=== PATIENT | female | born 1955 | race Caucasian/White ===

== ENCOUNTER → 2020-08-15 14:37 | Outpatient (BNVA) | payer MEDICARE, MEDICAID, SELFPAY | PROVIDERS: PCP Internal Medicine Cardiovascular Disease; Referring Provider Internal Medicine Cardiovascular Disease; Visit Provider Internal Medicine Cardiovascular Disease | DX: I48.0 Paroxysmal atrial fibrillation (principal); Z51.81 Encounter for therapeutic drug level monitoring; Z79.01 Long term (current) use of anticoagulants | CPT/HCPCS: 85610; 99211 ==

== ENCOUNTER 2020-08-15 19:37 | Outpatient (REF) | payer MEDICARE, MEDICAID, SELFPAY | END 2020-08-15 19:38 | disposition home or self-care (01) | LOC: HO.LNP 19:37 | PROVIDERS: Visit Provider Internal Medicine Cardiovascular Disease | DX: Z76.89 Persons encountering health services in other specified circumstances (principal) ==

== ENCOUNTER → 2020-09-03 13:33 | Outpatient (BNVA) | payer MEDICARE, MEDICAID, SELFPAY | PROVIDERS: PCP Internal Medicine; Referring Provider Internal Medicine Cardiovascular Disease; Visit Provider Internal Medicine | DX: I48.0 Paroxysmal atrial fibrillation (principal); Z51.81 Encounter for therapeutic drug level monitoring; Z79.01 Long term (current) use of anticoagulants | CPT/HCPCS: 85610 ==

== ENCOUNTER → 2020-09-10 14:21 | Outpatient (BNVA) | payer MEDICARE, MEDICAID, SELFPAY | PROVIDERS: PCP Internal Medicine; Referring Provider Internal Medicine; Visit Provider Internal Medicine | DX: I48.0 Paroxysmal atrial fibrillation (principal); Z51.81 Encounter for therapeutic drug level monitoring; Z79.01 Long term (current) use of anticoagulants | CPT/HCPCS: 85610; 99211 ==

== ENCOUNTER → 2020-09-24 13:49 | Outpatient (BNVA) | payer MEDICARE, MEDICAID, SELFPAY | PROVIDERS: PCP Internal Medicine; Visit Provider Internal Medicine | DX: I48.0 Paroxysmal atrial fibrillation (principal); Z51.81 Encounter for therapeutic drug level monitoring; Z79.01 Long term (current) use of anticoagulants | CPT/HCPCS: 85610; 99211 ==

== ENCOUNTER → 2020-10-07 13:46 | Outpatient (BNVA) | payer MEDICARE, MEDICAID, SELFPAY | PROVIDERS: PCP Internal Medicine; Referring Provider Internal Medicine; Visit Provider Internal Medicine | DX: I48.0 Paroxysmal atrial fibrillation (principal); Z51.81 Encounter for therapeutic drug level monitoring; Z79.01 Long term (current) use of anticoagulants | CPT/HCPCS: 85610; 99211 ==

== ENCOUNTER → 2020-10-08 08:35 | Outpatient (BNVA) | payer MEDICARE, MEDICAID, SELFPAY | PROVIDERS: PCP Internal Medicine; Referring Provider Internal Medicine; Visit Provider Nurse Practitioner Gerontology | DX: E11.21 Type 2 diabetes mellitus with diabetic nephropathy (principal); E11.22 Type 2 diabetes mellitus with diabetic chronic kidney disease; E11.65 Type 2 diabetes mellitus with hyperglycemia; E11.42 Type 2 diabetes mellitus with diabetic polyneuropathy; E11.3599 Type 2 diabetes mellitus with proliferative diabetic retinopathy without macular edema, unspecified eye; N18.5 Chronic kidney disease, stage 5; I25.10 Atherosclerotic heart disease of native coronary artery without angina pectoris; I10 Essential (primary) hypertension; Z79.4 Long term (current) use of insulin; Z79.899 Other long term (current) drug therapy; Z99.2 Dependence on renal dialysis | CPT/HCPCS: Q3014 ==

== ENCOUNTER → 2020-10-15 13:32 | Outpatient (BNVA) | payer MEDICARE, MEDICAID, SELFPAY | PROVIDERS: PCP Internal Medicine; Visit Provider Internal Medicine | DX: I48.0 Paroxysmal atrial fibrillation (principal); Z51.81 Encounter for therapeutic drug level monitoring; Z79.01 Long term (current) use of anticoagulants | CPT/HCPCS: 85610; 99211 ==

== ENCOUNTER → 2020-10-17 08:48 | Outpatient (BNVA) | payer MEDICARE, MEDICAID, SELFPAY | PROVIDERS: PCP Internal Medicine; Referring Provider Internal Medicine; Visit Provider Internal Medicine Gastroenterology | DX: Z76.89 Persons encountering health services in other specified circumstances (principal) | CPT/HCPCS: Q3014 ==

== ENCOUNTER 2020-10-24 10:09 | Outpatient (REF) | payer MEDICARE, MEDICAID, SELFPAY | END 2020-10-24 10:10 | disposition home or self-care (01) | LOC: HO.LAB 10:09 | PROVIDERS: Visit Provider Internal Medicine | DX: Z20.828 Contact with and (suspected) exposure to other viral communicable diseases (principal) | CPT/HCPCS: C9803; U0003 ==

== ENCOUNTER → 2020-11-12 13:27 | Outpatient (BNVA) | payer MEDICARE, MEDICAID, SELFPAY | PROVIDERS: PCP Internal Medicine; Visit Provider Internal Medicine | DX: Z20.828 Contact with and (suspected) exposure to other viral communicable diseases (principal) | CPT/HCPCS: 85610; 99211 ==

== ENCOUNTER → 2020-11-18 11:29 | Outpatient (BNVA) | payer MEDICARE, MEDICAID, SELFPAY | PROVIDERS: PCP Internal Medicine; Visit Provider Nurse Practitioner Gerontology | DX: Z13.89 Encounter for screening for other disorder (principal) | CPT/HCPCS: Q3014 ==

== ENCOUNTER → 2020-11-21 13:24 | Outpatient (BNVA) | payer MEDICARE, MEDICAID, SELFPAY | PROVIDERS: PCP Internal Medicine; Visit Provider Internal Medicine | DX: I48.0 Paroxysmal atrial fibrillation (principal); Z79.01 Long term (current) use of anticoagulants; Z51.81 Encounter for therapeutic drug level monitoring | CPT/HCPCS: 85610; 99211 ==

== ENCOUNTER → 2020-11-28 12:36 | Outpatient (BNVA) | payer MEDICARE, MEDICAID, SELFPAY | PROVIDERS: PCP Internal Medicine; Visit Provider Internal Medicine Cardiovascular Disease | DX: R01.1 Cardiac murmur, unspecified (principal); I11.0 Hypertensive heart disease with heart failure; I50.30 Unspecified diastolic (congestive) heart failure; I48.0 Paroxysmal atrial fibrillation; I25.10 Atherosclerotic heart disease of native coronary artery without angina pectoris | CPT/HCPCS: 93005; 99212 ==

== ENCOUNTER → 2020-12-05 13:36 | Outpatient (BNVA) | payer MEDICARE, MEDICAID, SELFPAY | PROVIDERS: PCP Internal Medicine; Visit Provider Internal Medicine | DX: I48.0 Paroxysmal atrial fibrillation (principal); Z79.01 Long term (current) use of anticoagulants; Z51.81 Encounter for therapeutic drug level monitoring | CPT/HCPCS: 85610; 99211 ==

== ENCOUNTER → 2020-12-17 09:24 | Outpatient (BNVA) | payer MEDICARE, MEDICAID, SELFPAY | PROVIDERS: PCP Internal Medicine; Visit Provider Nurse Practitioner Gerontology | DX: Z76.89 Persons encountering health services in other specified circumstances (principal) | CPT/HCPCS: Q3014 ==

== ENCOUNTER → 2020-12-19 13:19 | Outpatient (REF) | payer MEDICARE, MEDICAID, SELFPAY ==
--- NOTE | 2020-12-19 13:23 | CA_ITS ---
Transthoracic Echocardiogram Patient (Last, First, Middle): Jenaro Mckenna M Gender: Female Date of : 1955 Age: 65 Procedure Date: 12/19/2020 Procedure Type: Transthoracic Echocardiogram Location: OP Height: 154.94 cm Weight: 77.11 kg BSA: 1.76 m2 Heart Rate: bpm BP: 132 / 70 mmHg Die Holder: ZACH Referring MD: Raudel Banks MD Symptoms: I50.30 - Unspecified diastolic (congestive) heart failure Study Quality: Fair ECG Rhythm: Sinus Conclusions: - The left ventricular systolic function is normal. The visually estimated ejection fraction is between 65-70%. - Evidence suggests grade II (moderate) diastolic dysfunction. - There is moderately decreased right ventricular systolic function. - There is mild calcification of the aortic valve. - There is mild mitral annular calcification. - Mild pulmonary hypertension is present. Findings Left Ventricle Normal left ventricular cavity size. There is normal left ventricular wall thickness. The left ventricular systolic function is normal. The visually estimated ejection fraction is between 65-70%. There is no evidence of regional wall motion abnormalities. E/E prime ratio is >15, consistent with elevated filling pressures. Evidence suggests grade II (moderate) diastolic dysfunction. Right Ventricle Normal right ventricular cavity size. There is moderately decreased right ventricular systolic function. Aortic Valve There is a normal trileaflet aortic valve. There is mild calcification of the aortic valve. There is no aortic valve stenosis. There is trace (trivial) aortic valve regurgitation. Mitral Valve There is mild mitral annular calcification. There is mild mitral valve regurgitation. There is no mitral valve stenosis. Pulmonic Valve The pulmonic valve was not well visualized. There is mild pulmonic valve regurgitation. Tricuspid Valve Normal tricuspid valve structure. There is trace tricuspid valve regurgitation. The right ventricular systolic pressure is 35 mmHg. Mild pulmonary hypertension is present. Great Vessels The asc aorta is normal in size. Venous The inferior vena cava is normal in size. Pericardium/Pleural There is a trivial pericardial effusion. Prior Study Comparison No significant change compared to prior study dated: 08/03/2019. Measurements M-Mode Liner Measurements Normals - Women/Men AOV Cusps: 2.00 1.5-2.6 cm/m2 2D Linear Measurements IVSd: 0.93 0.6-0.9/0.6-1.0 cm LVIDd: 4.48 3.9-5.3/4.2-5.9 cm LVIDd Index: 2.55 2.4-3.2/2.2-3.1 cm/m2 LVIDs: 2.40 2.0-3.6 cm LVPWd: 0.94 0.7-1.1 cm Ao Root: 3.40 2.1-3.5 cm LA Diam: 4.20 2.7-3.8/3.0-4.0 cm LAIDs Index: 2.39 1.5-2.3 cm/m2 LV Mass: 172.78 67-162/88-224 g LV Mass Index: 98.17 43-95/49-115 g/m2 LVOT Diam: 1.80 3.0+(-)1.3 cm 2D Systolic Function EF 4C: 69.60 >55% EF 2C: 66.00 >55% EF BiP: 68.50 >55% Mitral Valve MV Pk E: 1.28 MV PK A: 0.82 MV Decel Time: 151.00 E/A: 1.60 E'Lateral: 7.56 E'Medial: 3.57 E/E' Med: 35.90 E/E' Lat: 16.90 PHT: 44.00 MVA PHT: 5.00 Decel Benzie: 8.43 Aortic Valve AoV Pk Pancho: 1.67 AoV Pk Grad: 11.00 AI Pk Pancho: 3.72 AI Benzie: 0.98 LVOT LVOT Pk Pancho: 0.78 LVOT Mn Pancho: 0.58 LVOT VTI: 0.22 LVOT Pk Grad: 2.00 LVOT Mn Grad: 2.00 LVOT Diam: 1.80 LVOT Area: 2.54 Diastolic Function MV Pk E: 1.28 MV Pk A: 0.82 E/A: 1.60 E'Medial: 3.57 E/E' Med: 35.90 E' Laterial: 7.56 E/E' Lat: 16.90 Tricuspid Valve TR Pk Pancho: 2.83 TR Pk Grad: 32.00 RA Press: 3.00 RVSP: 35.00 Great Vessels Aorta Ao Root-2D: 3.40 2.0-3.7 cm Ao Asc: 3.40 2.1-3.4 cm Pulmonary Valve PV Pk Pancho: 0.96 Peak PV Grad: 4.00 Updated in Other Vendor System with Status of Final Sergey Almaguer MD electronically signed on 12/21/2020 12:53:58 PM with status of Final
== END ==
LOC: HO.CARD 13:19
PROVIDERS: Visit Provider Internal Medicine Cardiovascular Disease
DX: I25.10 Atherosclerotic heart disease of native coronary artery without angina pectoris (principal); I48.0 Paroxysmal atrial fibrillation; I10 Essential (primary) hypertension; I50.30 Unspecified diastolic (congestive) heart failure
CPT/HCPCS: 93306

== ENCOUNTER → 2020-12-31 13:46 | Outpatient (BNVA) | payer MEDICARE, MEDICAID, SELFPAY | PROVIDERS: PCP Internal Medicine; Visit Provider Internal Medicine | DX: I48.0 Paroxysmal atrial fibrillation (principal); Z51.81 Encounter for therapeutic drug level monitoring; Z79.01 Long term (current) use of anticoagulants | CPT/HCPCS: 85610; 99211 ==

== ENCOUNTER 2021-01-07 11:17 | Outpatient (REF) | payer MEDICARE, MEDICAID, SELFPAY ==
--- NOTE | ~2021-01-07 | MM_ITS ---
EXAMINATION: MM SCREENING DIGITAL BREAST TOMOSYNTHESIS, BILATERAL CLINICAL INFORMATION: Screening. Asymptomatic. The lifetime risk of breast cancer based on the Tyrer-Cuzick Model is 8%. COMPARISON: Mammography: 08/03/2019, 06/27/2018, 05/24/2017 TECHNIQUE: Digital breast tomosynthesis is performed in both the craniocaudal and mediolateral oblique views along with computer-aided detection (CAD). Synthesized 2D images are generated from the tomosynthesis. Additional left MLO view is provided. FINDINGS: There are scattered areas of fibroglandular density (ACR BI-RADS breast composition Category b). There are no significant masses, abnormal calcifications, or other abnormalities. Parenchymal pattern is similar to prior studies. There are scattered bilateral vascular and some round calcifications again seen. No significant changes. MM/MM tomosynthesis screening BI IMPRESSION: No mammographic evidence of malignancy. ASSESSMENT: BI-RADS 1: Negative RECOMMENDATION: Routine annual mammography screening. This patient's information was entered into a reminder system with a target due date for their next mammogram.
== END 2021-01-07 11:18 | disposition home or self-care (01) ==
LOC: HO.MAMMO 11:17
PROVIDERS: PCP Internal Medicine; Visit Provider Internal Medicine
DX: I48.0 Paroxysmal atrial fibrillation (principal); Z12.31 Encounter for screening mammogram for malignant neoplasm of breast; Z51.81 Encounter for therapeutic drug level monitoring; Z79.01 Long term (current) use of anticoagulants
CPT/HCPCS: 77063; 77067; 85610; 99211

== ENCOUNTER 2021-01-21 10:51 | Outpatient (REF) | payer MEDICARE, MEDICAID, SELFPAY ==
[2021-01-21 13:21] LABS: Hematocrit 36.7 % (37-47); Hemoglobin 11.1 g/dl (12.0-16.0); Mean Corpuscular HGB Conc 30.2 g/dl (31.0-35.0); Mean Corpuscular Hemoglobin 25.6 pg (27.0-33.0); Mean Corpuscular Volume 84.6 fL (80-98); Mean Platelet Volume 11.4 fL (9.4-12.3); Platelet Count 128 X10*3/uL (160-400); Red Blood Count 4.34 X10*6/uL (4.20-5.50); Red Cell Distribution Width 13.5 % (11.0-16.0); White Blood Count 2.7 X10*3/uL (4.8-10.8)
[2021-01-21 14:12] LABS: Cholesterol 104 mg/dL; HDL Cholesterol 33 mg/dL; LDL Cholesterol Calculated 45 mg/dl; Triglycerides 132 mg/dL
[2021-01-21 14:15] LABS: Estimated Average Glucose 189 mg/dL; Hemoglobin A1c % 8.2 %
[2021-01-21 14:32] LABS: Alanine Aminotransferase 10 U/L (0-31); Albumin Level 3.9 g/dL (3.5-5.0); Alkaline Phosphatase 128 U/L (39-117); Anion Gap 18 (12-20); Aspartate Amino Transferase 16 U/L (5-31); Bilirubin Direct 0.2 mg/dL (0.0-0.5); Bilirubin Total 0.3 mg/dL (0.0-1.0); Blood Urea Nitrogen 44 mg/dL (9-16); Calcium 8.4 mg/dL (8.4-10.2); Carbon Dioxide 28 mmol/L (22-29); Chloride 98 mmol/L (96-108); Cholesterol 105 mg/dL; Glucose Fasting 167 mg/dL (60-99); HDL Cholesterol 33 mg/dL; LDL Cholesterol Calculated 46 mg/dl; Potassium 4.8 mmol/L (3.3-5.1); Sodium 139 mmol/L (135-145); Total Protein 6.4 g/dL (6.5-8.0); Triglycerides 133 mg/dL
[2021-01-21 15:01] LABS: Estimated Glomerular Filt Rate 5
== END 2021-01-21 10:52 | disposition home or self-care (01) ==
LOC: HO.LAB 10:51
PROVIDERS: Internal Medicine Cardiovascular Disease; Absent Provider Nurse Practitioner Gerontology; PCP Internal Medicine; Visit Provider Nurse Practitioner Family
DX: Z01.810 Encounter for preprocedural cardiovascular examination (principal); E11.22 Type 2 diabetes mellitus with diabetic chronic kidney disease; I13.2 Hypertensive heart and chronic kidney disease with heart failure and with stage 5 chronic kidney disease, or end stage renal disease; I50.30 Unspecified diastolic (congestive) heart failure; N18.6 End stage renal disease; E78.5 Hyperlipidemia, unspecified; I25.10 Atherosclerotic heart disease of native coronary artery without angina pectoris; I48.0 Paroxysmal atrial fibrillation; Z95.1 Presence of aortocoronary bypass graft; Z99.2 Dependence on renal dialysis; Z98.890 Other specified postprocedural states; Z79.899 Other long term (current) drug therapy; Z79.4 Long term (current) use of insulin; Z51.81 Encounter for therapeutic drug level monitoring; Z79.01 Long term (current) use of anticoagulants
CPT/HCPCS: 36415; 80053; 80061; 80076; 82248; 83036; 84443; 85027; 85610; 93005; 99211; 99212

== ENCOUNTER 2021-02-11 06:21 | Day surgery (SDC) | payer MEDICARE, MEDICAID, SELFPAY ==
[2021-02-05 10:06] VITALS: BMI 31.4
--- NOTE | 2021-02-10 09:55 | HO.ANESPROP2 ---
Documented by User: America Barksdale 02/10/21 10:07 HPI - Anesthesia Eval Consult details Narrative: 66yo F for Upper Endoscopy Cardiac cleared @ intermediate Coumadin for afib, To bridge with Lovenox Dialysis 3 x weekly - *AV Fistula* PMFSH Active Problems Active Problems: All Active Problems (Updated 02/05/21 @ 10:05 by Kimi Bustillo) Current use of anticoagulant therapy (Acute) Liver transplant status (Acute) Systolic murmur (Acute) Preop cardiovascular exam (Acute) S/P cardiac cath (Acute ~10/2018) (HFpEF) heart failure with preserved ejection fraction (Acute) Paroxysmal atrial fibrillation (Acute) HTN (hypertension) (Acute) CAD (coronary artery disease) (Acute) 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 (Acute) Type 2 diabetes mellitus with hyperglycemia, with long-term current use of insulin (Acute) Diabetic nephropathy (Acute) Proliferative diabetic retinopathy (Acute) Hyperlipidemia LDL goal <70 (Acute) Past Medical History Medical History (HFpEF) heart failure with preserved ejection fraction A-V fistula Anemia CAD (coronary artery disease) Chronic kidney disease, stage V COPD (chronic obstructive pulmonary disease) Diabetic nephropathy History of alcoholism History of cardioversion History of GI bleed HTN (hypertension) Hyperlipidemia LDL goal <70 Kidney disease, chronic, end stage on dialysis Neuropathy On beta hero at home KIA (obstructive sleep apnea) Osteoarthritis Osteopenia Paroxysmal atrial fibrillation Portal hypertension Proliferative diabetic retinopathy Type 2 diabetes mellitus with hyperglycemia, with long-term current use of insulin 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 Mother No problems noted. Brother Diabetes Surgical History Surgical History History of biliary duct stent placement History of esophagogastroduodenoscopy (EGD) History of intravascular stent placement Hx of colonoscopy S/P cardiac cath (~10/2018) Status post liver transplant Social History Social History Household Members: Spouse and Other Housing: Apartment Alcohol intake: never Smoking Status: Never smoker Advance Directives: No Advance Directives Information Provided: No Advance Directives on File: No Meds Allergies Allergy/AdvReac Type Severity Reaction Status Date / Time No Known Allergies Allergy Verified 02/05/21 09:39 [No Known Allergies*] Home Medications Medication Instructions Recorded Confirmed Last Taken Type alcohol swabs pad TOPICAL DIRECTED 10/08/20 01/21/21 Unknown History atorvastatin 80 mg tablet 80 mg PO BEDTIME 10/08/20 02/05/21 Unknown History blood sugar diagnostic #10 ea 10/08/20 01/21/21 Unknown History docusate sodium 100 mg capsule 100 mg PO TID PRN 10/08/20 02/05/21 Unknown History folic acid 1 mg tablet 1 mg PO BEDTIME 10/08/20 02/05/21 Unknown History lancets 33 gauge #100 ea 10/08/20 01/21/21 Unknown History metoprolol tartrate 50 mg tablet 50 mg PO BID 10/08/20 02/05/21 Unknown History pantoprazole 40 mg tablet,delayed 40 mg PO DAILY 10/08/20 02/05/21 Unknown History release ferrous sulfate 325 mg (65 mg 325 mg PO BID 11/12/20 02/05/21 Unknown History iron) tablet fluticasone propionate 110 1 puff INHALATION BID 11/12/20 02/05/21 Unknown History mcg/actuation HFA aerosol inhaler fluticasone propionate 50 1 - 2 spray INTRANASAL DAILY PRN 11/12/20 02/05/21 Unknown History mcg/actuation nasal spray,suspension loratadine 10 mg tablet 10 mg PO DAILY 11/12/20 02/05/21 Unknown History mirtazapine 7.5 mg tablet 7.5 mg PO BEDTIME 11/12/20 02/05/21 Unknown History mycophenolate mofetil 250 mg 250 mg PO BID 11/12/20 02/05/21 Unknown History capsule sennosides 8.6 mg tablet 17.2 mg PO BEDTIME PRN 11/12/20 02/05/21 Unknown History sevelamer carbonate 800 mg tablet 800 mg PO QID 11/12/20 02/05/21 Unknown History tacrolimus 1 mg capsule, 4 mg PO 11/12/20 01/21/21 Unknown History immediate-release trazodone 50 mg tablet 50 mg PO BEDTIME 11/12/20 02/05/21 Unknown History insulin degludec 100 unit/mL (3 20 unit SUBCUT DAILY ml 11/18/20 02/05/21 Unknown History mL) subcutaneous pen vitamin B complex and vitamin C 1 cap PO BEDTIME 01/07/21 02/05/21 Unknown History no.20-folic acid 1 mg capsule Exam Exam Date and Time: February 10, 2021 0955 Height,Weight and Vital Signs: Height 5 ft 1 in Weight 75.381 kg Pertinent Lab Results Pertinent Lab Results: Laboratory Tests 01/21/21 01/21/21 12:44 12:44 WBC 2.7 L Hgb 11.1 L Hct 36.7 L Plt Count 128 L Sodium 139 Potassium 4.8 Chloride 98 Carbon Dioxide 28 BUN 44 H Creatinine 8.48 H* Narrative Narrative: EKG 01/2021 sinus rhythm with PAC, septal Q-wave, nonspecific ST abnormality, unchanged from prior, rate 64, QTC 482 milliseconds Echo 11/2020 Conclusions: - The left ventricular systolic function is normal. The visually estimated ejection fraction is between 65-70%. - Evidence suggests grade II (moderate) diastolic dysfunction. - There is moderately decreased right ventricular systolic function. - There is mild calcification of the aortic valve. - There is mild mitral annular calcification. - Mild pulmonary hypertension is present. Assessment and Plan Assessment Anesthesia Assessment: Chart Reviewed Documented by User: Elvie Bustillo 02/11/21 07:44 [facility] Past Medical History Medical History (HFpEF) heart failure with preserved ejection fraction A-V fistula Anemia CAD (coronary artery disease) Chronic kidney disease, stage V COPD (chronic obstructive pulmonary disease) Diabetic nephropathy History of alcoholism History of cardioversion History of GI bleed HTN (hypertension) Hyperlipidemia LDL goal <70 Kidney disease, chronic, end stage on dialysis Neuropathy On beta hero at home KIA (obstructive sleep apnea) Osteoarthritis Osteopenia Paroxysmal atrial fibrillation Portal hypertension Proliferative diabetic retinopathy Type 2 diabetes mellitus with hyperglycemia, with long-term current use of insulin 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 Mother No problems noted. Brother Diabetes Family history of problems with anesthesia: No Surgical History Surgical History History of biliary duct stent placement History of esophagogastroduodenoscopy (EGD) History of intravascular stent placement Hx of colonoscopy S/P cardiac cath (~10/2018) Status post liver transplant History of Problems with Anesthesia: No Social History Social History Household Members: Spouse and Other Housing: Apartment Alcohol intake: never Smoking Status: Never smoker Advance Directives: No Advance Directives Information Provided: No Advance Directives on File: No Meds Allergies Allergy/AdvReac Type Severity Reaction Status Date / Time No Known Allergies Allergy Verified 02/05/21 09:39 [No Known Allergies*] Home Medications Medication Instructions Recorded Confirmed Last Taken Type alcohol swabs pad TOPICAL DIRECTED 10/08/20 01/21/21 Unknown History atorvastatin 80 mg tablet 80 mg PO BEDTIME 10/08/20 02/05/21 Unknown History blood sugar diagnostic #10 ea 10/08/20 01/21/21 Unknown History docusate sodium 100 mg capsule 100 mg PO TID PRN 10/08/20 02/05/21 Unknown History folic acid 1 mg tablet 1 mg PO BEDTIME 10/08/20 02/05/21 Unknown History lancets 33 gauge #100 ea 10/08/20 01/21/21 Unknown History metoprolol tartrate 50 mg tablet 50 mg PO BID 10/08/20 02/05/21 Unknown History pantoprazole 40 mg tablet,delayed 40 mg PO DAILY 10/08/20 02/05/21 Unknown History release ferrous sulfate 325 mg (65 mg 325 mg PO BID 11/12/20 02/05/21 Unknown History iron) tablet fluticasone propionate 110 1 puff INHALATION BID 11/12/20 02/05/21 Unknown History mcg/actuation HFA aerosol inhaler fluticasone propionate 50 1 - 2 spray INTRANASAL DAILY PRN 11/12/20 02/05/21 Unknown History mcg/actuation nasal spray,suspension loratadine 10 mg tablet 10 mg PO DAILY 11/12/20 02/05/21 Unknown History mirtazapine 7.5 mg tablet 7.5 mg PO BEDTIME 11/12/20 02/05/21 Unknown History mycophenolate mofetil 250 mg 250 mg PO BID 11/12/20 02/05/21 Unknown History capsule sennosides 8.6 mg tablet 17.2 mg PO BEDTIME PRN 11/12/20 02/05/21 Unknown History sevelamer carbonate 800 mg tablet 800 mg PO QID 11/12/20 02/05/21 Unknown History tacrolimus 1 mg capsule, 4 mg PO 11/12/20 01/21/21 Unknown History immediate-release trazodone 50 mg tablet 50 mg PO BEDTIME 11/12/20 02/05/21 Unknown History insulin degludec 100 unit/mL (3 20 unit SUBCUT DAILY ml 11/18/20 02/05/21 Unknown History mL) subcutaneous pen vitamin B complex and vitamin C 1 cap PO BEDTIME 01/07/21 02/05/21 Unknown History no.20-folic acid 1 mg capsule Exam Height,Weight and Vital Signs: Vital Signs Temp Pulse Resp BP Pulse Ox 02/11/21 07:01 98.5 F 71 16 158/72 H 98 Pertinent Lab Results Pertinent Lab Results: Lab Results 02/11/21 02/11/21 02/11/21 Range/Units 06:46 06:46 06:53 PT 12.5 (10.8-13.0) SEC INR 1.1 (0.9-1.1) Sodium 138 (135-145) mmol/L Potassium 3.5 D (3.3-5.1) mmol/L Chloride 95 L (96-108) mmol/L Carbon Dioxide 31 H (22-29) mmol/L Anion Gap 16 (12-20) POC Glucose 227 H (60-115) mg/dL Airway Mallampati Class: II TM Dist: >3cm Neck ROM: Full Loose/Missing/Broken Teeth: Yes (Edentulous) Heart: RRR Lungs: CTAB Assessment and Plan Assessment Anesthesia Assessment: Anesthesia Plan Discussed and Chart Reviewed Final Anesthetic Review NPO: Yes ASA Class: III Final Preanesthetic Review: No Changes in Pt Med Stat, Meds/Allgs Chart Reviewed, Consent Obtained/Reviewed and Anes Risks/Benef Reviewed Patient Risk: Intermediate Procedure Risk: Low Assessment/Block/Sedation in SS: Assess/Block/Sedation-SS Anesthetic Plan Anesthetic Plan: MAC: Disposition: Standard PACU
[2021-02-11 06:57] LABS: Glucose, Whole Blood 227 mg/dL (60-115)
[2021-02-11 07:01] VITALS: BP 158/72; PULSE 71; RESP 16; TEMP 36.9; O2SAT 98
[2021-02-11 07:02] LABS: INTERNATIONAL NORM RATIO 1.1 (0.9-1.1); Prothrombin Time 12.5 SEC (10.8-13.0)
--- NOTE | 2021-02-11 07:07 | PM.OP ---
Brief Operative Note Date of Service: 02/11/21 Pre-op diagnosis: FU of gastric polyp Post-op diagnosis: other (GERD, gastric polyp, gastritis) Procedure: FLEXIBLE TRANSORAL UPPER GASTROINTESTINAL ENDOSCOPY WITH BIOPSIES Consent: Indications for the procedure and potential complications of bleeding, perforation, reaction to medications and missed diagnosis were discussed with the patient and informed consent was obtained. Instrument: Olympus GIF H 190 mid size upper endoscope Monitoring: Vital signs and clinical assessment, continuous EKG monitoring, Pulse oximetry, Carbon Dioxide monitoring and blood pressure monitoring were done throughout the procedure. Procedure: The patient was placed in the left lateral decubitis position and pre-procedure medications were administered and a bite block was placed. The endoscope was inserted into the mouth and advanced under direct vision to the third part of duodenum. A careful inspection was made as the upper endoscope was withdrawn including a retroflexed examination of the proximal stomach; Findings and interventions are described below. Findings: Larynx: Edema of arytenoid cartilages Esophagus: Mildly tortuous esophagus with increased tertiary contractions without stricture or ring. GE junction at 40 cms. A 1 cm island of suspected Finnegan's 1 cms proximal to the GE junction - biopsied. Stomach: A 12-15 mm benign appearing polyp in the antrum - removed with a hot snare using minimal amount of cautery. Moderate diffuse gastric erythema with a 3 x 3 cms area of friable gastric mucosa in the body of the stomach - ? healing gastric ulcer/gastric irritation due to medications - biopsies were obtained. Mild erythema in gastric antrum - biopsied. Grade 3 flap valve on retroflexed examination of the cardia. Duodenum: Normal bulb and descending duodenum Intervention: Biopsies as noted above Impression and Post Procedure Diagnosis: Endoscopy Findings: LARYNX: Changes suggestive of LPRD ESOPHAGUS: A 1 cm island of suspected Finnegan's - biopsied. STOMACH: A 12-15 mm benign appearing polyp in the antrum - removed with a hot snare using minimal amount of cautery. Moderate diffuse gastric erythema with a 3 x 3 cms area of friable gastric mucosa in the body of the stomach - ? healing gastric ulcer/gastric irritation due to medications - biopsies were obtained. Mild erythema in gastric antrum - biopsied. Plan: Resume warfarin at previous dose tonight. Resume Lovenox injections from 02/12/21 x 5 days. Repeat prothrombin time on 11/15/20 and if still subtherapeutic recheck on 11/19/20 Above plan was discussed with [place] [facility] [place] who will FU with the patient. Patient to schedule a FU appointment in the GI Clinic with Patricia Newton M.D to discuss biopsy results. Above findings were reviewed with the patient and Gastric Polyp and Gastritis handouts were given in the discharge area Surgeon: Patricia Newton MD Anesthesia: MAC (Jael León) Consumer Education Specialist: Rosalba Lehman Estimated blood loss (mL): 0 Pathology: other (a. antral bxs r/o h pylori b. gastric body r/o gastrtis c. distal esophagus r/o barretts d. gastric polyp) Condition: stable Disposition: PACU
--- NOTE | 2021-02-11 07:07 | MHC.SHP ---
Pre-Procedural Eval Section A The patient is an INPATIENT: No The History & Physical has been completed within 30 days and I have reviewed it.: No Section B Chief Complaint: Gastric Polyp Details of Present Illness: FU of gastric polyp Relevant Family History (Specify if Yes): No Relevant Social History: None Present Medications: see Short Stay Collaborative assessment Medical History: Significant History ((HFpEF) heart failure with preserved ejection fraction Anemia CAD (coronary artery disease) Chronic kidney disease, stage V COPD (chronic obstructive pulmonary disease) Diabetic nephropathy History of alcoholism History of GI bleed HTN (hypertension) Hyperlipidemia LDL goal <70 Kidney disease, chron) History of Previous Operations: Relevant previous surgery/procedure and date(s) (History of biliary duct stent placement History of esophagogastroduodenoscopy (EGD) History of intravascular stent placement Hx of colonoscopy Status post liver transplant) Allergies: Allergies Allergy/AdvReac Type Severity Reaction Status Date / Time No Known Allergies Allergy Verified 02/05/21 09:39 [No Known Allergies*] Review of Systems Sugical H&P ROS: Negative: Constitution, Cardiovascular, Respiratory and Gastrointestinal Exam Surgical H&P Exam: Normal: Heart, Normal: Lungs, Normal: Extremities and Normal: Abdomen Plan Diagnosis/Plan: Unchanged I have reviewed the history and physical and performed a pertinent physical examination on my patient. No changes have occurred unless specified.
[2021-02-11 07:12] LABS: Anion Gap 16 (12-20); Carbon Dioxide 31 mmol/L (22-29); Chloride 95 mmol/L (96-108); Potassium 3.5 mmol/L (3.3-5.1); Sodium 138 mmol/L (135-145)
[2021-02-11] MEDS: 0.9 % Sodium Chloride 1,000 ML 50 ML IVCONT (07:20)
[2021-02-11 08:02] VITALS: BP 100/36; PULSE 65; RESP 12; TEMP 36.2; O2SAT 99
[2021-02-11 08:17] VITALS: BP 109/41; PULSE 70; RESP 16; O2SAT 94
[2021-02-11 08:29] VITALS: PULSE 71; RESP 16; O2SAT 95
== END 2021-02-11 08:58 | disposition home or self-care (01) ==
PROVIDERS: Nurse Practitioner; PCP Internal Medicine; Visit Provider Internal Medicine Gastroenterology
PROC: 0DJ08ZZ Inspection of Upper Intestinal Tract, Via Natural or Artificial Opening Endoscopic (ICD-10-PCS; CPT 43235; principal; 2021-02-11 07:30)
DX: K31.7 Polyp of stomach and duodenum (principal); K22.8 Other specified diseases of esophagus; K21.9 Gastro-esophageal reflux disease without esophagitis; K29.50 Unspecified chronic gastritis without bleeding; I13.2 Hypertensive heart and chronic kidney disease with heart failure and with stage 5 chronic kidney disease, or end stage renal disease; I50.30 Unspecified diastolic (congestive) heart failure; E11.22 Type 2 diabetes mellitus with diabetic chronic kidney disease; I12.0 Hypertensive chronic kidney disease with stage 5 chronic kidney disease or end stage renal disease; Z79.4 Long term (current) use of insulin; E11.65 Type 2 diabetes mellitus with hyperglycemia; N18.5 Chronic kidney disease, stage 5; J44.9 Chronic obstructive pulmonary disease, unspecified; Z79.51 Long term (current) use of inhaled steroids; Z79.899 Other long term (current) drug therapy; Z79.01 Long term (current) use of anticoagulants; Z99.2 Dependence on renal dialysis; Z94.4 Liver transplant status
CPT/HCPCS: 43251; 43239; 36415; 80051; 82947; 85610; 88305; 88342; J3010; Q3014

== ENCOUNTER → 2021-02-13 13:01 | Outpatient (BNVA) | payer MEDICARE, MEDICAID, SELFPAY | PROVIDERS: PCP Internal Medicine; Visit Provider Internal Medicine | DX: I48.0 Paroxysmal atrial fibrillation (principal); Z51.81 Encounter for therapeutic drug level monitoring; Z79.01 Long term (current) use of anticoagulants | CPT/HCPCS: 85610; 99211 ==

== ENCOUNTER → 2021-02-18 13:34 | Outpatient (BNVA) | payer MEDICARE, MEDICAID, SELFPAY | PROVIDERS: PCP Internal Medicine; Visit Provider Internal Medicine | DX: I48.0 Paroxysmal atrial fibrillation (principal); Z51.81 Encounter for therapeutic drug level monitoring; Z79.01 Long term (current) use of anticoagulants | CPT/HCPCS: 85610; 99211 ==

== ENCOUNTER → 2021-02-25 13:46 | Outpatient (BNVA) | payer MEDICARE, MEDICAID, SELFPAY | PROVIDERS: PCP Internal Medicine; Visit Provider Internal Medicine | DX: I48.0 Paroxysmal atrial fibrillation (principal); Z79.01 Long term (current) use of anticoagulants; Z51.81 Encounter for therapeutic drug level monitoring | CPT/HCPCS: 85610; 99212 ==

== ENCOUNTER → 2021-02-27 13:16 | Outpatient (BNVA) | payer MEDICARE, MEDICAID, SELFPAY | PROVIDERS: PCP Internal Medicine; Visit Provider Internal Medicine | DX: I48.0 Paroxysmal atrial fibrillation (principal); Z79.01 Long term (current) use of anticoagulants; Z51.81 Encounter for therapeutic drug level monitoring | CPT/HCPCS: 85610; 99211 ==

== ENCOUNTER → 2021-02-28 09:44 | Outpatient (BNVA) | payer MEDICARE, MEDICAID, SELFPAY | PROVIDERS: PCP Internal Medicine; Visit Provider Internal Medicine | DX: I48.0 Paroxysmal atrial fibrillation (principal); Z79.01 Long term (current) use of anticoagulants; Z51.81 Encounter for therapeutic drug level monitoring | CPT/HCPCS: 85610; 99211 ==

== ENCOUNTER 2021-03-02 12:03 | Emergency (ER) | payer MEDICARE, MEDICAID, SELFPAY ==
[2021-03-02 12:18] VITALS: BP 169/70; PULSE 74; RESP 18; TEMP 36.2; O2SAT 100; BMI 30.2
--- NOTE | 2021-03-02 13:20 | PC.NURSE ---
this rn attempted to draw lab work x 2 without any success. pt states that she wants to leave and she would rather go to dialysis tomorrow. pt encouraged to stay for eval. pt lwt.
== END 2021-03-02 13:25 | disposition left against medical advice (07) ==
PROVIDERS: Emergency Provider Emergency Medicine; PCP Internal Medicine
DX: R10.9 Unspecified abdominal pain (principal); R11.0 Nausea
CPT/HCPCS: 99283

== ENCOUNTER → 2021-03-04 13:36 | Outpatient (BNVA) | payer MEDICARE, MEDICAID, SELFPAY | PROVIDERS: PCP Internal Medicine; Visit Provider Internal Medicine | DX: I48.0 Paroxysmal atrial fibrillation (principal); Z79.01 Long term (current) use of anticoagulants; Z51.81 Encounter for therapeutic drug level monitoring | CPT/HCPCS: 85610; 99211 ==

== ENCOUNTER → 2021-03-11 13:56 | Outpatient (BNVA) | payer MEDICARE, MEDICAID, SELFPAY | PROVIDERS: PCP Internal Medicine; Visit Provider Internal Medicine | DX: I48.0 Paroxysmal atrial fibrillation (principal); Z51.81 Encounter for therapeutic drug level monitoring; Z79.01 Long term (current) use of anticoagulants | CPT/HCPCS: 85610; 99211 ==

== ENCOUNTER → 2021-03-13 10:26 | Outpatient (BNVA) | payer MEDICARE, MEDICAID, SELFPAY | PROVIDERS: PCP Internal Medicine; Visit Provider Internal Medicine | DX: I48.0 Paroxysmal atrial fibrillation (principal); Z51.81 Encounter for therapeutic drug level monitoring; Z79.01 Long term (current) use of anticoagulants | CPT/HCPCS: 85610; 99211 ==

== ENCOUNTER → 2021-03-14 09:32 | Outpatient (BNVA) | payer MEDICARE, MEDICAID, SELFPAY | PROVIDERS: PCP Internal Medicine; Visit Provider Internal Medicine | DX: I48.0 Paroxysmal atrial fibrillation (principal); Z51.81 Encounter for therapeutic drug level monitoring; Z79.01 Long term (current) use of anticoagulants | CPT/HCPCS: 85610; 99211 ==

== ENCOUNTER → 2021-03-18 13:38 | Outpatient (BNVA) | payer OTHER, SELFPAY | PROVIDERS: PCP Internal Medicine; Visit Provider Internal Medicine | DX: I48.0 Paroxysmal atrial fibrillation (principal); Z51.81 Encounter for therapeutic drug level monitoring; Z79.01 Long term (current) use of anticoagulants | CPT/HCPCS: 85610; 99211 ==

== ENCOUNTER → 2021-03-20 14:09 | Outpatient (BNVA) | payer OTHER, SELFPAY | PROVIDERS: PCP Internal Medicine; Visit Provider Internal Medicine | DX: I48.0 Paroxysmal atrial fibrillation (principal); Z79.01 Long term (current) use of anticoagulants; Z51.81 Encounter for therapeutic drug level monitoring | CPT/HCPCS: 85610; 99211 ==

== ENCOUNTER → 2021-03-25 13:54 | Outpatient (BNVA) | payer OTHER, SELFPAY | PROVIDERS: PCP Internal Medicine; Visit Provider Internal Medicine | DX: I48.0 Paroxysmal atrial fibrillation (principal); Z51.81 Encounter for therapeutic drug level monitoring; Z79.01 Long term (current) use of anticoagulants | CPT/HCPCS: 85610; 99211 ==

== ENCOUNTER → 2021-04-03 13:08 | Outpatient (BNVA) | payer OTHER, SELFPAY | PROVIDERS: PCP Internal Medicine; Visit Provider Internal Medicine | DX: I48.0 Paroxysmal atrial fibrillation (principal); Z51.81 Encounter for therapeutic drug level monitoring; Z79.01 Long term (current) use of anticoagulants | CPT/HCPCS: 85610; 99211 ==

== ENCOUNTER → 2021-04-08 13:50 | Outpatient (BNVA) | payer OTHER, SELFPAY | PROVIDERS: PCP Internal Medicine; Visit Provider Internal Medicine | DX: I48.0 Paroxysmal atrial fibrillation (principal); Z51.81 Encounter for therapeutic drug level monitoring; Z79.01 Long term (current) use of anticoagulants | CPT/HCPCS: 85610; 99211 ==

== ENCOUNTER → 2021-04-15 14:01 | Outpatient (BNVA) | payer OTHER, SELFPAY | PROVIDERS: PCP Internal Medicine; Visit Provider Internal Medicine | DX: I48.0 Paroxysmal atrial fibrillation (principal); Z51.81 Encounter for therapeutic drug level monitoring; Z79.01 Long term (current) use of anticoagulants | CPT/HCPCS: 85610; 99211 ==

== ENCOUNTER → 2021-04-29 13:50 | Outpatient (BNVA) | payer OTHER, SELFPAY | PROVIDERS: PCP Internal Medicine; Visit Provider Internal Medicine | DX: I48.0 Paroxysmal atrial fibrillation (principal); Z51.81 Encounter for therapeutic drug level monitoring; Z79.01 Long term (current) use of anticoagulants | CPT/HCPCS: 85610; 99211 ==

== ENCOUNTER → 2021-05-06 13:48 | Outpatient (BNVA) | payer OTHER, SELFPAY | PROVIDERS: PCP Internal Medicine; Visit Provider Internal Medicine | DX: I48.0 Paroxysmal atrial fibrillation (principal); Z51.81 Encounter for therapeutic drug level monitoring; Z79.01 Long term (current) use of anticoagulants | CPT/HCPCS: 85610; 99211 ==

== ENCOUNTER → 2021-05-13 13:09 | Outpatient (BNVA) | payer OTHER, SELFPAY | PROVIDERS: PCP Internal Medicine; Visit Provider Internal Medicine | DX: I48.0 Paroxysmal atrial fibrillation (principal); Z51.81 Encounter for therapeutic drug level monitoring; Z79.01 Long term (current) use of anticoagulants | CPT/HCPCS: 85610; 99211 ==

== ENCOUNTER → 2021-05-22 14:13 | Outpatient (BNVA) | payer OTHER, SELFPAY | PROVIDERS: PCP Internal Medicine; Visit Provider Internal Medicine | DX: I48.0 Paroxysmal atrial fibrillation (principal); Z51.81 Encounter for therapeutic drug level monitoring; Z79.01 Long term (current) use of anticoagulants | CPT/HCPCS: 85610; 99211 ==

== ENCOUNTER → 2021-05-27 14:00 | Outpatient (BNVA) | payer OTHER, SELFPAY | PROVIDERS: PCP Internal Medicine; Visit Provider Internal Medicine | DX: I48.0 Paroxysmal atrial fibrillation (principal); Z51.81 Encounter for therapeutic drug level monitoring; Z79.01 Long term (current) use of anticoagulants | CPT/HCPCS: 85610; 99211 ==

== ENCOUNTER → 2021-05-29 13:00 | Outpatient (BNVA) | payer OTHER, SELFPAY | PROVIDERS: PCP Internal Medicine; Referring Provider Internal Medicine; Visit Provider Internal Medicine Cardiovascular Disease | DX: I48.0 Paroxysmal atrial fibrillation (principal); I50.30 Unspecified diastolic (congestive) heart failure; I25.10 Atherosclerotic heart disease of native coronary artery without angina pectoris | CPT/HCPCS: 93005; 99212 ==

== ENCOUNTER → 2021-06-03 13:41 | Outpatient (BNVA) | payer OTHER, SELFPAY | PROVIDERS: PCP Internal Medicine; Visit Provider Internal Medicine | DX: I48.0 Paroxysmal atrial fibrillation (principal); Z51.81 Encounter for therapeutic drug level monitoring; Z79.01 Long term (current) use of anticoagulants | CPT/HCPCS: 85610; 99211 ==

== ENCOUNTER → 2021-06-10 13:41 | Outpatient (BNVA) | payer OTHER, SELFPAY | PROVIDERS: PCP Internal Medicine; Visit Provider Internal Medicine | DX: I48.0 Paroxysmal atrial fibrillation (principal); Z51.81 Encounter for therapeutic drug level monitoring; Z79.01 Long term (current) use of anticoagulants | CPT/HCPCS: 85610; 99211 ==

== ENCOUNTER → 2021-06-17 13:55 | Outpatient (BNVA) | payer OTHER, SELFPAY | PROVIDERS: PCP Internal Medicine; Visit Provider Internal Medicine | DX: I48.0 Paroxysmal atrial fibrillation (principal); Z51.81 Encounter for therapeutic drug level monitoring; Z79.01 Long term (current) use of anticoagulants | CPT/HCPCS: 85610; 99211 ==

== ENCOUNTER → 2021-06-24 13:31 | Outpatient (BNVA) | payer OTHER, SELFPAY | PROVIDERS: PCP Internal Medicine; Visit Provider Internal Medicine | DX: I48.0 Paroxysmal atrial fibrillation (principal); Z51.81 Encounter for therapeutic drug level monitoring; Z79.01 Long term (current) use of anticoagulants | CPT/HCPCS: 85610; 99211 ==

== ENCOUNTER → 2021-07-01 14:01 | Outpatient (BNVA) | payer OTHER, SELFPAY | PROVIDERS: PCP Internal Medicine; Visit Provider Internal Medicine | DX: I48.0 Paroxysmal atrial fibrillation (principal); Z51.81 Encounter for therapeutic drug level monitoring; Z79.01 Long term (current) use of anticoagulants | CPT/HCPCS: 85610; 99211 ==

== ENCOUNTER → 2021-07-10 13:33 | Outpatient (BNVA) | payer OTHER, SELFPAY | PROVIDERS: PCP Internal Medicine; Visit Provider Internal Medicine | DX: I48.0 Paroxysmal atrial fibrillation (principal); Z51.81 Encounter for therapeutic drug level monitoring; Z79.01 Long term (current) use of anticoagulants | CPT/HCPCS: 85610; 99211 ==

== ENCOUNTER → 2021-07-17 13:49 | Outpatient (BNVA) | payer OTHER, SELFPAY | PROVIDERS: PCP Internal Medicine; Visit Provider Internal Medicine | DX: I48.0 Paroxysmal atrial fibrillation (principal); Z51.81 Encounter for therapeutic drug level monitoring; Z79.01 Long term (current) use of anticoagulants | CPT/HCPCS: 85610; 99211 ==

== ENCOUNTER → 2021-07-29 10:26 | Outpatient (BNVA) | payer OTHER, SELFPAY | PROVIDERS: PCP Internal Medicine; Referring Provider Internal Medicine; Visit Provider Internal Medicine Cardiovascular Disease | DX: I48.0 Paroxysmal atrial fibrillation (principal); I25.10 Atherosclerotic heart disease of native coronary artery without angina pectoris; I50.30 Unspecified diastolic (congestive) heart failure | CPT/HCPCS: 93005; 99212 ==

== ENCOUNTER → 2021-07-31 13:04 | Outpatient (BNVA) | payer OTHER, SELFPAY | PROVIDERS: PCP Internal Medicine; Visit Provider Internal Medicine | DX: I48.0 Paroxysmal atrial fibrillation (principal); Z51.81 Encounter for therapeutic drug level monitoring; Z79.01 Long term (current) use of anticoagulants | CPT/HCPCS: 85610 ==

== ENCOUNTER → 2021-08-07 13:01 | Outpatient (BNVA) | payer OTHER, SELFPAY | PROVIDERS: PCP Internal Medicine; Visit Provider Internal Medicine | DX: I48.0 Paroxysmal atrial fibrillation (principal); Z51.81 Encounter for therapeutic drug level monitoring; Z79.01 Long term (current) use of anticoagulants | CPT/HCPCS: 85610; 99211 ==

== ENCOUNTER → 2021-08-21 13:03 | Outpatient (BNVA) | payer OTHER, SELFPAY | PROVIDERS: PCP Internal Medicine; Visit Provider Internal Medicine | DX: I48.0 Paroxysmal atrial fibrillation (principal); Z51.81 Encounter for therapeutic drug level monitoring; Z79.01 Long term (current) use of anticoagulants | CPT/HCPCS: 85610; 99211 ==

== ENCOUNTER → 2021-08-28 13:04 | Outpatient (BNVA) | payer OTHER, SELFPAY | PROVIDERS: PCP Internal Medicine; Visit Provider Internal Medicine | DX: I48.0 Paroxysmal atrial fibrillation (principal); Z51.81 Encounter for therapeutic drug level monitoring; Z79.01 Long term (current) use of anticoagulants | CPT/HCPCS: 85610; 99211 ==

== ENCOUNTER → 2021-09-11 13:07 | Outpatient (BNVA) | payer OTHER, SELFPAY | PROVIDERS: PCP Internal Medicine; Visit Provider Internal Medicine | DX: I48.0 Paroxysmal atrial fibrillation (principal); Z51.81 Encounter for therapeutic drug level monitoring; Z79.01 Long term (current) use of anticoagulants | CPT/HCPCS: 85610; 99211 ==

== ENCOUNTER → 2021-09-25 13:10 | Outpatient (BNVA) | payer OTHER, SELFPAY | PROVIDERS: PCP Internal Medicine; Visit Provider Internal Medicine | DX: I48.0 Paroxysmal atrial fibrillation (principal); Z79.01 Long term (current) use of anticoagulants; Z51.81 Encounter for therapeutic drug level monitoring | CPT/HCPCS: 85610; 99211 ==

== ENCOUNTER → 2021-10-16 14:46 | Outpatient (BNVA) | payer OTHER, SELFPAY | PROVIDERS: PCP Internal Medicine; Visit Provider Internal Medicine | DX: I48.0 Paroxysmal atrial fibrillation (principal); Z51.81 Encounter for therapeutic drug level monitoring; Z79.01 Long term (current) use of anticoagulants | CPT/HCPCS: 85610; 99211 ==

== ENCOUNTER → 2021-10-30 13:20 | Outpatient (BNVA) | payer OTHER, SELFPAY | PROVIDERS: PCP Internal Medicine; Visit Provider Internal Medicine | DX: I48.0 Paroxysmal atrial fibrillation (principal); Z51.81 Encounter for therapeutic drug level monitoring; Z79.01 Long term (current) use of anticoagulants | CPT/HCPCS: 85610; 99211 ==

== ENCOUNTER → 2021-11-13 13:26 | Outpatient (BNVA) | payer OTHER, SELFPAY | PROVIDERS: PCP Internal Medicine; Visit Provider Internal Medicine | DX: I48.0 Paroxysmal atrial fibrillation (principal); Z51.81 Encounter for therapeutic drug level monitoring; Z79.01 Long term (current) use of anticoagulants | CPT/HCPCS: 85610; 99211 ==

== ENCOUNTER → 2021-12-04 13:36 | Outpatient (BNVA) | payer OTHER, SELFPAY | PROVIDERS: PCP Internal Medicine; Visit Provider Internal Medicine | DX: I48.0 Paroxysmal atrial fibrillation (principal); Z51.81 Encounter for therapeutic drug level monitoring; Z79.01 Long term (current) use of anticoagulants | CPT/HCPCS: 85610; 99211 ==

== ENCOUNTER → 2021-12-09 13:17 | Outpatient (BNVA) | payer OTHER, SELFPAY | PROVIDERS: PCP Internal Medicine; Visit Provider Internal Medicine | DX: I48.0 Paroxysmal atrial fibrillation (principal); Z51.81 Encounter for therapeutic drug level monitoring; Z79.01 Long term (current) use of anticoagulants | CPT/HCPCS: 85610; 99211 ==

== ENCOUNTER → 2021-12-18 13:19 | Outpatient (BNVA) | payer OTHER, SELFPAY | PROVIDERS: PCP Internal Medicine; Visit Provider Internal Medicine | DX: I48.0 Paroxysmal atrial fibrillation (principal); Z51.81 Encounter for therapeutic drug level monitoring; Z79.01 Long term (current) use of anticoagulants | CPT/HCPCS: 85610; 99211 ==

== ENCOUNTER → 2022-01-01 12:48 | Outpatient (BNVA) | payer OTHER, SELFPAY | PROVIDERS: PCP Internal Medicine; Visit Provider Internal Medicine | DX: Z13.89 Encounter for screening for other disorder (principal) ==

== ENCOUNTER 2022-01-01 14:22 | Outpatient (REF) | payer OTHER, SELFPAY ==
--- NOTE | ~2022-01-01 | MM_ITS ---
EXAMINATION: BONE DENSITOMETRY CLINICAL INDICATION: Menopause. COMPARISON: Previous BD dated 09/09/2012 and baseline BD dated 07/08/2010. TECHNIQUE: Using a [employer] DXA System (software version: 13.1) manufactured by [employer], dual-energy x-ray absorptiometry was performed of the lumbar spine and left hip. The images are of good technical quality. Summary results are attached. FINDINGS: AP SPINE L1-L3 (excluding L4): The data of L1-L4 has been changed to exclude the L4 vertebral body, because degenerative changes at this level may cause overestimation of lumbar spine density. Current: BMD 1.135 g/cm2, Z-score 1.1, T-score -0.3, normal, 2.2% decrease from previous, 0.6% decrease from baseline (<5% change is not significant). Prior: BMD 1.160 g/cm2. Baseline: BMD 1.142 g/cm2. LEFT FEMUR, NECK: Current: BMD 0.318 g/cm2, Z-score -3.8, T-score -5.2, osteoporosis. Prior: BMD 0.842 g/cm2. Baseline: BMD 0.819 g/cm2. LEFT FEMUR, TOTAL: Current: BMD 0.309 g/cm2, Z-score -4.4, T-score -5.5, osteoporosis, 60.2% decrease from previous, 61.2% decrease from baseline (<5% change is not significant). Prior: BMD 0.776 g/cm2. Baseline: BMD 0.797 g/cm2. IDENTIFIED RISK FACTORS: Renal, height loss, history of fracture (adult), thiazide, menopause, secondary osteoporosis. HISTORY OF FRACTURE: Humerus. MEDICATIONS: Calcium or multivitamin. MM/XR DEXA axial skeleton IMPRESSION: 1. DIAGNOSIS: Osteoporosis based on the lowest T-score value of -5.5 in the total femur applying World Health Organization criteria. 2. 10-YEAR FRACTURE RISK PREDICTION, FRAX: According to the guidelines, FRAX calculation should only be performed on patients in the osteopenia bone density category. Therefore, FRAX was not performed on this patient. 3. Treatment Recommendations: NOF guidelines recommend consideration for treatment in postmenopausal women and men age 50 and older presenting with the following: -A hip or vertebral (clinical or morphometric) fracture. -T-score less than or equal to -2.5 at the femoral neck or spine after appropriate evaluation to exclude secondary causes. -Low bone mass at the hip or spine and a 10-year fracture probability by FRAX of greater than or equal to 3% for hip fracture or greater than or equal to 20% for major osteoporotic fracture based on the [place] adapted WHO algorithm. 4. Other Recommendations: All treatment decisions require clinical judgment and consideration of individual patient factors, including patient preferences, comorbidities, previous drug use, risk factors not captured in the FRAX model (e.g. frailty, falls, vitamin D deficiency, increased bone turnover, interval significant decline in bone density) and possible under or overestimation of fracture risk by FRAX. Additional medical evaluation for secondary cause of low bone mineral density may be appropriate. FUTURE SCAN RECOMMENDATION: People with diagnosed cases of osteoporosis or at high risk for fracture should have regular bone mineral density tests. For patients eligible for Medicare, routine testing is allowed once every 2 years. The testing frequency can be increased to one year for patients who have rapidly progressing disease, those who are receiving or discontinuing medical therapy to restore bone mass, or have additional risk factors.
== END 2022-01-01 14:23 | disposition home or self-care (01) ==
LOC: HO.MAMMO 14:22
PROVIDERS: PCP Internal Medicine; Visit Provider Internal Medicine
DX: Z13.820 Encounter for screening for osteoporosis (principal); Z78.0 Asymptomatic menopausal state
CPT/HCPCS: 77080

== ENCOUNTER → 2022-01-06 15:36 | Outpatient (BNVA) | payer OTHER, SELFPAY | PROVIDERS: PCP Internal Medicine; Visit Provider Internal Medicine | DX: I48.0 Paroxysmal atrial fibrillation (principal) | CPT/HCPCS: Q3014 ==

== ENCOUNTER → 2022-01-08 14:35 | Outpatient (BNVA) | payer OTHER, SELFPAY | PROVIDERS: PCP Internal Medicine; Visit Provider Internal Medicine | DX: I48.0 Paroxysmal atrial fibrillation (principal); Z51.81 Encounter for therapeutic drug level monitoring; Z79.01 Long term (current) use of anticoagulants | CPT/HCPCS: Q3014 ==

== ENCOUNTER → 2022-01-13 11:12 | Outpatient (BNVA) | payer OTHER, SELFPAY | PROVIDERS: PCP Internal Medicine; Visit Provider Internal Medicine | DX: I48.0 Paroxysmal atrial fibrillation (principal); Z51.81 Encounter for therapeutic drug level monitoring; Z79.01 Long term (current) use of anticoagulants | CPT/HCPCS: Q3014 ==

== ENCOUNTER → 2022-01-20 14:49 | Outpatient (REF) | payer OTHER, SELFPAY ==
--- NOTE | ~2022-01-20 | MM_ITS ---
EXAMINATION: MM SCREENING DIGITAL BREAST TOMOSYNTHESIS, BILATERAL CLINICAL INFORMATION: Screening. Asymptomatic. The lifetime risk of breast cancer based on the Tyrer-Cuzick Model is 7%. COMPARISON: Mammography: 05/07/2021, 08/03/2019, 06/27/2018 TECHNIQUE: Digital breast tomosynthesis is performed in both the craniocaudal and mediolateral oblique views along with computer-aided detection (CAD). Synthesized 2D images are generated from the tomosynthesis. Additional right CC view is provided. FINDINGS: There are scattered areas of fibroglandular density (ACR BI-RADS breast composition Category b). There are no significant masses, abnormal calcifications, or other abnormalities. Scattered vascular and round calcifications are again noted. No developing density or architectural abnormality. The axilla are unremarkable. No significant changes. MM/MM tomosynthesis screening BI IMPRESSION: No mammographic evidence of malignancy. ASSESSMENT: BI-RADS 2: Benign RECOMMENDATION: Routine annual mammography screening. This patient's information was entered into a reminder system with a target due date for their next mammogram.
== END ==
LOC: HO.CARD 14:49
PROVIDERS: PCP Internal Medicine; Visit Provider Internal Medicine Cardiovascular Disease
DX: Z12.31 Encounter for screening mammogram for malignant neoplasm of breast (principal); I48.0 Paroxysmal atrial fibrillation; Z51.81 Encounter for therapeutic drug level monitoring; Z79.01 Long term (current) use of anticoagulants
CPT/HCPCS: 77063; 77067; Q3014

== ENCOUNTER → 2022-01-27 11:50 | Outpatient (BNVA) | payer OTHER, SELFPAY | PROVIDERS: PCP Internal Medicine; Visit Provider Internal Medicine | DX: I48.0 Paroxysmal atrial fibrillation (principal); Z51.81 Encounter for therapeutic drug level monitoring; Z79.01 Long term (current) use of anticoagulants | CPT/HCPCS: Q3014 ==

== ENCOUNTER 2022-02-03 10:19 | Outpatient (REF) | payer OTHER, SELFPAY ==
--- NOTE | ~2022-02-03 | XR_ITS ---
EXAMINATION: XR CHEST CLINICAL INFORMATION: Paroxysmal atrial fibrillation COMPARISON: None chest x-ray 03/06/2020 TECHNIQUE: 2 views of the chest were obtained. FINDINGS: The lungs are well-expanded with increased pulmonary vascularity likely volume overload. No consolidation or pleural effusion seen. Heart size is borderline normal with evidence of previous CABG. There is a left central venous dialysis catheter noted. No gross bony abnormality. XR/XR chest 2V IMPRESSION: Pulmonary vascular congestion likely from volume overload. There is a left central venous dialysis catheter. Evidence of previous CABG.
== END 2022-02-03 10:20 | disposition home or self-care (01) ==
LOC: HO.XRAY 10:19
PROVIDERS: Absent Provider Internal Medicine Cardiovascular Disease; PCP Internal Medicine; Visit Provider Internal Medicine
DX: I48.0 Paroxysmal atrial fibrillation (principal); I50.30 Unspecified diastolic (congestive) heart failure; I25.10 Atherosclerotic heart disease of native coronary artery without angina pectoris; Z51.81 Encounter for therapeutic drug level monitoring; Z79.01 Long term (current) use of anticoagulants
CPT/HCPCS: 71046; 93005; 99212; Q3014

== ENCOUNTER 2022-02-08 10:58 | Emergency (ER) | payer OTHER, SELFPAY ==
--- NOTE | ~2022-02-08 | XR_ITS ---
EXAMINATION: XR CHEST CLINICAL INFORMATION: Dyspnea COMPARISON: 02/03/2022 TECHNIQUE: Frontal view of the chest was obtained. FINDINGS: No new abnormalities compared to 02/03/2022. Lungs are well expanded. Stable appearance of large cardiac silhouette, status post coronary artery bypass graft surgery with intact sternotomy wires in place. The dual-lumen catheter tip is in stable position near the level of junction of SVC with right atrium. There is stable prominence of central pulmonary vessels without overt edema. No focal consolidation or pleural effusion. XR/XR chest 1V IMPRESSION: Cardiomegaly and apparent pulmonary vascular congestion/mild fluid overload. However, no overt edema, pleural effusion or other significant change.
[2022-02-08 11:08] VITALS: BP 154/80; PULSE 65; RESP 18; TEMP 36.5; O2SAT 97; BMI 30.2
--- NOTE | 2022-02-08 11:44 | ED.SOB ---
HPI - SOB/Dyspnea General Chief Complaint: Dyspnea Stated Complaint: diff breathing/retaining water due to dialysis Time Seen by Provider: 02/08/22 11:32 Source: patient, family and bank sales and service manager Mode of arrival: ambulatory Limitations: no limitations History of Present Illness MD elicited complaint: shortness of breath Pertinent past history: other (CAD, HD due tomorrow, CHF) Onset (ago): day(s) (yesterday ) Context: other (drinking more water than usual worried she has fluid on her lungs) Timing: constant Severity: mild Exacerbating factors: exertion Relieving factors: nothing Known history of: congestive heart failure and other (ESRD) Associated symptoms: other (LE edema) Treatment prior to arrival: none Related Data Home Medications Medication Instructions Recorded Confirmed alcohol swabs pad TOPICAL DIRECTED 10/08/20 02/03/22 atorvastatin 80 mg tablet 80 mg PO BEDTIME 10/08/20 02/03/22 blood sugar diagnostic #10 ea 10/08/20 02/03/22 docusate sodium 100 mg capsule 100 mg PO TID PRN 10/08/20 02/03/22 folic acid 1 mg tablet 1 mg PO BEDTIME 10/08/20 02/03/22 lancets 33 gauge #100 ea 10/08/20 02/03/22 metoprolol tartrate 50 mg tablet 50 mg PO BID 10/08/20 02/03/22 pantoprazole 40 mg tablet,delayed 40 mg PO DAILY 10/08/20 02/03/22 release ferrous sulfate 325 mg (65 mg 325 mg PO BID 11/12/20 02/03/22 iron) tablet fluticasone propionate 110 1 puff INHALATION BID 11/12/20 02/03/22 mcg/actuation HFA aerosol inhaler fluticasone propionate 50 1 - 2 spray INTRANASAL DAILY PRN 11/12/20 02/03/22 mcg/actuation nasal spray,suspension loratadine 10 mg tablet 10 mg PO DAILY 11/12/20 02/03/22 mycophenolate mofetil 250 mg 250 mg PO BID 11/12/20 02/03/22 capsule tacrolimus 1 mg capsule, 4 mg PO 11/12/20 02/03/22 immediate-release trazodone 50 mg tablet 50 mg PO BEDTIME 11/12/20 02/03/22 insulin degludec 100 unit/mL (3 20 unit SUBCUT DAILY ml 11/18/20 02/03/22 mL) subcutaneous pen mirtazapine 7.5 mg tablet 7.5 mg PO BEDTIME 08/07/21 02/03/22 sennosides 8.6 mg tablet (Senna 0 mg PO 08/07/21 02/03/22 Laxative) sevelamer carbonate 800 mg tablet 800 mg PO TID 12/04/21 02/03/22 vitamin B complex and vitamin C 1 cap PO QPM 12/04/21 02/03/22 no.20-folic acid 1 mg capsule (Triphrocaps) Previous Rx's Medication Instructions Recorded warfarin 3 mg tablet 3 mg PO DAILY 90 Days #110 tab 08/23/20 pen needle, diabetic 31 gauge x #120 ea 10/08/2001/28 insulin aspart U-100 100 unit/mL 4 - 12 unit (0.04 - 0.12 mL) 07/08/21 (3 mL) subcutaneous pen (Novolog SUBCUT TID #15 ml Flexpen U-100 Insulin aspart) lisinopril 10 mg tablet 10 mg PO QAM 90 Days #90 tab 09/23/21 amiodarone 200 mg tablet 100 mg PO QAM 30 Days #15 tab 01/21/22 Allergies Allergy/AdvReac Type Severity Reaction Status Date / Time No Known Allergies Allergy Verified 02/03/22 10:20 [No Known Allergies*] Review of Systems Review of Systems: Constitutional : No Fever, No Chills ENT/Mouth : No sore throat, No Rhinorrhea, No Swallowing Difficulty Eyes: No Eye Pain, No Swelling, No Redness Cardiovascular : No Chest Pain, positive SOB, No Orthopnea, positive Edema Respiratory : No Cough, No Sputum, No Wheezing, positive dyspnea Gastrointestinal : No Nausea, No Vomiting, No Diarrhea, No abdominal Pain, No Hematochezia, No Melena Genitourinary : No Dysuria, No Urinary Frequency, No Hematuria Musculoskeletal : No joint pain, No Myalgias Skin : No Skin Lesions, No rash Neuro : No Weakness, No Numbness, No Dizziness, No Headache PMFSH Past Medical History Attestation statement: The following information was validated with the patient. Medical History (HFpEF) heart failure with preserved ejection fraction A-V fistula Anemia CAD (coronary artery disease) Chronic kidney disease, stage V COPD (chronic obstructive pulmonary disease) Diabetic nephropathy History of alcoholism History of cardioversion History of GI bleed HTN (hypertension) Hyperlipidemia LDL goal <70 Kidney disease, chronic, end stage on dialysis Neuropathy On beta hero at home KIA (obstructive sleep apnea) Osteoarthritis Osteopenia Paroxysmal atrial fibrillation Portal hypertension Proliferative diabetic retinopathy Type 2 diabetes mellitus with hyperglycemia, with long-term current use of insulin 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 Mother No problems noted. Brother Diabetes Social History Social History (Updated 02/08/22 @ 11:45 by Chely Castillo DO) Household Members: Spouse and Other Household Members Other:: grandchild Housing: Apartment Alcohol intake: never Patient Tobacco Use Status: Never used Tobacco Advance Directives: No Physical Exam Vital Signs: Vital Signs: Last Vital Signs Temp 97.7 F 02/08/22 11:08 Pulse 65 02/08/22 11:08 Resp 18 02/08/22 11:08 BP 154/80 H 02/08/22 11:08 Pulse Ox 97 02/08/22 11:08 BMI result Body Mass Index 30.2 Appearance: Alert. Oriented X3. No acute distress. Eyes: Pupils equal, round and reactive to light. ENT: Pharynx normal. Neck: Normal inspection. Neck supple. CVS: Normal heart rate and rhythm. Pulses normal. Respiratory: No respiratory distress. Breath sounds slightly diminished at the bases. 99% on RA Abdomen: Soft and nontender. Skin: Skin warm and dry. Normal skin color. Normal skin turgor. Extremities: trace pitting lower extremity edema. Neuro: Oriented X 3. No motor deficit. No sensory deficit. Course Course Course Narrative: with bank sales and service manager present I have explained to the patient and her son we need to do blood work for K and anemia along with EKG and troponin for her heart. They adamantly refuse and want to know if she has fluid on her lungs and that is it. They are upset we would even consider labs because you say it is simple but you're not the one having it done. In the middle of the conversation they got up and left. This is quite surprising and unexpected. MDM - SOB/Dyspnea MDM Narrative Medical decision making narrative: 67 yo old female with multiple medical problems here with dyspnea due for HD tomorrow her and her son state she has been drinking more water and they want to know if she has fluid on her lungs. She denies pain RA sat 99%, denies CP. I have ordered EKG, CXR, labs Discharge Plan Discharge Clinical Impression: Acute dyspnea Patient Disposition: Left Against Medical Advice Prescriptions: No Action warfarin 3 mg tablet 3 mg PO DAILY 90 Days Qty: 110 1RF Protocol: Dose Management Condition: Wednesday (Week One) Dose/Route: 6 mg Instruction: 2 x 3 mg tablets Condition: Wednesday Dose/Route: 6 mg Instruction: 2 x 3 mg tablets Condition: Wednesday Dose/Route: 6 mg Instruction: 2 x 3 mg tablets Condition: Wednesday Dose/Route: 6 mg Instruction: 2 x 3 mg tablets Condition: Dose/Route: 6 mg Instruction: 2 x 3 mg tablets Condition: Wednesday Dose/Route: 6 mg Instruction: 2 x 3 mg tablets Condition: Wednesday Dose/Route: 6 mg Instruction: 2 x 3 mg tablets Condition: Wednesday (Week Two) Dose/Route: 6 mg Instruction: 2 x 3 mg tablets Condition: Wednesday Dose/Route: 6 mg Instruction: 2 x 3 mg tablets Condition: Wednesday Dose/Route: 6 mg Instruction: 2 x 3 mg tablets Condition: Wednesday Dose/Route: 6 mg Instruction: 2 x 3 mg tablets Condition: Dose/Route: 6 mg Instruction: 2 x 3 mg tablets Condition: Wednesday Dose/Route: 6 mg Instruction: 2 x 3 mg tablets Condition: Wednesday Dose/Route: 6 mg Instruction: 2 x 3 mg tablets Protocol Text: Adjustment Start Date: Wednesday02/03/22 INR Value: 1.8 INR Date: 02/03/22 Recheck Date: 02/10/22 Rx Instructions: dose adjustments as needed, by anticoagulation clinic or provider insulin aspart U-100 [Novolog Flexpen U-100 Insulin] 100 unit/mL (3 mL) insulin pen 4 - 12 unit subcut TID Qty: 15 6RF lisinopril 10 mg tablet 10 mg PO QAM 90 Days Qty: 90 3RF amiodarone 200 mg tablet 100 mg PO QAM 30 Days Qty: 15 3RF alcohol swabs Pads, Medicated topical DIRECTED 0RF atorvastatin 80 mg tablet 80 mg PO BEDTIME 0RF (DME) blood sugar diagnostic Strip See Rx Instructions ea Not Applicable QID Qty: 10 0RF Rx Instructions: As directed (DME) lancets 33 gauge misc See Rx Instructions ea Not Applicable .MEDSUPPLY Qty: 100 0RF Rx Instructions: As directed folic acid 1 mg tablet 1 mg PO BEDTIME 0RF docusate sodium 100 mg capsule 100 mg PO TID PRN (Reason: Constipation) 0RF metoprolol tartrate 50 mg tablet 50 mg PO BID 0RF pantoprazole 40 mg tablet,delayed release (DR/EC) 40 mg PO DAILY 0RF (DME) pen needle, diabetic 31 gauge x 3/16 needle See Rx Instructions ea .ROUTE QID Qty: 120 11RF Rx Instructions: As directed 4 times a day insulin degludec 100 unit/mL (3 mL) insulin pen 20 unit subcut DAILY 0RF fluticasone propionate 110 mcg/actuation HFA aerosol inhaler 1 puff inhalation BID 0RF tacrolimus 1 mg capsule 4 mg PO 0RF fluticasone propionate 50 mcg/actuation spray,suspension 1 - 2 spray intranasal DAILY PRN (Reason: Nasal Congestion) 0RF ferrous sulfate 325 mg (65 mg iron) tablet 325 mg PO BID 0RF mycophenolate mofetil 250 mg capsule 250 mg PO BID 0RF trazodone 50 mg tablet 50 mg PO BEDTIME 0RF loratadine 10 mg tablet 10 mg PO DAILY 0RF mirtazapine 7.5 mg tablet 7.5 mg PO BEDTIME 0RF sennosides [Senna Laxative] 8.6 mg tablet 0 mg PO 0RF sevelamer carbonate 800 mg tablet 800 mg PO TID 0RF Triphrocaps 1 mg capsule 1 cap PO QPM 0RF Discharge Date/Time: 02/08/22 12:43
== END 2022-02-08 12:43 | disposition left against medical advice (07) ==
PROVIDERS: Emergency Provider Emergency Medicine; PCP Internal Medicine
DX: R06.02 Shortness of breath (principal); I25.10 Atherosclerotic heart disease of native coronary artery without angina pectoris; Z79.899 Other long term (current) drug therapy; Z79.01 Long term (current) use of anticoagulants
CPT/HCPCS: 71045; 99283

== ENCOUNTER → 2022-02-10 13:40 | Outpatient (BNVA) | payer OTHER, SELFPAY | PROVIDERS: PCP Internal Medicine; Visit Provider Internal Medicine | DX: I48.0 Paroxysmal atrial fibrillation (principal); Z51.81 Encounter for therapeutic drug level monitoring; Z79.01 Long term (current) use of anticoagulants | CPT/HCPCS: Q3014 ==

== ENCOUNTER → 2022-02-12 10:19 | Outpatient (BNVA) | payer OTHER, SELFPAY | PROVIDERS: PCP Internal Medicine Cardiovascular Disease; Visit Provider Internal Medicine | DX: I48.0 Paroxysmal atrial fibrillation (principal); Z51.81 Encounter for therapeutic drug level monitoring; Z79.01 Long term (current) use of anticoagulants | CPT/HCPCS: Q3014 ==

== ENCOUNTER → 2022-02-17 10:41 | Outpatient (BNVA) | payer OTHER, SELFPAY | PROVIDERS: PCP Internal Medicine Cardiovascular Disease; Visit Provider Internal Medicine | DX: I48.0 Paroxysmal atrial fibrillation (principal); Z51.81 Encounter for therapeutic drug level monitoring; Z79.01 Long term (current) use of anticoagulants | CPT/HCPCS: Q3014 ==

== ENCOUNTER 2022-02-22 09:06 | Inpatient (IN) | payer OTHER, SELFPAY ==
[2022-02-22] VITALS (12 sets, daily range): BP systolic 104–157; BP diastolic 47–85; PULSE 65–101; RESP 16–27; TEMP 36.6–36.7; O2SAT 92–100; BMI 31.6
--- NOTE | ~2022-02-22 | XR_ITS ---
EXAMINATION: XR chest 1V CLINICAL INFORMATION: Shortness of breath COMPARISON: 02/08/2022 TECHNIQUE: XR chest 1V Tubes and lines: Central line catheter left subclavian with its tip projecting over the right atrium unchanged. Lungs and pleura: Pulmonary vascular congestion, superimposed diffuse mild interstitial opacification probably interstitial edema unchanged. Heart and mediastinum: Stable. Bones/soft tissue: Stable XR/XR chest 1V IMPRESSION: No significant change, Central line catheter with its tip projecting over the right atrium. Pulmonary vascular congestion and diffuse interstitial opacities and probably mild interstitial edema unchanged.
--- NOTE | 2022-02-22 09:26 | ECG_ITS ---
Test Reason : SOB Blood Pressure : / mmHG Vent. Rate : 093 BPM Atrial Rate : 000 BPM P-R Int : 000 ms QRS Dur : 090 ms QT Int : 392 ms P-R-T Axes : 000 064 256 degrees QTc Int : 487 ms Poor data quality Indeterminate rhythm probably Afib Abnormal ECG When compared with ECG of 08-MAR-2020 16:40, Poor data quality in current ECG precludes serial comparison Referred By: Sandra Chamberlain Electronically Signed By:Sterling Markham
[2022-02-22 09:38] LABS: MANUAL DIFF FLAG NO
[2022-02-22 09:43] LABS: Basophils Percent Auto 0.4 % (0-2); Eosinophils Absolute Auto 0.1 X10*3/uL (0.0-0.4); Eosinophils Percent Auto 1.1 % (0-4); Hematocrit 39.1 % (37.0-47.0); Hemoglobin 11.3 g/dl (12.0-16.0); Imm Gran Abs Auto 0.04 X10*3/uL (0.00-0.03); Imm Gran Pct Auto 0.4 % (0.0-0.4); Lymphocytes Absolute Auto 1.5 X10*3/uL (1.2-4.9); Lymphocytes Percent Auto 14.5 % (20-40); Mean Corpuscular HGB Conc 28.9 g/dl (31.0-35.0); Mean Corpuscular Hemoglobin 25.1 pg (27.0-33.0); Mean Corpuscular Volume 86.9 fL (80.0-98.0); Mean Platelet Volume 12.2 fL (9.4-12.3); Monocytes Absolute Auto 0.8 X10*3/uL (0.1-1.2); Monocytes Percent Auto 7.9 % (2-11); Neutrophils Absolute Auto 7.8 x10*3/uL (2.0-8.3); Neutrophils Percent Auto 75.7 % (45-73); Platelet Count 202 X10*3/uL (160-400); Red Cell Distribution Width 14.1 % (11.0-16.0); White Blood Count 10.3 X10*3/uL (4.8-10.8)
[2022-02-22] MEDS: Nitroglycerin 2 % Oint 1 GM Packet 1 INCH TRANSDERMA (09:47)
[2022-02-22] MEDS: Furosemide 100 MG/10 ML VIAL 120 MG IVPUSH (09:50)
[2022-02-22 09:55] LABS: COVID-19 Test Negative (Negative); IDNOW Serial# 16C4AD1C
--- NOTE | 2022-02-22 10:00 | ECG_ITS ---
Test Reason : SOB Blood Pressure : / mmHG Vent. Rate : 091 BPM Atrial Rate : 091 BPM P-R Int : 212 ms QRS Dur : 090 ms QT Int : 384 ms P-R-T Axes : 069 053 264 degrees QTc Int : 472 ms Sinus rhythm with 1st degree A-V block Right atrial enlargement Low voltage QRS Septal infarct , age undetermined ST & T wave abnormality, consider inferolateral ischemia Abnormal ECG When compared with ECG of 22-FEB-2022 10:04, T wave inversion more evident in Inferior leads Referred By: Gabriel Gonsales Electronically Signed By:Sterling Markham
--- NOTE | 2022-02-22 10:08 | ED.SOB ---
HPI - SOB/Dyspnea General Chief Complaint: Dyspnea Stated Complaint: SOB Time Seen by Provider: 02/22/22 09:16 Source: patient Mode of arrival: ambulatory Limitations: no limitations History of Present Illness HPI Narrative: Patient comes emergency room complaining of shortness of breath. Patient states that for last 2 days she has been having increased work of breathing. This morning, patient was found on the toilet by EMS, vomiting, with diarrhea, oxygen saturation in the low 80s. Patient is a dialysis patient, had her dialysis 2 days ago. Patient denies chest pain. Related Data Home Medications Medication Instructions Recorded Confirmed alcohol swabs pad TOPICAL DIRECTED 10/08/20 02/12/22 atorvastatin 80 mg tablet 80 mg PO BEDTIME 10/08/20 02/12/22 blood sugar diagnostic #10 ea 10/08/20 02/12/22 docusate sodium 100 mg capsule 100 mg PO BID PRN 10/08/20 02/12/22 folic acid 1 mg tablet 1 mg PO BEDTIME 10/08/20 02/12/22 lancets 33 gauge #100 ea 10/08/20 02/12/22 metoprolol tartrate 50 mg tablet 50 mg PO BID 10/08/20 02/12/22 pantoprazole 40 mg tablet,delayed 40 mg PO BID 10/08/20 02/12/22 release ferrous sulfate 325 mg (65 mg 325 mg PO BID 11/12/20 02/12/22 iron) tablet fluticasone propionate 110 1 puff INHALATION BID 11/12/20 02/12/22 mcg/actuation HFA aerosol inhaler fluticasone propionate 50 1 - 2 spray INTRANASAL DAILY PRN 11/12/20 02/12/22 mcg/actuation nasal spray,suspension loratadine 10 mg tablet 10 mg PO DAILY 11/12/20 02/12/22 mycophenolate mofetil 250 mg 250 mg PO BID 11/12/20 02/12/22 capsule tacrolimus 1 mg capsule, 4 mg PO BID 11/12/20 02/12/22 immediate-release trazodone 50 mg tablet 50 mg PO BEDTIME 11/12/20 02/12/22 insulin degludec 100 unit/mL (3 20 unit SUBCUT DAILY ml 11/18/20 02/12/22 mL) subcutaneous pen mirtazapine 7.5 mg tablet 7.5 mg PO BEDTIME 08/07/21 02/12/22 sennosides 8.6 mg tablet (Senna 19.2 mg PO BEDTIME PRN 08/07/21 02/12/22 Laxative) sevelamer carbonate 800 mg tablet 800 mg PO TID 12/04/21 02/12/22 vitamin B complex and vitamin C 1 cap PO QPM 12/04/21 02/12/22 no.20-folic acid 1 mg capsule (Triphrocaps) sertraline 50 mg tablet 1 tab PO DAILY 02/22/22 vitamin B complex and vitamin C 1 cap PO QPM 02/22/22 no.20-folic acid 1 mg capsule (Triphrocaps) Previous Rx's Medication Instructions Recorded warfarin 3 mg tablet 3 mg PO DAILY 90 Days #110 tab 08/23/20 pen needle, diabetic 31 gauge x #120 ea 10/08/2001/28 insulin aspart U-100 100 unit/mL 4 - 12 unit (0.04 - 0.12 mL) 07/08/21 (3 mL) subcutaneous pen (Novolog SUBCUT TID #15 ml Flexpen U-100 Insulin aspart) lisinopril 10 mg tablet 10 mg PO QAM 90 Days #90 tab 09/23/21 amiodarone 200 mg tablet 100 mg PO QAM 30 Days #15 tab 01/21/22 Allergies Allergy/AdvReac Type Severity Reaction Status Date / Time No Known Allergies Allergy Verified 02/17/22 10:45 [No Known Allergies*] Review of Systems Review of Systems: Constitutional : No Weight loss, No Fever, No Chills, No Night Sweats, complaining of fatigue ENT/Mouth : No Hearing loss, No Ear Pain, No Nasal Congestion, No Sinus Pain, No Hoarseness, No sore throat, No Rhinorrhea, No Swallowing Difficulty Eyes: No Eye Pain, No Swelling, No Redness, No Foreign Body, No Discharge, No Vision Changes Cardiovascular : No Chest Pain, denies palpitations Respiratory : Complaining of cough, severe shortness of breath Gastrointestinal : Complaining of nausea vomiting and diarrhea, No Constipation, No abdominal Pain, No Hematochezia, No Melena Genitourinary : no irregular bleeding, No Dysuria, No Urinary Frequency, No Hematuria, No Urinary Incontinence, No Urgency, No Flank Pain, No Urinary Flow Changes, No Hesitancy Musculoskeletal : No joint pain, No Myalgias, No Joint Swelling Skin : No Skin Lesions, No rash Neuro : No Weakness, No Numbness, No Paresthesias, No Loss of Consciousness, No Dizziness, No Headache Psych : No Anxiety/Panic, No Depression, No SI/HI/AH/VH, No Social Issues, Heme/Lymph: No Bruising, No Bleeding,No Lymphadenopathy Endocrine : No Polyuria, No Polydipsia, No Temperature Intolerance [facility] Past Medical History Medical History (HFpEF) heart failure with preserved ejection fraction A-V fistula Anemia CAD (coronary artery disease) Chronic kidney disease, stage V COPD (chronic obstructive pulmonary disease) Diabetic nephropathy History of alcoholism History of cardioversion History of GI bleed HTN (hypertension) Hyperlipidemia LDL goal <70 Kidney disease, chronic, end stage on dialysis Neuropathy On beta hero at home KIA (obstructive sleep apnea) Osteoarthritis Osteopenia Paroxysmal atrial fibrillation Portal hypertension Proliferative diabetic retinopathy Type 2 diabetes mellitus with hyperglycemia, with long-term current use of insulin 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 Mother No problems noted. Brother Diabetes Social History Social History (Updated 02/08/22 @ 11:45 by Chely Castillo DO) Household Members: Spouse and Other Household Members Other:: grandchild Housing: Apartment Alcohol intake: never Patient Tobacco Use Status: Never used Tobacco Use of substances other than those prescribed or required for medical reasons: No Advance Directives: No Advance Directives Information Provided: No Physical Exam Vital Signs: Vital Signs: Last Vital Signs Temp 98.0 F 02/22/22 09:16 Pulse 89 02/22/22 11:38 Resp 20 02/22/22 11:38 BP 142/74 H 02/22/22 11:38 Pulse Ox 97 02/22/22 11:38 Oxygen Flow Rate 40 02/22/22 09:57 BMI result Body Mass Index 31.6 Course Course Course Narrative: On arrival, patient was significantly short of breath, oxygen saturation 80% even on 5 L of oxygen. On physical exam, patient had bilateral crackles. Patient was BiPAP. Patient was also given 120 mg of Lasix, nitroglycerin, Zofran for the nausea. Patient was also given insulin 10 units for hyperglycemia. 1 hour 45 minutes later since BiPAP was started, patient states that she feels much more comfortable breathing. Patient is being weaned off BiPAP. Pulmonary embolism is not suspected. Patient's shortness of breath likely secondary to fluid overload. Patient's INR is supratherapeutic at 4.0, patient denies lower extremity pain, no chest pain, shortness of breath improved significantly with BiPAP and the above-mentioned medications. We attempted weaning patient off of BiPAP. Patient was placed on OxyMask. Although, patient's oxygen saturation was in the low 90s, patient was very tachypneic, still feeling significantly short of breath. Patient was started on a high-flow 50 L 45% O2, patient tolerated it very well, patient feels much better. Patient's lactic acid elevated likely secondary to prolonged hypoxia. White blood cell count within normal limits, no fever, blood pressure is stable, 142/74, heart rate 89 I discussed the patient with Dr. Gonsales MDM - SOB/Dyspnea Lab Data Result diagrams: 02/22/22 09:33 02/22/22 09:33 Labs: Lab Results 02/22/22 02/22/22 02/22/22 Range/Units 09:33 09:33 09:33 WBC 10.3 (4.8-10.8) X10*3/uL RBC 4.50 (4.20-5.50) X10*6/uL Hgb 11.3 L (12.0-16.0) g/dl Hct 39.1 (37.0-47.0) % MCV 86.9 (80.0-98.0) fL MCH 25.1 L (27.0-33.0) pg MCHC 28.9 L (31.0-35.0) g/dl RDW 14.1 (11.0-16.0) % Plt Count 202 (160-400) X10*3/uL MPV 12.2 (9.4-12.3) fL Immature Gran % (Auto) 0.4 (0.0-0.4) % Neut % (Auto) 75.7 H (45-73) % Lymph % (Auto) 14.5 L (20-40) % Armstrong % (Auto) 7.9 (2-11) % Eos % (Auto) 1.1 (0-4) % Baso % (Auto) 0.4 (0-2) % Lymph # (Auto) 1.5 (1.2-4.9) X10*3/uL Armstrong # (Auto) 0.8 (0.1-1.2) X10*3/uL Eos # (Auto) 0.1 (0.0-0.4) X10*3/uL Baso # (Auto) 0.0 (0.0-0.2) X10*3/uL Abs Immat Gran (auto) 0.04 H (0.00-0.03) X10*3/uL Absolute Neuts (auto) 7.8 (2.0-8.3) x10*3/uL Absolute Nucleated RBC 0.000 (0.0-0.012) X10*3/uL Nucleated RBC % (auto) 0.0 (0.0-0.2) /100WBC PT (9.9-13.0) SEC INR (0.9-1.1) Sodium 135 (135-145) mmol/L Potassium 5.0 D (3.3-5.1) mmol/L Chloride 97 (96-108) mmol/L Carbon Dioxide 22 (22-29) mmol/L Anion Gap 21 H (12-20) BUN 29 H (9-16) mg/dL Creatinine 7.47 H* (0.5-1.4) mg/dL Estim Creat Clear Calc 6.7 Estimated GFR 5 Random Glucose 466 H* (60-115) mg/dL Lactic Acid 3.8 H* (0.5-2.0) mmol/L Calcium 9.8 D (8.4-10.2) mg/dL Total Bilirubin 0.5 (0.0-1.0) mg/dL Direct Bilirubin 0.2 (0.0-0.5) mg/dL AST 41 H D (5-31) U/L ALT 23 (0-31) U/L Alkaline Phosphatase 106 (39-117) U/L Troponin I High Sens (<3.5-17.0) ng/L B-Natriuretic Peptide (<100) pg/mL Total Protein 7.3 (6.5-8.0) g/dL Albumin 4.4 (3.5-5.0) g/dL COVID-19 (LIZBEHT) (Negative) COVID-19 Clin Com Influenza Type A (EDGAR) (Negative) Influenza Type B (EDGAR) (Negative) Influenza A & B Note 02/22/22 02/22/22 02/22/22 Range/Units 09:33 09:33 10:33 WBC (4.8-10.8) X10*3/uL RBC (4.20-5.50) X10*6/uL Hgb (12.0-16.0) g/dl Hct (37.0-47.0) % MCV (80.0-98.0) fL MCH (27.0-33.0) pg MCHC (31.0-35.0) g/dl RDW (11.0-16.0) % Plt Count (160-400) X10*3/uL MPV (9.4-12.3) fL Immature Gran % (Auto) (0.0-0.4) % Neut % (Auto) (45-73) % Lymph % (Auto) (20-40) % Armstrong % (Auto) (2-11) % Eos % (Auto) (0-4) % Baso % (Auto) (0-2) % Lymph # (Auto) (1.2-4.9) X10*3/uL Armstrong # (Auto) (0.1-1.2) X10*3/uL Eos # (Auto) (0.0-0.4) X10*3/uL Baso # (Auto) (0.0-0.2) X10*3/uL Abs Immat Gran (auto) (0.00-0.03) X10*3/uL Absolute Neuts (auto) (2.0-8.3) x10*3/uL Absolute Nucleated RBC (0.0-0.012) X10*3/uL Nucleated RBC % (auto) (0.0-0.2) /100WBC PT 47.2 H (9.9-13.0) SEC INR 4.0 H (0.9-1.1) Sodium (135-145) mmol/L Potassium (3.3-5.1) mmol/L Chloride (96-108) mmol/L Carbon Dioxide (22-29) mmol/L Anion Gap (12-20) BUN (9-16) mg/dL Creatinine (0.5-1.4) mg/dL Estim Creat Clear Calc Estimated GFR Random Glucose (60-115) mg/dL Lactic Acid (0.5-2.0) mmol/L Calcium (8.4-10.2) mg/dL Total Bilirubin (0.0-1.0) mg/dL Direct Bilirubin (0.0-0.5) mg/dL AST (5-31) U/L ALT (0-31) U/L Alkaline Phosphatase (39-117) U/L Troponin I High Sens 47.3 H (<3.5-17.0) ng/L B-Natriuretic Peptide 2615 H (<100) pg/mL Total Protein (6.5-8.0) g/dL Albumin (3.5-5.0) g/dL COVID-19 (LIZBETH) Negative (Negative) COVID-19 Clin Com See Note Influenza Type A (EDGAR) (Negative) Influenza Type B (EDGAR) (Negative) Influenza A & B Note 02/22/22 Range/Units 10:47 WBC (4.8-10.8) X10*3/uL RBC (4.20-5.50) X10*6/uL Hgb (12.0-16.0) g/dl Hct (37.0-47.0) % MCV (80.0-98.0) fL MCH (27.0-33.0) pg MCHC (31.0-35.0) g/dl RDW (11.0-16.0) % Plt Count (160-400) X10*3/uL MPV (9.4-12.3) fL Immature Gran % (Auto) (0.0-0.4) % Neut % (Auto) (45-73) % Lymph % (Auto) (20-40) % Armstrong % (Auto) (2-11) % Eos % (Auto) (0-4) % Baso % (Auto) (0-2) % Lymph # (Auto) (1.2-4.9) X10*3/uL Armstrong # (Auto) (0.1-1.2) X10*3/uL Eos # (Auto) (0.0-0.4) X10*3/uL Baso # (Auto) (0.0-0.2) X10*3/uL Abs Immat Gran (auto) (0.00-0.03) X10*3/uL Absolute Neuts (auto) (2.0-8.3) x10*3/uL Absolute Nucleated RBC (0.0-0.012) X10*3/uL Nucleated RBC % (auto) (0.0-0.2) /100WBC PT (9.9-13.0) SEC INR (0.9-1.1) Sodium (135-145) mmol/L Potassium (3.3-5.1) mmol/L Chloride (96-108) mmol/L Carbon Dioxide (22-29) mmol/L Anion Gap (12-20) BUN (9-16) mg/dL Creatinine (0.5-1.4) mg/dL Estim Creat Clear Calc Estimated GFR Random Glucose (60-115) mg/dL Lactic Acid (0.5-2.0) mmol/L Calcium (8.4-10.2) mg/dL Total Bilirubin (0.0-1.0) mg/dL Direct Bilirubin (0.0-0.5) mg/dL AST (5-31) U/L ALT (0-31) U/L Alkaline Phosphatase (39-117) U/L Troponin I High Sens (<3.5-17.0) ng/L B-Natriuretic Peptide (<100) pg/mL Total Protein (6.5-8.0) g/dL Albumin (3.5-5.0) g/dL COVID-19 (LIZBETH) (Negative) COVID-19 Clin Com Influenza Type A (EDGAR) Negative (Negative) Influenza Type B (EDGAR) Negative (Negative) Influenza A & B Note See Note Critical Care Time Critical Care Time Critical Care Time: Yes Total Critical Care Time: 60 Attestation: I have personally provided critical care time. Time includes review of lab data, radiology results, discussion with consultants, and monitoring for potential decompensation. Intervention performed as documented. Discharge Plan Discharge Clinical Impression: Congestive heart failure, Hyperglycemia Patient Disposition: Admitted As Inpatient
--- NOTE | 2022-02-22 10:09 | PC.NURSE ---
Pt arrived via ambulance, tripoding, SOB. Cyanotic to periphery and tongue. Placed on BIPAP, settings as charted. Pt tolerating well, with decreased resp effort noted. Left chest permacath in place and dressed. Nitro to right chest and Lasix given as charted.
[2022-02-22 10:19] LABS: B Type Natriuretic Peptide 2615 pg/mL (<100); Troponin-I High Sensitivity 47.3 ng/L (<3.5-17.0)
[2022-02-22 10:21] LABS: Alanine Aminotransferase 23 U/L (0-31); Albumin Level 4.4 g/dL (3.5-5.0); Alkaline Phosphatase 106 U/L (39-117); Anion Gap 21 (12-20); Aspartate Amino Transferase 41 U/L (5-31); Bilirubin Direct 0.2 mg/dL (0.0-0.5); Bilirubin Total 0.5 mg/dL (0.0-1.0); Blood Urea Nitrogen 29 mg/dL (9-16); Calcium 9.8 mg/dL (8.4-10.2); Carbon Dioxide 22 mmol/L (22-29); Chloride 97 mmol/L (96-108); Creatinine Clr Calc Pharmacy 6.7; Estimated Glomerular Filt Rate 5; Glucose Random 466 mg/dL (60-115); Lactic Acid 3.8 mmol/L (0.5-2.0); Sodium 135 mmol/L (135-145); Total Protein 7.3 g/dL (6.5-8.0)
[2022-02-22] MEDS: ondansetron HCL 4 MG/2 ML VIAL IVPUSH (10:40)
[2022-02-22] MEDS: Insulin Regular, Human 100 UNIT/ML 3 ML VIAL 10 UNIT IVPUSH (10:43)
[2022-02-22 10:44] LABS: Prothrombin Time 47.2 SEC (9.9-13.0)
--- NOTE | 2022-02-22 11:13 | PC.NURSE ---
RT at bedside attempting to wean off BIPAP
[2022-02-22 11:17] LABS: IDNOW Serial# 16C4AD1C; Influenza A Negative (Negative); Influenza B2 Negative (Negative)
--- NOTE | 2022-02-22 11:36 | PC.NURSE ---
Pt now on hi flow, tolerating well. 50lpm. sat 95%
[2022-02-22 11:37] LABS: Reflex Lactate? Lactic Acid Added
--- NOTE | 2022-02-22 12:13 | PHA.MEDREC ---
Pharmacy Consult ? Medication Reconciliation Pharmacy has completed the medication reconciliation.
[2022-02-22 12:43] LABS: ~Lactic Acid-LAB USE ONLY 3.3 mmol/L (0.5-2.0)
--- NOTE | 2022-02-22 13:57 | P.HPHOSP_ITS ---
History of Present Illness Date of Service: 02/22/22 Chief Complaint: shortness of breath 67-year-old female with known history of congestive heart failure(echo 12/19/2020 demonstrated hyperdynamic EF is 65-70 with grade 2 diastolic dysfunction presents with worsening shortness of breath over the 3-4 days prior to her admission to [facility]. She also is status post liver transplant and carries diagnosis of cardiac disease diabetes and end-stage renal disease on hemodialysis. She was found by EMS this morning on the toilet vomiting with diarrhea and saturation in the low 80s. She was brought to [facility] where she promptly received 125 you Lasix. Her O2 sats were difficult to maintain and she was therefore started on BiPAP. She tolerate the BiPAP well and did have response to the Lasix. Over the next several hours she was weaned to high-flow and has been tolerating that well. Chest x-ray done in ER demonstrated pulmonary vascular congestion with diffuse interstitial opacities and mild interstitial edema unchanged from previous. She will be admitted for further treatment of her CHF Review of Systems Review of Systems: Denies chest pain Admits to shortness of breath at rest Admits to nausea vomiting diarrhea Denies fever chills [facility] Medical History (HFpEF) heart failure with preserved ejection fraction A-V fistula Anemia CAD (coronary artery disease) Chronic kidney disease, stage V COPD (chronic obstructive pulmonary disease) Diabetic nephropathy History of alcoholism History of cardioversion History of GI bleed HTN (hypertension) Hyperlipidemia LDL goal <70 Kidney disease, chronic, end stage on dialysis Neuropathy On beta hero at home KIA (obstructive sleep apnea) Osteoarthritis Osteopenia Paroxysmal atrial fibrillation Portal hypertension Proliferative diabetic retinopathy Type 2 diabetes mellitus with hyperglycemia, with long-term current use of insulin 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 Mother No problems noted. Brother Diabetes Surgical History History of biliary duct stent placement History of esophagogastroduodenoscopy (EGD) History of intravascular stent placement Hx of colonoscopy S/P cardiac cath (~10/2018) Status post liver transplant Social History Household Members: Spouse and Other Household Members Other:: grandchild Housing: Apartment Alcohol intake: never Patient Tobacco Use Status: Never used Tobacco Use of substances other than those prescribed or required for medical reasons: No Advance Directives: No Advance Directives Information Provided: No Meds Allergies Allergy/AdvReac Type Severity Reaction Status Date / Time No Known Allergies Allergy Verified 02/17/22 10:45 [No Known Allergies*] Active Medications: Current Medications Amiodarone HCl (Amiodarone Hcl 200 Mg Tablet) 100 mg PO DAILY [facility] Atorvastatin Calcium (Atorvastatin Calcium 80 Mg Tablet) 80 mg PO BEDTIME [facility] Fluticasone Propionate (Fluticasone Propionate Nasal 16 Gm [place]) 1 - 2 spray NOSTRIL-B DAILY PRN PRN Reason: Nasal Congestion Folic Acid (Folic Acid 1 Mg Tablet) 1 mg PO BEDTIME [facility] Lisinopril (Lisinopril 10 Mg Tablet) 10 mg PO QAM [facility]; Protocol Metoprolol Tartrate (Metoprolol Tartrate 50 Mg Tablet) 50 mg PO BID [facility]; Protocol Multivitamins/Vitamin C (Multivitamin Tablet) 1 tab PO QPM [facility] Mycophenolate Mofetil (Mycophenolate Mofetil 250 Mg Capsule) 250 mg PO BID [facility] Non-Formulary Medication (Fluticasone Propionate) 1 puff INHALE BID [facility] Non-Formulary Medication (Insulin Degludec) 20 unit SUBCUT BEDTIME [facility] Non-Formulary Medication (Pantoprazole) 40 mg PO BID [facility] Pharmacy Consult (Consult Rx Perform Med Rec) 1 each MISCELLANE ONCE PRN PRN Reason: Consult order Sertraline HCl (Sertraline Hcl 50 Mg Tablet) 50 mg PO DAILY [facility] Sodium Chloride (0.9 % Sodium Chloride Flush 3 Ml Syringe) 3 ml IVFLUSH QSHIFT [facility] Tacrolimus (Tacrolimus 1 Mg Capsule) 4 mg PO BID [facility] Trazodone HCl (Trazodone Hcl 50 Mg Tablet) 50 mg PO BEDTIME [facility] Warfarin Sodium (Warfarin Sodium 2 Mg Tablet) 2 mg PO SUTUTHSA@1800 [facility] Warfarin Sodium (Warfarin Sodium 3 Mg Tablet) 3 mg PO MOWEFR@1800 [facility] Home Medications Medication Instructions Recorded Confirmed Last Taken Type alcohol swabs pad TOPICAL DIRECTED 10/08/20 02/12/22 Unknown History atorvastatin 80 mg tablet 80 mg PO BEDTIME 10/08/20 02/22/22 02/21/22 History blood sugar diagnostic #10 ea 10/08/20 02/12/22 Unknown History docusate sodium 100 mg capsule 100 mg PO BID PRN 10/08/20 02/12/22 Unknown History folic acid 1 mg tablet 1 mg PO BEDTIME 10/08/20 02/22/22 02/21/22 History lancets 33 gauge #100 ea 10/08/20 02/12/22 Unknown History metoprolol tartrate 50 mg tablet 50 mg PO BID 10/08/20 02/22/22 02/21/22 History pantoprazole 40 mg tablet,delayed 40 mg PO BID 10/08/20 02/22/22 02/21/22 History release fluticasone propionate 110 1 puff INHALATION BID 11/12/20 02/22/22 Unknown History mcg/actuation HFA aerosol inhaler fluticasone propionate 50 1 - 2 spray INTRANASAL DAILY PRN 11/12/20 02/22/22 Unknown History mcg/actuation nasal spray,suspension mycophenolate mofetil 250 mg 250 mg PO BID 11/12/20 02/22/22 02/21/22 History capsule tacrolimus 1 mg capsule, 4 mg PO BID 11/12/20 02/22/22 02/21/22 History immediate-release trazodone 50 mg tablet 50 mg PO BEDTIME 11/12/20 02/22/22 02/21/22 History insulin degludec 100 unit/mL (3 20 unit SUBCUT BEDTIME ml 11/18/20 02/22/22 02/21/22 History mL) subcutaneous pen sertraline 50 mg tablet 1 tab PO DAILY 02/22/22 02/22/22 02/21/22 History vitamin B complex and vitamin C 1 cap PO QPM 02/22/22 02/22/22 02/21/22 History no.20-folic acid 1 mg capsule (Triphrocaps) warfarin 2 mg tablet 2 mg PO SUTUTHSA@1800 02/22/22 02/22/22 02/21/22 History warfarin 3 mg tablet 3 mg PO MOWEFR@1800 02/22/22 02/22/22 02/20/22 History Physical Exam Vital Signs and Narrative: Vital Signs: Last Vital Signs Temp 98.0 F 02/22/22 09:16 Pulse 81 02/22/22 12:48 Resp 20 02/22/22 12:48 BP 136/59 L 02/22/22 12:48 Pulse Ox 98 02/22/22 12:48 Oxygen Flow Rate 40 02/22/22 09:57 BMI result Body Mass Index 31.6 Const: Other: Awake alert breathing easy on high-flow oxygen Resp: Other: Diminished throughout with bilateral basilar crackles to inferior scapular border Cardio: Other: No S4 positive S1-S2 no S3 murmurs or gallops Extrem: Other: Trace edema bilateral Results Labs CBC and Chem 7: 02/22/22 09:33 02/22/22 09:33 Labs: Laboratory Results - last 24 hr 02/22/22 02/22/22 02/22/22 09:33 09:33 09:33 MCV 86.9 MCH 25.1 L MCHC 28.9 L RDW 14.1 Plt Count 202 MPV 12.2 Immature Gran % (Auto) 0.4 Neut % (Auto) 75.7 H Lymph % (Auto) 14.5 L [place] % (Auto) 7.9 Eos % (Auto) 1.1 Baso % (Auto) 0.4 Lymph # (Auto) 1.5 [place] # (Auto) 0.8 Eos # (Auto) 0.1 Baso # (Auto) 0.0 Abs Immat Gran (auto) 0.04 H Absolute Neuts (auto) 7.8 Absolute Nucleated RBC 0.000 Nucleated RBC % (auto) 0.0 PT INR Anion Gap 21 H Estim Creat Clear Calc 6.7 Estimated GFR 5 Random Glucose 466 H* Lactic Acid 3.8 H* Lactic Acid F/U @ 2Hr Calcium 9.8 D Total Bilirubin 0.5 Direct Bilirubin 0.2 AST 41 H D ALT 23 Alkaline Phosphatase 106 Troponin I High Sens B-Natriuretic Peptide Total Protein 7.3 Albumin 4.4 COVID-19 (LIZBETH) COVID-19 Clin Com Influenza Type A (EDGAR) Influenza Type B (EDGAR) Influenza A & B Note 02/22/22 02/22/22 02/22/22 09:33 09:33 10:33 MCV MCH MCHC RDW Plt Count MPV Immature Gran % (Auto) Neut % (Auto) Lymph % (Auto) [place] % (Auto) Eos % (Auto) Baso % (Auto) Lymph # (Auto) [place] # (Auto) Eos # (Auto) Baso # (Auto) Abs Immat Gran (auto) Absolute Neuts (auto) Absolute Nucleated RBC Nucleated RBC % (auto) PT 47.2 H INR 4.0 H Anion Gap Estim Creat Clear Calc Estimated GFR Random Glucose Lactic Acid Lactic Acid F/U @ 2Hr Calcium Total Bilirubin Direct Bilirubin AST ALT Alkaline Phosphatase Troponin I High Sens 47.3 H B-Natriuretic Peptide 2615 H Total Protein Albumin COVID-19 (LIZBETH) Negative COVID-19 Clin Com See Note Influenza Type A (EDGRA) Influenza Type B (EDGAR) Influenza A & B Note 02/22/22 02/22/22 10:47 12:06 MCV MCH MCHC RDW Plt Count MPV Immature Gran % (Auto) Neut % (Auto) Lymph % (Auto) [place] % (Auto) Eos % (Auto) Baso % (Auto) Lymph # (Auto) [place] # (Auto) Eos # (Auto) Baso # (Auto) Abs Immat Gran (auto) Absolute Neuts (auto) Absolute Nucleated RBC Nucleated RBC % (auto) PT INR Anion Gap Estim Creat Clear Calc Estimated GFR Random Glucose Lactic Acid Lactic Acid F/U @ 2Hr 3.3 H* Calcium Total Bilirubin Direct Bilirubin AST ALT Alkaline Phosphatase Troponin I High Sens B-Natriuretic Peptide Total Protein Albumin COVID-19 (LIZBETH) COVID-19 Clin Com Influenza Type A (EDGAR) Negative Influenza Type B (EDGAR) Negative Influenza A & B Note See Note Imaging Radiologist's Impressions: Impressions Chest X-Ray 02/22/22 09:44 IMPRESSION: No significant change, Central line catheter with its tip projecting over the right atrium. Pulmonary vascular congestion and diffuse interstitial opacities and probably mild interstitial edema unchanged. 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 In the ER workup consistent with acute heart failure; given Lasix and placed on BiPAP with good results. Presently she is tolerating high-flow and is resting comfortably 1.HFpEF -admit to telemetry. Follow-up troponin in a.m. -repeat 2D echo in a.m. -cardiology consult -IV Lasix b.i.d. pending dialysis 2. End-stage renal disease on hemodialysis -will consult Renal to dialyze in house -continue outpatient therapies -follow renals/divalents 3.Paroxysmal Atrial Fibrillation -rate control adequate -continue outpatient therapies adjust as indicated -continue Coumadin adjust as per INR 4.DMII -continue outpatient regimen -lispro sliding scale -adjust as indicated Full Code Coumadin Will likely require 2 additional midnights going forward for treatment of acute CHF and ongoing hemodialysis Quality Stroke Does the patient have a stroke diagnosis?: No VTE Prior VTE?: No VTE Risk Level:: Medical - moderate - high VTE Device Contraindication: Treatment Not Indicated VTE Drug Contraindication: N/A - Med Ordered
[2022-02-22 14:08] LABS: Reflex Lactate? 2 Y
[2022-02-22] MEDS: Metoprolol Tartrate 50 MG TABLET PO ×2 (14:40→22:00)
[2022-02-22] MEDS: Sertraline HCL 50 MG TABLET PO (14:42)
[2022-02-22] MEDS: lisinopriL 10 MG TABLET PO (14:42)
[2022-02-22] MEDS: Amiodarone HCL 200 MG TABLET 100 MG PO (14:42)
[2022-02-22 15:26] LABS: INTERNATIONAL NORM RATIO 4.3 (0.9-1.1)
[2022-02-22] MEDS: Tacrolimus 1 MG CAPSULE 4 MG PO ×2 (15:31→22:01)
[2022-02-22] MEDS: mycophenolate mofetiL 250 MG CAPSULE PO ×2 (15:31→22:02)
[2022-02-22 15:33] LABS: ~Lactic Acid-LAB USE ONLY 2.8 mmol/L (0.5-2.0)
[2022-02-22] MEDS: 0.9 % Sodium Chloride Flush 3 ML SYRINGE IVFLUSH (15:42)
--- NOTE | 2022-02-22 16:52 | P.CONNP_ITS ---
History of Present Illness Reason for Consult Consult date: 02/22/22 Reason for consult: ESRD with pulm edema Chief Complaint Chief complaint: CHF exacerbation History of Present Illness Narrative: Jenaro is a 67 yo woman with ESRD who is followed by Dr. Louie. She is also s/p liver transplant on immunosuppression. She usually dialyzes on . She presents with CHF/pulm edema, significant hypoxemia on BPap now weaned to high flow oxygen. She is in the ER. CXR shows pulm edema. She appears uncomfortable with frequent cough. She denies Chest pain. She has had sOB for several days. she had some nausea and vomiting prior to admission as well Review of Systems Review of Systems Denies chest pain Admits to shortness of breath at rest Admits to nausea vomiting diarrhea Denies fever chills PMFSH Past Medical History Medical History (HFpEF) heart failure with preserved ejection fraction A-V fistula Anemia CAD (coronary artery disease) Chronic kidney disease, stage V COPD (chronic obstructive pulmonary disease) Diabetic nephropathy History of alcoholism History of cardioversion History of GI bleed HTN (hypertension) Hyperlipidemia LDL goal <70 Kidney disease, chronic, end stage on dialysis Neuropathy On beta hero at home KIA (obstructive sleep apnea) Osteoarthritis Osteopenia Paroxysmal atrial fibrillation Portal hypertension Proliferative diabetic retinopathy Type 2 diabetes mellitus with hyperglycemia, with long-term current use of insulin 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 Mother No problems noted. Brother Diabetes Surgical History Surgical History History of biliary duct stent placement History of esophagogastroduodenoscopy (EGD) History of intravascular stent placement Hx of colonoscopy S/P cardiac cath (~10/2018) Status post liver transplant Social History Social History Household Members: Spouse and Other Household Members Other:: grandchild Housing: Apartment Alcohol intake: never Patient Tobacco Use Status: Never used Tobacco Use of substances other than those prescribed or required for medical reasons: No Advance Directives: No Advance Directives Information Provided: No Meds Allergies Allergy/AdvReac Type Severity Reaction Status Date / Time No Known Allergies Allergy Verified 02/17/22 10:45 [No Known Allergies*] Active Medications: Current Medications Amiodarone HCl (Amiodarone Hcl 200 Mg Tablet) 100 mg PO DAILY [facility] Last Admin: 02/22/22 14:42 Dose: 100 mg Documented by: Atorvastatin Calcium (Atorvastatin Calcium 80 Mg Tablet) 80 mg PO BEDTIME [facility] Fluticasone Propionate (Fluticasone Propionate Nasal 16 Gm [place]) 1 - 2 spray NOSTRIL-B DAILY PRN PRN Reason: Nasal Congestion Fluticasone Propionate (Fluticasone Propionate 100 Mcg Blst.W.Dev) 1 puff INHALE RBID [facility] Folic Acid (Folic Acid 1 Mg Tablet) 1 mg PO BEDTIME [facility] Insulin Glargine (Insulin Glargine,Hum.Rec.Anlog 100 Unit/Ml 10 Ml Vial) 14 unit SUBCUT BEDTIME [facility] Insulin Human Lispro (Insulin Lispro 100 Unit/Ml 3 Ml Vial) 0 unit SUBCUT QIDACHS [facility]; Protocol Lisinopril (Lisinopril 10 Mg Tablet) 10 mg PO DAILY [facility]; Protocol Last Admin: 02/22/22 14:42 Dose: 10 mg Documented by: Metoprolol Tartrate (Metoprolol Tartrate 50 Mg Tablet) 50 mg PO BID [facility]; Protocol Last Admin: 02/22/22 14:40 Dose: 50 mg Documented by: Multivitamins/Vitamin C (Multivitamin Tablet) 1 tab PO BEDTIME [facility] Mycophenolate Mofetil (Mycophenolate Mofetil 250 Mg Capsule) 250 mg PO BID [facility] Last Admin: 02/22/22 15:31 Dose: 250 mg Documented by: Omeprazole (Omeprazole 20 Mg Capsule.Dr) 20 mg PO BID [facility] Pharmacy Consult (Consult Rx Perform Med Rec) 1 each MISCELLANE ONCE PRN PRN Reason: Consult order Sertraline HCl (Sertraline Hcl 50 Mg Tablet) 50 mg PO DAILY [facility] Last Admin: 02/22/22 14:42 Dose: 50 mg Documented by: Sodium Chloride (0.9 % Sodium Chloride Flush 3 Ml Syringe) 3 ml IVFLUSH QSHIFT [facility] Last Admin: 02/22/22 15:42 Dose: 3 ml Documented by: Tacrolimus (Tacrolimus 1 Mg Capsule) 4 mg PO BID [facility] Last Admin: 02/22/22 15:31 Dose: 4 mg Documented by: Trazodone HCl (Trazodone Hcl 50 Mg Tablet) 50 mg PO BEDTIME [facility] Warfarin Sodium (Warfarin Sodium 2 Mg Tablet) 2 mg PO SUTUTHSA@1800 [facility] Warfarin Sodium (Warfarin Sodium 3 Mg Tablet) 3 mg PO MOWEFR@1800 [facility] Home Medications Medication Instructions Recorded Confirmed Last Taken Type alcohol swabs pad TOPICAL DIRECTED 10/08/20 02/12/22 Unknown History atorvastatin 80 mg tablet 80 mg PO BEDTIME 10/08/20 02/22/22 02/21/22 History blood sugar diagnostic #10 ea 10/08/20 02/12/22 Unknown History docusate sodium 100 mg capsule 100 mg PO BID PRN 10/08/20 02/12/22 Unknown History folic acid 1 mg tablet 1 mg PO BEDTIME 10/08/20 02/22/22 02/21/22 History lancets 33 gauge #100 ea 10/08/20 02/12/22 Unknown History metoprolol tartrate 50 mg tablet 50 mg PO BID 10/08/20 02/22/22 02/21/22 History pantoprazole 40 mg tablet,delayed 40 mg PO BID 10/08/20 02/22/22 02/21/22 History release fluticasone propionate 110 1 puff INHALATION BID 11/12/20 02/22/22 Unknown History mcg/actuation HFA aerosol inhaler fluticasone propionate 50 1 - 2 spray INTRANASAL DAILY PRN 11/12/20 02/22/22 Unknown History mcg/actuation nasal spray,suspension mycophenolate mofetil 250 mg 250 mg PO BID 11/12/20 02/22/22 02/21/22 History capsule tacrolimus 1 mg capsule, 4 mg PO BID 11/12/20 02/22/22 02/21/22 History immediate-release trazodone 50 mg tablet 50 mg PO BEDTIME 11/12/20 02/22/22 02/21/22 History insulin degludec 100 unit/mL (3 20 unit SUBCUT BEDTIME ml 11/18/20 02/22/22 02/21/22 History mL) subcutaneous pen sertraline 50 mg tablet 1 tab PO DAILY 02/22/22 02/22/22 02/21/22 History vitamin B complex and vitamin C 1 cap PO QPM 02/22/22 02/22/22 02/21/22 History no.20-folic acid 1 mg capsule (Triphrocaps) warfarin 2 mg tablet 2 mg PO SUTUTHSA@1800 02/22/22 02/22/22 02/21/22 History warfarin 3 mg tablet 3 mg PO MOWEFR@1800 02/22/22 02/22/22 02/20/22 History Physical Exam Vital Signs: Last Vital Signs Temp 98.0 F 02/22/22 09:16 Pulse 77 02/22/22 14:47 Resp 20 02/22/22 16:10 BP 136/60 02/22/22 14:47 Pulse Ox 98 02/22/22 14:47 Oxygen Flow Rate 40 02/22/22 09:57 BMI result Body Mass Index 31.6 Const Other: Awake alert breathing easy on high-flow oxygen Resp Other: Diminished throughout with bilateral basilar crackles to inferior scapular border Cardio Other: No S4 positive S1-S2 no S3 murmurs or gallops Extrem Other: Trace edema bilateral Results Lab Results Result Diagrams: 02/22/22 09:33 02/22/22 09:33 Lab results: Chemistry 02/22/22 09:33 Sodium 135 Potassium 5.0 D Carbon Dioxide 22 BUN 29 H Creatinine 7.47 H* Calcium 9.8 D Hematology 02/22/22 09:33 WBC 10.3 Hgb 11.3 L Plt Count 202 Assessment and Plan (1) (HFpEF) heart failure with preserved ejection fraction: Status: Acute (2) End stage renal disease: Status: Acute (3) Congestive heart failure: Status: Acute (4) Liver transplant status: Status: Acute Plan This 67-year-old female with known history of heart failure with preserved ejection fraction in the backdrop of paroxysmal atrial fibrillation hypertension CAD diabetes and end-stage renal disease presents with worsening shortness of breath over the 3-4 days prior to admission. In the ER workup consistent with acute heart failure; given Lasix and placed on BiPAP with good results. Present ly she is tolerating high-flow and remains SOB and is coughing 1.HFpEF Minimally responsive to diuretics Will UF with dialysis tonight 2. End-stage renal disease on hemodialysis Uf tonight to address vol overload component of CHF HD tomorrow usual treatment Procedures Date of Service Date of Service: 02/22/22
[2022-02-22 16:59] LABS: Glucose, Whole Blood 209 mg/dL (60-115)
[2022-02-22] MEDS: Insulin Lispro 100 UNIT/ML 3 ML VIAL SUBCUT (17:06)
--- NOTE | 2022-02-22 17:37 | PC.NURSE ---
PT TO DIALYSIS WITH TELEMETRY MONITORING BEING WATCHED BY [facility] [place] CMT/US ON TELE PACK @ THIS TIME
--- NOTE | 2022-02-22 18:43 | ECG_ITS ---
Test Reason : ekg Blood Pressure : / mmHG Vent. Rate : 070 BPM Atrial Rate : 070 BPM P-R Int : 392 ms QRS Dur : 080 ms QT Int : 470 ms P-R-T Axes : 025 047 242 degrees QTc Int : 508 ms Sinus rhythm with 1st degree A-V block Low voltage QRS Septal infarct (cited on or before 08-MAR-2020) ST & T wave abnormality, consider inferior ischemia ST & T wave abnormality, consider anterolateral ischemia Abnormal ECG When compared with ECG of 23-FEB-2022 18:42, No significant change was found Prolonged QT Referred By: Gabriel Gonsales Electronically Signed By:Sterling Markham
[2022-02-22 21:43] LABS: Glucose, Whole Blood 133 mg/dL (60-115)
--- NOTE | 2022-02-22 21:55 | PC.NURSE ---
Assumed care of pt Pt back from dialysis. Pt states breathing better 100% on 2L NC. Tolerating well
[2022-02-22] MEDS: traZODone HCL 50 MG TABLET PO (22:00)
[2022-02-22] MEDS: Atorvastatin Calcium 80 MG TABLET PO (22:00)
[2022-02-22] MEDS: Folic Acid 1 MG TABLET PO (22:01)
[2022-02-22] MEDS: Multivitamin TABLET 1 TAB PO (22:01)
[2022-02-22] MEDS: Omeprazole 20 MG CAPSULE.DR PO (22:01)
[2022-02-22] MEDS: Insulin Glargine,Hum.rec.anlog 100 UNIT/ML 10 ML VIAL 14 UNIT SUBCUT (22:02)
[2022-02-23] VITALS (7 sets, daily range): BP systolic 86–133; BP diastolic 42–70; PULSE 60–73; RESP 13–19; TEMP 36.2–37.1; O2SAT 95–100
--- NOTE | 2022-02-23 06:36 | PC.NURSE ---
Pt resting on stretcher Denies any pain NAD Will continue to monitor
[2022-02-23 07:02] LABS: MANUAL DIFF FLAG NO
[2022-02-23 07:08] LABS: Basophils Percent Auto 0.2 % (0-2); Eosinophils Absolute Auto 0.1 X10*3/uL (0.0-0.4); Eosinophils Percent Auto 1.9 % (0-4); Hematocrit 34.6 % (37.0-47.0); Hemoglobin 10.2 g/dl (12.0-16.0); Imm Gran Abs Auto 0.01 X10*3/uL (0.00-0.03); Imm Gran Pct Auto 0.2 % (0.0-0.4); Lymphocytes Absolute Auto 0.7 X10*3/uL (1.2-4.9); Lymphocytes Percent Auto 11.8 % (20-40); Mean Corpuscular HGB Conc 29.5 g/dl (31.0-35.0); Mean Corpuscular Hemoglobin 25.1 pg (27.0-33.0); Mean Corpuscular Volume 85.2 fL (80.0-98.0); Mean Platelet Volume 12.2 fL (9.4-12.3); Monocytes Absolute Auto 0.7 X10*3/uL (0.1-1.2); Neutrophils Absolute Auto 4.4 x10*3/uL (2.0-8.3); Neutrophils Percent Auto 73.9 % (45-73); Platelet Count 137 X10*3/uL (160-400); Red Blood Count 4.06 X10*6/uL (4.20-5.50); Red Cell Distribution Width 14.4 % (11.0-16.0); White Blood Count 5.9 X10*3/uL (4.8-10.8)
[2022-02-23 07:22] LABS: Glucose, Whole Blood 82 mg/dL (60-115)
[2022-02-23 07:29] LABS: Alanine Aminotransferase 20 U/L (0-31); Albumin Level 3.7 g/dL (3.5-5.0); Alkaline Phosphatase 92 U/L (39-117); Anion Gap 17 (12-20); Aspartate Amino Transferase 70 U/L (5-31); Bilirubin Total 0.5 mg/dL (0.0-1.0); Blood Urea Nitrogen 34 mg/dL (9-16); Calcium 9.6 mg/dL (8.4-10.2); Carbon Dioxide 28 mmol/L (22-29); Chloride 99 mmol/L (96-108); Estimated Glomerular Filt Rate 5; Glucose Fasting 87 mg/dL (60-99); Sodium 139 mmol/L (135-145); Total Protein 5.9 g/dL (6.5-8.0)
[2022-02-23] MEDS: Sertraline HCL 50 MG TABLET PO (08:26)
[2022-02-23] MEDS: Amiodarone HCL 200 MG TABLET 100 MG PO (08:26)
[2022-02-23] MEDS: Metoprolol Tartrate 50 MG TABLET PO ×2 (08:26→22:11)
[2022-02-23] MEDS: lisinopriL 10 MG TABLET PO (08:26)
[2022-02-23] MEDS: 0.9 % Sodium Chloride Flush 3 ML SYRINGE IVFLUSH ×3 (08:28→22:12)
[2022-02-23] MEDS: mycophenolate mofetiL 250 MG CAPSULE PO ×2 (09:34→22:10)
[2022-02-23] MEDS: Omeprazole 20 MG CAPSULE.DR PO ×2 (09:34→22:11)
[2022-02-23] MEDS: Tacrolimus 1 MG CAPSULE 4 MG PO ×2 (09:34→22:11)
[2022-02-23 10:12] LABS: Prothrombin Time 67.5 SEC (9.9-13.0)
[2022-02-23 10:17] LABS: INTERNATIONAL NORM RATIO 5.7 (0.9-1.1)
--- NOTE | 2022-02-23 10:18 | PM.CNCAR ---
History of Present Illness History of Present Illness Date of Service: 02/23/22 Chief complaint: CHF exacerbation Narrative: 67-year-old female with background history of end-stage renal disease, liver transplant, heart failure with preserved ejection fraction, paroxysmal atrial fibrillation on anticoagulation, type 2 diabetes and coronary artery disease was presenting with shortness of breath. She was noted to be in congestive heart failure. She underwent ultrafiltration overnight and has been feeling much better. She said her breathing was off for 3-4 days. No chest discomfort. She is complaining of central abdominal pain. She is also quite nauseous and has poor appetite. saying that she had some dietary indiscretions and was taking more salt than usual. FORMERLY [facility] Past Medical History Medical History (HFpEF) heart failure with preserved ejection fraction A-V fistula Anemia CAD (coronary artery disease) Chronic kidney disease, stage V COPD (chronic obstructive pulmonary disease) Diabetic nephropathy History of alcoholism History of cardioversion History of GI bleed HTN (hypertension) Hyperlipidemia LDL goal <70 Kidney disease, chronic, end stage on dialysis Neuropathy On beta hero at home KIA (obstructive sleep apnea) Osteoarthritis Osteopenia Paroxysmal atrial fibrillation Portal hypertension Proliferative diabetic retinopathy Type 2 diabetes mellitus with hyperglycemia, with long-term current use of insulin 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 Mother No problems noted. Brother Diabetes Surgical History Surgical History History of biliary duct stent placement History of esophagogastroduodenoscopy (EGD) History of intravascular stent placement Hx of colonoscopy S/P cardiac cath (~10/2018) Status post liver transplant Social History Social History Household Members: Spouse and Other Household Members Other:: grandchild Housing: Apartment Alcohol intake: never Patient Tobacco Use Status: Never used Tobacco Use of substances other than those prescribed or required for medical reasons: No Advance Directives: No Advance Directives Information Provided: No Meds Allergies Allergy/AdvReac Type Severity Reaction Status Date / Time No Known Allergies Allergy Verified 02/17/22 10:45 [No Known Allergies*] Active Medications: Current Medications Amiodarone HCl (Amiodarone Hcl 200 Mg Tablet) 100 mg PO DAILY [facility] Last Admin: 02/23/22 08:26 Dose: 100 mg Documented by: Atorvastatin Calcium (Atorvastatin Calcium 80 Mg Tablet) 80 mg PO BEDTIME [facility] Last Admin: 02/22/22 22:00 Dose: 80 mg Documented by: Fluticasone Propionate (Fluticasone Propionate Nasal 16 Gm [place]) 1 - 2 spray NOSTRIL-B DAILY PRN PRN Reason: Nasal Congestion Fluticasone Propionate (Fluticasone Propionate 100 Mcg Blst.W.Dev) 1 puff INHALE RBID [facility] Last Admin: 02/23/22 10:10 Dose: Not Given Documented by: Folic Acid (Folic Acid 1 Mg Tablet) 1 mg PO BEDTIME [facility] Last Admin: 02/22/22 22:01 Dose: 1 mg Documented by: Insulin Glargine (Insulin Glargine,Hum.Rec.Anlog 100 Unit/Ml 10 Ml Vial) 14 unit SUBCUT BEDTIME [facility] Last Admin: 02/22/22 22:02 Dose: 14 unit Documented by: Insulin Human Lispro (Insulin Lispro 100 Unit/Ml 3 Ml Vial) 0 unit SUBCUT QIDACHS [facility]; Protocol Last Admin: 02/23/22 08:28 Dose: Not Given Documented by: Lisinopril (Lisinopril 10 Mg Tablet) 10 mg PO DAILY [facility]; Protocol Last Admin: 02/23/22 08:26 Dose: 10 mg Documented by: Metoprolol Tartrate (Metoprolol Tartrate 50 Mg Tablet) 50 mg PO BID [facility]; Protocol Last Admin: 02/23/22 08:26 Dose: 50 mg Documented by: Multivitamins/Vitamin C (Multivitamin Tablet) 1 tab PO BEDTIME [facility] Last Admin: 02/22/22 22:01 Dose: 1 tab Documented by: Mycophenolate Mofetil (Mycophenolate Mofetil 250 Mg Capsule) 250 mg PO BID [facility] Last Admin: 02/23/22 09:34 Dose: 250 mg Documented by: Omeprazole (Omeprazole 20 Mg Capsule.) 20 mg PO BID [facility] Last Admin: 02/23/22 09:34 Dose: 20 mg Documented by: Pharmacy Consult (Consult Rx Perform Med Rec) 1 each MISCELLANE ONCE PRN PRN Reason: Consult order Sertraline HCl (Sertraline Hcl 50 Mg Tablet) 50 mg PO DAILY [facility] Last Admin: 02/23/22 08:26 Dose: 50 mg Documented by: Sodium Chloride (0.9 % Sodium Chloride Flush 3 Ml Syringe) 3 ml IVFLUSH QSHIFT [facility] Last Admin: 02/23/22 08:28 Dose: 3 ml Documented by: Tacrolimus (Tacrolimus 1 Mg Capsule) 4 mg PO BID [facility] Last Admin: 02/23/22 09:34 Dose: 4 mg Documented by: Trazodone HCl (Trazodone Hcl 50 Mg Tablet) 50 mg PO BEDTIME [facility] Last Admin: 02/22/22 22:00 Dose: 50 mg Documented by: Warfarin Sodium (Warfarin Sodium 2 Mg Tablet) 2 mg PO SUTUTHSA@1800 [facility] Warfarin Sodium (Warfarin Sodium 3 Mg Tablet) 3 mg PO MOWEFR@1800 [facility] Home Medications Medication Instructions Recorded Confirmed Last Taken Type alcohol swabs pad TOPICAL DIRECTED 10/08/20 02/12/22 Unknown History atorvastatin 80 mg tablet 80 mg PO BEDTIME 10/08/20 02/22/22 02/21/22 History blood sugar diagnostic #10 ea 10/08/20 02/12/22 Unknown History docusate sodium 100 mg capsule 100 mg PO BID PRN 10/08/20 02/12/22 Unknown History folic acid 1 mg tablet 1 mg PO BEDTIME 10/08/20 02/22/22 02/21/22 History lancets 33 gauge #100 ea 10/08/20 02/12/22 Unknown History metoprolol tartrate 50 mg tablet 50 mg PO BID 10/08/20 02/22/22 02/21/22 History pantoprazole 40 mg tablet,delayed 40 mg PO BID 10/08/20 02/22/22 02/21/22 History release fluticasone propionate 110 1 puff INHALATION BID 11/12/20 02/22/22 Unknown History mcg/actuation HFA aerosol inhaler fluticasone propionate 50 1 - 2 spray INTRANASAL DAILY PRN 11/12/20 02/22/22 Unknown History mcg/actuation nasal spray,suspension mycophenolate mofetil 250 mg 250 mg PO BID 11/12/20 02/22/22 02/21/22 History capsule tacrolimus 1 mg capsule, 4 mg PO BID 11/12/20 02/22/22 02/21/22 History immediate-release trazodone 50 mg tablet 50 mg PO BEDTIME 11/12/20 02/22/22 02/21/22 History insulin degludec 100 unit/mL (3 20 unit SUBCUT BEDTIME ml 11/18/20 02/22/22 02/21/22 History mL) subcutaneous pen sertraline 50 mg tablet 1 tab PO DAILY 02/22/22 02/22/22 02/21/22 History vitamin B complex and vitamin C 1 cap PO QPM 02/22/22 02/22/22 02/21/22 History no.20-folic acid 1 mg capsule (Triphrocaps) warfarin 2 mg tablet 2 mg PO SUTUTHSA@1800 02/22/22 02/22/22 02/21/22 History warfarin 3 mg tablet 3 mg PO MOWEFR@1800 02/22/22 02/22/22 02/20/22 History Physical Exam Vital Signs: Vital Signs: Last Vital Signs Temp 98.1 F 02/23/22 08:40 Pulse 70 02/23/22 08:40 Resp 14 02/23/22 08:40 BP 133/70 02/23/22 08:40 Pulse Ox 100 02/23/22 08:40 Oxygen Flow Rate 40 02/22/22 09:57 BMI result Body Mass Index 31.6 GENERAL APPEARANCE: in no acute distress, pleasant. NECK: no carotid bruit, no obvious jugular venous distention. SKIN: no suspicious lesions, warm and dry. HEART: no murmurs, regular rate and rhythm. LUNGS: clear to auscultation bilaterally. ABDOMEN: soft, nontender. EXTREMITIES: no edema. PERIPHERAL PULSES: equal. NEUROLOGIC: No gross deficits, AAO X 3 Objective Labs and Meds Result diagrams: 02/23/22 06:54 02/23/22 06:54 Lab results: Laboratory Results - last 24 hr 02/22/22 02/22/22 02/22/22 09:33 09:33 09:33 WBC RBC Hgb Hct MCV MCH MCHC RDW Plt Count MPV Immature Gran % (Auto) Neut % (Auto) Lymph % (Auto) [place] % (Auto) Eos % (Auto) Baso % (Auto) Lymph # (Auto) [place] # (Auto) Eos # (Auto) Baso # (Auto) Abs Immat Gran (auto) Absolute Neuts (auto) Absolute Nucleated RBC Nucleated RBC % (auto) PT INR Sodium 135 Potassium 5.0 D Chloride 97 Carbon Dioxide 22 Anion Gap 21 H BUN 29 H Creatinine 7.47 H* Estim Creat Clear Calc 6.7 Estimated GFR 5 POC Glucose Random Glucose 466 H* Fasting Glucose Lactic Acid 3.8 H* Lactic Acid F/U @ 2Hr Lactic Acid F/U @ 4Hr Calcium 9.8 D Total Bilirubin 0.5 Direct Bilirubin 0.2 AST 41 H D ALT 23 Alkaline Phosphatase 106 Troponin I High Sens 47.3 H B-Natriuretic Peptide 2615 H Total Protein 7.3 Albumin 4.4 Influenza Type A (EDGAR) Influenza Type B (EDGAR) Influenza A & B Note 02/22/22 02/22/22 02/22/22 10:33 10:47 12:06 WBC RBC Hgb Hct MCV MCH MCHC RDW Plt Count MPV Immature Gran % (Auto) Neut % (Auto) Lymph % (Auto) [place] % (Auto) Eos % (Auto) Baso % (Auto) Lymph # (Auto) [place] # (Auto) Eos # (Auto) Baso # (Auto) Abs Immat Gran (auto) Absolute Neuts (auto) Absolute Nucleated RBC Nucleated RBC % (auto) PT 47.2 H INR 4.0 H Sodium Potassium Chloride Carbon Dioxide Anion Gap BUN Creatinine Estim Creat Clear Calc Estimated GFR POC Glucose Random Glucose Fasting Glucose Lactic Acid Lactic Acid F/U @ 2Hr 3.3 H* Lactic Acid F/U @ 4Hr Calcium Total Bilirubin Direct Bilirubin AST ALT Alkaline Phosphatase Troponin I High Sens B-Natriuretic Peptide Total Protein Albumin Influenza Type A (EDGAR) Negative Influenza Type B (EDGAR) Negative Influenza A & B Note See Note 02/22/22 02/22/22 02/22/22 15:02 15:02 16:53 WBC RBC Hgb Hct MCV MCH MCHC RDW Plt Count MPV Immature Gran % (Auto) Neut % (Auto) Lymph % (Auto) [place] % (Auto) Eos % (Auto) Baso % (Auto) Lymph # (Auto) [place] # (Auto) Eos # (Auto) Baso # (Auto) Abs Immat Gran (auto) Absolute Neuts (auto) Absolute Nucleated RBC Nucleated RBC % (auto) PT 51.0 H INR 4.3 H Sodium Potassium Chloride Carbon Dioxide Anion Gap BUN Creatinine Estim Creat Clear Calc Estimated GFR POC Glucose 209 H Random Glucose Fasting Glucose Lactic Acid Lactic Acid F/U @ 2Hr Lactic Acid F/U @ 4Hr 2.8 H* Calcium Total Bilirubin Direct Bilirubin AST ALT Alkaline Phosphatase Troponin I High Sens B-Natriuretic Peptide Total Protein Albumin Influenza Type A (EDGAR) Influenza Type B (EDGAR) Influenza A & B Note 02/22/22 02/23/22 02/23/22 21:39 06:54 06:54 WBC 5.9 RBC 4.06 L Hgb 10.2 L Hct 34.6 L MCV 85.2 MCH 25.1 L MCHC 29.5 L RDW 14.4 Plt Count 137 L D MPV 12.2 Immature Gran % (Auto) 0.2 Neut % (Auto) 73.9 H Lymph % (Auto) 11.8 L [place] % (Auto) 12.0 H Eos % (Auto) 1.9 Baso % (Auto) 0.2 Lymph # (Auto) 0.7 L [place] # (Auto) 0.7 Eos # (Auto) 0.1 Baso # (Auto) 0.0 Abs Immat Gran (auto) 0.01 Absolute Neuts (auto) 4.4 Absolute Nucleated RBC 0.000 Nucleated RBC % (auto) 0.0 PT INR Sodium 139 Potassium 5.0 Chloride 99 Carbon Dioxide 28 Anion Gap 17 BUN 34 H Creatinine 8.29 H* Estim Creat Clear Calc 6.0 Estimated GFR 5 POC Glucose 133 H Random Glucose Fasting Glucose 87 Lactic Acid Lactic Acid F/U @ 2Hr Lactic Acid F/U @ 4Hr Calcium 9.6 Total Bilirubin 0.5 Direct Bilirubin AST 70 H ALT 20 Alkaline Phosphatase 92 Troponin I High Sens B-Natriuretic Peptide Total Protein 5.9 L Albumin 3.7 Influenza Type A (EDGAR) Influenza Type B (EDGAR) Influenza A & B Note 02/23/22 02/23/22 07:18 09:44 WBC RBC Hgb Hct MCV MCH MCHC RDW Plt Count MPV Immature Gran % (Auto) Neut % (Auto) Lymph % (Auto) [place] % (Auto) Eos % (Auto) Baso % (Auto) Lymph # (Auto) [place] # (Auto) Eos # (Auto) Baso # (Auto) Abs Immat Gran (auto) Absolute Neuts (auto) Absolute Nucleated RBC Nucleated RBC % (auto) PT 67.5 H INR 5.7 H* Sodium Potassium Chloride Carbon Dioxide Anion Gap BUN Creatinine Estim Creat Clear Calc Estimated GFR POC Glucose 82 Random Glucose Fasting Glucose Lactic Acid Lactic Acid F/U @ 2Hr Lactic Acid F/U @ 4Hr Calcium Total Bilirubin Direct Bilirubin AST ALT Alkaline Phosphatase Troponin I High Sens B-Natriuretic Peptide Total Protein Albumin Influenza Type A (EDGAR) Influenza Type B (EDGAR) Influenza A & B Note Assessment and Plan (1) Congestive heart failure: Status: Acute Plan 67-year-old female who is presenting for congestive heart failure. She is end-stage renal disease and underwent ultrafiltration overnight. She is for usual hemodialysis today per minute she is feeling better with ultrafiltration. It appears she had volume overload and maybe she needs to be optimized with hemodialysis in the future. Also some dietary indiscretions which may have led to more overload. In any case right now improving with therapy. she had echocardiography in December which showed normal systolic function with grade 2 diastolic dysfunction and moderately reduced right ventricular function. I think she does not require repeat echocardiography right now. As her volume status improved with hemodialysis potentially she can return home. Thank you for allowing me to participate in the care of your patient. Please feel free to contact me if you have any questions. Procedures Date of Service Date of Service: 02/23/22
[2022-02-23 12:32] LABS: Glucose, Whole Blood 86 mg/dL (60-115)
--- NOTE | 2022-02-23 12:48 | PM.CNNEP ---
History of Present Illness Reason for Consult Consult date: 02/23/22 Reason for consult: ESRD with Hypervolemia Chief Complaint Chief complaint: CHF exacerbation History of Present Illness Narrative: 67-year-old female with ESRD who usually gets HD on MWF presented with worsening shortness of breath over the 3-4 days prior to her admission to [place] [facility].? She also is status post liver transplant . When EMS saw her she had been ahving vomiting with diarrhea and O2 saturation in the low 80s.? she was started on BiPAP.?Chest x-ray done in ER demonstrated pulmonary vascular congestion with diffuse interstitial opacities .? She was admitted for further management. Nephrology has been consulted to assist in her clinical care during her current hospital stay Review of Systems Review of Systems Yes all other systems are reviewed and are negative PMFSH Past Medical History Medical History (HFpEF) heart failure with preserved ejection fraction A-V fistula Anemia CAD (coronary artery disease) Chronic kidney disease, stage V COPD (chronic obstructive pulmonary disease) Diabetic nephropathy History of alcoholism History of cardioversion History of GI bleed HTN (hypertension) Hyperlipidemia LDL goal <70 Kidney disease, chronic, end stage on dialysis Neuropathy On beta hero at home KIA (obstructive sleep apnea) Osteoarthritis Osteopenia Paroxysmal atrial fibrillation Portal hypertension Proliferative diabetic retinopathy Type 2 diabetes mellitus with hyperglycemia, with long-term current use of insulin 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 Mother No problems noted. Brother Diabetes Surgical History Surgical History History of biliary duct stent placement History of esophagogastroduodenoscopy (EGD) History of intravascular stent placement Hx of colonoscopy S/P cardiac cath (~10/2018) Status post liver transplant Social History Social History Household Members: Spouse and Family Household Members Other:: grandchild Housing: Apartment Do you presently have visiting nurse or other home services: Yes Alcohol intake: never Patient Tobacco Use Status: Never used Tobacco Meds Allergies Allergy/AdvReac Type Severity Reaction Status Date / Time No Known Allergies Allergy Verified 02/17/22 10:45 [No Known Allergies*] Active Medications: Current Medications Amiodarone HCl (Amiodarone Hcl 200 Mg Tablet) 100 mg PO DAILY [facility] Last Admin: 02/23/22 08:26 Dose: 100 mg Documented by: Atorvastatin Calcium (Atorvastatin Calcium 80 Mg Tablet) 80 mg PO BEDTIME [facility] Last Admin: 02/22/22 22:00 Dose: 80 mg Documented by: Fluticasone Propionate (Fluticasone Propionate Nasal 16 Gm [place]) 1 - 2 spray NOSTRIL-B DAILY PRN PRN Reason: Nasal Congestion Fluticasone Propionate (Fluticasone Propionate 100 Mcg Blst.W.Dev) 1 puff INHALE RBID [facility] Last Admin: 02/23/22 10:10 Dose: Not Given Documented by: Folic Acid (Folic Acid 1 Mg Tablet) 1 mg PO BEDTIME [facility] Last Admin: 02/22/22 22:01 Dose: 1 mg Documented by: Insulin Glargine (Insulin Glargine,Hum.Rec.Anlog 100 Unit/Ml 10 Ml Vial) 14 unit SUBCUT BEDTIME [facility] Last Admin: 02/22/22 22:02 Dose: 14 unit Documented by: Insulin Human Lispro (Insulin Lispro 100 Unit/Ml 3 Ml Vial) 0 unit SUBCUT QIDACHS [facility]; Protocol Last Admin: 02/23/22 12:35 Dose: Not Given Documented by: Lisinopril (Lisinopril 10 Mg Tablet) 10 mg PO DAILY [facility]; Protocol Last Admin: 02/23/22 08:26 Dose: 10 mg Documented by: Metoprolol Tartrate (Metoprolol Tartrate 50 Mg Tablet) 50 mg PO BID [facility]; Protocol Last Admin: 02/23/22 08:26 Dose: 50 mg Documented by: Multivitamins/Vitamin C (Multivitamin Tablet) 1 tab PO BEDTIME [facility] Last Admin: 02/22/22 22:01 Dose: 1 tab Documented by: Mycophenolate Mofetil (Mycophenolate Mofetil 250 Mg Capsule) 250 mg PO BID [facility] Last Admin: 02/23/22 09:34 Dose: 250 mg Documented by: Omeprazole (Omeprazole 20 Mg Capsule.) 20 mg PO BID [facility] Last Admin: 02/23/22 09:34 Dose: 20 mg Documented by: Pharmacy Consult (Consult Rx Perform Med Rec) 1 each MISCELLANE ONCE PRN PRN Reason: Consult order Sertraline HCl (Sertraline Hcl 50 Mg Tablet) 50 mg PO DAILY [facility] Last Admin: 02/23/22 08:26 Dose: 50 mg Documented by: Sodium Chloride (0.9 % Sodium Chloride Flush 3 Ml Syringe) 3 ml IVFLUSH QSHIFT [facility] Last Admin: 02/23/22 08:28 Dose: 3 ml Documented by: Tacrolimus (Tacrolimus 1 Mg Capsule) 4 mg PO BID [facility] Last Admin: 02/23/22 09:34 Dose: 4 mg Documented by: Trazodone HCl (Trazodone Hcl 50 Mg Tablet) 50 mg PO BEDTIME [facility] Last Admin: 02/22/22 22:00 Dose: 50 mg Documented by: Warfarin Sodium (Warfarin Sodium 2 Mg Tablet) 2 mg PO SUTUTHSA@1800 [facility] Warfarin Sodium (Warfarin Sodium 3 Mg Tablet) 3 mg PO MOWEFR@1800 [facility] Home Medications Medication Instructions Recorded Confirmed Last Taken Type alcohol swabs pad TOPICAL DIRECTED 10/08/20 02/12/22 Unknown History atorvastatin 80 mg tablet 80 mg PO BEDTIME 10/08/20 02/22/22 02/21/22 History blood sugar diagnostic #10 ea 10/08/20 02/12/22 Unknown History docusate sodium 100 mg capsule 100 mg PO BID PRN 10/08/20 02/12/22 Unknown History folic acid 1 mg tablet 1 mg PO BEDTIME 10/08/20 02/22/22 02/21/22 History lancets 33 gauge #100 ea 10/08/20 02/12/22 Unknown History metoprolol tartrate 50 mg tablet 50 mg PO BID 10/08/20 02/22/22 02/21/22 History pantoprazole 40 mg tablet,delayed 40 mg PO BID 10/08/20 02/22/22 02/21/22 History release fluticasone propionate 110 1 puff INHALATION BID 11/12/20 02/22/22 Unknown History mcg/actuation HFA aerosol inhaler fluticasone propionate 50 1 - 2 spray INTRANASAL DAILY PRN 11/12/20 02/22/22 Unknown History mcg/actuation nasal spray,suspension mycophenolate mofetil 250 mg 250 mg PO BID 11/12/20 02/22/22 02/21/22 History capsule tacrolimus 1 mg capsule, 4 mg PO BID 11/12/20 02/22/22 02/21/22 History immediate-release trazodone 50 mg tablet 50 mg PO BEDTIME 11/12/20 02/22/22 02/21/22 History insulin degludec 100 unit/mL (3 20 unit SUBCUT BEDTIME ml 11/18/20 02/22/22 02/21/22 History mL) subcutaneous pen sertraline 50 mg tablet 1 tab PO DAILY 02/22/22 02/22/22 02/21/22 History vitamin B complex and vitamin C 1 cap PO QPM 02/22/22 02/22/22 02/21/22 History no.20-folic acid 1 mg capsule (Triphrocaps) warfarin 2 mg tablet 2 mg PO SUTUTHSA@1800 02/22/22 02/22/22 02/21/22 History warfarin 3 mg tablet 3 mg PO MOWEFR@1800 02/22/22 02/22/22 02/20/22 History Physical Exam Vital Signs: Last Vital Signs Temp 98.1 F 02/23/22 08:40 Pulse 70 02/23/22 08:40 Resp 14 02/23/22 08:40 BP 133/70 02/23/22 08:40 Pulse Ox 100 02/23/22 08:40 Oxygen Flow Rate 40 02/22/22 09:57 BMI result Body Mass Index 31.6 Const General: no acute distress Orientation/consciousness: patient oriented x3 Eyes EOM: EOMs intact bilaterally Resp Auscultation: diminished lung sounds Cardio Rate: regular rate GI Palpation (GI): Soft to palpation Neuro General: patient oriented x3 and moves all extremities Results Lab Results Result Diagrams: 02/23/22 06:54 02/23/22 06:54 Lab results: Chemistry 02/22/22 02/23/22 09:33 06:54 Sodium 135 139 Potassium 5.0 D 5.0 Carbon Dioxide 22 28 BUN 29 H 34 H Creatinine 7.47 H* 8.29 H* Calcium 9.8 D 9.6 Hematology 02/22/22 02/23/22 09:33 06:54 WBC 10.3 5.9 Hgb 11.3 L 10.2 L Plt Count 202 137 L D Assessment and Plan (1) ESRD (end stage renal disease) on dialysis: Status: Acute Plan Usually gets HD on MWF Due HD this AM; Continued volume optimization on HD 2 Gram Na/K/phos restricted diet with fluid restriction No change in immunosuppression for liver transplant Phos binders with meals; C/W rest of current management Procedures Date of Service Date of Service: 02/23/22
--- NOTE | 2022-02-23 16:00 | P.PNIM_ITS ---
Subjective Subjective Date of Service: 02/23/22 Review of Systems Denies chest pain Admits to shortness of breath at rest Admits to nausea vomiting diarrhea Denies fever chills Physical Exam Vital Signs: Vital Signs: Last Vital Signs Temp 97.4 F 02/23/22 13:00 Pulse 64 02/23/22 13:00 Resp 18 02/23/22 13:00 BP 109/49 L 02/23/22 13:00 Pulse Ox 100 02/23/22 13:00 Oxygen Flow Rate 40 02/22/22 09:57 BMI result Body Mass Index 31.6 Const: Other: Awake alert breathing easy on high-flow oxygen Resp: Other: Diminished throughout with bilateral basilar crackles to inferior scapular border Cardio: Other: No S4 positive S1-S2 no S3 murmurs or gallops Extrem: Other: Trace edema bilateral Objective Data Active Medications Amiodarone HCl (Amiodarone Hcl 200 Mg Tablet) 100 mg PO DAILY [facility] Last Admin: 02/23/22 08:26 Dose: 100 mg Documented by: AGUSTO Atorvastatin Calcium (Atorvastatin Calcium 80 Mg Tablet) 80 mg PO BEDTIME [facility] Last Admin: 02/22/22 22:00 Dose: 80 mg Documented by: PHYLLIS Fluticasone Propionate (Fluticasone Propionate Nasal 16 Gm [place]) 1 - 2 spray NOSTRIL-B DAILY PRN PRN Reason: Nasal Congestion Fluticasone Propionate (Fluticasone Propionate 100 Mcg Blst.W.Dev) 1 puff INHALE RBID [facility] Last Admin: 02/23/22 10:10 Dose: Not Given Documented by: HAIDER Non-Admin Reason: Med Not Available Folic Acid (Folic Acid 1 Mg Tablet) 1 mg PO BEDTIME [facility] Last Admin: 02/22/22 22:01 Dose: 1 mg Documented by: PHYLLIS Insulin Glargine (Insulin Glargine,Hum.Rec.Anlog 100 Unit/Ml 10 Ml Vial) 14 unit SUBCUT BEDTIME [facility] Last Admin: 02/22/22 22:02 Dose: 14 unit Documented by: PHYLLIS Insulin Human Lispro (Insulin Lispro 100 Unit/Ml 3 Ml Vial) 0 unit SUBCUT QIDACHS [facility]; Protocol Last Admin: 02/23/22 12:35 Dose: Not Given Documented by: DAISY Non-Admin Reason: No Insulin Coverage Lisinopril (Lisinopril 10 Mg Tablet) 10 mg PO DAILY [facility]; Protocol Last Admin: 02/23/22 08:26 Dose: 10 mg Documented by: AGUSTO Metoprolol Tartrate (Metoprolol Tartrate 50 Mg Tablet) 50 mg PO BID [facility]; Protocol Last Admin: 02/23/22 08:26 Dose: 50 mg Documented by: AGUSTO Multivitamins/Vitamin C (Multivitamin Tablet) 1 tab PO BEDTIME [facility] Last Admin: 02/22/22 22:01 Dose: 1 tab Documented by: PHYLLIS Mycophenolate Mofetil (Mycophenolate Mofetil 250 Mg Capsule) 250 mg PO BID [facility] Last Admin: 02/23/22 09:34 Dose: 250 mg Documented by: LASHAUN Omeprazole (Omeprazole 20 Mg Capsule.Dr) 20 mg PO BID [facility] Last Admin: 02/23/22 09:34 Dose: 20 mg Documented by: LASHAUN Pharmacy Consult (Consult Rx Perform Med Rec) 1 each MISCELLANE ONCE PRN PRN Reason: Consult order Sertraline HCl (Sertraline Hcl 50 Mg Tablet) 50 mg PO DAILY [facility] Last Admin: 02/23/22 08:26 Dose: 50 mg Documented by: AGUSTO Sodium Chloride (0.9 % Sodium Chloride Flush 3 Ml Syringe) 3 ml IVFLUSH QSHIFT [facility] Last Admin: 02/23/22 08:28 Dose: 3 ml Documented by: AGUSTO Tacrolimus (Tacrolimus 1 Mg Capsule) 4 mg PO BID [facility] Last Admin: 02/23/22 09:34 Dose: 4 mg Documented by: LASHAUN Trazodone HCl (Trazodone Hcl 50 Mg Tablet) 50 mg PO BEDTIME [facility] Last Admin: 02/22/22 22:00 Dose: 50 mg Documented by: PHYLLIS Warfarin Sodium (Warfarin Sodium 2 Mg Tablet) 2 mg PO SUTUTHSA@1800 [facility] Warfarin Sodium (Warfarin Sodium 3 Mg Tablet) 3 mg PO MOWEFR@1800 [facility] Labs CBC & Chem 7: 02/23/22 06:54 02/23/22 06:54 Labs: Laboratory Results - last 24 hr 02/22/22 02/22/22 02/23/22 16:53 21:39 06:54 MCV 85.2 MCH 25.1 L MCHC 29.5 L RDW 14.4 Plt Count 137 L D MPV 12.2 Immature Gran % (Auto) 0.2 Neut % (Auto) 73.9 H Lymph % (Auto) 11.8 L [place] % (Auto) 12.0 H Eos % (Auto) 1.9 Baso % (Auto) 0.2 Lymph # (Auto) 0.7 L [place] # (Auto) 0.7 Eos # (Auto) 0.1 Baso # (Auto) 0.0 Abs Immat Gran (auto) 0.01 Absolute Neuts (auto) 4.4 Absolute Nucleated RBC 0.000 Nucleated RBC % (auto) 0.0 PT INR Anion Gap Estim Creat Clear Calc Estimated GFR POC Glucose 209 H 133 H Fasting Glucose Calcium Total Bilirubin AST ALT Alkaline Phosphatase Total Protein Albumin 02/23/22 02/23/22 02/23/22 06:54 07:18 09:44 MCV MCH MCHC RDW Plt Count MPV Immature Gran % (Auto) Neut % (Auto) Lymph % (Auto) [place] % (Auto) Eos % (Auto) Baso % (Auto) Lymph # (Auto) [place] # (Auto) Eos # (Auto) Baso # (Auto) Abs Immat Gran (auto) Absolute Neuts (auto) Absolute Nucleated RBC Nucleated RBC % (auto) PT 67.5 H INR 5.7 H* Anion Gap 17 Estim Creat Clear Calc 6.0 Estimated GFR 5 POC Glucose 82 Fasting Glucose 87 Calcium 9.6 Total Bilirubin 0.5 AST 70 H ALT 20 Alkaline Phosphatase 92 Total Protein 5.9 L Albumin 3.7 02/23/22 12:25 MCV MCH MCHC RDW Plt Count MPV Immature Gran % (Auto) Neut % (Auto) Lymph % (Auto) [place] % (Auto) Eos % (Auto) Baso % (Auto) Lymph # (Auto) [place] # (Auto) Eos # (Auto) Baso # (Auto) Abs Immat Gran (auto) Absolute Neuts (auto) Absolute Nucleated RBC Nucleated RBC % (auto) PT INR Anion Gap Estim Creat Clear Calc Estimated GFR POC Glucose 86 Fasting Glucose Calcium Total Bilirubin AST ALT Alkaline Phosphatase Total Protein Albumin Microbiology Microbiology Results: Microbiology 02/22/22 10:33 Blood Culture - Preliminary Blood - Venous No growth after 24 hours. 02/22/22 09:38 Blood Culture - Preliminary Blood - Venous No growth after 24 hours. 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 In the ER workup consistent with acute heart failure; given Lasix and placed on BiPAP with good results. Presently she is tolerating high-flow and is resting comfortably 1.HFpEF -Resolved with HD -likely DC in am 2. End-stage renal disease on hemodialysis(02/23/22) -follow renals/divalents 3.Paroxysmal Atrial Fibrillation -rate control adequate -continue outpatient therapies adjust as indicated -continue Coumadin adjust as per INR 4.DMII -continue outpatient regimen -lispro sliding scale -adjust as indicated Full Code Coumadin Will likely require 1 additional midnights going forward for treatment of acute CHF and ongoing hemodialysis Quality Stroke Does the patient have a stroke diagnosis?: No VTE Prior VTE?: No VTE Risk Level:: Medical - moderate - high VTE Device Contraindication: Treatment Not Indicated VTE Drug Contraindication: N/A - Med Ordered
[2022-02-23 16:24] LABS: Glucose, Whole Blood 59 mg/dL (60-115)
--- NOTE | 2022-02-23 17:33 | ECG_ITS ---
Test Reason : ekg Blood Pressure : / mmHG Vent. Rate : 070 BPM Atrial Rate : 070 BPM P-R Int : 392 ms QRS Dur : 078 ms QT Int : 448 ms P-R-T Axes : 027 047 243 degrees QTc Int : 483 ms Sinus rhythm with 1st degree A-V block Low voltage QRS Septal infarct (cited on or before 08-MAR-2020) ST & T wave abnormality, consider inferior ischemia ST & T wave abnormality, consider anterolateral ischemia Abnormal ECG When compared with ECG of 22-FEB-2022 10:07, T wave inversion more evident in Anterior leads Referred By: Sandra Chamberlain Electronically Signed By:Sterling Markham
[2022-02-23 21:55] LABS: Glucose, Whole Blood 226 mg/dL (60-115)
[2022-02-23] MEDS: Insulin Glargine,Hum.rec.anlog 100 UNIT/ML 10 ML VIAL 14 UNIT SUBCUT (22:09)
[2022-02-23] MEDS: Insulin Lispro 100 UNIT/ML 3 ML VIAL SUBCUT (22:10)
[2022-02-23] MEDS: Multivitamin TABLET 1 TAB PO (22:11)
[2022-02-23] MEDS: Atorvastatin Calcium 80 MG TABLET PO (22:11)
[2022-02-23] MEDS: Folic Acid 1 MG TABLET PO (22:11)
[2022-02-23] MEDS: traZODone HCL 50 MG TABLET PO (22:11)
[2022-02-24 00:53] VITALS: BP 106/54; PULSE 69
[2022-02-24 04:00] VITALS: BP 132/58; PULSE 70; RESP 20; TEMP 36.8; O2SAT 95
[2022-02-24 07:08] LABS: MANUAL DIFF FLAG NO
[2022-02-24 07:17] LABS: Basophils Percent Auto 0.2 % (0-2); Eosinophils Absolute Auto 0.1 X10*3/uL (0.0-0.4); Eosinophils Percent Auto 2.3 % (0-4); Hematocrit 32.3 % (37.0-47.0); Hemoglobin 9.8 g/dl (12.0-16.0); Imm Gran Abs Auto 0.03 X10*3/uL (0.00-0.03); Imm Gran Pct Auto 0.6 % (0.0-0.4); Lymphocytes Absolute Auto 0.6 X10*3/uL (1.2-4.9); Lymphocytes Percent Auto 12.3 % (20-40); Mean Corpuscular HGB Conc 30.3 g/dl (31.0-35.0); Mean Corpuscular Hemoglobin 25.7 pg (27.0-33.0); Mean Corpuscular Volume 84.8 fL (80.0-98.0); Mean Platelet Volume 11.2 fL (9.4-12.3); Monocytes Absolute Auto 0.6 X10*3/uL (0.1-1.2); Monocytes Percent Auto 11.9 % (2-11); Neutrophils Absolute Auto 3.5 x10*3/uL (2.0-8.3); Neutrophils Percent Auto 72.7 % (45-73); Platelet Count 118 X10*3/uL (160-400); Red Blood Count 3.81 X10*6/uL (4.20-5.50); Red Cell Distribution Width 14.6 % (11.0-16.0); White Blood Count 4.8 X10*3/uL (4.8-10.8)
[2022-02-24] MEDS: Fluticasone Propionate 100 MCG BLST.W.DEV 1 PUFF INHALE (07:38)
[2022-02-24 07:39] LABS: Alanine Aminotransferase 19 U/L (0-31); Albumin Level 3.4 g/dL (3.5-5.0); Alkaline Phosphatase 90 U/L (39-117); Anion Gap 14 (12-20); Aspartate Amino Transferase 46 U/L (5-31); Bilirubin Total 0.5 mg/dL (0.0-1.0); Blood Urea Nitrogen 14 mg/dL (9-16); Calcium 9.2 mg/dL (8.4-10.2); Carbon Dioxide 21 mmol/L (22-29); Chloride 104 mmol/L (96-108); Creatinine Clr Calc Pharmacy 9.1; Estimated Glomerular Filt Rate 8; Glucose Fasting 73 mg/dL (60-99); Potassium 4.3 mmol/L (3.3-5.1); Sodium 135 mmol/L (135-145); Total Protein 5.5 g/dL (6.5-8.0)
[2022-02-24 07:40] VITALS: PULSE 76; RESP 18; O2SAT 90
[2022-02-24 07:41] VITALS: BP 106/53; PULSE 73; RESP 20; TEMP 36.7; O2SAT 97
[2022-02-24 07:48] LABS: Glucose, Whole Blood 73 mg/dL (60-115)
[2022-02-24 08:56] LABS: INTERNATIONAL NORM RATIO 3.5 (0.9-1.1); Prothrombin Time 40.7 SEC (9.9-13.0)
--- NOTE | 2022-02-24 10:19 | MHC.CM.PN ---
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
[2022-02-24] MEDS: Sertraline HCL 50 MG TABLET PO (10:22)
[2022-02-24] MEDS: Metoprolol Tartrate 50 MG TABLET PO (10:23)
[2022-02-24] MEDS: Omeprazole 20 MG CAPSULE.DR PO (10:23)
[2022-02-24] MEDS: lisinopriL 10 MG TABLET PO (10:23)
[2022-02-24] MEDS: mycophenolate mofetiL 250 MG CAPSULE PO (10:23)
[2022-02-24] MEDS: Tacrolimus 1 MG CAPSULE 4 MG PO (10:23)
[2022-02-24] MEDS: Amiodarone HCL 200 MG TABLET 100 MG PO (10:24)
--- NOTE | 2022-02-24 10:31 | PM.PNCARD ---
Subjective Subjective Date of Service: 02/24/22 Principal diagnosis: CHF, abn EKG Interval history: Cardiology follow up for the above. Seen at 0910. Today she is observed walking in room without distress. She reports breathing is back to normal, No chest pains, palpitations, dizziness, edema. Had dialysis yesterday and due again tomorrow. Asking if she can go home. Certified business test analyst used. Review of Systems Review of Systems as above Yes all other systems are reviewed and are negative Physical Exam Vital Signs: Last Vital Signs Temp 98.1 F 02/24/22 07:41 Pulse 73 02/24/22 07:41 Resp 20 02/24/22 07:41 BP 106/53 L 02/24/22 07:41 Pulse Ox 97 02/24/22 07:41 Oxygen Flow Rate 40 02/22/22 09:57 BMI result Body Mass Index 31.6 Const General: cooperative, no acute distress, alert and awake Orientation/consciousness: patient oriented x3 Neck Neck: Yes normal visual inspection and Yes no JVD Resp Effort & Inspection: normal respiratory effort, able to speak in complete sentences and not labored Auscultation: clear to auscultation bilaterally, no crackles, no rales, no rhonchi and no wheezes Cardio Rate: regular rate Rhythm: regular rhythm Heart sounds: S1 normal heart sound present and S2 normal heart sound present Peripheral pulses: Peripheral pulses 2+ throughout GI Inspection: Yes normal to inspection Neuro General: patient oriented x3 Extrem General: Yes normal to inspection and No edema Objective Labs and Meds Result diagrams: 02/24/22 06:38 02/24/22 06:38 Lab results: Laboratory Results - last 24 hr 02/23/22 02/23/22 02/23/22 12:25 16:21 21:49 WBC RBC Hgb Hct MCV MCH MCHC RDW Plt Count MPV Immature Gran % (Auto) Neut % (Auto) Lymph % (Auto) [place] % (Auto) Eos % (Auto) Baso % (Auto) Lymph # (Auto) [place] # (Auto) Eos # (Auto) Baso # (Auto) Abs Immat Gran (auto) Absolute Neuts (auto) Absolute Nucleated RBC Nucleated RBC % (auto) PT INR Sodium Potassium Chloride Carbon Dioxide Anion Gap BUN Creatinine Estim Creat Clear Calc Estimated GFR POC Glucose 86 59 L* 226 H Fasting Glucose Calcium Total Bilirubin AST ALT Alkaline Phosphatase Total Protein Albumin 02/24/22 02/24/22 02/24/22 06:38 06:38 07:44 WBC 4.8 RBC 3.81 L Hgb 9.8 L Hct 32.3 L MCV 84.8 MCH 25.7 L MCHC 30.3 L RDW 14.6 Plt Count 118 L MPV 11.2 Immature Gran % (Auto) 0.6 H Neut % (Auto) 72.7 Lymph % (Auto) 12.3 L [place] % (Auto) 11.9 H Eos % (Auto) 2.3 Baso % (Auto) 0.2 Lymph # (Auto) 0.6 L [place] # (Auto) 0.6 Eos # (Auto) 0.1 Baso # (Auto) 0.0 Abs Immat Gran (auto) 0.03 Absolute Neuts (auto) 3.5 Absolute Nucleated RBC 0.000 Nucleated RBC % (auto) 0.0 PT INR Sodium 135 Potassium 4.3 Chloride 104 Carbon Dioxide 21 L Anion Gap 14 BUN 14 D Creatinine 5.52 H* Estim Creat Clear Calc 9.1 Estimated GFR 8 POC Glucose 73 Fasting Glucose 73 Calcium 9.2 Total Bilirubin 0.5 AST 46 H ALT 19 Alkaline Phosphatase 90 Total Protein 5.5 L Albumin 3.4 L 02/24/22 08:37 WBC RBC Hgb Hct MCV MCH MCHC RDW Plt Count MPV Immature Gran % (Auto) Neut % (Auto) Lymph % (Auto) [place] % (Auto) Eos % (Auto) Baso % (Auto) Lymph # (Auto) [place] # (Auto) Eos # (Auto) Baso # (Auto) Abs Immat Gran (auto) Absolute Neuts (auto) Absolute Nucleated RBC Nucleated RBC % (auto) PT 40.7 H INR 3.5 H D Sodium Potassium Chloride Carbon Dioxide Anion Gap BUN Creatinine Estim Creat Clear Calc Estimated GFR POC Glucose Fasting Glucose Calcium Total Bilirubin AST ALT Alkaline Phosphatase Total Protein Albumin Progress Note: A&P Assessment and plan (1) (HFpEF) heart failure with preserved ejection fraction: Status: Acute Assessment and Plan: Hx of HFpEF. Last echo 12/2021 with normal EF, grade II diastolic dysfunction. Admit with increased sob and findings indicating fluid overload. She underwent ultrafiltration and then hemodialysis yesterday. Normally has hemodialysis 3 times weekly ( M, W, F) Today she reports feeling much better. On exam she no longer appears fluid overloaded. Sat 97% on RA. Lungs clear on exam. Ongoing use of outpt dialysis to control fluid balance. Low salt diet reviewed with her. Can be discharged from cardiology perspective ( after mg level from below). We will arrange for outpt cardiology follow up. (2) ESRD (end stage renal disease) on dialysis: Status: Acute Assessment and Plan: Follows with nephrology (3) Paroxysmal atrial fibrillation: Status: Acute Assessment and Plan: Hx of PAF, currently suppressed with low dose Amiodarone and metoprolol. Tele monitoring shows SR, one brief AT with abberrancy episode, average rates 60-70s. No reports of heart palpitations. On coumadin for anticoagulation. INR supratherapeutic and coumadin on hold temporarily. Plan to restart coumadin when INR 3. Goal INR 2-3. No bleeding issues reported. Does have chronic anemia, stable, Hgb 9.8. (4) Current use of anticoagulant therapy: Status: Acute (5) CAD (coronary artery disease): Status: Acute Assessment and Plan: Hx CAD with 2 vessel CABG, prior angioplasty. No reports of chest pains or pressure. Trop mildly elevated at 47 this admit, which is likely related to CKD. EKG done yesterday does show SR, 1st degree avb, septal Q ( which is not new) and T wave inversions inferiorly, lead I, V3-V6 ( which are more prominent than EKG done in office on 02/03/22). Reviewed with her coremaking machine operator, Dr Banks. Since no report of anginal symptoms currently, can be d/c and we will plan for an outpt pharmacological nuclear stress test to eval for ischemia. Continue high dose Atorvastatin, Metoprolol, Lisinopril. She is not on aspirin due to use of coumadin. (6) Abnormal EKG: Status: Acute Assessment and Plan: as above. QTc prolonged at 483ms. K normal range. Will add serum Mg on to am lab. If low, plan to give supplement. Fall Risk Details Current Medications: Current Medications Amiodarone HCl (Amiodarone Hcl 200 Mg Tablet) 100 mg PO DAILY [facility] Last Admin: 02/24/22 10:24 Dose: 100 mg Documented by: Atorvastatin Calcium (Atorvastatin Calcium 80 Mg Tablet) 80 mg PO BEDTIME [facility] Last Admin: 02/23/22 22:11 Dose: 80 mg Documented by: Fluticasone Propionate (Fluticasone Propionate Nasal 16 Gm [place]) 1 - 2 spray NOSTRIL-B DAILY PRN PRN Reason: Nasal Congestion Fluticasone Propionate (Fluticasone Propionate 100 Mcg Blst.W.Dev) 1 puff INHALE RBID [facility] Last Admin: 02/24/22 07:38 Dose: 1 puff Documented by: Folic Acid (Folic Acid 1 Mg Tablet) 1 mg PO BEDTIME [facility] Last Admin: 02/23/22 22:11 Dose: 1 mg Documented by: Insulin Glargine (Insulin Glargine,Hum.Rec.Anlog 100 Unit/Ml 10 Ml Vial) 14 unit SUBCUT BEDTIME [facility] Last Admin: 02/23/22 22:09 Dose: 14 unit Documented by: Insulin Human Lispro (Insulin Lispro 100 Unit/Ml 3 Ml Vial) 0 unit SUBCUT QIDACHS [facility]; Protocol Last Admin: 02/24/22 07:55 Dose: Not Given Documented by: Lisinopril (Lisinopril 10 Mg Tablet) 10 mg PO DAILY [facility]; Protocol Last Admin: 02/24/22 10:23 Dose: 10 mg Documented by: Metoprolol Tartrate (Metoprolol Tartrate 50 Mg Tablet) 50 mg PO BID [facility]; Protocol Last Admin: 02/24/22 10:23 Dose: 50 mg Documented by: Multivitamins/Vitamin C (Multivitamin Tablet) 1 tab PO BEDTIME [facility] Last Admin: 02/23/22 22:11 Dose: 1 tab Documented by: Mycophenolate Mofetil (Mycophenolate Mofetil 250 Mg Capsule) 250 mg PO BID [facility] Last Admin: 02/24/22 10:23 Dose: 250 mg Documented by: Omeprazole (Omeprazole 20 Mg Capsule.) 20 mg PO BID [facility] Last Admin: 02/24/22 10:23 Dose: 20 mg Documented by: Pharmacy Consult (Consult Rx Perform Med Rec) 1 each MISCELLANE ONCE PRN PRN Reason: Consult order Sertraline HCl (Sertraline Hcl 50 Mg Tablet) 50 mg PO DAILY [facility] Last Admin: 02/24/22 10:22 Dose: 50 mg Documented by: Sodium Chloride (0.9 % Sodium Chloride Flush 3 Ml Syringe) 3 ml IVFLUSH QSHIFT [facility] Last Admin: 02/23/22 22:12 Dose: 3 ml Documented by: Tacrolimus (Tacrolimus 1 Mg Capsule) 4 mg PO BID [facility] Last Admin: 02/24/22 10:23 Dose: 4 mg Documented by: Trazodone HCl (Trazodone Hcl 50 Mg Tablet) 50 mg PO BEDTIME [facility] Last Admin: 02/23/22 22:11 Dose: 50 mg Documented by: Warfarin Sodium (Warfarin Sodium 2 Mg Tablet) 2 mg PO SUTUTHSA@1800 [facility] Warfarin Sodium (Warfarin Sodium 3 Mg Tablet) 3 mg PO MOWEFR@1800 [facility] Time Spent With Patient Time: Total time spent is greater than 50% in coordination of care (as documented) at patient's floor/unit and/or counseling patient: Progress Note: Quality Stroke Does the patient have a stroke diagnosis?: No Procedures Date of Service Date of Service: 02/24/22
[2022-02-24] MEDS: 0.9 % Sodium Chloride Flush 3 ML SYRINGE IVFLUSH (10:32)
--- NOTE | 2022-02-24 10:51 | PM.PNNEP ---
Subjective Subjective Date of Service: 02/24/22 Principal diagnosis: CHF, abn EKG Interval history: Feels better. Denied any new issues Physical Exam Vital Signs: Vital Signs: Last Vital Signs Temp 98.1 F 02/24/22 07:41 Pulse 73 02/24/22 07:41 Resp 20 02/24/22 07:41 BP 106/53 L 02/24/22 07:41 Pulse Ox 97 02/24/22 07:41 Oxygen Flow Rate 40 02/22/22 09:57 BMI result Body Mass Index 31.6 Const: General: no acute distress Orientation/consciousness: patient oriented x3 HEENT: Mouth: moist mucous membranes Eyes: EOM: EOMs intact bilaterally Neck: Neck: Yes supple Resp: Auscultation: diminished lung sounds Cardio: Rate: regular rate GI: Palpation (GI): Soft to palpation Neuro: General: patient oriented x3 and moves all extremities Objective Data Labs CBC & Chem 7: 02/24/22 06:38 02/24/22 06:38 Labs: Laboratory Results - last 24 hr 02/23/22 02/23/22 02/23/22 12:25 16:21 21:49 WBC RBC Hgb Hct MCV MCH MCHC RDW Plt Count MPV Immature Gran % (Auto) Neut % (Auto) Lymph % (Auto) [place] % (Auto) Eos % (Auto) Baso % (Auto) Lymph # (Auto) [place] # (Auto) Eos # (Auto) Baso # (Auto) Abs Immat Gran (auto) Absolute Neuts (auto) Absolute Nucleated RBC Nucleated RBC % (auto) PT INR Sodium Potassium Chloride Carbon Dioxide Anion Gap BUN Creatinine Estim Creat Clear Calc Estimated GFR POC Glucose 86 59 L* 226 H Fasting Glucose Calcium Total Bilirubin AST ALT Alkaline Phosphatase Total Protein Albumin 02/24/22 02/24/22 02/24/22 06:38 06:38 07:44 WBC 4.8 RBC 3.81 L Hgb 9.8 L Hct 32.3 L MCV 84.8 MCH 25.7 L MCHC 30.3 L RDW 14.6 Plt Count 118 L MPV 11.2 Immature Gran % (Auto) 0.6 H Neut % (Auto) 72.7 Lymph % (Auto) 12.3 L [place] % (Auto) 11.9 H Eos % (Auto) 2.3 Baso % (Auto) 0.2 Lymph # (Auto) 0.6 L [place] # (Auto) 0.6 Eos # (Auto) 0.1 Baso # (Auto) 0.0 Abs Immat Gran (auto) 0.03 Absolute Neuts (auto) 3.5 Absolute Nucleated RBC 0.000 Nucleated RBC % (auto) 0.0 PT INR Sodium 135 Potassium 4.3 Chloride 104 Carbon Dioxide 21 L Anion Gap 14 BUN 14 D Creatinine 5.52 H* Estim Creat Clear Calc 9.1 Estimated GFR 8 POC Glucose 73 Fasting Glucose 73 Calcium 9.2 Total Bilirubin 0.5 AST 46 H ALT 19 Alkaline Phosphatase 90 Total Protein 5.5 L Albumin 3.4 L 02/24/22 08:37 WBC RBC Hgb Hct MCV MCH MCHC RDW Plt Count MPV Immature Gran % (Auto) Neut % (Auto) Lymph % (Auto) [place] % (Auto) Eos % (Auto) Baso % (Auto) Lymph # (Auto) [place] # (Auto) Eos # (Auto) Baso # (Auto) Abs Immat Gran (auto) Absolute Neuts (auto) Absolute Nucleated RBC Nucleated RBC % (auto) PT 40.7 H INR 3.5 H D Sodium Potassium Chloride Carbon Dioxide Anion Gap BUN Creatinine Estim Creat Clear Calc Estimated GFR POC Glucose Fasting Glucose Calcium Total Bilirubin AST ALT Alkaline Phosphatase Total Protein Albumin Microbiology Microbiology Results: Microbiology 02/22/22 10:33 Blood - Venous Blood Culture - Preliminary No growth after 24 hours. 02/22/22 09:38 Blood - Venous Blood Culture - Preliminary No growth after 24 hours. Procedures Date of Service Date of Service: 02/24/22 Assessment & Plan Assessment and plan (1) ESRD (end stage renal disease) on dialysis: Status: Acute Assessment and Plan: sually gets HD on MWF; HD tomorrow Continued volume optimization on HD 2 Gram Na/K/phos restricted diet with fluid restriction No change in immunosuppression for liver transplant Phos binders with meals; C/W rest of current management Shall follow up in HD Unit when D/Jesus Time Spent With Patient Time: Total time spent is greater than 50% in coordination of care (as documented) at patient's floor/unit and/or counseling patient: Progress Note: Quality Stroke Does the patient have a stroke diagnosis?: No
[2022-02-24 10:56] VITALS: BP 122/58; PULSE 71; RESP 20; TEMP 36.4; O2SAT 96
[2022-02-24 11:13] LABS: Glucose, Whole Blood 92 mg/dL (60-115)
--- NOTE | 2022-02-24 13:08 | MHC.CM.PN ---
pt dcd home to resume preadmission servceis dialysis,seafood and service meat manager serevices and cca /rn
--- NOTE | 2022-02-24 13:10 | MHC.CM.PN ---
russ /cca notified of dc of pt
--- NOTE | 2022-02-24 13:10 | PM.DS ---
DS: Providers Provider Date of Service: 02/24/22 Date of admission: 02/22/22 13:41 Date of discharge: 02/24/22 Primary care physician: Unknown Physician Consults: 02/22/22 13:46 Consult to Nephrology Routine Consulting Provider: Jcarlos Liu Reason for consultation: ESRD on HD Has provider been notified: No 02/22/22 13:48 Consult to Cardiology Routine Consulting Provider: Raudel Banks Reason for consultation: CHF DS: Diagnosis Discharge Diagnosis (1) (HFpEF) heart failure with preserved ejection fraction: Status: Acute (2) ESRD (end stage renal disease) on dialysis: Status: Acute (3) Paroxysmal atrial fibrillation: Status: Acute (4) Current use of anticoagulant therapy: Status: Acute (5) CAD (coronary artery disease): Status: Acute (6) Abnormal EKG: Status: Acute DS: Summary Hospital Course Hospital Course: 67-year-old female with known history of congestive heart failure(echo 12/19/2020 demonstrated hyperdynamic EF is 65-70 with grade 2 diastolic dysfunction presents with worsening shortness of breath over the 3-4 days prior to her admission to [place] [facility].? She also is status post liver transplant and carries diagnosis of cardiac disease diabetes and end-stage renal disease on hemodialysis. She was found by EMS this morning on the toilet vomiting with diarrhea and saturation in the low 80s.? She was brought to [place] [facility] where she promptly received 125 you Lasix.? Her O2 sats were difficult to maintain and she was therefore started on BiPAP.? She tolerate the BiPAP well and did have response to the Lasix.? Over the next several hours she was weaned to high-flow and has been tolerating that well.? Chest x-ray done in ER demonstrated pulmonary vascular congestion with diffuse interstitial opacities and mild interstitial edema unchanged from previous.? She will be admitted for further treatment of her CHF Hospital Course Patient given 120 mg of IV Lasix in the ER; placed on CPAP. After Lasix was able to be decreased high-flow O2. Seen by Renal and underwent ultrafiltration day 1 which allowed oxygen to be titrated to nasal cannula. On day 2 of hospitalization underwent a full 4 hour dialysis with essentially normalization of function. She was seen by Cardiology; echo will be done and she will be discharged to follow-up with them. She will hold her Coumadin until it is read checked and resumed dialysis tomorrow as outpatient as scheduled. She is encouraged to complete the 4 hours of dialysis 3 times a week to prevent recurrence of her CHF Time Spent with Patient Time attestation: Total time spent providing and/or coordinating discharge services: Discharge coordination time: Greater than 30 minutes Quality: Safe Use of Opioids Does Pt have an Active Cancer Diagnosis on the Problem List?: No Quality: Stroke Does the patient have a stroke diagnosis?: No Physical Exam Vital Signs: Vital Signs: Last Vital Signs Temp 97.6 F 02/24/22 10:56 Pulse 71 02/24/22 10:56 Resp 20 02/24/22 10:56 BP 122/58 L 02/24/22 10:56 Pulse Ox 96 02/24/22 10:56 Oxygen Flow Rate 40 02/22/22 09:57 BMI result Body Mass Index 31.6 Const: Other: Awake alert breathing easy on high-flow oxygen Resp: Other: Diminished throughout with bilateral basilar crackles to inferior scapular border Cardio: Other: No S4 positive S1-S2 no S3 murmurs or gallops Extrem: Other: Trace edema bilateral DS: Data Data Completed and Pending Labs on day of discharge: Laboratory Results - last 24 hr 02/23/22 02/23/22 02/24/22 16:21 21:49 06:38 WBC 4.8 RBC 3.81 L Hgb 9.8 L Hct 32.3 L MCV 84.8 MCH 25.7 L MCHC 30.3 L RDW 14.6 Plt Count 118 L MPV 11.2 Immature Gran % (Auto) 0.6 H Neut % (Auto) 72.7 Lymph % (Auto) 12.3 L Davison % (Auto) 11.9 H Eos % (Auto) 2.3 Baso % (Auto) 0.2 Lymph # (Auto) 0.6 L Davison # (Auto) 0.6 Eos # (Auto) 0.1 Baso # (Auto) 0.0 Abs Immat Gran (auto) 0.03 Absolute Neuts (auto) 3.5 Absolute Nucleated RBC 0.000 Nucleated RBC % (auto) 0.0 PT INR Sodium Potassium Chloride Carbon Dioxide Anion Gap BUN Creatinine Estim Creat Clear Calc Estimated GFR POC Glucose 59 L* 226 H Fasting Glucose Calcium Magnesium Total Bilirubin AST ALT Alkaline Phosphatase Total Protein Albumin 02/24/22 02/24/22 02/24/22 06:38 07:44 08:37 WBC RBC Hgb Hct MCV MCH MCHC RDW Plt Count MPV Immature Gran % (Auto) Neut % (Auto) Lymph % (Auto) Davison % (Auto) Eos % (Auto) Baso % (Auto) Lymph # (Auto) Davison # (Auto) Eos # (Auto) Baso # (Auto) Abs Immat Gran (auto) Absolute Neuts (auto) Absolute Nucleated RBC Nucleated RBC % (auto) PT 40.7 H INR 3.5 H D Sodium 135 Potassium 4.3 Chloride 104 Carbon Dioxide 21 L Anion Gap 14 BUN 14 D Creatinine 5.52 H* Estim Creat Clear Calc 9.1 Estimated GFR 8 POC Glucose 73 Fasting Glucose 73 Calcium 9.2 Magnesium 2.0 Total Bilirubin 0.5 AST 46 H ALT 19 Alkaline Phosphatase 90 Total Protein 5.5 L Albumin 3.4 L 02/24/22 10:55 WBC RBC Hgb Hct MCV MCH MCHC RDW Plt Count MPV Immature Gran % (Auto) Neut % (Auto) Lymph % (Auto) Davison % (Auto) Eos % (Auto) Baso % (Auto) Lymph # (Auto) Davison # (Auto) Eos # (Auto) Baso # (Auto) Abs Immat Gran (auto) Absolute Neuts (auto) Absolute Nucleated RBC Nucleated RBC % (auto) PT INR Sodium Potassium Chloride Carbon Dioxide Anion Gap BUN Creatinine Estim Creat Clear Calc Estimated GFR POC Glucose 92 Fasting Glucose Calcium Magnesium Total Bilirubin AST ALT Alkaline Phosphatase Total Protein Albumin Preliminary micro results at discharge 02/22/22 10:33 Blood Culture - Preliminary Blood - Venous No growth after 48 hours. 02/22/22 09:38 Blood Culture - Preliminary Blood - Venous No growth after 48 hours. Discharge Plan Discharge Patient Disposition: Home, Self-Care Discharge Diagnosis: Acute exacerbation of diastolic CHF with preserved ejection fraction Referrals: Physician,Unknown J [Primary Care Provider] - 1 Week Discharge Medications: Continued insulin aspart U-100 [Novolog Flexpen U-100 Insulin] 100 unit/mL (3 mL) insulin pen 4 - 12 unit subcut TID Qty: 15 6RF lisinopril 10 mg tablet 10 mg PO QAM 90 Days Qty: 90 3RF amiodarone 200 mg tablet 100 mg PO QAM 30 Days Qty: 15 3RF Triphrocaps 1 mg capsule 1 cap PO QPM 0RF sertraline 50 mg tablet 1 tab PO DAILY 0RF warfarin 2 mg Tablet 2 mg PO SUTUTHSA@1800 0RF warfarin 3 mg tablet 3 mg PO MOWEFR@1800 0RF Protocol: Dose Management Condition: Wednesday (Week One) Dose/Route: 6 mg Instruction: 2 x 3 mg tablets Condition: Wednesday Dose/Route: 6 mg Instruction: 2 x 3 mg tablets Condition: Wednesday Dose/Route: 3 mg Instruction: 1 x 3 mg tablet Condition: Wednesday Dose/Route: 6 mg Instruction: 2 x 3 mg tablets Condition: Dose/Route: 6 mg Instruction: 2 x 3 mg tablets Condition: Wednesday Dose/Route: 6 mg Instruction: 2 x 3 mg tablets Condition: Wednesday Dose/Route: 6 mg Instruction: 2 x 3 mg tablets Condition: Wednesday (Week Two) Dose/Route: 6 mg Instruction: 2 x 3 mg tablets Condition: Wednesday Dose/Route: 6 mg Instruction: 2 x 3 mg tablets Condition: Wednesday Dose/Route: 3 mg Instruction: 1 x 3 mg tablet Condition: Wednesday Dose/Route: 6 mg Instruction: 2 x 3 mg tablets Condition: Dose/Route: 6 mg Instruction: 2 x 3 mg tablets Condition: Wednesday Dose/Route: 6 mg Instruction: 2 x 3 mg tablets Condition: Wednesday Dose/Route: 6 mg Instruction: 2 x 3 mg tablets Protocol Text: Adjustment Start Date: Wednesday02/17/22 INR Value: 3.7 INR Date: 02/17/22 Additional Instructions: TAKE 3MG TODAY- 6MG X 6 EAT GREENS TO LOWER INR Rx Instructions: dose adjustments as needed, by anticoagulation clinic or provider alcohol swabs Pads, Medicated topical DIRECTED 0RF atorvastatin 80 mg tablet 80 mg PO BEDTIME 0RF (DME) blood sugar diagnostic Strip See Rx Instructions ea Not Applicable QID Qty: 10 0RF Rx Instructions: As directed (DME) lancets 33 gauge misc See Rx Instructions ea Not Applicable .MEDSUPPLY Qty: 100 0RF Rx Instructions: As directed folic acid 1 mg tablet 1 mg PO BEDTIME 0RF docusate sodium 100 mg capsule 100 mg PO BID PRN (Reason: Constipation) 0RF metoprolol tartrate 50 mg tablet 50 mg PO BID 0RF pantoprazole 40 mg tablet,delayed release (DR/EC) 40 mg PO BID 0RF (DME) pen needle, diabetic 31 gauge x 3/16 needle See Rx Instructions ea .ROUTE QID Qty: 120 11RF Rx Instructions: As directed 4 times a day insulin degludec 100 unit/mL (3 mL) insulin pen 20 unit subcut BEDTIME 0RF fluticasone propionate 110 mcg/actuation HFA aerosol inhaler 1 puff inhalation BID 0RF tacrolimus 1 mg capsule 4 mg PO BID 0RF fluticasone propionate 50 mcg/actuation spray,suspension 1 - 2 spray intranasal DAILY PRN (Reason: Nasal Congestion) 0RF mycophenolate mofetil 250 mg capsule 250 mg PO BID 0RF trazodone 50 mg tablet 50 mg PO BEDTIME 0RF Discharge Orders: Discharge Order (Routine); Ordered 02/24/22 Ordered By: Gabriel Gonsales Diet: advance to usual diet Activity on Discharge: As tolerated Stand Alone Forms: Patient Portal Discharge page Care Plan Goals: Need to comply with 4 hours of dialysis 3 times a week. Anything less will put you at risk for this occurring again Health Concerns: Restart all pre-hospital medications as ordered. Do not start your Coumadin until your INR is read checked tomorrow. Your PCP will instruct you on dosing Plan of Treatment: Follow-up with PCP in 1 week. Hemodialysis tomorrow as scheduled as outpatient Assessment: See discharge summary
--- NOTE | 2022-02-24 14:00 | CA_ITS ---
Transthoracic Echocardiogram Patient (Last, First, Middle): Jenaro Mckenna M Gender: Female Date of : 1955 Age: 67 Procedure Date: 02/24/2022 Procedure Type: Transthoracic Echocardiogram Location: [facility] [place] Height: 154.94 cm Weight: 75.75 kg BSA: 1.75 m2 Heart Rate: bpm BP: 122 / 58 mmHg Fern Gatherer: VH/TO Referring MD: Sterling Markham MD Symptoms: SD Assess RWMA Study Quality: Good Conclusions: - The left ventricular systolic function is borderline reduced. The visually estimated ejection fraction is between 45-50%. - Normal right ventricular cavity size. There is moderately decreased right ventricular systolic function. Findings Left Ventricle Normal left ventricular cavity size. There is normal left ventricular wall thickness. The left ventricular systolic function is borderline reduced. The visually estimated ejection fraction is between 45-50%. There is mild global hypokinesis. Diastolic function is indeterminate on the basis of available data. Right Ventricle Normal right ventricular cavity size. There is moderately decreased right ventricular systolic function. Venous The inferior vena cava is normal in size and collapses greater than 50% with inspiration. Pericardium/Pleural There is no evidence of pericardial effusion. Prior Study Comparison Changes noted compared to prior study dated: 12/19/2020. EF 45-50% from 65 to 70%. Measurements 2D Linear Measurements IVSd: 0.99 0.6-0.9/0.6-1.0 cm LVIDd: 4.68 3.9-5.3/4.2-5.9 cm LVIDd Index: 2.67 2.4-3.2/2.2-3.1 cm/m2 LVIDs: 3.31 2.0-3.6 cm LVPWd: 1.02 0.7-1.1 cm LA Diam: 4.60 2.7-3.8/3.0-4.0 cm LAIDs Index: 2.63 1.5-2.3 cm/m2 LV Mass: 205.07 67-162/88-224 g LV Mass Index: 117.18 43-95/49-115 g/m2 Updated in Other Vendor System with Status of Final Sterling Markham MD electronically signed on 02/24/2022 9:44:33 PM with status of Final
--- NOTE | 2022-02-24 15:11 | ECG_ITS ---
Test Reason : SOB Blood Pressure : / mmHG Vent. Rate : 065 BPM Atrial Rate : 065 BPM P-R Int : 198 ms QRS Dur : 082 ms QT Int : 446 ms P-R-T Axes : 096 037 237 degrees QTc Int : 463 ms Normal sinus rhythm ST & T wave abnormality, consider inferior ischemia ST & T wave abnormality, consider anterolateral ischemia Abnormal ECG When compared with ECG of 23-FEB-2022 18:43, GA interval has decreased Criteria for Septal infarct are no longer Present Referred By: Sandra Chamberlain Electronically Signed By:Sterling Markham
== END 2022-02-24 16:00 | disposition home or self-care (01) | DRG 291 ==
LOC: HO.ED 11:13 → HO.EDOVER 14:00 → HO.IMC 02-23 10:35
PROVIDERS: Nurse Practitioner Family; Admitting Provider Hospitalist; Emergency Provider Emergency Medicine; PCP Internal Medicine; Visit Provider Hospitalist
DX: I13.2 Hypertensive heart and chronic kidney disease with heart failure and with stage 5 chronic kidney disease, or end stage renal disease (principal); N18.6 End stage renal disease; I50.33 Acute on chronic diastolic (congestive) heart failure; Z94.4 Liver transplant status; D84.821 Immunodeficiency due to drugs; I48.0 Paroxysmal atrial fibrillation; E78.5 Hyperlipidemia, unspecified; E11.40 Type 2 diabetes mellitus with diabetic neuropathy, unspecified; I25.10 Atherosclerotic heart disease of native coronary artery without angina pectoris; E11.65 Type 2 diabetes mellitus with hyperglycemia; E11.22 Type 2 diabetes mellitus with diabetic chronic kidney disease; Z20.822 Contact with and (suspected) exposure to COVID-19; Z99.2 Dependence on renal dialysis; Z79.4 Long term (current) use of insulin; Z79.01 Long term (current) use of anticoagulants; Z79.51 Long term (current) use of inhaled steroids; Z79.899 Other long term (current) drug therapy
CPT/HCPCS: 36415; 71045; 80048; 80053; 80076; 82947; 83605; 83735; 83880; 84484; 85025; 85610; 87040; 87502; 87635; 90999; 93005; 93308; 94660; 94799; 96374; 96375; 99285; 99291; J1940; J2405

== ENCOUNTER → 2022-02-26 10:55 | Outpatient (BNVA) | payer OTHER, SELFPAY | PROVIDERS: PCP Internal Medicine Cardiovascular Disease; Visit Provider Internal Medicine | DX: I48.0 Paroxysmal atrial fibrillation (principal); Z79.01 Long term (current) use of anticoagulants; Z51.81 Encounter for therapeutic drug level monitoring | CPT/HCPCS: Q3014 ==

== ENCOUNTER → 2022-03-03 15:22 | Outpatient (BNVA) | payer OTHER, SELFPAY | PROVIDERS: PCP Internal Medicine Cardiovascular Disease; Visit Provider Internal Medicine | DX: I48.0 Paroxysmal atrial fibrillation (principal); Z79.01 Long term (current) use of anticoagulants; Z51.81 Encounter for therapeutic drug level monitoring | CPT/HCPCS: Q3014 ==

== ENCOUNTER → 2022-03-05 14:25 | Outpatient (BNVA) | payer OTHER, SELFPAY | PROVIDERS: PCP Internal Medicine; Visit Provider Internal Medicine | DX: Z13.89 Encounter for screening for other disorder (principal) ==

== ENCOUNTER → 2022-03-10 10:16 | Outpatient (BNVA) | payer OTHER, SELFPAY | PROVIDERS: PCP Internal Medicine; Visit Provider Internal Medicine | DX: I48.0 Paroxysmal atrial fibrillation (principal); Z79.01 Long term (current) use of anticoagulants; Z51.81 Encounter for therapeutic drug level monitoring | CPT/HCPCS: Q3014 ==

== ENCOUNTER 2022-03-11 09:26 | Inpatient (IN) | payer OTHER, SELFPAY ==
--- NOTE | ~2022-03-11 | XR_ITS ---
EXAMINATION: CR X-RAY FEET BILATERAL CLINICAL INFORMATION: Bilateral toe pain, rule out osteomyelitis. COMPARISON: None TECHNIQUE: 3 views each of the bilateral feet were obtained. FINDINGS: There is generalized osteopenia. No acute fracture or dislocation is seen. No overt cortical erosive changes are seen. The tarsal bones are normally aligned. Small to moderate plantar and very small retrocalcaneal spurs are noted. Moderate to severe small vessel arterial sclerosis is seen. The soft tissues are unremarkable. XR/XR foot RT min 3V IMPRESSION: 1. Generalized osteopenia without acute fracture or overt erosive changes to suggest osteoarthritis. 2. Degenerative calcaneal spurs as detailed above. 3. Moderate to severe arteriosclerosis.
--- NOTE | ~2022-03-11 | XR_ITS ---
EXAMINATION: XR CHEST CLINICAL INFORMATION: Chest pain. COMPARISON: 02/22/2022 chest radiograph. TECHNIQUE: Frontal view of the chest was obtained. FINDINGS: Support devices: Left-sided large-bore central venous catheter with tips terminating at the level the right atrium without definite change. Multilevel sternotomy wires intact. Multiple surgical clips overlie the cardiomediastinal silhouette. The lungs are clear. The heart and mediastinal structures are unremarkable XR/XR chest 1V IMPRESSION: No acute cardiopulmonary process.
--- NOTE | ~2022-03-11 | XR_ITS ---
EXAMINATION: CR X-RAY FEET BILATERAL CLINICAL INFORMATION: Bilateral toe pain, rule out osteomyelitis. COMPARISON: None TECHNIQUE: 3 views each of the bilateral feet were obtained. FINDINGS: There is generalized osteopenia. No acute fracture or dislocation is seen. No overt cortical erosive changes are seen. The tarsal bones are normally aligned. Small to moderate plantar and very small retrocalcaneal spurs are noted. Moderate to severe small vessel arterial sclerosis is seen. The soft tissues are unremarkable. XR/XR foot LT min 3V IMPRESSION: 1. Generalized osteopenia without acute fracture or overt erosive changes to suggest osteoarthritis. 2. Degenerative calcaneal spurs as detailed above. 3. Moderate to severe arteriosclerosis.
--- NOTE | ~2022-03-11 | US_ITS ---
EXAMINATION: US DUPLEX LOWER EXTREMITY ARTERY/GRAFT LIMITED, BILATERAL CLINICAL INFORMATION: Cold toes COMPARISON: None TECHNIQUE: Real-time ultrasound and Doppler techniques (integrating B-mode 2-D vascular images, Doppler spectral analysis and color flow Doppler imaging) were utilized to interrogate the lower extremities. FINDINGS: Right lower extremity: Common femoral artery: 164 cm/sec; monophasic waveform Profunda artery: 107 cm/sec; monophasic waveform Superficial femoral artery proximal: 164 cm/sec; monophasic waveform Superficial femoral artery mid portion: 83.4 cm/sec; monophasic waveform Superficial femoral artery distal: 198 cm/sec; monophasic waveform Popliteal artery: 316 cm/sec; monophasic waveform Posterior tibial artery: 52.5 cm/sec; monophasic waveform Peroneal artery: 56.0 cm/sec; monophasic waveform Left lower extremity: Common femoral artery: 97.5 cm/sec; multiphasic waveform Profunda artery: 109 cm/sec; multiphasic waveform Superficial femoral artery proximal: 71.8 cm/sec; monophasic waveform Superficial femoral artery mid portion: 130 cm/sec; monophasic waveform Superficial femoral artery distal: 336 cm/sec; monophasic waveform Popliteal artery: 55.8 cm/sec; monophasic waveform Posterior tibial artery: 18.2 cm/sec; monophasic waveform Peroneal artery: 42.3 cm/sec; monophasic waveform ADDITIONAL FINDINGS: None. US/US arterial duplex LE IMPRESSION: The arteries to the bilateral lower extremities are patent. There is evidence of inflow disease bilaterally. Peripheral arterial disease is seen which is significant for stenoses identified within the femoral arteries and right popliteal artery.
--- NOTE | 2022-03-11 09:36 | ECG_ITS ---
Test Reason : cp Blood Pressure : / mmHG Vent. Rate : 073 BPM Atrial Rate : 036 BPM P-R Int : 000 ms QRS Dur : 094 ms QT Int : 452 ms P-R-T Axes : 000 025 175 degrees QTc Int : 497 ms Likely sinus but P waves not very prominent ST & T wave abnormality, consider anterolateral ischemia Prolonged QT Abnormal ECG When compared with ECG of 24-FEB-2022 15:25, QT has lengthened Referred By: Hilary Luna Electronically Signed By:ELIZABETH SANTOS
[2022-03-11 09:46] VITALS: BP 102/60; BP 98/46; PULSE 74; PULSE 80; RESP 14; TEMP 36.6; BMI 29.0
--- NOTE | 2022-03-11 09:48 | ED_ITS ---
HPI - General Adult General Chief complaint: Dizziness <YOLANDA Kebede Last Filed: 03/11/22 16:38> Stated complaint: RIGHT TOE PAIN FROM INFECTION,NO INJURY PER EMS <YOLANDA Kebede Last Filed: 03/11/22 16:38> Time Seen by Provider: 03/11/22 09:38 <YOLANDA Kebede Last Filed: 03/11/22 16:38> Source: patient and EMS <YOLANDA Kebede Last Filed: 03/11/22 16:38> Mode of arrival: EMS <YOLANDA Kebede Last Filed: 03/11/22 16:38> Limitations: language barrier <YOLANDA Kebede Last Filed: 03/11/22 16:38> History of Present Illness HPI narrative: 67-year-old female with a history of end-stage renal disease, on warfarin, liver transplant patient, history of heart failure, AFib, coronary artery disease, hypertension, diabetes, diabetic neuropathy, and dialysis, was at dialysis today when she became dizzy, nauseous, and with worsening foot pain. Patient got 3 hours of her 4 hour dialysis treatment. Upon arrival to the emergency room, patient states her chest is tight, this occurred at 09:30. And patient states that the pain in her bilateral toes has been worsening for the last 2 weeks. Patient is currently a little bit nauseous, no vomiting, no diarrhea, no shortness of breath. <YOLANDA Kebede Last Filed: 03/11/22 16:38> Related Data Home medications: Home Medications Medication Instructions Recorded Confirmed atorvastatin 80 mg tablet 80 mg PO BEDTIME 10/08/20 03/11/22 blood sugar diagnostic #10 ea 10/08/20 03/10/22 docusate sodium 100 mg capsule 100 mg PO BID PRN 10/08/20 03/11/22 folic acid 1 mg tablet 1 mg PO BEDTIME 10/08/20 03/11/22 lancets 33 gauge #100 ea 10/08/20 03/10/22 metoprolol tartrate 50 mg tablet 50 mg PO BID 10/08/20 03/11/22 pantoprazole 40 mg tablet,delayed 40 mg PO BID 10/08/20 03/11/22 release fluticasone propionate 110 1 puff INHALATION BID 11/12/20 03/11/22 mcg/actuation HFA aerosol inhaler fluticasone propionate 50 1 - 2 spray INTRANASAL DAILY PRN 11/12/20 03/11/22 mcg/actuation nasal spray,suspension mycophenolate mofetil 250 mg 250 mg PO BID 11/12/20 03/11/22 capsule tacrolimus 1 mg capsule, 4 mg PO BID 11/12/20 03/11/22 immediate-release trazodone 50 mg tablet 50 mg PO BEDTIME 11/12/20 03/11/22 insulin degludec 100 unit/mL (3 20 unit SUBCUT BEDTIME ml 11/18/20 03/11/22 mL) subcutaneous pen sertraline 50 mg tablet 50 mg PO DAILY 02/22/22 03/11/22 vitamin B complex and vitamin C 1 cap PO QPM 02/22/22 03/11/22 no.20-folic acid 1 mg capsule (Triphrocaps) warfarin 2 mg tablet 2 mg PO SUTUTHSA@1800 02/22/22 03/10/22 warfarin 3 mg tablet 3 mg PO MOWEFR@1800 02/22/22 03/10/22 mirtazapine 7.5 mg tablet 7.5 mg PO BEDTIME 03/10/22 03/11/22 sennosides 8.6 mg tablet (senna) 17.2 mg PO DAILY 03/10/22 03/11/22 sevelamer carbonate 800 mg tablet 800 mg PO TIDWM 03/10/22 03/11/22 warfarin 3 mg tablet 3 mg PO SUTUTHSA@1800 03/11/22 03/11/22 warfarin 6 mg tablet 6 mg PO MOWEFR@1800 03/11/22 03/11/22 Previous Rx's Medication Instructions Recorded pen needle, diabetic 31 gauge x #120 ea 10/08/20/ insulin aspart U-100 100 unit/mL 4 - 12 unit (0.04 - 0.12 mL) 07/08/21 (3 mL) subcutaneous pen (Novolog SUBCUT TID #15 ml Flexpen U-100 Insulin aspart) lisinopril 10 mg tablet 10 mg PO QAM 90 Days #90 tab 09/23/21 amiodarone 200 mg tablet 100 mg PO QAM 30 Days #15 tab 01/21/22 YOLANDA Lund - Last Filed: 03/11/22 16:38> Allergies/adverse reactions: Allergies Allergy/AdvReac Type Severity Reaction Status Date / Time No Known Allergies Allergy Verified 03/10/22 10:22 [No Known Allergies*] <Hilary Luna [facility] Last Filed: 03/11/22 16:38> Review of Systems Constitutional: Constitutional: Denies body ache(s), Denies chills, Denies fatigue, Denies fever(s), Denies headache(s), Denies malaise and Reports weakness <Hilary Luna [facility] Last Filed: 03/11/22 16:38> Eyes: Eyes: Denies blurry vision and Denies diplopia <Hilary Luna [facility] Last Filed: 03/11/22 16:38> ENT: Denies vertigo, Reports dizziness, Denies otalgia, Denies headache(s), Denies mouth pain, Denies post nasal drip, Denies sinus pain, Denies sinus pressure, Denies sore throat and Denies throat swelling <Hilary Luna [facility] Last Filed: 03/11/22 16:38> Cardiovascular: Cardiovascular: Reports chest pain, Denies syncope, Denies leg edema, Denies lightheadedness, Denies Loss of Consciousness, Denies palpitations and Denies dyspnea <Hilary Luna [facility] Last Filed: 03/11/22 16:38> Respiratory: Respiratory: Denies chest congestion, Denies cough and Denies dyspnea <Hilary Luna [facility] Last Filed: 03/11/22 16:38> Gastrointestinal: Gastrointestinal: Denies abdominal pain, Denies hemat ochezia, Denies constipation, Denies diarrhea, Reports nausea and Denies vomiting <Hilary Luna [facility] Last Filed: 03/11/22 16:38> Musculoskeletal: Musculoskeletal: Reports arthralgias <Hilary Luna [facility] Last Filed: 03/11/22 16:38> Comments: Bilateral pain in all toes <Hilary Luna [facility] Last Filed: 03/11/22 16:38> Integumentary/Breasts: Skin/Breast: Reports erythema, Reports skin pain and Reports skin swelling <Hilary Luna [facility] Last Filed: 03/11/22 16:38> Neurologic: Denies confusion, Denies vertigo, Reports dizziness, Denies syncope, Denies headache(s) and Reports weakness <YOLANDA Kebede - Last Filed: 03/11/22 16:38> Psychiatric: Psychiatric: Denies anxiety, Denies confusion and Denies de pression <YOLANDA Kebede - Last Filed: 03/11/22 16:38> Endocrine: Endocrine: Denies fatigue and Denies palpitations <YOLANDA Kebede - Last Filed: 03/11/22 16:38> Allergic/Immunologic: Allergic/Immunologic: Denies throat swelling <YOLANDA Kebede Last Filed: 03/11/22 16:38> PMF Past Medical History Medical History: Medical History (HFpEF) heart failure with preserved ejection fraction A-V fistula Anemia CAD (coronary artery disease) Chronic kidney disease, stage V COPD (chronic obstructive pulmonary disease) Diabetic nephropathy History of alcoholism History of cardioversion History of GI bleed HTN (hypertension) Hyperlipidemia LDL goal <70 Kidney disease, chronic, end stage on dialysis Neuropathy On beta hero at home KIA (obstructive sleep apnea) Osteoarthritis Osteopenia Paroxysmal atrial fibrillation Portal hypertension Proliferative diabetic retinopathy Type 2 diabetes mellitus with hyperglycemia, with long-term current use of insulin 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 Mother No problems noted. Brother Diabetes <YOLANDA Kebede - Last Filed: 03/11/22 16:38> Social History Social History: Social History Household Members: Spouse and Family Household Members Other:: grandchild Housing: Apartment Do you presently have visiting nurse or other home services: Yes Alcohol intake: never Patient Tobacco Use Status: Never used Tobacco Advance Directives: Yes Advance Directives on File: Yes Advance Directives Date on File: 02/23/22 service: No <YOLANDA Kebede Last Filed: 03/11/22 16:38> Physical Exam ED Vital Signs: Vital Signs - 24 hr 03/11/22 09:46 03/11/22 11:00 03/11/22 15:11 Temperature 97.8 F 97.8 F 98.2 F Pulse Rate 74 70 64 Respiratory Rate 14 18 Blood Pressure 98/46 L 108/52 L 112/63 BMI result Body Mass Index 29.0 <YOLANDA Kebede - Last Filed: 03/11/22 16:38> Vital Signs - 24 hr 03/11/22 09:46 03/11/22 11:00 03/11/22 15:11 Temperature 97.8 F 97.8 F 98.2 F Pulse Rate 74 70 64 Respiratory Rate 14 18 Blood Pressure 98/46 L 108/52 L 112/63 BMI result Body Mass Index 29.0 <Malik Diaz MD - Last Filed: 03/11/22 14:09> Const General: alert and awake; No confusion <YOLANDA Kebede - Last Filed: 03/11/22 16:38> Nutritional Appearance: obese morbidly obese <YOLANDA Kebede - Last Filed: 03/11/22 16:38> Orientation/consciousness: patient oriented x3 and No confusion <YOLANDA Kebede - Last Filed: 03/11/22 16:38> Limitations: language barrier <YOLANDA Kebede Last Filed: 03/11/22 16:38> HENMT Head: Yes normal to inspection, Yes normocephalic and Yes atraumatic <YOLANDA Kebede - Last Filed: 03/11/22 16:38> Face and sinus: Yes normal facial exam <YOLANDA Kebede - Last Filed: 03/11/22 16:38> Mouth: Normal oral and palatal mucosa present <YOLANDA Kebede - Last Filed: 03/11/22 16:38> Throat: Yes posterior oropharynx normal <Hilary Luna [facility] Last Filed: 03/11/22 16:38> Eyes Conjunctivae: conjunctivae normal <Hilary Luna [facility] Last Filed: 03/11/22 16:38> Sclerae: sclerae normal <Hilary Luna [facility] Last Filed: 03/11/22 16:38> Pupils: Equal, round and reactive pupils present <Hilary Luna [facility] Last Filed: 03/11/22 16:38> EOM: EOMs intact bilaterally <Hilary Luna [facility] Last Filed: 03/11/22 16:38> Neck Neck: Yes full ROM, Yes no lymphadenopathy and Yes supple <Hilary Luna [facility] Last Filed: 03/11/22 16:38> Resp Effort & Inspection: normal respiratory effort and able to speak in complete sentences <Hilary Luna [facility] Last Filed: 03/11/22 16:38> Auscultation: clear to auscultation bilaterally, no crackles, no rales, no rhonchi and no wheezes <Hilary Luna [facility] Last Filed: 03/11/22 16:38> Cardio Rate: regular rate <Hilary Luna [facility] Last Filed: 03/11/22 16:38> Rhythm: regular rhythm <Hilary Luna [facility] Last Filed: 03/11/22 16:38> Heart sounds: S1 normal heart sound present and S2 normal heart sound present <Hilary Luna [facility] Last Filed: 03/11/22 16:38> GI Inspection: Yes normal to inspection <Hilary Luna [facility] Last Filed: 03/11/22 16:38> Palpation (GI): Soft to palpation, nontender, no guarding and not rigid <Hilary Lnua [facility] Last Filed: 03/11/22 16:38> Percussion: Yes normal to percussion <Hilary Luna [facility] Last Filed: 03/11/22 16:38> Auscultation: normal bowel sounds <Hilary Luna [facility] Last Filed: 03/11/22 16:38> Back/Spine/Pelvis Cervical Spine: normal cervical lordosis, cervical ROM normal, No Cervical spine tenderness and No step off deformity <Hilary Luna [facility] Last Filed: 03/11/22 16:38> Thoracic/Lumbar Spine: No thoracic spinal tenderness and No lumbar spinal tenderness <YOLANDA Kebede Last Filed: 03/11/22 16:38> Skin Other: Necrotic area to lateral great right toe, bilateral toes are erythematous, extremely painful to touch, and cool to the touch. <YOLANDA Kebede Last Filed: 03/11/22 16:38> Neuro General: patient oriented x3 and No confusion <YOLANDA Kebede Last Filed: 03/11/22 16:38> Cranial nerves: Yes Equal, round and reactive pupils present <Hilary Luna [facility] Last Filed: 03/11/22 16:38> Extrem Right lower extremity: foot Details: abnormal to inspection Details: joint swelling and erythematous and tenderness Location: of the great toe and of another digit Location: the 2nd digit, the 3rd digit, the 4th digit and the 5th digit <YOLANDA Kebede Last Filed: 03/11/22 16:38> Left lower extremity: foot Details: abnormal to inspection Details: erythematous and tenderness Location: of the great toe and of another digit Location: the 2nd digit, the 3rd digit, the 4th digit and the 5th digit <YOLANDA Kebede Last Filed: 03/11/22 16:38> Psych Appearance: grossly normal <YOLANDA Kebede Last Filed: 03/11/22 16:38> Affect: normal affect <YOLANDA Kebede Last Filed: 03/11/22 16:38> Attitude: cooperative <YOLANDA Kebede Last Filed: 03/11/22 16:38> Thought process: Normal thought process present <YOLANDA Kebede Last Filed: 03/11/22 16:38> Course Course Course Narrative: 09:50 67-year-old end-stage renal disease dialysis patient presents with dizziness and nausea during dialysis today. She had to stop dialysis. She had a low blood pressure at dialysis of 102/60. Patient endorses chest tightness that started 9:30 today. Pain is 5/10. Does not radiate to her back. Does not feel short of breath. No vomiting or diarrhea. In addition, patient states her bilateral toes have worsening pain over the last 2 weeks. On exam, patient is alert and oriented x3, she is mentating well, repeat blood pressure shows 108/52. Bilateral toll toes are erythematous and cool to the touch. I got faint dorsal pedis pulses bilaterally, I asked nurse to Doppler, nurse could not get pulses on bilateral Doppler feet. Her right toe has a necrotic lesion. I asked Dr. Diaz to evaluate the patient with me, he came to bedside, he we were able to get dorsal pedis pulse on left foot, not on right. Feet are warm, there is perfusion to feet, toes are cool and red. He stated this is not an occlusive emergency. This patient has a past medical history of coronary artery disease, atrial fibrillation, end-stage renal disease, parathyroidism of renal origin, liver transplant patient, renal dialysis, NSTEMI, hypertension, hyperlipidemia, anemia of chronic kidney disease, diabetes Getting x-ray bilateral toes rule out osteomyelitis, troponin, magnesium, labs, chest x-ray, PT INR, lactic, blood cultures. Started vanco, Zosyn, getting arterial duplex. Oxycodone for pain Will consult with vascular about course of care and need to have a vascular consult. This patient will be an admission <YOLANDA Kebede - Last Filed: 03/11/22 16:38> Reevaluation(s) Reevaluation #1: Patient is anemic with an H&H of 9.9 in 32.2, with an INR 4.7, PTT of 66.9. Will get guaiac. Patient's creatinine is 5.34, which is her baseline, BUN 23. Her blood sugar is 298. Patient's initial troponin is 61.8. Will repeat troponin at [place] 3 hours. Guiacic negative at bedside PTT high most likely due to heparin during dialysis. Hold next dose of warfarin, patient's INR is 4.7. Patient not actively bleeding. Patient tells me she did not take her Coumadin today. [place] text with Dr. Saavedra , vascular, who agreed that ultrasound would be best modality for imaging this patient, and depending on results of ultrasound, may do directed angiogram with minimal dye load. I will text him after results of ultrasound return. I did give patient tetanus vaccination FINDINGS: Support devices: Left-sided large-bore central venous catheter with tips terminating at the level the right atrium without definite change. Multilevel sternotomy wires intact. Multiple surgical clips overlie the cardiomediastinal silhouette. The lungs are clear. The heart and mediastinal structures are unremarkable XR/XR chest 1V IMPRESSION: No acute cardiopulmonary process. TECHNIQUE: 3 views each of the bilateral feet were obtained.? FINDINGS: There is generalized osteopenia. No acute fracture or dislocation is seen. No overt cortical erosive changes are seen. The tarsal bones are normally aligned. Small to moderate plantar and very small retrocalcaneal spurs are noted. Moderate to severe small vessel arterial sclerosis is seen. The soft tissues are unremarkable.? XR/XR foot RT min 3V IMPRESSION: 1. Generalized osteopenia without acute fracture or overt erosive changes to suggest osteoarthritis. 2. Degenerative calcaneal spurs as detailed above. 3. Moderate to severe arteriosclerosis. <YOLANDA Kebede - Last Filed: 03/11/22 16:38> Reevaluation #2: Our PACS is down, have a paper from radiologist who read patient's Doppler arterial ultrasound of bilateral legs, in this preliminary reading there is no acute clot with bilateral lower extremity arteries. There is atherosclerotic disease with significant stenosis in the right popliteal and lower left thigh. Radiologist suggest vascular radiologist to follow-up on this [place] texted Dr Saavedra to discuss if patient needs further imaging. He said we should just admit patient for now and he will consult on this patient <YOLANDA Kebede - Last Filed: 03/11/22 16:38> Reevaluation #3: Dr Christensen will admit. I did text and that she had a repeat troponin pending 16:38 Called phlebotomy to tell them I had ordered for 2nd troponin, they will come down and draw. <YOLANDA Kebede - Last Filed: 03/11/22 16:38> Medical Decision Making Lab Data Result diagrams: : 03/11/22 11:50 03/11/22 11:50 <YOLANDA Kebede - Last Filed: 03/11/22 16:38> Labs: Lab Results 03/11/22 03/11/22 03/11/22 Range/Units 10:22 11:49 11:50 WBC 4.9 (4.8-10.8) X10*3/uL RBC 3.90 L (4.20-5.50) X10*6/uL Hgb 9.9 L (12.0-16.0) g/dl Hct 32.2 L (37.0-47.0) % MCV 82.6 (80.0-98.0) fL MCH 25.4 L (27.0-33.0) pg MCHC 30.7 L (31.0-35.0) g/dl RDW 14.6 (11.0-16.0) % Plt Count 125 L (160-400) X10*3/uL MPV 12.5 H (9.4-12.3) fL Immature Gran % (Auto) 0.6 H (0.0-0.4) % Neut % (Auto) 78.6 H (45-73) % Lymph % (Auto) 9.7 L (20-40) % Traill % (Auto) 9.5 (2-11) % Eos % (Auto) 1.2 (0-4) % Baso % (Auto) 0.4 (0-2) % Lymph # (Auto) 0.5 L (1.2-4.9) X10*3/uL Traill # (Auto) 0.5 (0.1-1.2) X10*3/uL Eos # (Auto) 0.1 (0.0-0.4) X10*3/uL Baso # (Auto) 0.0 (0.0-0.2) X10*3/uL Abs Immat Gran (auto) 0.03 (0.00-0.03) X10*3/uL Absolute Neuts (auto) 3.9 (2.0-8.3) x10*3/uL Absolute Nucleated RBC 0.000 (0.0-0.012) X10*3/uL Nucleated RBC % (auto) 0.0 (0.0-0.2) /100WBC PT (9.9-13.0) SEC INR (0.9-1.1) APTT (24.1-38.0) SEC Sodium (135-145) mmol/L Potassium (3.3-5.1) mmol/L Chloride (96-108) mmol/L Carbon Dioxide (22-29) mmol/L Anion Gap (12-20) BUN (9-16) mg/dL Creatinine (0.5-1.4) mg/dL Estim Creat Clear Calc Estimated GFR Random Glucose (60-115) mg/dL Lactic Acid (0.5-2.0) mmol/L Calcium (8.4-10.2) mg/dL Magnesium (1.6-2.6) mg/dL Total Bilirubin (0.0-1.0) mg/dL AST (5-31) U/L ALT (0-31) U/L Alkaline Phosphatase (39-117) U/L Troponin I High Sens 61.8 H* (<3.5-17.0) ng/L Total Protein (6.5-8.0) g/dL Albumin (3.5-5.0) g/dL Stool Occult Blood (NEGATIVE) COVID-19 ([facility]) Negative (Negative) COVID-19 Clin Com See Note 03/11/22 03/11/22 03/11/22 Range/Units 11:50 11:50 12:48 WBC (4.8-10.8) X10*3/uL RBC (4.20-5.50) X10*6/uL Hgb (12.0-16.0) g/dl Hct (37.0-47.0) % MCV (80.0-98.0) fL MCH (27.0-33.0) pg MCHC (31.0-35.0) g/dl RDW (11.0-16.0) % Plt Count (160-400) X10*3/uL MPV (9.4-12.3) fL Immature Gran % (Auto) (0.0-0.4) % Neut % (Auto) (45-73) % Lymph % (Auto) (20-40) % Traill % (Auto) (2-11) % Eos % (Auto) (0-4) % Baso % (Auto) (0-2) % Lymph # (Auto) (1.2-4.9) X10*3/uL Traill # (Auto) (0.1-1.2) X10*3/uL Eos # (Auto) (0.0-0.4) X10*3/uL Baso # (Auto) (0.0-0.2) X10*3/uL Abs Immat Gran (auto) (0.00-0.03) X10*3/uL Absolute Neuts (auto) (2.0-8.3) x10*3/uL Absolute Nucleated RBC (0.0-0.012) X10*3/uL Nucleated RBC % (auto) (0.0-0.2) /100WBC PT 54.7 H (9.9-13.0) SEC INR 4.7 H (0.9-1.1) APTT 66.9 H* (24.1-38.0) SEC Sodium 134 L (135-145) mmol/L Potassium 3.7 (3.3-5.1) mmol/L Chloride 94 L (96-108) mmol/L Carbon Dioxide 30 H (22-29) mmol/L Anion Gap 14 (12-20) BUN 23 H D (9-16) mg/dL Creatinine 5.34 H* (0.5-1.4) mg/dL Estim Creat Clear Calc 9.0 Estimated GFR 8 Random Glucose 298 H (60-115) mg/dL Lactic Acid 0.9 (0.5-2.0) mmol/L Calcium 9.7 (8.4-10.2) mg/dL Magnesium 1.8 (1.6-2.6) mg/dL Total Bilirubin 0.5 (0.0-1.0) mg/dL AST 21 D (5-31) U/L ALT 18 (0-31) U/L Alkaline Phosphatase 103 (39-117) U/L Troponin I High Sens (<3.5-17.0) ng/L Total Protein 6.4 L (6.5-8.0) g/dL Albumin 3.9 (3.5-5.0) g/dL Stool Occult Blood (NEGATIVE) COVID-19 ([facility]) (Negative) COVID-19 Clin Com 03/11/22 Range/Units 15:57 WBC (4.8-10.8) X10*3/uL RBC (4.20-5.50) X10*6/uL Hgb (12.0-16.0) g/dl Hct (37.0-47.0) % MCV (80.0-98.0) fL MCH (27.0-33.0) pg MCHC (31.0-35.0) g/dl RDW (11.0-16.0) % Plt Count (160-400) X10*3/uL MPV (9.4-12.3) fL Immature Gran % (Auto) (0.0-0.4) % Neut % (Auto) (45-73) % Lymph % (Auto) (20-40) % Traill % (Auto) (2-11) % Eos % (Auto) (0-4) % Baso % (Auto) (0-2) % Lymph # (Auto) (1.2-4.9) X10*3/uL Traill # (Auto) (0.1-1.2) X10*3/uL Eos # (Auto) (0.0-0.4) X10*3/uL Baso # (Auto) (0.0-0.2) X10*3/uL Abs Immat Gran (auto) (0.00-0.03) X10*3/uL Absolute Neuts (auto) (2.0-8.3) x10*3/uL Absolute Nucleated RBC (0.0-0.012) X10*3/uL Nucleated RBC % (auto) (0.0-0.2) /100WBC PT (9.9-13.0) SEC INR (0.9-1.1) APTT (24.1-38.0) SEC Sodium (135-145) mmol/L Potassium (3.3-5.1) mmol/L Chloride (96-108) mmol/L Carbon Dioxide (22-29) mmol/L Anion Gap (12-20) BUN (9-16) mg/dL Creatinine (0.5-1.4) mg/dL Estim Creat Clear Calc Estimated GFR Random Glucose (60-115) mg/dL Lactic Acid (0.5-2.0) mmol/L Calcium (8.4-10.2) mg/dL Magnesium (1.6-2.6) mg/dL Total Bilirubin (0.0-1.0) mg/dL AST (5-31) U/L ALT (0-31) U/L Alkaline Phosphatase (39-117) U/L Troponin I High Sens (<3.5-17.0) ng/L Total Protein (6.5-8.0) g/dL Albumin (3.5-5.0) g/dL Stool Occult Blood POSITIVE (NEGATIVE) COVID-19 ([facility]) (Negative) COVID-19 Clin Com <YOLANDA Kebede - Last Filed: 03/11/22 16:38> Lab Results 03/11/22 03/11/22 03/11/22 Range/Units 10:22 11:49 11:50 WBC 4.9 (4.8-10.8) X10*3/uL RBC 3.90 L (4.20-5.50) X10*6/uL Hgb 9.9 L (12.0-16.0) g/dl Hct 32.2 L (37.0-47.0) % MCV 82.6 (80.0-98.0) fL MCH 25.4 L (27.0-33.0) pg MCHC 30.7 L (31.0-35.0) g/dl RDW 14.6 (11.0-16.0) % Plt Count 125 L (160-400) X10*3/uL MPV 12.5 H (9.4-12.3) fL Immature Gran % (Auto) 0.6 H (0.0-0.4) % Neut % (Auto) 78.6 H (45-73) % Lymph % (Auto) 9.7 L (20-40) % Traill % (Auto) 9.5 (2-11) % Eos % (Auto) 1.2 (0-4) % Baso % (Auto) 0.4 (0-2) % Lymph # (Auto) 0.5 L (1.2-4.9) X10*3/uL Traill # (Auto) 0.5 (0.1-1.2) X10*3/uL Eos # (Auto) 0.1 (0.0-0.4) X10*3/uL Baso # (Auto) 0.0 (0.0-0.2) X10*3/uL Abs Immat Gran (auto) 0.03 (0.00-0.03) X10*3/uL Absolute Neuts (auto) 3.9 (2.0-8.3) x10*3/uL Absolute Nucleated RBC 0.000 (0.0-0.012) X10*3/uL Nucleated RBC % (auto) 0.0 (0.0-0.2) /100WBC PT (9.9-13.0) SEC INR (0.9-1.1) APTT (24.1-38.0) SEC Sodium (135-145) mmol/L Potassium (3.3-5.1) mmol/L Chloride (96-108) mmol/L Carbon Dioxide (22-29) mmol/L Anion Gap (12-20) BUN (9-16) mg/dL Creatinine (0.5-1.4) mg/dL Estim Creat Clear Calc Estimated GFR Random Glucose (60-115) mg/dL Lactic Acid (0.5-2.0) mmol/L Calcium (8.4-10.2) mg/dL Magnesium (1.6-2.6) mg/dL Total Bilirubin (0.0-1.0) mg/dL AST (5-31) U/L ALT (0-31) U/L Alkaline Phosphatase (39-117) U/L Troponin I High Sens 61.8 H* (<3.5-17.0) ng/L Total Protein (6.5-8.0) g/dL Albumin (3.5-5.0) g/dL Stool Occult Blood (NEGATIVE) COVID-19 ([facility]) Negative (Negative) COVID-19 Clin Com See Note 03/11/22 03/11/22 03/11/22 Range/Units 11:50 11:50 12:48 WBC (4.8-10.8) X10*3/uL RBC (4.20-5.50) X10*6/uL Hgb (12.0-16.0) g/dl Hct (37.0-47.0) % MCV (80.0-98.0) fL MCH (27.0-33.0) pg MCHC (31.0-35.0) g/dl RDW (11.0-16.0) % Plt Count (160-400) X10*3/uL MPV (9.4-12.3) fL Immature Gran % (Auto) (0.0-0.4) % Neut % (Auto) (45-73) % Lymph % (Auto) (20-40) % Traill % (Auto) (2-11) % Eos % (Auto) (0-4) % Baso % (Auto) (0-2) % Lymph # (Auto) (1.2-4.9) X10*3/uL Traill # (Auto) (0.1-1.2) X10*3/uL Eos # (Auto) (0.0-0.4) X10*3/uL Baso # (Auto) (0.0-0.2) X10*3/uL Abs Immat Gran (auto) (0.00-0.03) X10*3/uL Absolute Neuts (auto) (2.0-8.3) x10*3/uL Absolute Nucleated RBC (0.0-0.012) X10*3/uL Nucleated RBC % (auto) (0.0-0.2) /100WBC PT 54.7 H (9.9-13.0) SEC INR 4.7 H (0.9-1.1) APTT 66.9 H* (24.1-38.0) SEC Sodium 134 L (135-145) mmol/L Potassium 3.7 (3.3-5.1) mmol/L Chloride 94 L (96-108) mmol/L Carbon Dioxide 30 H (22-29) mmol/L Anion Gap 14 (12-20) BUN 23 H D (9-16) mg/dL Creatinine 5.34 H* (0.5-1.4) mg/dL Estim Creat Clear Calc 9.0 Estimated GFR 8 Random Glucose 298 H (60-115) mg/dL Lactic Acid 0.9 (0.5-2.0) mmol/L Calcium 9.7 (8.4-10.2) mg/dL Magnesium 1.8 (1.6-2.6) mg/dL Total Bilirubin 0.5 (0.0-1.0) mg/dL AST 21 D (5-31) U/L ALT 18 (0-31) U/L Alkaline Phosphatase 103 (39-117) U/L Troponin I High Sens (<3.5-17.0) ng/L Total Protein 6.4 L (6.5-8.0) g/dL Albumin 3.9 (3.5-5.0) g/dL Stool Occult Blood (NEGATIVE) COVID-19 ([facility]) (Negative) COVID-19 Clin Com 03/11/22 Range/Units 15:57 WBC (4.8-10.8) X10*3/uL RBC (4.20-5.50) X10*6/uL Hgb (12.0-16.0) g/dl Hct (37.0-47.0) % MCV (80.0-98.0) fL MCH (27.0-33.0) pg MCHC (31.0-35.0) g/dl RDW (11.0-16.0) % Plt Count (160-400) X10*3/uL MPV (9.4-12.3) fL Immature Gran % (Auto) (0.0-0.4) % Neut % (Auto) (45-73) % Lymph % (Auto) (20-40) % Traill % (Auto) (2-11) % Eos % (Auto) (0-4) % Baso % (Auto) (0-2) % Lymph # (Auto) (1.2-4.9) X10*3/uL Traill # (Auto) (0.1-1.2) X10*3/uL Eos # (Auto) (0.0-0.4) X10*3/uL Baso # (Auto) (0.0-0.2) X10*3/uL Abs Immat Gran (auto) (0.00-0.03) X10*3/uL Absolute Neuts (auto) (2.0-8.3) x10*3/uL Absolute Nucleated RBC (0.0-0.012) X10*3/uL Nucleated RBC % (auto) (0.0-0.2) /100WBC PT (9.9-13.0) SEC INR (0.9-1.1) APTT (24.1-38.0) SEC Sodium (135-145) mmol/L Potassium (3.3-5.1) mmol/L Chloride (96-108) mmol/L Carbon Dioxide (22-29) mmol/L Anion Gap (12-20) BUN (9-16) mg/dL Creatinine (0.5-1.4) mg/dL Estim Creat Clear Calc Estimated GFR Random Glucose (60-115) mg/dL Lactic Acid (0.5-2.0) mmol/L Calcium (8.4-10.2) mg/dL Magnesium (1.6-2.6) mg/dL Total Bilirubin (0.0-1.0) mg/dL AST (5-31) U/L ALT (0-31) U/L Alkaline Phosphatase (39-117) U/L Troponin I High Sens (<3.5-17.0) ng/L Total Protein (6.5-8.0) g/dL Albumin (3.5-5.0) g/dL Stool Occult Blood POSITIVE (NEGATIVE) COVID-19 (LIZBETH) (Negative) COVID-19 Clin Com <Malik Diaz MD - Last Filed: 03/11/22 14:09> ECG Data Interpretation: Ventricular rate 73, undetermined rhythm, QRS 94, QTC 497, normal axis, prolonged QT, old T-wave abnormalities in lateral and anterior leads <YOLANDA Kebede - Last Filed: 03/11/22 16:38> Attending Attestation Patient was seen and evaluated. Evaluation of her feet bilaterally show she has warm pink feet but toes are cool to touch and tender. Right great toe with area of eschar on the lateral aspect. Left foot with palpable dorsalis pedis pulse. Right foot without palpable pulse but no evidence of acute large vessel occlusion. Initially brought in for chest pain from dialysis. Will be worked up and hospitalized for further treatment. <Malik Diaz MD - Last Filed: 03/11/22 14:09> Discharge Plan Discharge Clinical Impression: Vascular disorder of lower extremity, Hypercoagulopathy, Anemia, Bilateral foot pain, Cellulitis <YOLANDA Kebede - Last Filed: 03/11/22 16:38> Patient Disposition: Admitted As Inpatient <YOLANDA Kebede - Last Filed: 03/11/22 16:38>
[2022-03-11 10:48] LABS: COVID-19 Test Negative (Negative)
[2022-03-11 11:00] VITALS: BP 108/52; PULSE 70; TEMP 36.6
[2022-03-11 12:03] LABS: MANUAL DIFF FLAG NO
[2022-03-11 12:05] LABS: Basophils Percent Auto 0.4 % (0-2); Eosinophils Absolute Auto 0.1 X10*3/uL (0.0-0.4); Eosinophils Percent Auto 1.2 % (0-4); Hematocrit 32.2 % (37.0-47.0); Hemoglobin 9.9 g/dl (12.0-16.0); Imm Gran Abs Auto 0.03 X10*3/uL (0.00-0.03); Imm Gran Pct Auto 0.6 % (0.0-0.4); Lymphocytes Absolute Auto 0.5 X10*3/uL (1.2-4.9); Lymphocytes Percent Auto 9.7 % (20-40); Mean Corpuscular HGB Conc 30.7 g/dl (31.0-35.0); Mean Corpuscular Hemoglobin 25.4 pg (27.0-33.0); Mean Corpuscular Volume 82.6 fL (80.0-98.0); Mean Platelet Volume 12.5 fL (9.4-12.3); Monocytes Absolute Auto 0.5 X10*3/uL (0.1-1.2); Monocytes Percent Auto 9.5 % (2-11); Neutrophils Absolute Auto 3.9 x10*3/uL (2.0-8.3); Neutrophils Percent Auto 78.6 % (45-73); Platelet Count 125 X10*3/uL (160-400); Red Cell Distribution Width 14.6 % (11.0-16.0); White Blood Count 4.9 X10*3/uL (4.8-10.8)
[2022-03-11 12:23] LABS: Lactic Acid 0.9 mmol/L (0.5-2.0)
[2022-03-11 12:43] LABS: Troponin-I High Sensitivity 61.8 ng/L (<3.5-17.0)
[2022-03-11 13:03] LABS: INTERNATIONAL NORM RATIO 4.7 (0.9-1.1); Prothrombin Time 54.7 SEC (9.9-13.0)
[2022-03-11 13:08] LABS: Alanine Aminotransferase 18 U/L (0-31); Albumin Level 3.9 g/dL (3.5-5.0); Alkaline Phosphatase 103 U/L (39-117); Anion Gap 14 (12-20); Aspartate Amino Transferase 21 U/L (5-31); Bilirubin Total 0.5 mg/dL (0.0-1.0); Blood Urea Nitrogen 23 mg/dL (9-16); Calcium 9.7 mg/dL (8.4-10.2); Carbon Dioxide 30 mmol/L (22-29); Chloride 94 mmol/L (96-108); Estimated Glomerular Filt Rate 8; Glucose Random 298 mg/dL (60-115); Magnesium 1.8 mg/dL (1.6-2.6); Potassium 3.7 mmol/L (3.3-5.1); Sodium 134 mmol/L (135-145); Total Protein 6.4 g/dL (6.5-8.0)
[2022-03-11 13:10] LABS: Partial Thromboplastin Time 66.9 SEC (24.1-38.0)
[2022-03-11] MEDS: Aspirin 81 MG TAB.CHEW 324 MG PO (13:22)
[2022-03-11] MEDS: Piperacillin Sodium/Tazobactam 2.25 GM in 0.9 % Sodium Chloride 50 ML IV (13:22)
--- NOTE | 2022-03-11 13:25 | PC.NURSE ---
Doppler US performed at bedside to b/l feet-no pedal pulses noted to right and left foot-provider notified.
--- NOTE | 2022-03-11 14:38 | PC.NURSE ---
estiven (rn) from [facility] ([phone]) called for an update on pt status.
[2022-03-11] MEDS: oxyCODONE HCl Immed Release 5 MG TABLET PO (14:59)
[2022-03-11] MEDS: Diphth,Pertus(ACell),Tet Adult 0.5 ML SYRINGE IM (15:08)
[2022-03-11 15:11] VITALS: BP 112/63; PULSE 64; RESP 18; TEMP 36.8
--- NOTE | 2022-03-11 15:26 | PM.IMHP ---
History of Present Illness Date of Service: 03/11/22 Chief Complaint: Pain in the feet 67-year-old female with known history of congestive heart failure(echo 02/22/2022) demonstrate EF ?45-50%, ESRD HD MWF, HTN, HLD, CAD, diabetes, AFIB on coumadin INR is 4 now, s/p liver transplant in 2008, amongst other. Was recently treated in the hospital from 02/22 to 02/24 with heart failure and presents to ED today with c/o bilateral feet pain worst on the right, she was reportedly in dialys and was c/o feet pain, dizziness and nausea and brought to ED and c/o some chest discomfort and reportedly vascular surgeon Dr. Saavedra wants her admitted for vascular work up. Has no fever, no sob, no chest pain at moment, troponin is 61, no ECG changes. She acknowledge having neuropathy in the feet Review of Systems Review of Systems: Gen: no fever Resp: no sob, no cough CV: no chest, no MONTEZ, no leg edema GI: No n/v, no abd pain Neuro: No confusion MusK: pain in the feet Yes all other systems are reviewed and are negative [facility] Medical History (HFpEF) heart failure with preserved ejection fraction A-V fistula Anemia CAD (coronary artery disease) Chronic kidney disease, stage V COPD (chronic obstructive pulmonary disease) Diabetic nephropathy History of alcoholism History of cardioversion History of GI bleed HTN (hypertension) Hyperlipidemia LDL goal <70 Kidney disease, chronic, end stage on dialysis Neuropathy On beta hero at home KIA (obstructive sleep apnea) Osteoarthritis Osteopenia Paroxysmal atrial fibrillation Portal hypertension Proliferative diabetic retinopathy Type 2 diabetes mellitus with hyperglycemia, with long-term current use of insulin 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 Mother No problems noted. Brother Diabetes Surgical History History of biliary duct stent placement History of esophagogastroduodenoscopy (EGD) History of intravascular stent placement Hx of colonoscopy S/P cardiac cath (~10/2018) Status post liver transplant Social History Household Members: Spouse and Family Household Members Other:: grandchild Housing: Apartment Do you presently have visiting nurse or other home services: Yes Alcohol intake: never Patient Tobacco Use Status: Never used Tobacco Use of substances other than those prescribed or required for medical reasons: No Currently Displaying Signs/Symptoms of Drug Intoxication Withdrawal: No Have you been hit, kicked, punched, or otherwise hurt by someone within the past year? If so, by whom?: No Do you feel safe in your current relationship?: No Is there a partner from a previous relationship who is making you feel unsafe now?: No Are you made to feel afraid or neglected: No Spiritual Healthcare Practices: Jehovah Witness Advance Directives: Yes Advance Directives on File: Yes Advance Directives Date on File: 02/23/22 Do you have thoughts of harming others: None Do you have a plan to hurt others: No Plan Recently lost weight without trying: No Eating poorly because of decreased appetite: No service: No Current occupational status: [employer] Labs Allergies Allergy/AdvReac Type Severity Reaction Status Date / Time No Known Allergies Allergy Verified 03/10/22 10:22 [No Known Allergies*] Active Medications: Current Medications Pharmacy Consult (Consult Rx Perform Med Rec) 1 each MISCELLANE ONCE PRN PRN Reason: Consult order Home Medications Medication Instructions Recorded Confirmed Last Taken Type atorvastatin 80 mg tablet 80 mg PO BEDTIME 10/08/20 03/11/22 02/21/22 History blood sugar diagnostic #10 ea 10/08/20 03/10/22 Unknown History docusate sodium 100 mg capsule 100 mg PO BID PRN 10/08/20 03/11/22 Unknown History folic acid 1 mg tablet 1 mg PO BEDTIME 10/08/20 03/11/22 02/21/22 History lancets 33 gauge #100 ea 10/08/20 03/10/22 Unknown History metoprolol tartrate 50 mg tablet 50 mg PO BID 10/08/20 03/11/22 02/21/22 History pantoprazole 40 mg tablet,delayed 40 mg PO BID 10/08/20 03/11/22 02/21/22 History release fluticasone propionate 110 1 puff INHALATION BID 11/12/20 03/11/22 Unknown History mcg/actuation HFA aerosol inhaler fluticasone propionate 50 1 - 2 spray INTRANASAL DAILY PRN 11/12/20 03/11/22 Unknown History mcg/actuation nasal spray,suspension mycophenolate mofetil 250 mg 250 mg PO BID 11/12/20 03/11/22 02/21/22 History capsule tacrolimus 1 mg capsule, 4 mg PO BID 11/12/20 03/11/22 02/21/22 History immediate-release trazodone 50 mg tablet 50 mg PO BEDTIME 11/12/20 03/11/22 02/21/22 History insulin degludec 100 unit/mL (3 48 unit SUBCUT BEDTIME ml 11/18/20 03/11/22 02/21/22 History mL) subcutaneous pen sertraline 50 mg tablet 50 mg PO DAILY 02/22/22 03/11/22 02/21/22 History vitamin B complex and vitamin C 1 cap PO QPM 02/22/22 03/11/22 02/21/22 History no.20-folic acid 1 mg capsule (Triphrocaps) warfarin 2 mg tablet 2 mg PO SUTUTHSA@1800 02/22/22 03/10/22 02/21/22 History warfarin 3 mg tablet 3 mg PO MOWEFR@1800 02/22/22 03/10/22 02/20/22 History mirtazapine 7.5 mg tablet 7.5 mg PO BEDTIME 03/10/22 03/11/22 Unknown History sennosides 8.6 mg tablet (senna) 17.2 mg PO DAILY 03/10/22 03/11/22 Unknown History sevelamer carbonate 800 mg tablet 800 mg PO TIDWM 03/10/22 03/11/22 Unknown History warfarin 3 mg tablet 3 mg PO SUTUTHSA@1800 03/11/22 03/11/22 Unknown History warfarin 6 mg tablet 6 mg PO MOWEFR@1800 03/11/22 03/11/22 Unknown History Physical Exam Vital Signs and Narrative: Vital Signs: Last Vital Signs Temp 98.2 F 03/11/22 15:11 Pulse 64 03/11/22 15:11 Resp 18 03/11/22 15:11 BP 112/63 03/11/22 15:11 BMI result Body Mass Index 29.0 Const: Other: Constitutional: Alert, in no distress, Mental Status: Oriented to person, place and time. Eyes: Pupils are equal, round and reactive to light. Ear, Nose and Throat: Oropharynx clear, mucous membranes moist, Trachea midline. Respiratory: Clear to auscultation. No wheezing, rales or rhonchi. Cardiovascular: S1 S2 regular. No murmurs, rubs or gallops. Gastrointestinal: Abdomen soft, non-tender, non-distended. Normal bowel sounds.? Neurologic: Cranial nerves II-XII grossly intact. No focal neurological deficits. Moves all extremities spontaneously.? Skin: ? Musculoskeletal: No cyanosis or clubbing. Psychiatric: Normal mood and affect? Results Labs CBC and Chem 7: 03/11/22 11:50 03/11/22 11:50 Imaging Radiologist's Impressions: Impressions Foot X-Ray 03/11/22 10:09 IMPRESSION: 1. Generalized osteopenia without acute fracture or overt erosive changes to suggest osteoarthritis. 2. Degenerative calcaneal spurs as detailed above. 3. Moderate to severe arteriosclerosis. Foot X-Ray 03/11/22 10:09 IMPRESSION: 1. Generalized osteopenia without acute fracture or overt erosive changes to suggest osteoarthritis. 2. Degenerative calcaneal spurs as detailed above. 3. Moderate to severe arteriosclerosis. Chest X-Ray 03/11/22 10:37 IMPRESSION: No acute cardiopulmonary process. Assessment and Plan (1) Vascular disorder of lower extremity: Status: Acute (2) Bilateral foot pain: Status: Acute Plan 67 year female with complicated past medical with ESRD on dialysis, s/p liver transplant 2008, diabetes, HTN, AFIB on coumadin, CAD, HFpEF, diabetes, peripheral vascular disease with peripheral neuropathy here with pain in the feet, particulary the right foot 1/Pain in the feet, peripheral vascular disease--mostly chronic, no evidence of acute ischemia or infection -Pain control with morphine, Dr. Saavedra to direct further testing and w/u 2/ESRD--consult Nephrology for dialysis 3/AFIB rate is controlled with Amio and metoprolol, hold coumadin due to high INR 4/ Diabetes--Insulin 5/ HLD--Lipitor 6/ HTN--continue Lisinoprill, Metoprolol 7/S/p liver transplant--continue ticrolimus 8/ Chest pain was atypical, no ecg, elevated trop d/t renal failure 9/reative airway disease--bronchodilators 10/ GERD --prilosec for protonix 11/Depression/anxiety--Remron, Sertraline Full code. Quality Stroke Does the patient have a stroke diagnosis?: No VTE Prior VTE?: No VTE Risk Level:: Medical - low VTE Device Contraindication: Treatment Not Indicated VTE Drug Contraindication: N/A - Med Ordered
[2022-03-11 16:06] LABS: OBS Int Ctl Valid YES; OBS1 POSITIVE (NEGATIVE)
[2022-03-11] MEDS: vancomycin HCL 1,000 MG in 0.9 % Sodium Chloride 250 ML 270 MG IV (16:23)
[2022-03-11 17:05] LABS: Troponin-I High Sensitivity 62.1 ng/L (<3.5-17.0)
[2022-03-11] MEDS: Sevelamer Carbonate Tablet 800 MG TABLET PO (17:45)
[2022-03-11] MEDS: Multivitamin TABLET 1 TAB PO (17:45)
--- NOTE | 2022-03-11 18:02 | PHA.MEDREC ---
Pharmacy Consult ? Medication Reconciliation Pharmacy has completed the medication reconciliation. RECENT WARFARIN CHANGE; CONFIRMED DOSE W/ [facility]
--- NOTE | 2022-03-11 19:03 | PC.NURSE ---
report received from ED RN, pt transferred to ED overflow.
[2022-03-11 20:14] VITALS: BP 105/61; PULSE 70; RESP 18; TEMP 36.5; O2SAT 96
[2022-03-11 20:22] LABS: Glucose, Whole Blood 271 mg/dL (60-115)
[2022-03-11] MEDS: Folic Acid 1 MG TABLET PO (20:30)
[2022-03-11] MEDS: traZODone HCL 50 MG TABLET PO (20:30)
[2022-03-11] MEDS: mycophenolate mofetiL 250 MG CAPSULE PO (20:31)
[2022-03-11] MEDS: Insulin Lispro 100 UNIT/ML 3 ML VIAL SUBCUT (20:31)
[2022-03-11] MEDS: Mirtazapine 7.5 MG TABLET PO (20:31)
[2022-03-11] MEDS: Tacrolimus 1 MG CAPSULE 4 MG PO (20:31)
[2022-03-11] MEDS: Atorvastatin Calcium 80 MG TABLET PO (20:31)
[2022-03-11] MEDS: Metoprolol Tartrate 50 MG TABLET PO (20:31)
[2022-03-11 20:32] VITALS: RESP 18
[2022-03-11] MEDS: Insulin Glargine,Hum.rec.anlog 100 UNIT/ML 10 ML VIAL 35 UNIT SUBCUT (20:32)
[2022-03-11] MEDS: 0.9 % Sodium Chloride Flush 3 ML SYRINGE IVFLUSH (20:32)
[2022-03-11] MEDS: Morphine Sulfate 4 MG/ML CARTRIDGE 2 MG IVPUSH (20:32)
[2022-03-12] VITALS (9 sets, daily range): BP systolic 98–123; BP diastolic 44–55; PULSE 54–70; RESP 14–18; TEMP 35.9–36.6; O2SAT 96–99
[2022-03-12] MEDS: Morphine Sulfate 4 MG/ML CARTRIDGE 2 MG IVPUSH ×2 (05:39→14:35)
[2022-03-12] MEDS: Omeprazole 40 MG CAPSULE.DR PO ×2 (05:42→16:44)
[2022-03-12 08:02] LABS: Glucose, Whole Blood 57 mg/dL (60-115)
[2022-03-12 08:28] LABS: Glucose, Whole Blood 54 mg/dL (60-115)
[2022-03-12 08:54] LABS: Glucose, Whole Blood 60 mg/dL (60-115)
--- NOTE | 2022-03-12 08:58 | PC.NURSE ---
Pt POC was 57, breakfast was given, pt encouraged to eat, pt reported no symptoms, md made aware. recheck of POC was 54, pt given orange juice and encouraged to eat breakfast. Recheck poc was 60, pt given glucose gel, pending effects. Pt alert and oriented, able to make needs know, LS clear. pt resting comfortably in bed. deputy sheriff custody used bedside to explain plan of care and low blood sugar
[2022-03-12] MEDS: Fluticasone Propionate 100 MCG BLST.W.DEV 1 PUFF INHALE (09:02)
[2022-03-12] MEDS: Fluticasone Propionate Nasal 16 GM SPRAY NOSTRIL-B (09:09)
[2022-03-12] MEDS: 0.9 % Sodium Chloride Flush 3 ML SYRINGE IVFLUSH ×2 (09:09→16:44)
[2022-03-12] MEDS: Amiodarone HCL 200 MG TABLET 100 MG PO (09:09)
[2022-03-12] MEDS: Metoprolol Tartrate 50 MG TABLET PO (09:09)
[2022-03-12] MEDS: Sennosides 8.6 MG TABLET 17.2 MG PO (09:09)
[2022-03-12] MEDS: Sertraline HCL 50 MG TABLET PO (09:09)
[2022-03-12] MEDS: lisinopriL 10 MG TABLET PO (09:09)
[2022-03-12] MEDS: Glucose Gel 15 GM GEL..GRAM. PO (09:10)
[2022-03-12 09:22] LABS: Glucose, Whole Blood 69 mg/dL (60-115)
[2022-03-12 09:50] LABS: Glucose, Whole Blood 89 mg/dL (60-115)
[2022-03-12] MEDS: Tacrolimus 1 MG CAPSULE 4 MG PO ×2 (11:29→21:39)
[2022-03-12] MEDS: Sevelamer Carbonate Tablet 800 MG TABLET PO ×2 (11:31→16:44)
[2022-03-12] MEDS: mycophenolate mofetiL 250 MG CAPSULE PO ×2 (11:33→21:39)
[2022-03-12 11:51] LABS: Glucose, Whole Blood 193 mg/dL (60-115)
--- NOTE | 2022-03-12 12:48 | PC.NURSE ---
rn to rn given to jaycob garcia aware of plan of care for transfer to room 374.
--- NOTE | 2022-03-12 13:30 | MHC.CM.PN ---
PT LIVES WITH HER SPOUSE AND GRAND KIDS PT HAS A CATERING SERVICE MANAGER DAILY AND GOES TO DIALYSIS AT THE [facility] M-W-F PT HAS A HCP ON FILE PCP: [employer] OBSERVATION NOTICE DELIVERED, COPY SENT TO [facility] CURRENT DC PLAN IS HOME WITH RESUMPTION OF SERVICES FAMILY TO TRANSPORT
--- NOTE | 2022-03-12 13:56 | PM.CNGS ---
History of Present Illness Consult details Consult date: 03/12/22 Reason for consult: wound care Narrative: 67-year-old female presents for evaluation regarding nonhealing ulcer of the right foot. She reportedly was on dialysis and at the time of dialysis had right lower extremity pain. It was increasing in intensity. Upon discussion with the patient this is been going on for over a month. She now presents for vascular evaluation regarding this. Of note she was seen in the emergency room and noninvasive testing was undertaken. Review of Systems Review of Systems: Yes all other systems are reviewed and are negative Constitutional: Constitutional: Reports no additional constitutional complaints ENT: Reports Normal hearing present Cardiovascular: Cardiovascular: Denies chest pain, Denies chest pain at rest, Denies chest pain with activity and Denies pedal edema Respiratory: Respiratory: Denies cough Gastrointestinal: Gastrointestinal: Denies abdominal pain Musculoskeletal: Musculoskeletal: Denies abnormal gait, Denies muscle cramps and Denies radiating pain into limb Integumentary/Breasts: Skin/Breast: Denies skin ulcer and Denies wounds Neurologic: Reports Normal hearing present and Denies abnormal gait Psychiatric: Psychiatric: Reports no additional psychiatric complaints PMFSH Past Medical History Medical History (HFpEF) heart failure with preserved ejection fraction A-V fistula Anemia CAD (coronary artery disease) Chronic kidney disease, stage V COPD (chronic obstructive pulmonary disease) Diabetic nephropathy History of alcoholism History of cardioversion History of GI bleed HTN (hypertension) Hyperlipidemia LDL goal <70 Kidney disease, chronic, end stage on dialysis Neuropathy On beta hero at home KIA (obstructive sleep apnea) Osteoarthritis Osteopenia Paroxysmal atrial fibrillation Portal hypertension Proliferative diabetic retinopathy Type 2 diabetes mellitus with hyperglycemia, with long-term current use of insulin 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 Mother No problems noted. Brother Diabetes Surgical History Surgical History History of biliary duct stent placement History of esophagogastroduodenoscopy (EGD) History of intravascular stent placement Hx of colonoscopy S/P cardiac cath (~10/2018) Status post liver transplant Social History Social History Household Members: Spouse and Family Household Members Other:: grandchild Housing: Apartment Do you presently have visiting nurse or other home services: Yes Alcohol intake: never Patient Tobacco Use Status: Never used Tobacco Advance Directives: Yes Advance Directives on File: Yes Advance Directives Date on File: 02/23/22 service: No Current occupational status: retired Meds Allergies Allergy/AdvReac Type Severity Reaction Status Date / Time No Known Allergies Allergy Verified 03/10/22 10:22 [No Known Allergies*] Active Medications: Current Medications Amiodarone HCl (Amiodarone Hcl 200 Mg Tablet) 100 mg PO DAILY [facility] Last Admin: 03/12/22 09:09 Dose: 100 mg Documented by: Atorvastatin Calcium (Atorvastatin Calcium 80 Mg Tablet) 80 mg PO BEDTIME FABRICIO Last Admin: 03/11/22 20:31 Dose: 80 mg Documented by: Docusate Sodium (Docusate Sodium 100 Mg Capsule) 100 mg PO BID PRN PRN Reason: Constipation Fluticasone Propionate (Fluticasone Propionate Nasal 16 Gm [place]) 1 - 2 spray NOSTRIL-B DAILY PRN PRN Reason: Nasal Congestion Last Admin: 03/12/22 09:09 Dose: 1 spray Documented by: Fluticasone Propionate (Fluticasone Propionate 100 Mcg Blst.W.Dev) 1 puff INHALE RBID [facility] Last Admin: 03/12/22 09:02 Dose: 1 puff Documented by: Folic Acid (Folic Acid 1 Mg Tablet) 1 mg PO BEDTIME FABRICIO Last Admin: 03/11/22 20:30 Dose: 1 mg Documented by: Insulin Glargine (Insulin Glargine,Hum.Rec.Anlog 100 Unit/Ml 10 Ml Vial) 35 unit SUBCUT BEDTIME [facility] Last Admin: 03/11/22 20:32 Dose: 35 unit Documented by: Insulin Human Lispro (Insulin Lispro 100 Unit/Ml 3 Ml Vial) 0 unit SUBCUT QIDACHS [facility]; Protocol Last Admin: 03/12/22 13:39 Dose: Not Given Documented by: Lisinopril (Lisinopril 10 Mg Tablet) 10 mg PO DAILY [facility]; Protocol Last Admin: 03/12/22 09:09 Dose: 10 mg Documented by: Melatonin (Melatonin 3 Mg Tablet) 6 mg PO BEDTIME PRN PRN Reason: Insomnia Metoprolol Tartrate (Metoprolol Tartrate 50 Mg Tablet) 50 mg PO BID [facility]; Protocol Last Admin: 03/12/22 09:09 Dose: 50 mg Documented by: Mirtazapine (Mirtazapine 7.5 Mg Tablet) 7.5 mg PO BEDTIME [facility] Last Admin: 03/11/22 20:31 Dose: 7.5 mg Documented by: Morphine Sulfate (Morphine Sulfate 4 Mg/Ml Cartridge) 2 mg IVPUSH Q4H PRN; Protocol PRN Reason: Pain, Severe (Pain Scale 7-10) Last Admin: 03/12/22 05:39 Dose: 2 mg Documented by: Multivitamins/Vitamin C (Multivitamin Tablet) 1 tab PO DAILY@1700 [facility] Last Admin: 03/11/22 17:45 Dose: 1 tab Documented by: Mycophenolate Mofetil (Mycophenolate Mofetil 250 Mg Capsule) 250 mg PO BID [facility] Last Admin: 03/12/22 11:33 Dose: 250 mg Documented by: Omeprazole (Omeprazole 40 Mg Capsule.Dr) 40 mg PO BID@0630,1630 [facility] Last Admin: 03/12/22 05:42 Dose: 40 mg Documented by: Ondansetron HCl (Ondansetron Hcl 4 Mg/2 Ml Vial) 4 mg IVPUSH Q8H PRN PRN Reason: Nausea and Vomiting Pharmacy Consult (Consult Rx Perform Med Rec) 1 each MISCELLANE ONCE PRN PRN Reason: Consult order Senna (Sennosides 8.6 Mg Tablet) 17.2 mg PO DAILY [facility] Last Admin: 03/12/22 09:09 Dose: 17.2 mg Documented by: Sertraline HCl (Sertraline Hcl 50 Mg Tablet) 50 mg PO DAILY [facility] Last Admin: 03/12/22 09:09 Dose: 50 mg Documented by: Sevelamer Carbonate (Sevelamer Carbonate Tablet 800 Mg Tablet) 800 mg PO TIDWM [facility] Last Admin: 03/12/22 11:31 Dose: 800 mg Documented by: Sodium Chloride (0.9 % Sodium Chloride Flush 3 Ml Syringe) 3 ml IVFLUSH QSHIFT [facility] Last Admin: 03/12/22 09:09 Dose: 3 ml Documented by: Tacrolimus (Tacrolimus 1 Mg Capsule) 4 mg PO BID [facility] Last Admin: 03/12/22 11:29 Dose: 4 mg Documented by: Trazodone HCl (Trazodone Hcl 50 Mg Tablet) 50 mg PO BEDTIME F[facility]IO Last Admin: 03/11/22 20:30 Dose: 50 mg Documented by: Home Medications Medication Instructions Recorded Confirmed Last Taken Type atorvastatin 80 mg tablet 80 mg PO BEDTIME 10/08/20 03/11/22 02/21/22 History blood sugar diagnostic #10 ea 10/08/20 03/10/22 Unknown History docusate sodium 100 mg capsule 100 mg PO BID PRN 10/08/20 03/11/22 Unknown History folic acid 1 mg tablet 1 mg PO BEDTIME 10/08/20 03/11/22 02/21/22 History lancets 33 gauge #100 ea 10/08/20 03/10/22 Unknown History metoprolol tartrate 50 mg tablet 50 mg PO BID 10/08/20 03/11/22 02/21/22 History pantoprazole 40 mg tablet,delayed 40 mg PO BID 10/08/20 03/11/22 02/21/22 History release fluticasone propionate 110 1 puff INHALATION BID 11/12/20 03/11/22 Unknown History mcg/actuation HFA aerosol inhaler fluticasone propionate 50 1 - 2 spray INTRANASAL DAILY PRN 11/12/20 03/11/22 Unknown History mcg/actuation nasal spray,suspension mycophenolate mofetil 250 mg 250 mg PO BID 11/12/20 03/11/22 02/21/22 History capsule tacrolimus 1 mg capsule, 4 mg PO BID 11/12/20 03/11/22 02/21/22 History immediate-release trazodone 50 mg tablet 50 mg PO BEDTIME 11/12/20 03/11/22 02/21/22 History insulin degludec 100 unit/mL (3 48 unit SUBCUT BEDTIME ml 11/18/20 03/11/22 02/21/22 History mL) subcutaneous pen sertraline 50 mg tablet 50 mg PO DAILY 02/22/22 03/11/22 02/21/22 History vitamin B complex and vitamin C 1 cap PO QPM 02/22/22 03/11/22 02/21/22 History no.20-folic acid 1 mg capsule (Triphrocaps) warfarin 2 mg tablet 2 mg PO SUTUTHSA@1800 02/22/22 03/10/2202/21/22 History warfarin 3 mg tablet 3 mg PO MOWEFR@1800 02/22/22 03/10/22 02/20/22 History mirtazapine 7.5 mg tablet 7.5 mg PO BEDTIME 03/10/22 03/11/22 Unknown History sennosides 8.6 mg tablet (senna) 17.2 mg PO DAILY 03/10/22 03/11/22 Unknown History sevelamer carbonate 800 mg tablet 800 mg PO TIDWM 03/10/22 03/11/22 Unknown History warfarin 3 mg tablet 3 mg PO SUTUTHSA@1800 03/11/22 03/11/22 Unknown History warfarin 6 mg tablet 6 mg PO MOWEFR@1800 03/11/22 03/11/22 Unknown History Physical Exam Vital Signs: Vital Signs: Last Vital Signs Temp 97.9 F 03/12/22 05:16 Pulse 54 03/12/22 12:28 Resp 14 03/12/22 12:28 BP 98/45 L 03/12/22 12:28 Pulse Ox 97 03/12/22 12:28 BMI result Body Mass Index 29.0 Const: General: cooperative, healthy appearing and comfortable Orientation/consciousness: oriented to person, oriented to place and oriented to time HEENT: Head: Yes normal to inspection Neck: Neck: Yes normal visual inspection Carotids: no bruits Chest: Chest palpation & inspection: normal inspection of the chest Resp: Effort & Inspection: normal respiratory effort and able to speak in complete sentences Auscultation: clear to auscultation bilaterally, no crackles, no rales, no rhonchi and no wheezes Cardio: Rate: regular rate Rhythm: regular rhythm Heart sounds: S1 normal heart sound present and S2 normal heart sound present Bruits: no carotid bruits Peripheral pulses: Peripheral pulses 2+ throughout GI: Inspection: Yes normal to inspection Skin: Wounds: wounds noted (Right great toe nonhealing ulcer) Hair: normal Neuro: General: oriented to person, oriented to place and oriented to time Cranial nerves: Yes CN's II-XII intact bilaterally and Yes Normal hearing present Cognition (Neuro): normal cognition Motor exam (neuro): 5/5 motor strength present throughout Extrem: Other: venous exam: No significant superficial varicosities or spider telangiectasias, minimal edema General: No clubbing, No cyanosis and No edema Psych: Appearance: grossly normal Mental Status: mental status grossly normal Speech and movement: Normal speech and movement present Results Labs Result diagrams: 03/11/22 11:50 03/11/22 11:50 Labs: Abnormal lab results 03/11/22 03/11/22 03/12/22 Range/Units 16:34 20:01 07:58 POC Glucose 271 H 57 L* (60-115) mg/dL Troponin I High Sens 62.1 H* (<3.5-17.0) ng/L 03/12/22 03/12/22 Range/Units 08:20 11:44 POC Glucose 54 L* 193 H (60-115) mg/dL Troponin I High Sens (<3.5-17.0) ng/L All other labs normal. Assessment and Plan (1) PAD (peripheral artery disease): Status: Acute Plan In short patient has nonhealing ulcer. It does not appear to be acute. This has been progressing for at least a month. She has monophasic flow which leads me to could be concerned about inflow disease. She has an elevated INR. Pain seems to be reasonably well controlled. From my perspective this does not appear to be in acute event. She can be worked up and treated as an outpatient. Would obtain better INR control. Case discussed with the hospitalist team. Once again she can follow up with us as an outpatient. Thank you for allowing us to assist in her care. Procedures Date of Service Date of Service: 03/12/22
--- NOTE | 2022-03-12 14:15 | MHC.CM.PN ---
CALL FROM [facility] OF [facility] RN[facility]QUAN [facility]. PER CONVERSATION, [facility] REFERRAL PLACED TO [facility] FOR RN AND HOME P.T. SKILLS. JAQUAN WILL BE AWAY FROM THE OFFICE UNTIL WednesdayMARCH 17 AND OZZY WILL BE TAKING CALLS INFORMATION WILL BE LEFT ON JAQUAN'S VOICEMAIL AT [phone].
--- NOTE | 2022-03-12 15:41 | P.PNIM_ITS ---
Subjective Subjective Date of Service: 03/13/22 Interval History: f/u on pain in the foot, persistent pain in the feet Review of Systems Gen: no fever Resp: no sob, no cough CV: no chest, no MONTEZ, no leg edema GI: No n/v, no abd pain Neuro: No confusion MusK: pain in the feet Physical Exam Vital Signs: Vital Signs: Last Vital Signs Temp 96.7 F L 03/12/22 14:08 Pulse 58 03/12/22 14:08 Resp 17 03/12/22 14:35 BP 111/54 L 03/12/22 14:08 Pulse Ox 96 03/12/22 14:08 BMI result Body Mass Index 29.0 Const: Other: Constitutional: Alert, in no distress Respiratory: Clear to auscultation. No wheezing, rales or rhonchi. Cardiovascular: S1 S2 regular. No murmurs, rubs or gallops. Gastrointestinal: Abdomen soft, non-tender, non-distended. Normal bowel sounds.? Skin: unchanged ? Musculoskeletal: No cyanosis or clubbing. Psychiatric: Normal mood and affect? Objective Data Active Medications Amiodarone HCl (Amiodarone Hcl 200 Mg Tablet) 100 mg PO DAILY [facility] Last Admin: 03/12/22 09:09 Dose: 100 mg Documented by: AARTI Atorvastatin Calcium (Atorvastatin Calcium 80 Mg Tablet) 80 mg PO BEDTIME [facility] Last Admin: 03/11/22 20:31 Dose: 80 mg Documented by: KERRI Docusate Sodium (Docusate Sodium 100 Mg Capsule) 100 mg PO BID PRN PRN Reason: Constipation Fluticasone Propionate (Fluticasone Propionate Nasal 16 Gm [place]) 1 - 2 spray NOSTRIL-B DAILY PRN PRN Reason: Nasal Congestion Last Admin: 03/12/22 09:09 Dose: 1 spray Documented by: AARTI Fluticasone Propionate (Fluticasone Propionate 100 Mcg Blst.W.Dev) 1 puff INHALE RBID [facility] Last Admin: 03/12/22 09:02 Dose: 1 puff Documented by: HORTENSIA Folic Acid (Folic Acid 1 Mg Tablet) 1 mg PO BEDTIME [facility] Last Admin: 03/11/22 20:30 Dose: 1 mg Documented by: KERRI Insulin Glargine (Insulin Glargine,Hum.Rec.Anlog 100 Unit/Ml 10 Ml Vial) 35 unit SUBCUT BEDTIME [facility] Last Admin: 03/11/22 20:32 Dose: 35 unit Documented by: KERRI Insulin Human Lispro (Insulin Lispro 100 Unit/Ml 3 Ml Vial) 0 unit SUBCUT QIDACHS [facility]; Protocol Last Admin: 03/12/22 13:39 Dose: Not Given Documented by: KAYLEE Non-Admin Reason: Not In Room Lisinopril (Lisinopril 10 Mg Tablet) 10 mg PO DAILY [facility]; Protocol Last Admin: 03/12/22 09:09 Dose: 10 mg Documented by: AARTI Melatonin (Melatonin 3 Mg Tablet) 6 mg PO BEDTIME PRN PRN Reason: Insomnia Metoprolol Tartrate (Metoprolol Tartrate 50 Mg Tablet) 50 mg PO BID [facility]; Protocol Last Admin: 03/12/22 09:09 Dose: 50 mg Documented by: AARTI Mirtazapine (Mirtazapine 7.5 Mg Tablet) 7.5 mg PO BEDTIME [facility] Last Admin: 03/11/22 20:31 Dose: 7.5 mg Documented by: KERRI Morphine Sulfate (Morphine Sulfate 4 Mg/Ml Cartridge) 2 mg IVPUSH Q4H PRN; Protocol PRN Reason: Pain, Severe (Pain Scale 7-10) Last Admin: 03/12/22 14:35 Dose: 2 mg Documented by: KAYLEE Multivitamins/Vitamin C (Multivitamin Tablet) 1 tab PO DAILY@1700 [facility] Last Admin: 03/11/22 17:45 Dose: 1 tab Documented by: RAHEEM Mycophenolate Mofetil (Mycophenolate Mofetil 250 Mg Capsule) 250 mg PO BID [facility] Last Admin: 03/12/22 11:33 Dose: 250 mg Documented by: AARTI Omeprazole (Omeprazole 40 Mg Capsule.) 40 mg PO BID@0630,1630 [facility] Last Admin: 03/12/22 05:42 Dose: 40 mg Documented by: KERRI Ondansetron HCl (Ondansetron Hcl 4 Mg/2 Ml Vial) 4 mg IVPUSH Q8H PRN PRN Reason: Nausea and Vomiting Pharmacy Consult (Consult Rx Perform Med Rec) 1 each MISCELLANE ONCE PRN PRN Reason: Consult order Senna (Sennosides 8.6 Mg Tablet) 17.2 mg PO DAILY [facility] Last Admin: 03/12/22 09:09 Dose: 17.2 mg Documented by: AARTI Sertraline HCl (Sertraline Hcl 50 Mg Tablet) 50 mg PO DAILY [facility] Last Admin: 03/12/22 09:09 Dose: 50 mg Documented by: AARTI Sevelamer Carbonate (Sevelamer Carbonate Tablet 800 Mg Tablet) 800 mg PO TIDWM [facility] Last Admin: 03/12/22 11:31 Dose: 800 mg Documented by: AARTI Sodium Chloride (0.9 % Sodium Chloride Flush 3 Ml Syringe) 3 ml IVFLUSH QSHIFT [facility] Last Admin: 03/12/22 09:09 Dose: 3 ml Documented by: AARTI Tacrolimus (Tacrolimus 1 Mg Capsule) 4 mg PO BID [facility] Last Admin: 03/12/22 11:29 Dose: 4 mg Documented by: AARTI Trazodone HCl (Trazodone Hcl 50 Mg Tablet) 50 mg PO BEDTIME [facility] Last Admin: 03/11/22 20:30 Dose: 50 mg Documented by: HOUMOC Labs CBC & Chem 7: 03/11/22 11:50 03/11/22 11:50 Labs: Laboratory Results - last 24 hr 03/11/22 03/11/22 03/11/22 15:57 16:34 20:01 POC Glucose 271 H Troponin I High Sens 62.1 H* Stool Occult Blood POSITIVE 03/12/22 03/12/22 03/12/22 07:58 08:20 08:45 POC Glucose 57 L* 54 L* 60 Troponin I High Sens Stool Occult Blood 03/12/22 03/12/22 03/12/22 09:15 09:48 11:44 POC Glucose 69 89 193 H Troponin I High Sens Stool Occult Blood Microbiology Microbiology Results: Microbiology 03/11/22 11:49 Blood Culture - Preliminary Blood - Venous No growth after 24 hours. 03/11/22 11:49 Blood Culture - Preliminary Blood - Venous No growth after 24 hours. Assessment and Plan (1) PAD (peripheral artery disease): Status: Acute (2) Vascular disorder of lower extremity: Status: Acute Plan 67 year female with complicated past medical with ESRD on dialysis, s/p liver transplant 2008, diabetes, HTN, AFIB on coumadin, CAD, HFpEF, diabetes, peripheral vascular disease with peripheral neuropathy here with pain in the feet, particulary the right foot 1/Pain in the feet, peripheral vascular disease--mostly chronic, no evidence of acute ischemia or infection -Pain control with morphine, Dr. Saavedra to direct further testing and w/u 2/ESRD--consult Nephrology for dialysis 3/AFIB rate is controlled with Amio and metoprolol, hold coumadin due to high INR 4/ Diabetes--Insulin 5/ HLD--Lipitor 6/ HTN--continue Lisinoprill, Metoprolol 7/S/p liver transplant--continue ticrolimus 8/ Chest pain was atypical, no ecg, elevated trop d/t renal failure 9/reative airway disease--bronchodilators 10/ GERD --prilosec for protonix 11/Depression/anxiety--Remron, Sertraline Full code. Quality Stroke Does the patient have a stroke diagnosis?: No VTE Prior VTE?: No VTE Risk Level:: Medical - low VTE Device Contraindication: Treatment Not Indicated VTE Drug Contraindication: N/A - Med Ordered
[2022-03-12 15:53] LABS: Glucose, Whole Blood 209 mg/dL (60-115)
[2022-03-12] MEDS: Insulin Lispro 100 UNIT/ML 3 ML VIAL SUBCUT (16:43)
[2022-03-12] MEDS: Multivitamin TABLET 1 TAB PO (16:44)
[2022-03-12] MEDS: ondansetron HCL 4 MG/2 ML VIAL IVPUSH (18:18)
--- NOTE | 2022-03-12 20:13 | PM.EVENT ---
Event Note Date of Service: 03/12/22 Event Note: Hypotension: Patient had episode of blood pressure-74/38; patient asymptomatic. Good capillary refill. Legs elevated. Given 250 cc of normal saline bolus. Will continue to monitor vitals closely Will obtain lactate Patient is on lisinopril, metoprolol-received in the morning 03/12. Did not receiving dose of metoprolol yet. Hold antihypertensives for now.
[2022-03-12] MEDS: 0.9 % Sodium Chloride 500 ML IV (20:16)
[2022-03-12 20:35] LABS: Lactic Acid 1.9 mmol/L (0.5-2.0)
[2022-03-12 21:01] LABS: Glucose, Whole Blood 117 mg/dL (60-115)
[2022-03-12] MEDS: Mirtazapine 7.5 MG TABLET PO (21:39)
[2022-03-12] MEDS: Atorvastatin Calcium 80 MG TABLET PO (21:39)
[2022-03-12] MEDS: Insulin Glargine,Hum.rec.anlog 100 UNIT/ML 10 ML VIAL 35 UNIT SUBCUT (21:39)
[2022-03-12] MEDS: Folic Acid 1 MG TABLET PO (21:40)
[2022-03-12] MEDS: traZODone HCL 50 MG TABLET PO (21:40)
[2022-03-12] MEDS: Midodrine HCl 5 MG TABLET PO (21:56)
[2022-03-13] VITALS (7 sets, daily range): BP systolic 80–101; BP diastolic 45–50; PULSE 58–82; RESP 16–20; TEMP 36.2–37; O2SAT 97–99
[2022-03-13] MEDS: 0.9 % Sodium Chloride Flush 3 ML SYRINGE IVFLUSH ×3 (01:15→21:05)
[2022-03-13] MEDS: Omeprazole 40 MG CAPSULE.DR PO ×2 (06:01→18:17)
[2022-03-13] MEDS: Morphine Sulfate 4 MG/ML CARTRIDGE 2 MG IVPUSH ×2 (06:04→19:50)
[2022-03-13 07:58] LABS: Glucose, Whole Blood 50 mg/dL (60-115)
[2022-03-13] MEDS: Fluticasone Propionate 100 MCG BLST.W.DEV 1 PUFF INHALE ×2 (08:11→20:18)
[2022-03-13] MEDS: Sennosides 8.6 MG TABLET 17.2 MG PO (08:42)
[2022-03-13] MEDS: Amiodarone HCL 200 MG TABLET 100 MG PO (08:43)
[2022-03-13] MEDS: Sevelamer Carbonate Tablet 800 MG TABLET PO ×3 (08:45→18:17)
[2022-03-13] MEDS: Tacrolimus 1 MG CAPSULE 4 MG PO ×2 (08:45→21:05)
[2022-03-13] MEDS: mycophenolate mofetiL 250 MG CAPSULE PO ×2 (09:01→21:05)
[2022-03-13] MEDS: Sertraline HCL 50 MG TABLET PO (09:01)
[2022-03-13 09:20] LABS: INTERNATIONAL NORM RATIO 4.4 (0.9-1.1); Prothrombin Time 51.1 SEC (9.9-13.0)
[2022-03-13 09:20] LABS: Glucose, Whole Blood 71 mg/dL (60-115)
--- NOTE | 2022-03-13 10:45 | P.DS_ITS ---
DS: Providers Provider Date of Service: 03/13/22 Date of admission: 03/11/22 15:58 Primary care physician: Bing Gatica MD Consults: 03/11/22 15:58 Consult to Vascular Surgery Routine Consulting Provider: Woody Saavedra Reason for consultation: pain in the foot, vascular insuficiency Has provider been notified: No DS: Diagnosis Discharge Diagnosis (1) PAD (peripheral artery disease): Status: Acute (2) Vascular disorder of lower extremity: Status: Acute (3) Paroxysmal atrial fibrillation: Status: Acute DS: Summary Hospital Course Hospital Course: Chief Complaint: Pain in the feet 67-year-old female with known history of congestive heart failure(echo 02/22/2022) demonstrate EF??45-50%, ESRD HD MWF, HTN, HLD, CAD, diabetes, AFIB on coumadin INR is 4 now,? s/p liver transplant? in 2008, amongst other. Was recently treated in the hospital from 02/22 to 02/24 with heart failure and presen ts to ED today with c/o bilateral feet pain worst on the right,? she was reportedly in dialys and was c/o feet pain, dizziness and nausea and brought to ED and c/o some chest discomfort and reportedly vascular surgeon Dr. Saavedra wants her admitted for vascular work up. Has no fever, no sob, no chest pain at moment, troponin is 61, no ECG changes. She acknowledge having neuropathy in the feet. Hospital course: Patient was admitted for pain controlled in the setting of advanced peripheral vascular/arterial disease and has a dry ulcer on toe without evidence of infection. She was given morphine for pain. Dr. Saavedra assessed and believes she will benefit from angiogram+/- intervention and he will arrange this for later time. Patient does not have acute ischemia of the foot. This has been ongoing for more than a month. She feels more comfortable today and will be discharge home with oxycodone for pain and Dr. Saavedra will arrange for follow up, probably next week. Of not she's on coumadin for AFIB and INR has been supratherapeutic presently at 4.4 will continue to hold coumadin and repeat level on Wednesday and dose to be adjuted, in the even that surgery is planned next week, she will need to hold coumadin. Hospital course:67 year female with complicated past medical with ESRD on dialysis, s/p liver transplant 2009, diabetes, HTN, AFIB on coumadin, CAD, HFpEF,? diabetes, peripheral vascular disease with peripheral neuropathy here with pain in the feet, particulary the right foot. 1/Pain in the feet, peripheral vascular disease--mostly chronic, no evidence of acute ischemia or infection Initially started on Pain control with morphine, Dr. Saavedra s/p angiogram yesterday-Successful atherectomy and plasty of right SFA, INR is normal.vascular recomended:continue on aspirin and can resume Coumadin . Patient warfarin started today, monitor INR in 2-3 days outpatient. Patient foot pain seems to be improved significantly, etiology of pain unclear- probably combination of-vascular disease/osteopenia, Degenerative calcaneal spurs. Further management outpatient follow-up with vascular outpatient. 2/ESRD--HD MWF 3/AFIB rate is controlled with Amio , hold coumadin due to high INR and give vitamin K, goal of INR 1.5 before surgery. REstart coumadin after surgery 4. blood pressure softer : lisinopril/metoprolol on hold for now, monitor blood pressure closely outpatient knee and introduce metoprolol and lisinopril slowly outpatient with PCP. 5.dm: fS improving 130's range , adjusted insulin Degludec to 14 units . Monitor fingersticks outpatient and insulin can be adjusted accordingly. Above management discussed the patient detail and she understand and in agreement with the above plan. Time Spent with Patient Time attestation: Total time spent providing and/or coordinating discharge services: Discharge coordination time: Greater than 30 minutes Quality: Safe Use of Opioids Does Pt have an Active Cancer Diagnosis on the Problem List?: No Quality: Stroke Does the patient have a stroke diagnosis?: No Physical Exam Vital Signs: Vital Signs: Last Vital Signs Temp 98.6 F 03/13/22 08:00 Pulse 64 03/13/22 08:12 Resp 20 03/13/22 08:12 BP 101/49 L 03/13/22 08:00 Pulse Ox 98 03/13/22 08:00 BMI result Body Mass Index 29.0 DS: Data Data Completed and Pending Completed studies during hospitalization [Text1]: Procedures Assistance with Respiratory Ventilation, Less than 24 Consecutive Hours, Continuous Positive Airway Pressure (02/22/22) Performance of Urinary Filtration, Intermittent, Less than 6 Hours Per Day (02/22/22) Labs on day of discharge: Laboratory Results - last 24 hr 03/12/22 03/12/22 03/12/22 11:44 15:49 20:19 PT INR POC Glucose 193 H 209 H Lactic Acid 1.9 03/12/22 03/13/22 03/13/22 20:43 07:31 08:58 PT 51.1 H INR 4.4 H POC Glucose 117 H 50 L* Lactic Acid 03/13/22 09:14 PT INR POC Glucose 71 Lactic Acid Preliminary micro results at discharge 03/11/22 11:49 Blood Culture - Preliminary Blood - Venous No growth after 24 hours. 03/11/22 11:49 Blood Culture - Preliminary Blood - Venous No growth after 24 hours. Discharge Plan Discharge Anticipated Discharge Date/Time: 03/13/22 09:53 Patient Disposition: Home, Self-Care Discharge Diagnosis: Feet pain due to peripheral vascular dissease Referrals: [facility] [Outside] - 1 Day Bing Gatica MD [Primary Care Provider] - 1 Week Woody Saavedra MD [Physician] - 1 Week (follow up outpatiently.) Discharge Medications: New oxycodone 5 mg tablet 5 mg PO Q6H PRN (Reason: pain (scale score 7-10)) Qty: 20 0RF Continued insulin aspart U-100 [Novolog Flexpen U-100 Insulin] 100 unit/mL (3 mL) insulin pen 4 - 12 unit subcut TID Qty: 15 6RF amiodarone 200 mg tablet 100 mg PO QAM 30 Days Qty: 15 3RF Triphrocaps 1 mg capsule 1 cap PO QPM 0RF sertraline 50 mg tablet 50 mg PO DAILY 0RF atorvastatin 80 mg tablet 80 mg PO BEDTIME 0RF (DME) blood sugar diagnostic Strip See Rx Instructions ea Not Applicable QID Qty: 10 0RF Rx Instructions: As directed (DME) lancets 33 gauge misc See Rx Instructions ea Not Applicable .MEDSUPPLY Qty: 100 0RF Rx Instructions: As directed folic acid 1 mg tablet 1 mg PO BEDTIME 0RF docusate sodium 100 mg capsule 100 mg PO BID PRN (Reason: Constipation) 0RF pantoprazole 40 mg tablet,delayed release (DR/EC) 40 mg PO BID 0RF (DME) pen needle, diabetic 31 gauge x 3/16 needle See Rx Instructions ea .ROUTE QID Qty: 120 11RF Rx Instructions: As directed 4 times a day fluticasone propionate 110 mcg/actuation HFA aerosol inhaler 1 puff inhalation BID 0RF tacrolimus 1 mg capsule 4 mg PO BID 0RF fluticasone propionate 50 mcg/actuation spray,suspension 1 - 2 spray intranasal DAILY PRN (Reason: Nasal Congestion) 0RF mycophenolate mofetil 250 mg capsule 250 mg PO BID 0RF trazodone 50 mg tablet 50 mg PO BEDTIME 0RF mirtazapine 7.5 mg tablet 7.5 mg PO BEDTIME 0RF sennosides [senna] 8.6 mg tablet 17.2 mg PO DAILY 0RF sevelamer carbonate 800 mg tablet 800 mg PO TIDWM 0RF Changed insulin degludec 100 unit/mL (3 mL) insulin pen 14 unit subcut BEDTIME Qty: 0 0RF Held lisinopril 10 mg tablet 10 mg PO QAM 90 Days Qty: 90 3RF Hold Instructions: Resume on 03/31/22. hold until blood pressure improves. metoprolol tartrate 50 mg tablet 50 mg PO BID 0RF Hold Instructions: Resume on 03/25/22. hold until blood pressure improves. No Action gabapentin 100 mg capsule 0 mg PO 0RF Eliquis 5 mg tablet 5 mg PO BID Qty: 60 5RF acetaminophen 500 mg tablet 500 mg PO Q8H PRN (Reason: pain) 0RF Discharge Orders: Discharge Order (Routine); Ordered 03/17/22 Ordered By: Franc Stahl Diet: advance to usual diet and diabetic diet Activity on Discharge: As tolerated Stand Alone Forms: Patient Portal Discharge page Other Ambulatory Orders: Prothrombin Time INR (Routine) Timeframe: 3 Days Facility: [facility] - Location: Laboratory Ordered By: Franc Stahl Care Plan Goals: Vascular surgery in the future to relieve pain in the feet Health Concerns: Peripheral vascular disease Plan of Treatment: follow up with Dr. Saavedra next week for surgery vascular recomeded start warfarin- check Inr in next 2-3 days and then decision to be made about dose. Blood pressure seems softer, so lisinopril and metoprolol are on hold-please start outpatient knee once blood pressure improves . Further management outpatient as per PCP. Assessment: As above Discharge Date/Time: 03/17/22 13:34
--- NOTE | 2022-03-13 10:53 | HO.PM.IMPN ---
Subjective Subjective Date of Service: 03/13/22 Interval History: f/u on pain in the foot, persistent pain in the feet and getting IV morphine for this Review of Systems Gen: no fever Resp: no sob, no cough CV: no chest, no MONTEZ, no leg edema GI: No n/v, no abd pain Neuro: No confusion MusK: pain in the feet Physical Exam Vital Signs: Vital Signs: Last Vital Signs Temp 98.6 F 03/13/22 08:00 Pulse 64 03/13/22 08:12 Resp 20 03/13/22 08:12 BP 101/49 L 03/13/22 08:00 Pulse Ox 98 03/13/22 08:00 BMI result Body Mass Index 29.0 Const: Other: essentially unchanged Constitutional: Alert, in no distress Respiratory: Clear to auscultation. No wheezing, rales or rhonchi. Cardiovascular: S1 S2 regular. No murmurs, rubs or gallops. Gastrointestinal: Abdomen soft, non-tender, non-distended. Normal bowel sounds.? Skin: unchanged ? Musculoskeletal: No cyanosis or clubbing. Psychiatric: Normal mood and affect? Objective Data Active Medications Amiodarone HCl (Amiodarone Hcl 200 Mg Tablet) 100 mg PO DAILY [facility] Last Admin: 03/13/22 08:43 Dose: 100 mg Documented by: JOSE Atorvastatin Calcium (Atorvastatin Calcium 80 Mg Tablet) 80 mg PO BEDTIME [facility] Last Admin: 03/12/22 21:39 Dose: 80 mg Documented by: RIKA Docusate Sodium (Docusate Sodium 100 Mg Capsule) 100 mg PO BID PRN PRN Reason: Constipation Fluticasone Propionate (Fluticasone Propionate Nasal 16 Gm Tarkio) 1 - 2 spray NOSTRIL-B DAILY PRN PRN Reason: Nasal Congestion Last Admin: 03/12/22 09:09 Dose: 1 spray Documented by: AARTI Fluticasone Propionate (Fluticasone Propionate 100 Mcg Blst.W.Dev) 1 puff INHALE RBID [facility] Last Admin: 03/13/22 08:11 Dose: 1 puff Documented by: HAIDER Folic Acid (Folic Acid 1 Mg Tablet) 1 mg PO BEDTIME [facility] Last Admin: 03/12/22 21:40 Dose: 1 mg Documented by: RIKA Insulin Glargine (Insulin Glargine,Hum.Rec.Anlog 100 Unit/Ml 10 Ml Vial) 35 unit SUBCUT BEDTIME [facility] Last Admin: 03/12/22 21:39 Dose: 35 unit Documented by: RIKA Insulin Human Lispro (Insulin Lispro 100 Unit/Ml 3 Ml Vial) 0 unit SUBCUT QIDACHS [facility]; Protocol Last Admin: 03/13/22 08:46 Dose: Not Given Documented by: JOSE Non-Admin Reason: No Insulin Coverage Lisinopril (Lisinopril 10 Mg Tablet) 10 mg PO DAILY [facility]; Protocol Last Admin: 03/12/22 09:09 Dose: 10 mg Documented by: AARTI Melatonin (Melatonin 3 Mg Tablet) 6 mg PO BEDTIME PRN PRN Reason: Insomnia Metoprolol Tartrate (Metoprolol Tartrate 50 Mg Tablet) 50 mg PO BID [facility]; Protocol Last Admin: 03/12/22 09:09 Dose: 50 mg Documented by: AARTI Mirtazapine (Mirtazapine 7.5 Mg Tablet) 7.5 mg PO BEDTIME [facility] Last Admin: 03/12/22 21:39 Dose: 7.5 mg Documented by: RIKA Morphine Sulfate (Morphine Sulfate 4 Mg/Ml Cartridge) 2 mg IVPUSH Q4H PRN; Protocol PRN Reason: Pain, Severe (Pain Scale 7-10) Last Admin: 03/13/22 06:04 Dose: 2 mg Documented by: RIKA Multivitamins/Vitamin C (Multivitamin Tablet) 1 tab PO DAILY@1700 [facility] Last Admin: 03/12/22 16:44 Dose: 1 tab Documented by: KAYLEE Mycophenolate Mofetil (Mycophenolate Mofetil 250 Mg Capsule) 250 mg PO BID [facility] Last Admin: 03/13/22 09:01 Dose: 250 mg Documented by: JOSE Omeprazole (Omeprazole 40 Mg Capsule.) 40 mg PO BID@0630,1630 [facility] Last Admin: 03/13/22 06:01 Dose: 40 mg Documented by: RIKA Ondansetron HCl (Ondansetron Hcl 4 Mg/2 Ml Vial) 4 mg IVPUSH Q8H PRN PRN Reason: Nausea and Vomiting Last Admin: 03/12/22 18:18 Dose: 4 mg Documented by: COTALEXEI Oxycodone HCl (Oxycodone Hcl Immed Release 5 Mg Tablet) 5 mg PO Q6H PRN PRN Reason: Pain, Severe (Pain Scale 7-10) Pharmacy Consult (Consult Rx Perform Med Rec) 1 each MISCELLANE ONCE PRN PRN Reason: Consult order Senna (Sennosides 8.6 Mg Tablet) 17.2 mg PO DAILY [facility] Last Admin: 03/13/22 08:42 Dose: 17.2 mg Documented by: JOSE Sertraline HCl (Sertraline Hcl 50 Mg Tablet) 50 mg PO DAILY [facility] Last Admin: 03/13/22 09:01 Dose: 50 mg Documented by: JOES Sevelamer Carbonate (Sevelamer Carbonate Tablet 800 Mg Tablet) 800 mg PO TIDWM [facility] Last Admin: 03/13/22 08:45 Dose: 800 mg Documented by: JOSE Sodium Chloride (0.9 % Sodium Chloride Flush 3 Ml Syringe) 3 ml IVFLUSH QSHIFT [facility] Last Admin: 03/13/22 08:53 Dose: 3 ml Documented by: JOSE Tacrolimus (Tacrolimus 1 Mg Capsule) 4 mg PO BID [facility] Last Admin: 03/13/22 08:45 Dose: 4 mg Documented by: JOSE Trazodone HCl (Trazodone Hcl 50 Mg Tablet) 50 mg PO BEDTIME [facility] Last Admin: 03/12/22 21:40 Dose: 50 mg Documented by: RIKA Labs CBC & Chem 7: 03/11/22 11:50 03/11/22 11:50 Labs: Laboratory Results - last 24 hr 03/12/22 03/12/22 03/12/22 11:44 15:49 20:19 PT INR POC Glucose 193 H 209 H Lactic Acid 1.9 03/12/22 03/13/22 03/13/22 20:43 07:31 08:58 PT 51.1 H INR 4.4 H POC Glucose 117 H 50 L* Lactic Acid 03/13/22 09:14 PT INR POC Glucose 71 Lactic Acid Microbiology Microbiology Results: Microbiology 03/11/22 11:49 Blood Culture - Preliminary Blood - Venous No growth after 24 hours. 03/11/22 11:49 Blood Culture - Preliminary Blood - Venous No growth after 24 hours. Assessment and Plan (1) PAD (peripheral artery disease): Status: Acute (2) Vascular disorder of lower extremity: Status: Acute Plan 67 year female with complicated past medical with ESRD on dialysis, s/p liver transplant 2008, diabetes, HTN, AFIB on coumadin, CAD, HFpEF, diabetes, peripheral vascular disease with peripheral neuropathy here with pain in the feet, particulary the right foot 1/Pain in the feet, peripheral vascular disease--mostly chronic, no evidence of acute ischemia or infection -Pain control with morphine, Dr. Saavedra is planning angiogram on Wednesday once INR is down 2/ESRD--consult Nephrology for dialysis 3/AFIB rate is controlled with Amio and metoprolol, hold coumadin due to high INR and give vitamin K, goal of INR 1.5 before surgery 4/ Diabetes--Insulin.. Getting frequent hypoglycemia, decrease Lantus to 10 from 35 5/ HLD--Lipitor 6/ HTN--continue Lisinoprill, Metoprolol 7/S/p liver transplant--continue ticrolimus 8/ Chest pain was atypical, no ecg, elevated trop d/t renal failure 9/reative airway disease--bronchodilators 10/ GERD --prilosec for protonix 11/Depression/anxiety--Remron, Sertraline Full code. Need for inpatient: For surgery on wednesday, and need for pain control with IV medications Quality Stroke Does the patient have a stroke diagnosis?: No VTE Prior VTE?: No VTE Risk Level:: Medical - low VTE Device Contraindication: Treatment Not Indicated VTE Drug Contraindication: N/A - Med Ordered
--- NOTE | 2022-03-13 11:16 | HO.VASCPN ---
Subjective Subjective Date of Service: 03/13/22 Patient reports: no new complaints Interval history: 59-year-old female presents for follow-up regarding nonhealing right foot ulcer. She does have some pain. Continues to be an issue for her. In addition her INR remains elevated. She had no events overnight. She is now for routine follow-up. Physical Exam Vital Signs: Vital Signs: Last Vital Signs Temp 98.6 F 03/13/22 08:00 Pulse 64 03/13/22 08:12 Resp 20 03/13/22 08:12 BP 101/49 L 03/13/22 08:00 Pulse Ox 98 03/13/22 08:00 BMI result Body Mass Index 29.0 Const: General: cooperative, healthy appearing and comfortable Orientation/consciousness: oriented to person, oriented to place and oriented to time HEENT: Head: Yes normal to inspection Neck: Neck: Yes normal visual inspection Carotids: no bruits Chest: Chest palpation & inspection: normal inspection of the chest Resp: Effort & Inspection: normal respiratory effort and able to speak in complete sentences Auscultation: clear to auscultation bilaterally, no crackles, no rales, no rhonchi and no wheezes Cardio: Rate: regular rate Rhythm: regular rhythm Heart sounds: S1 normal heart sound present and S2 normal heart sound present Bruits: no carotid bruits Peripheral pulses: dorsalis pedis present (Bilateral DP signals) GI: Inspection: Yes normal to inspection Skin: Wounds: no wounds Hair: normal Neuro: General: oriented to person, oriented to place and oriented to time Cranial nerves: Yes CN's II-XII intact bilaterally and Yes Normal hearing present Cognition (Neuro): normal cognition Motor exam (neuro): 5/5 motor strength present throughout Extrem: Other: venous exam: No significant superficial varicosities or spider telangiectasias, minimal edema General: No clubbing, No cyanosis and No edema Psych: Appearance: grossly normal Mental Status: mental status grossly normal Speech and movement: Normal speech and movement present Progress Note: A&P Assessment and plan (1) PAD (peripheral artery disease): Status: Acute Assessment and Plan: Patient notes leg pain when walking distances. I have discussed the pathophysiology of peripheral vascular disease with the patient. I have also discussed risk factor modification. I have reviewed the patient's arterial testing which reveals monophasic flow down right lower extremity with concern of inflow disease the patient would benefit from a right leg endovascular peripheral angiogram with possible angioplasty, stent, and/or atherectomy. This has been discussed in detail with the patient along with risks, benefits, and complications. This includes but is not limited to bleeding, infection, heart attack, need for emergent surgical repair, limb ischemia, blood vessel damage, bleeding, puncture, kidney injury, bruising, allergic reaction, and skin reaction. The patient demonstrates a clear understanding. I have her scheduled for Wednesday. She will require INR to decrease close to the 1.5 range prior to intervention. Case was discussed with the hospitalist team. Thank you for allowing us to assist in her care. Time Spent With Patient Time: Total time spent is greater than 50% in coordination of care (as documented) at patient's floor/unit and/or counseling patient: Procedures Date of Service Date of Service: 03/13/22 Quality Stroke Does the patient have a stroke diagnosis?: No VTE Prior VTE?: No VTE Risk Level:: Medical - low VTE Device Contraindication: Treatment Not Indicated VTE Drug Contraindication: N/A - Med Ordered
--- NOTE | 2022-03-13 12:05 | MHC.CM.PN ---
PLAN IS FOR ANGIOGRAM ON Wednesday03/16/22. CASE MANAGEMENT FOLLOWING
[2022-03-13] MEDS: Phytonadione (Vit K1) Oral 10 MG/ML AMPUL 5 MG PO (12:26)
--- NOTE | 2022-03-13 18:06 | PC.NURSE ---
Patient went to dialysis this afternoon, now back to her room.
[2022-03-13] MEDS: Multivitamin TABLET 1 TAB PO (18:17)
[2022-03-13 18:31] LABS: Glucose, Whole Blood 73 mg/dL (60-115)
[2022-03-13] MEDS: traZODone HCL 50 MG TABLET PO (21:04)
[2022-03-13] MEDS: Mirtazapine 7.5 MG TABLET PO (21:05)
[2022-03-13] MEDS: Folic Acid 1 MG TABLET PO (21:05)
[2022-03-13] MEDS: Atorvastatin Calcium 80 MG TABLET PO (21:05)
[2022-03-13 21:17] LABS: Glucose, Whole Blood 147 mg/dL (60-115)
[2022-03-14] VITALS (8 sets, daily range): BP systolic 84–137; BP diastolic 42–74; PULSE 68–86; RESP 16–18; TEMP 36.1–37.2; O2SAT 93–98
--- NOTE | 2022-03-14 00:34 | PC.NURSE ---
BP 80/50 HR-76.aysmptomatic. notified.no new orders at this time.
--- NOTE | 2022-03-14 02:32 | CONS_ITS ---
DATE OF SERVICE: 03/13/2022 REASON FOR CONSULTATION: I was called to see this patient today to assist with management of patient's dialysis requirements HISTORY OF PRESENT ILLNESS: Clarisa was admitted on 03/11/2022 because of pain in her foot. She is due for dialysis on Wednesday, Wednesday, Wednesday, and she is being discharged today and unfortunately the consult was not called until 12 noon today. PAST MEDICAL HISTORY: Ongoing medical problems include history of ESRD, on dialysis; hypertension; diabetes mellitus; coronary artery disease; atrial fibrillation; and congestive heart failure. FAMILY HISTORY: Noncontributory to this admission. PAST SURGICAL HISTORY: Includes biliary duct stent placement, EGD, intravascular stent placement, colonoscopy, coronary angiogram, status post liver transplant. ALLERGIES: NO KNOWN DRUG ALLERGIES. CURRENT MEDICATIONS: Reviewed. REVIEW OF SYSTEMS: Positive for pain in the foot. No headache, nausea, vomiting. No shortness of breath. No fever. No rash. PHYSICAL EXAMINATION: GENERAL: Clarisa is a middle-aged woman. She is comfortable, not in distress. NECK: Supple. No JVD. HEENT: Mucosa is moist. LUNGS: Scattered rhonchi. HEART: S1, S2 heard. No gallop. ABDOMEN: Soft, nontender. EXTREMITIES: No significant edema. She has a foot wound. VITAL SIGNS: Blood pressure was 130/70, pulse is 62 per minute. LABORATORY DATA: On the , hemoglobin was 9.9. Potassium was 3.7, sodium 134, CO2 of 30. IMPRESSION: Patient is a 67-year-old woman with end-stage renal disease and status post liver transplant, comes in with foot ulcer and is currently being managed by Vascular Surgery. From a renal standpoint, Clarisa fluid overload. She is due for dialysis for dialysis today. We will remove fluid as tolerated. We will continue to follow her along with the team. Jcarlos Liu MD BPA/MODL / [phone]
--- NOTE | 2022-03-14 04:31 | PC.NURSE ---
BP-84/42 P-78.ASYMPTOMATIC.LEGS ELEVATED. NOTIFIED.ORDERED NS BOLUS 250CC.
[2022-03-14] MEDS: Omeprazole 40 MG CAPSULE.DR PO ×2 (05:25→16:41)
[2022-03-14] MEDS: 0.9 % Sodium Chloride 250 ML 999 ML IV (05:26)
[2022-03-14] MEDS: oxyCODONE HCl Immed Release 5 MG TABLET PO (05:32)
--- NOTE | 2022-03-14 05:35 | PC.NURSE ---
BP-98/44 manually after 250cc ns bolus
[2022-03-14 08:04] LABS: Glucose, Whole Blood 153 mg/dL (60-115)
[2022-03-14] MEDS: Fluticasone Propionate 100 MCG BLST.W.DEV 1 PUFF INHALE ×2 (08:04→19:15)
[2022-03-14] MEDS: Sennosides 8.6 MG TABLET 17.2 MG PO (08:13)
[2022-03-14] MEDS: Sevelamer Carbonate Tablet 800 MG TABLET PO ×3 (08:14→16:41)
[2022-03-14] MEDS: mycophenolate mofetiL 250 MG CAPSULE PO ×2 (08:14→20:46)
[2022-03-14] MEDS: Sertraline HCL 50 MG TABLET PO (08:14)
[2022-03-14] MEDS: Amiodarone HCL 200 MG TABLET 100 MG PO (08:14)
[2022-03-14] MEDS: 0.9 % Sodium Chloride Flush 3 ML SYRINGE IVFLUSH ×3 (08:15→20:46)
[2022-03-14] MEDS: Insulin Lispro 100 UNIT/ML 3 ML VIAL SUBCUT ×2 (08:15→20:46)
[2022-03-14] MEDS: Tacrolimus 1 MG CAPSULE 4 MG PO ×2 (08:15→20:46)
--- NOTE | 2022-03-14 09:13 | P.PNIM_ITS ---
Subjective Subjective Date of Service: 03/14/22 Interval History: f/u on pain in the foot, persistent pain but getting relief with morphie Review of Systems Gen: no fever Resp: no sob, no cough CV: no chest, no MONTEZ, no leg edema GI: No n/v, no abd pain Neuro: No confusion MusK: pain in the feet Physical Exam Vital Signs: Vital Signs: Last Vital Signs Temp 98.6 F 03/14/22 07:10 Pulse 72 03/14/22 08:04 Resp 18 03/14/22 08:04 BP 133/53 L 03/14/22 07:10 Pulse Ox 98 03/14/22 07:10 BMI result Body Mass Index 29.0 Const: Other: foot appearance remains unchaged Constitutional: Alert, in no distress Respiratory: Clear to auscultation. No wheezing, rales or rhonchi. Cardiovascular: S1 S2 regular. No murmurs, rubs or gallops. Gastrointestinal: Abdomen soft, non-tender, non-distended. Normal bowel sounds.? Skin: unchanged ? Musculoskeletal: No cyanosis or clubbing. Psychiatric: Normal mood and affect? Objective Data Active Medications Amiodarone HCl (Amiodarone Hcl 200 Mg Tablet) 100 mg PO DAILY [facility] Last Admin: 03/14/22 08:14 Dose: 100 mg Documented by: JOSE Atorvastatin Calcium (Atorvastatin Calcium 80 Mg Tablet) 80 mg PO BEDTIME [facility] Last Admin: 03/13/22 21:05 Dose: 80 mg Documented by: PAZ Docusate Sodium (Docusate Sodium 100 Mg Capsule) 100 mg PO BID PRN PRN Reason: Constipation Fluticasone Propionate (Fluticasone Propionate Nasal 16 Gm [place]) 1 - 2 spray NOSTRIL-B DAILY PRN PRN Reason: Nasal Congestion Last Admin: 03/12/22 09:09 Dose: 1 spray Documented by: ANDRIAESColin Fluticasone Propionate (Fluticasone Propionate 100 Mcg Blst.W.Dev) 1 puff INHALE RBID [facility] Last Admin: 03/14/22 08:04 Dose: 1 puff Documented by: HAIDER Folic Acid (Folic Acid 1 Mg Tablet) 1 mg PO BEDTIME [facility] Last Admin: 03/13/22 21:05 Dose: 1 mg Documented by: PAZ Insulin Glargine (Insulin Glargine,Hum.Rec.Anlog 100 Unit/Ml 10 Ml Vial) 35 unit SUBCUT BEDTIME [facility] Last Admin: 03/13/22 21:15 Dose: Not Given Documented by: PAZ Non-Admin Reason: Patient Refused Insulin Human Lispro (Insulin Lispro 100 Unit/Ml 3 Ml Vial) 0 unit SUBCUT QIDACHS [facility]; Protocol Last Admin: 03/14/22 08:15 Dose: 2 unit Documented by: JOSE Lisinopril (Lisinopril 10 Mg Tablet) 10 mg PO DAILY [facility]; Protocol Last Admin: 03/12/22 09:09 Dose: 10 mg Documented by: AARTI Melatonin (Melatonin 3 Mg Tablet) 6 mg PO BEDTIME PRN PRN Reason: Insomnia Metoprolol Tartrate (Metoprolol Tartrate 50 Mg Tablet) 50 mg PO BID [facility]; Protoc ol Last Admin: 03/12/22 09:09 Dose: 50 mg Documented by: AARTI Mirtazapine (Mirtazapine 7.5 Mg Tablet) 7.5 mg PO BEDTIME [facility] Last Admin: 03/13/22 21:05 Dose: 7.5 mg Documented by: PAZ Morphine Sulfate (Morphine Sulfate 4 Mg/Ml Cartridge) 2 mg IVPUSH Q4H PRN; Pro tocol PRN Reason: Pain, Severe (Pain Scale 7-10) Last Admin: 03/13/22 19:50 Dose: 2 mg Documented by: PAZ Multivitamins/Vitamin C (Multivitamin Tablet) 1 tab PO DAILY@1700 [facility] Last Admin: 03/13/22 18:17 Dose: 1 tab Documented by: JOSE Mycophenolate Mofetil (Mycophenolate Mofetil 250 Mg Capsule) 250 mg PO BID [facility] Last Admin: 03/14/22 08:14 Dose: 250 mg Documented by: JOSE Omeprazole (Omeprazole 40 Mg Capsule.) 40 mg PO BID@0630,1630 [facility] Last Admin: 03/14/22 05:25 Dose: 40 mg Documented by: PAZ Ondansetron HCl (Ondansetron Hcl 4 Mg/2 Ml Vial) 4 mg IVPUSH Q8H PRN PRN Reason: Nausea and Vomiting Last Admin: 03/12/22 18:18 Dose: 4 mg Documented by: GIRISHALEXEI Oxycodone HCl (Oxycodone Hcl Immed Release 5 Mg Tablet) 5 mg PO Q6H PRN PRN Reason: Pain, Severe (Pain Scale 7-10) Last Admin: 03/14/22 05:32 Dose: 5 mg Documented by: PAZ Pharmacy Consult (Consult Rx Perform Med Rec) 1 each MISCELLANE ONCE PRN PRN Reason: Consult order Senna (Sennosides 8.6 Mg Tablet) 17.2 mg PO DAILY [facility] Last Admin: 03/14/22 08:13 Dose: 17.2 mg Documented by: JOSE Sertraline HCl (Sertraline Hcl 50 Mg Tablet) 50 mg PO DAILY [facility] Last Admin: 03/14/22 08:14 Dose: 50 mg Documented by: JOSE Sevelamer Carbonate (Sevelamer Carbonate Tablet 800 Mg Tablet) 800 mg PO TIDWM [facility] Last Admin: 03/14/22 08:14 Dose: 800 mg Documented by: JOSE Sodium Chloride (0.9 % Sodium Chloride Flush 3 Ml Syringe) 3 ml IVFLUSH QSHIFT [facility] Last Admin: 03/14/22 08:15 Dose: 3 ml Documented by: JOSE Tacrolimus (Tacrolimus 1 Mg Capsule) 4 mg PO BID [facility] Last Admin: 03/14/22 08:15 Dose: 4 mg Documented by: JOSE Trazodone HCl (Trazodone Hcl 50 Mg Tablet) 50 mg PO BEDTIME [facility] Last Admin: 03/13/22 21:04 Dose: 50 mg Documented by: PAZ Labs CBC & Chem 7: 03/11/22 11:50 03/11/22 11:50 Labs: Laboratory Results - last 24 hr 03/13/22 03/13/22 03/13/22 08:58 09:14 18:27 PT 51.1 H INR 4.4 H POC Glucose 71 73 03/13/22 03/14/22 21:12 07:12 PT INR POC Glucose 147 H 153 H Microbiology Microbiology Results: Microbiology 03/11/22 11:49 Blood Culture - Preliminary Blood - Venous No growth after 48 hours. 03/11/22 11:49 Blood Culture - Preliminary Blood - Venous No growth after 48 hours. Assessment and Plan (1) PAD (peripheral artery disease): Status: Acute (2) Vascular disorder of lower extremity: Status: Acute Plan 67 year female with complicated past medical with ESRD on dialysis, s/p liver transplant 2008, diabetes, HTN, AFIB on coumadin, CAD, HFpEF, diabetes, peripheral vascular disease with peripheral neuropathy here with pain in the feet, particulary the right foot 1/Pain in the feet, peripheral vascular disease--mostly chronic, no evidence of acute ischemia or infection -Pain control with morphine, Dr. Saavedra is planning angiogram on Wednesday once INR is down 2/ESRD--HD MWF 3/AFIB rate is controlled with Amio and metoprolol, hold coumadin due to high INR and give vitamin K, goal of INR 1.5 before surgery 4/ Diabetes--Insulin.. Getting frequent hypoglycemia, decrease Lantus to 10 from 35 5/ HLD--Lipitor 6/ HTN--continue Lisinoprill, Metoprolol 7/S/p liver transplant--continue ticrolimus 8/ Chest pain was atypical, no ecg, elevated trop d/t renal failure 9/reative airway disease--bronchodilators 10/ GERD --prilosec for protonix 11/Depression/anxiety--Remron, Sertraline Full code. Need for inpatient: For surgery on wednesday, and need for pain control with IV medications Quality Stroke Does the patient have a stroke diagnosis?: No VTE Prior VTE?: No VTE Risk Level:: Medical - low VTE Device Contraindication: Treatment Not Indicated VTE Drug Contraindication: N/A - Med Ordered
[2022-03-14 11:01] LABS: Glucose, Whole Blood 94 mg/dL (60-115)
[2022-03-14 11:34] LABS: INTERNATIONAL NORM RATIO 1.2 (0.9-1.1); Prothrombin Time 13.2 SEC (9.9-13.0)
--- NOTE | 2022-03-14 12:09 | PM.PNNEP ---
Subjective Subjective Date of Service: 03/14/22 Interval history: Had HD yesterday uneventful Physical Exam Vital Signs: Vital Signs: Last Vital Signs Temp 97.2 F 03/14/22 11:55 Pulse 71 03/14/22 11:55 Resp 17 03/14/22 11:55 BP 92/49 L 03/14/22 11:55 Pulse Ox 93 03/14/22 11:55 BMI result Body Mass Index 29.0 Const: Other: foot appearance remains unchaged Constitutional: Alert, in no distress Respiratory: Clear to auscultation. No wheezing, rales or rhonchi. Cardiovascular: S1 S2 regular. No murmurs, rubs or gallops. Gastrointestinal: Abdomen soft, non-tender, non-distended. Normal bowel sounds.? Skin: unchanged ? Musculoskeletal: No cyanosis or clubbing. Psychiatric: Normal mood and affect? Objective Data Labs CBC & Chem 7: 03/11/22 11:50 03/11/22 11:50 Labs: Laboratory Results - last 24 hr 03/13/22 03/13/22 03/14/22 18:27 21:12 07:12 PT INR POC Glucose 73 147 H 153 H 03/14/22 03/14/22 10:51 10:56 PT 13.2 H INR 1.2 H D POC Glucose 94 Microbiology Microbiology Results: Microbiology 03/11/22 11:49 Blood - Venous Blood Culture - Preliminary No growth after 48 hours. 03/11/22 11:49 Blood - Venous Blood Culture - Preliminary No growth after 48 hours. Procedures Date of Service Date of Service: 03/14/22 Assessment & Plan Assessment and plan (1) ESRD (end stage renal disease) on dialysis: Status: Acute Plan ESRD No s/s of uremia HD on MWF Anemia due to CKD and multiactorial Resume MAXIMILIAN Time Spent With Patient Time: Total time spent is greater than 50% in coordination of care (as documented) at patient's floor/unit and/or counseling patient: Progress Note: Quality Stroke Does the patient have a stroke diagnosis?: No
--- NOTE | 2022-03-14 14:19 | MHC.CM.PN ---
PATIENT IS NOW INPATIENT. UPON ENTERING ROOM TO DISCUSS IMM AND MEDICARE RIGHTS, PATIENT STATES THAT SHE IS NOT FEELING WELL/ SHE FEELS THAT HER INABILITY TO EAT IS CAUSING NAUSEA AND HEARTBURN. IMM LEFT WITH PATIENT WHO IS AWARE THAT SHE IS INPATIENT STATUS. ]CONTACT CARD LEFT WIT [facility] FOR ANY QUESTIONS.
[2022-03-14 16:36] LABS: Glucose, Whole Blood 146 mg/dL (60-115)
[2022-03-14] MEDS: Multivitamin TABLET 1 TAB PO (16:41)
[2022-03-14] MEDS: ondansetron HCL 4 MG/2 ML VIAL IVPUSH (17:26)
[2022-03-14] MEDS: Morphine Sulfate 4 MG/ML CARTRIDGE 2 MG IVPUSH (19:30)
[2022-03-14 20:40] LABS: Glucose, Whole Blood 236 mg/dL (60-115)
[2022-03-14] MEDS: Insulin Glargine,Hum.rec.anlog 100 UNIT/ML 10 ML VIAL 35 UNIT SUBCUT (20:45)
[2022-03-14] MEDS: Folic Acid 1 MG TABLET PO (20:46)
[2022-03-14] MEDS: traZODone HCL 50 MG TABLET PO (20:46)
[2022-03-14] MEDS: Mirtazapine 7.5 MG TABLET PO (20:46)
[2022-03-14] MEDS: Atorvastatin Calcium 80 MG TABLET PO (20:46)
[2022-03-15] VITALS (9 sets, daily range): BP systolic 80–123; BP diastolic 42–60; PULSE 65–85; RESP 16–20; TEMP 36.2–37.4; O2SAT 93–100
[2022-03-15] MEDS: Omeprazole 40 MG CAPSULE.DR PO ×2 (05:30→16:22)
[2022-03-15 06:23] LABS: Prothrombin Time 11.7 SEC (9.9-13.0)
[2022-03-15 08:00] LABS: Glucose, Whole Blood 56 mg/dL (60-115)
[2022-03-15] MEDS: Fluticasone Propionate 100 MCG BLST.W.DEV 1 PUFF INHALE ×2 (08:00→19:20)
[2022-03-15] MEDS: mycophenolate mofetiL 250 MG CAPSULE PO ×2 (08:02→22:01)
[2022-03-15] MEDS: Tacrolimus 1 MG CAPSULE 4 MG PO ×2 (08:02→22:01)
[2022-03-15] MEDS: Amiodarone HCL 200 MG TABLET 100 MG PO (08:02)
[2022-03-15] MEDS: Sertraline HCL 50 MG TABLET PO (08:02)
[2022-03-15] MEDS: Sennosides 8.6 MG TABLET 17.2 MG PO (08:02)
[2022-03-15] MEDS: Sevelamer Carbonate Tablet 800 MG TABLET PO ×3 (08:02→17:17)
[2022-03-15] MEDS: 0.9 % Sodium Chloride Flush 3 ML SYRINGE IVFLUSH ×2 (08:08→16:23)
--- NOTE | 2022-03-15 09:53 | P.PNIM_ITS ---
Subjective Subjective Date of Service: 03/15/22 Interval History: f/u on pain in the foot, persistent pain but getting relief with morphie, low BP this mormning, repeat was better, holding fluid, BS 56 assymptomatic Review of Systems Gen: no fever Resp: no sob, no cough CV: no chest, no MONTEZ, no leg edema GI: No n/v, no abd pain Neuro: No confusion MusK: pain in the feet Physical Exam Vital Signs: Vital Signs: Last Vital Signs Temp 99.3 F 03/15/22 07:27 Pulse 75 03/15/22 08:01 Resp 20 03/15/22 08:01 BP 80/42 L 03/15/22 07:27 Pulse Ox 93 03/15/22 07:27 BMI result Body Mass Index 29.0 Const: Other: foot appearance remains unchaged Constitutional: Alert, in no distress Respiratory: Clear to auscultation. No wheezing, rales or rhonchi. Cardiovascular: S1 S2 regular. No murmurs, rubs or gallops. Gastrointestinal: Abdomen soft, non-tender, non-distended. Normal bowel sounds.? Skin: unchanged ? Musculoskeletal: No cyanosis or clubbing. Psychiatric: Normal mood and affect? Objective Data Active Medications Amiodarone HCl (Amiodarone Hcl 200 Mg Tablet) 100 mg PO DAILY [facility] Last Admin: 03/15/22 08:02 Dose: 100 mg Documented by: CHUCK Atorvastatin Calcium (Atorvastatin Calcium 80 Mg Tablet) 80 mg PO BEDTIME [facility] Last Admin: 03/14/22 20:46 Dose: 80 mg Documented by: PAZ Docusate Sodium (Docusate Sodium 100 Mg Capsule) 100 mg PO BID PRN PRN Reason: Constipation Fluticasone Propionate (Fluticasone Propionate Nasal 16 Gm [place]) 1 - 2 spray NOSTRIL-B DAILY PRN PRN Reason: Nasal Congestion Last Admin: 03/12/22 09:09 Dose: 1 spray Documented by: AARTI Fluticasone Propionate (Fluticasone Propionate 100 Mcg Blst.W.Dev) 1 puff INHALE RBID [facility] Last Admin: 03/15/22 08:00 Dose: 1 puff Documented by: HAIDER Folic Acid (Folic Acid 1 Mg Tablet) 1 mg PO BEDTIME [facility] Last Admin: 03/14/22 20:46 Dose: 1 mg Documented by: PAZ Insulin Glargine (Insulin Glargine,Hum.Rec.Anlog 100 Unit/Ml 10 Ml Vial) 35 unit SUBCUT BEDTIME [facility] Last Admin: 03/14/22 20:45 Dose: 35 unit Documented by: PAZ Insulin Human Lispro (Insulin Lispro 100 Unit/Ml 3 Ml Vial) 0 unit SUBCUT QIDACHS [facility]; Protocol Last Admin: 03/15/22 08:06 Dose: Not Given Documented by: CHUCK Non-Admin Reason: No Insulin Coverage Lisinopril (Lisinopril 10 Mg Tablet) 10 mg PO DAILY [facility]; Protocol Last Admin: 03/12/22 09:09 Dose: 10 mg Documented by: AARTI Melatonin (Melatonin 3 Mg Tablet) 6 mg PO BEDTIME PRN PRN Reason: Insomnia Metoprolol Tartrate (Metoprolol Tartrate 50 Mg Tablet) 50 mg PO BID [facility]; Protocol Last Admin: 03/12/22 09:09 Dose: 50 mg Documented by: AARTI Mirtazapine (Mirtazapine 7.5 Mg Tablet) 7.5 mg PO BEDTIME [facility] Last Admin: 03/14/22 20:46 Dose: 7.5 mg Documented by: PAZ Morphine Sulfate (Morphine Sulfate 4 Mg/Ml Cartridge) 2 mg IVPUSH Q4H PRN; Protocol PRN Reason: Pain, Severe (Pain Scale 7-10) Last Admin: 03/14/22 19:30 Dose: 2 mg Documented by: PAZ Multivitamins/Vitamin C (Multivitamin Tablet) 1 tab PO DAILY@1700 [facility] Last Admin: 03/14/22 16:41 Dose: 1 tab Documented by: JOSE Mycophenolate Mofetil (Mycophenolate Mofetil 250 Mg Capsule) 250 mg PO BID [facility] Last Admin: 03/15/22 08:02 Dose: 250 mg Documented by: CHUCK Omeprazole (Omeprazole 40 Mg Capsule.) 40 mg PO BID@0630,1630 [facility] Last Admin: 03/15/22 05:30 Dose: 40 mg Documented by: PAZ Ondansetron HCl (Ondansetron Hcl 4 Mg/2 Ml Vial) 4 mg IVPUSH Q8H PRN PRN Reason: Nausea and Vomiting Last Admin: 03/14/22 17:26 Dose: 4 mg Documented by: JOSE Oxycodone HCl (Oxycodone Hcl Immed Release 5 Mg Tablet) 5 mg PO Q6H PRN PRN Reason: Pain, Severe (Pain Scale 7-10) Last Admin: 03/14/22 05:32 Dose: 5 mg Documented by: PAZ Pharmacy Consult (Consult Rx Perform Med Rec) 1 each MISCELLANE ONCE PRN PRN Reason: Consult order Senna (Sennosides 8.6 Mg Tablet) 17.2 mg PO DAILY [facility] Last Admin: 03/15/22 08:02 Dose: 17.2 mg Documented by: CHUCK Sertraline HCl (Sertraline Hcl 50 Mg Tablet) 50 mg PO DAILY [facility] Last Admin: 03/15/22 08:02 Dose: 50 mg Documented by: CHUCK Sevelamer Carbonate (Sevelamer Carbonate Tablet 800 Mg Tablet) 800 mg PO TIDWM [facility] Last Admin: 03/15/22 08:02 Dose: 800 mg Documented by: CHUCK Sodium Chloride (0.9 % Sodium Chloride Flush 3 Ml Syringe) 3 ml IVFLUSH QSHIFT [facility] Last Admin: 03/15/22 08:08 Dose: 3 ml Documented by: CHUCK Tacrolimus (Tacrolimus 1 Mg Capsule) 4 mg PO BID [facility] Last Admin: 03/15/22 08:02 Dose: 4 mg Documented by: CHUCK Trazodone HCl (Trazodone Hcl 50 Mg Tablet) 50 mg PO BEDTIME [facility] Last Admin: 03/14/22 20:46 Dose: 50 mg Documented by: PAZ Labs CBC & Chem 7: 03/11/22 11:50 03/11/22 11:50 Labs: Laboratory Results - last 24 hr 03/14/22 03/14/22 03/14/22 10:51 10:56 16:32 PT 13.2 H INR 1.2 H D POC Glucose 94 146 H 03/14/22 03/15/22 03/15/22 20:36 05:42 07:30 PT 11.7 INR 1.0 POC Glucose 236 H 56 L* Assessment and Plan (1) PAD (peripheral artery disease): Status: Acute (2) Vascular disorder of lower extremity: Status: Acute Plan 67 year female with complicated past medical with ESRD on dialysis, s/p liver transplant 2008, diabetes, HTN, AFIB on coumadin, CAD, HFpEF, diabetes, peripheral vascular disease with peripheral neuropathy here with pain in the feet, particulary the right foot 1/Pain in the feet, peripheral vascular disease--mostly chronic, no evidence of acute ischemia or infection -Pain control with morphine, Dr. Saavedra is planning angiogram on Wednesday once INR is down 2/ESRD--HD MWF 3/AFIB rate is controlled with Amio and metoprolol, hold coumadin due to high INR and give vitamin K, goal of INR 1.5 before surgery 4/ Diabetes--Insulin.. Getting frequent hypoglycemia, decrease Lantus to 10 from 35 given frequent hypoglycemia 5/ HLD--Lipitor 6/ HTN--continue Lisinoprill, Metoprolol 7/S/p liver transplant--continue ticrolimus 8/ Chest pain was atypical, no ecg, elevated trop d/t renal failure 9/reative airway disease--bronchodilators 10/ GERD --prilosec for protonix 11/Depression/anxiety--Remron, Sertraline Full code. Need for inpatient: For surgery on wednesday, and need for pain control with IV medications Quality Stroke Does the patient have a stroke diagnosis?: No VTE Prior VTE?: No VTE Risk Level:: Medical - low VTE Device Contraindication: Treatment Not Indicated VTE Drug Contraindication: N/A - Med Ordered
[2022-03-15 11:39] LABS: Glucose, Whole Blood 114 mg/dL (60-115)
[2022-03-15 11:55] LABS: Glucose, Whole Blood 75 mg/dL (60-115)
--- NOTE | 2022-03-15 12:06 | PM.PNNEP ---
Subjective Subjective Date of Service: 03/15/22 Interval history: c/o foot pain Physical Exam Vital Signs: Vital Signs: Last Vital Signs Temp 97.2 F 03/15/22 11:35 Pulse 80 03/15/22 11:35 Resp 17 03/15/22 11:35 BP 118/58 L 03/15/22 11:35 Pulse Ox 94 03/15/22 11:35 BMI result Body Mass Index 29.0 Const: Other: foot appearance remains unchaged Constitutional: Alert, in no distress Respiratory: Clear to auscultation. No wheezing, rales or rhonchi. Cardiovascular: S1 S2 regular. No murmurs, rubs or gallops. Gastrointestinal: Abdomen soft, non-tender, non-distended. Normal bowel sounds.? Skin: unchanged ? Musculoskeletal: No cyanosis or clubbing. Psychiatric: Normal mood and affect? Objective Data Labs CBC & Chem 7: 03/11/22 11:50 03/11/22 11:50 Labs: Laboratory Results - last 24 hr 03/14/22 03/14/22 03/15/22 16:32 20:36 05:42 PT 11.7 INR 1.0 POC Glucose 146 H 236 H 03/15/22 03/15/22 03/15/22 07:30 08:14 11:10 PT INR POC Glucose 56 L* 75 114 Microbiology Microbiology Results: Microbiology 03/11/22 11:49 Blood - Venous Blood Culture - Preliminary No growth after 48 hours. 03/11/22 11:49 Blood - Venous Blood Culture - Preliminary No growth after 48 hours. Procedures Date of Service Date of Service: 03/15/22 Assessment & Plan Assessment and plan (1) ESRD (end stage renal disease) on dialysis: Status: Acute Plan ESRD No s/s of uremia HD on MWF Anemia due to CKD and multiactorial Resume MAXIMILIAN Time Spent With Patient Time: Total time spent is greater than 50% in coordination of care (as documented) at patient's floor/unit and/or counseling patient: Progress Note: Quality Stroke Does the patient have a stroke diagnosis?: No
[2022-03-15] MEDS: oxyCODONE HCl Immed Release 5 MG TABLET PO (16:22)
[2022-03-15] MEDS: Multivitamin TABLET 1 TAB PO (16:22)
[2022-03-15 16:47] LABS: Glucose, Whole Blood 106 mg/dL (60-115)
[2022-03-15 20:44] LABS: Glucose, Whole Blood 135 mg/dL (60-115)
[2022-03-15] MEDS: Folic Acid 1 MG TABLET PO (22:01)
[2022-03-15] MEDS: Atorvastatin Calcium 80 MG TABLET PO (22:01)
[2022-03-15] MEDS: Mirtazapine 7.5 MG TABLET PO (22:01)
[2022-03-15] MEDS: traZODone HCL 50 MG TABLET PO (22:01)
[2022-03-15] MEDS: Insulin Glargine,Hum.rec.anlog 100 UNIT/ML 10 ML VIAL 10 UNIT SUBCUT (22:02)
[2022-03-15] MEDS: Morphine Sulfate 4 MG/ML CARTRIDGE 2 MG IVPUSH (22:10)
[2022-03-16] VITALS (17 sets, daily range): BP systolic 78–140; BP diastolic 35–80; PULSE 18–100; RESP 14–20; TEMP 36–37.1; O2SAT 94–100
[2022-03-16] MEDS: 0.9 % Sodium Chloride Flush 3 ML SYRINGE IVFLUSH ×3 (00:01→19:01)
[2022-03-16 06:11] LABS: Prothrombin Time 11.3 SEC (9.9-13.0)
[2022-03-16 07:08] LABS: Glucose, Whole Blood 127 mg/dL (60-115)
[2022-03-16] MEDS: Fluticasone Propionate 100 MCG BLST.W.DEV 1 PUFF INHALE ×2 (08:12→20:18)
[2022-03-16] MEDS: Morphine Sulfate 4 MG/ML CARTRIDGE 2 MG IVPUSH (09:02)
[2022-03-16] MEDS: Amiodarone HCL 200 MG TABLET 100 MG PO (09:03)
--- NOTE | 2022-03-16 09:40 | HO.PM.IMPN ---
Subjective Subjective Date of Service: 03/16/22 Interval History: f/u on pain in the foot, persistent pain but getting relief with morphine, no low BP , normal sugar Review of Systems Gen: no fever Resp: no sob, no cough CV: no chest, no MONTEZ, no leg edema GI: No n/v, no abd pain Neuro: No confusion MusK: pain in the feet Physical Exam Vital Signs: Vital Signs: Last Vital Signs Temp 98.7 F 03/16/22 07:00 Pulse 75 03/16/22 08:12 Resp 18 03/16/22 08:12 BP 111/52 L 03/16/22 07:00 Pulse Ox 94 03/16/22 07:00 BMI result Body Mass Index 29.0 Const: Other: foot appearance remains unchaged Constitutional: Alert, in no distress Respiratory: Clear to auscultation. No wheezing, rales or rhonchi. Cardiovascular: S1 S2 regular. No murmurs, rubs or gallops. Gastrointestinal: Abdomen soft, non-tender, non-distended. Normal bowel sounds.? Skin: unchanged ? Musculoskeletal: No cyanosis or clubbing. Psychiatric: Normal mood and affect? Objective Data Active Medications Amiodarone HCl (Amiodarone Hcl 200 Mg Tablet) 100 mg PO DAILY [facility] Last Admin: 03/16/22 09:03 Dose: 100 mg Documented by: VERÓNICA Atorvastatin Calcium (Atorvastatin Calcium 80 Mg Tablet) 80 mg PO BEDTIME [facility] Last Admin: 03/15/22 22:01 Dose: 80 mg Documented by: LUC Docusate Sodium (Docusate Sodium 100 Mg Capsule) 100 mg PO BID PRN PRN Reason: Constipation Fluticasone Propionate (Fluticasone Propionate Nasal 16 Gm [place]) 1 - 2 spray NOSTRIL-B DAILY PRN PRN Reason: Nasal Congestion Last Admin: 03/12/22 09:09 Dose: 1 spray Documented by: AARTI Fluticasone Propionate (Fluticasone Propionate 100 Mcg Blst.W.Dev) 1 puff INHALE RBID [facility] Last Admin: 03/16/22 08:12 Dose: 1 puff Documented by: HORTENSIA Folic Acid (Folic Acid 1 Mg Tablet) 1 mg PO BEDTIME [facility] Last Admin: 03/15/22 22:01 Dose: 1 mg Documented by: LUC Insulin Glargine (Insulin Glargine,Hum.Rec.Anlog 100 Unit/Ml 10 Ml Vial) 10 unit SUBCUT BEDTIME [facility] Last Admin: 03/15/22 22:02 Dose: 10 unit Documented by: LUC Insulin Human Lispro (Insulin Lispro 100 Unit/Ml 3 Ml Vial) 0 unit SUBCUT QIDACHS [facility]; Protocol Last Admin: 03/16/22 07:56 Dose: Not Given Documented by: VERÓNICA Non-Admin Reason: No Insulin Coverage Lisinopril (Lisinopril 10 Mg Tablet) 10 mg PO DAILY [facility]; Protocol Last Admin: 03/12/22 09:09 Dose: 10 mg Documented by: AARTI Melatonin (Melatonin 3 Mg Tablet) 6 mg PO BEDTIME PRN PRN Reason: Insomnia Metoprolol Tartrate (Metoprolol Tartrate 50 Mg Tablet) 50 mg PO BID [facility]; Protocol Last Admin: 03/12/22 09:09 Dose: 50 mg Documented by: AARTI Mirtazapine (Mirtazapine 7.5 Mg Tablet) 7.5 mg PO BEDTIME [facility] Last Admin: 03/15/22 22:01 Dose: 7.5 mg Documented by: LUC Morphine Sulfate (Morphine Sulfate 4 Mg/Ml Cartridge) 2 mg IVPUSH Q4H PRN; Protocol PRN Reason: Pain, Severe (Pain Scale 7-10) Last Admin: 03/16/22 09:02 Dose: 2 mg Documented by: VERÓNICA Multivitamins/Vitamin C (Multivitamin Tablet) 1 tab PO DAILY@1700 [facility] Last Admin: 03/15/22 16:22 Dose: 1 tab Documented by: CHUCK Mycophenolate Mofetil (Mycophenolate Mofetil 250 Mg Capsule) 250 mg PO BID [facility] Last Admin: 03/16/22 09:04 Dose: Not Given Documented by: VERÓNICA Non-Admin Reason: NPO Omeprazole (Omeprazole 40 Mg Capsule.Dr) 40 mg PO BID@0630,1630 [facility] Last Admin: 03/16/22 05:56 Dose: Not Given Documented by: TYRA Non-Admin Reason: NPO Ondansetron HCl (Ondansetron Hcl 4 Mg/2 Ml Vial) 4 mg IVPUSH Q8H PRN PRN Reason: Nausea and Vomiting Last Admin: 03/14/22 17:26 Dose: 4 mg Documented by: JOSE Oxycodone HCl (Oxycodone Hcl Immed Release 5 Mg Tablet) 5 mg PO Q6H PRN PRN Reason: Pain, Severe (Pain Scale 7-10) Last Admin: 03/15/22 16:22 Dose: 5 mg Documented by: CHUCK Pharmacy Consult (Consult Rx Perform Med Rec) 1 each MISCELLANE ONCE PRN PRN Reason: Consult order Senna (Sennosides 8.6 Mg Tablet) 17.2 mg PO DAILY [facility] Last Admin: 03/16/22 09:04 Dose: Not Given Documented by: VERÓNICA Non-Admin Reason: NPO Sertraline HCl (Sertraline Hcl 50 Mg Tablet) 50 mg PO DAILY [facility] Last Admin: 03/16/22 09:04 Dose: Not Given Documented by: VERÓNICA Non-Admin Reason: NPO Sevelamer Carbonate (Sevelamer Carbonate Tablet 800 Mg Tablet) 800 mg PO TIDWM [facility] Last Admin: 03/16/22 09:04 Dose: Not Given Documented by: VERÓNICA Non-Admin Reason: NPO Sodium Chloride (0.9 % Sodium Chloride Flush 3 Ml Syringe) 3 ml IVFLUSH QSHIFT [facility] Last Admin: 03/16/22 09:03 Dose: 3 ml Documented by: VERÓNICA Tacrolimus (Tacrolimus 1 Mg Capsule) 4 mg PO BID [facility] Last Admin: 03/16/22 09:04 Dose: Not Given Documented by: VERÓNICA Non-Admin Reason: NPO Trazodone HCl (Trazodone Hcl 50 Mg Tablet) 50 mg PO BEDTIME [facility] Last Admin: 03/15/22 22:01 Dose: 50 mg Documented by: ELLISIT Labs CBC & Chem 7: 03/11/22 11:50 03/11/22 11:50 Labs: Laboratory Results - last 24 hr 03/15/22 03/15/22 03/15/22 08:14 11:10 16:15 PT INR POC Glucose 75 114 106 03/15/22 03/16/22 03/16/22 20:10 05:38 07:01 PT 11.3 INR 1.0 POC Glucose 135 H 127 H Assessment and Plan (1) PAD (peripheral artery disease): Status: Acute (2) Vascular disorder of lower extremity: Status: Acute Plan 67 year female with complicated past medical with ESRD on dialysis, s/p liver transplant 2008, diabetes, HTN, AFIB on coumadin, CAD, HFpEF, diabetes, peripheral vascular disease with peripheral neuropathy here with pain in the feet, particulary the right foot 1/Pain in the feet, peripheral vascular disease--mostly chronic, no evidence of acute ischemia or infection -Pain control with morphine, Dr. Saavdera is planning angiogram today, INR is normal 2/ESRD--HD MWF 3/AFIB rate is controlled with Amio and metoprolol, hold coumadin due to high INR and give vitamin K, goal of INR 1.5 before surgery. REstart coumadin after surgery 4/ Diabetes--Insulin.. Getting frequent hypoglycemia, decrease Lantus to 10 from 35 given frequent hypoglycemia 5/ HLD--Lipitor 6/ HTN--continue Lisinoprill, Metoprolol 7/S/p liver transplant--continue ticrolimus 8/ Chest pain was atypical, no ecg, elevated trop d/t renal failure 9/reative airway disease--bronchodilators 10/ GERD --prilosec for protonix 11/Depression/anxiety--Remron, Sertraline Full code. Need for inpatient: For surgery on wednesday, and need for pain control with IV medications Quality Stroke Does the patient have a stroke diagnosis?: No VTE Prior VTE?: No VTE Risk Level:: Medical - low VTE Device Contraindication: Treatment Not Indicated VTE Drug Contraindication: N/A - Med Ordered
--- NOTE | 2022-03-16 11:56 | PM.PNNEP ---
Subjective Subjective Date of Service: 03/16/22 Interval history: seen and examined complains of foot pain Physical Exam Vital Signs: Vital Signs: Last Vital Signs Temp 98.7 F 03/16/22 07:00 Pulse 75 03/16/22 08:12 Resp 18 03/16/22 08:12 BP 111/52 L 03/16/22 07:00 Pulse Ox 94 03/16/22 07:00 BMI result Body Mass Index 29.0 Const: General: no acute distress HEENT: Head: Yes normocephalic and Yes atraumatic Neck: Neck: Yes supple Resp: Auscultation: diminished lung sounds Cardio: Heart sounds: S1 normal heart sound present and S2 normal heart sound present GI: Palpation (GI): Soft to palpation and nontender Extrem: General: Yes edema Objective Data Labs CBC & Chem 7: 03/11/22 11:50 03/11/22 11:50 Labs: Laboratory Results - last 24 hr 03/15/22 03/15/22 03/16/22 16:15 20:10 05:38 PT 11.3 INR 1.0 POC Glucose 106 135 H 03/16/22 07:01 PT INR POC Glucose 127 H Microbiology Microbiology Results: Microbiology 03/11/22 11:49 Blood - Venous Blood Culture - Preliminary No growth after 48 hours. 03/11/22 11:49 Blood - Venous Blood Culture - Preliminary No growth after 48 hours. Procedures Date of Service Date of Service: 03/16/22 Assessment & Plan Assessment and plan (1) End stage renal disease: Status: Acute (2) Liver transplant status: Status: Acute (3) (HFpEF) heart failure with preserved ejection fraction: Status: Acute (4) Anemia: Status: Acute Plan HD today optimize volume status renal diet MAXIMILIAN per protocol phosphate binders Time Spent With Patient Time: Total time spent is greater than 50% in coordination of care (as documented) at patient's floor/unit and/or counseling patient: Progress Note: Quality Stroke Does the patient have a stroke diagnosis?: No
[2022-03-16 12:51] LABS: Glucose, Whole Blood 86 mg/dL (60-115)
--- NOTE | 2022-03-16 13:56 | PC.NURSE ---
faint pulses to ppp b/l
--- NOTE | 2022-03-16 15:54 | PC.NURSE ---
Patient returned from dialysis at 1230. VSS. POC 85. Patient remains NPO for angiogram. Down for angiogram at 1245.
--- NOTE | 2022-03-16 16:26 | W.PM.OPN ---
Operative Note Operative Note Date of Service: 03/16/22 Narrative: Angiogram report from [facility] Preoperative diagnosis: Atherosclerosis of right lower extremity with nonhealing ulcer Postoperative diagnosis: Same Procedure: 1. Ultrasound-guided left common femoral access 2. Aortogram with right lower extremity runoff 3. Right SFA and popliteal atherectomy and plasty Surgeon:Woody Saavedra M.D., FACS, RPVI Vice President Of Nursing:None Anesthesia: Local with moderate conscious sedation. Total intraservice moderate sedation time was 68 minutes. I monitored the patient's level of consciousness and physiologic status continuously throughout the procedure. Specimens:none Drains:none Estimated blood loss: Less than 10 ml Implant: Medtronic Impact DCB 5 x 120 Indications: 67-year-old female who presented to the hospital with intractable pain and nonhealing right lower extremity ulcer now presents for endovascular intervention The patient has signed the informed consent after reviewing risks, complications, benefits, and alternatives previously discussed with the patient. The patient was given the opportunity to ask any additional questions or voice any concerns. All questions were answered to the patient's satisfaction. Procedure in detail: Patient was brought to the angiography suite prior to which a time-out was called for patient identification and site verification. Bilateral groins were prepped and draped in the standard surgical fashion. Under ultrasound guidance left common femoral was punctured with micro puncture needle and wire. Subsequently a precision 5 Ukrainian sheath was then placed. Bentson wire was advanced to the level of the aorta. 5 Ukrainian Flush catheter was brought up and parked at the level of the renal arteries. Aortogram was then undertaken. Catheter was brought down to the level of the iliac bifurcation. Iliacs were subsequently imaged. Catheter was then brought in up and over to the right side SFA. Runoff study was then undertaken. At this time 5000 units of systemic heparin was administered up and over 6 [place] sheath was then placed. Glidewire Advantage was then advanced to the popliteal. We then advanced a 035 now be cross catheter. We instilled contrast to ensure true lumen. Once this was accomplished we placed a 5 spider wire. Over this we used a Hawk 1 atherectomy device. Unidirectional passes were undertaken of the distal SFA and popliteal. Multiple unidirectional classes were then completed. Once this was done there was still residual stenosis. Due to the location we then placed a 5 x 120 drug coated balloon. This was brought into position in under 3 minutes and insufflated for a total of 3 minutes in duration. Once this was accomplished catheter wire sheath was brought back to the ipsilateral side StarClose closure device was then deployed. Interpretation of films: 1. Ultrasound demonstrates appropriate femoral puncture. Image of which was saved. 2. Aortogram demonstrates appropriate caliber aorta. Minimal disease. Appropriate take-off of the renals. 3. Iliac images demonstrate this mild tortuosity 4. Right Leg Common femoral artery: No significant disease Profundus Femoris: No significant disease Superficial femoral artery: Stenotic disease at the distal portion Popliteal artery (p1,p2,p3): P1 segment had high-grade stenosis P2 and P3 were within normal Anterior tibial artery: Multiple stenotic lesions at the origin occludes in the proximal quarter Peroneal artery: Dominant runoff Posterior tibial artery: Occluded Dorsalis pedis/plantar arch: Incomplete Conclusion: 1. Successful atherectomy and plasty of right SFA 2. Anticoagulation status: She will continue on aspirin and can resume Coumadin tomorrow This note is constructed using voice recognition software. While every effort has been made to ensure accuracy, pipe caulker errors may have been included. Thank you for allowing me to participate in the care of your patient. Yours sincerely, Woody Saavedra MD, FACS, R.P.V.I.
[2022-03-16] MEDS: iohexoL 300 MG/ML 100 ML INFUS..BTL IV (16:27)
[2022-03-16 18:18] LABS: Glucose, Whole Blood 78 mg/dL (60-115)
[2022-03-16 18:55] LABS: Glucose, Whole Blood 84 mg/dL (60-115)
[2022-03-16 18:57] LABS: Glucose, Whole Blood 74 mg/dL (60-115)
[2022-03-16] MEDS: Multivitamin TABLET 1 TAB PO (19:01)
[2022-03-16] MEDS: Omeprazole 40 MG CAPSULE.DR PO (19:01)
[2022-03-16] MEDS: Sevelamer Carbonate Tablet 800 MG TABLET PO (19:01)
[2022-03-16 20:20] LABS: Glucose, Whole Blood 134 mg/dL (60-115)
[2022-03-16] MEDS: Mirtazapine 7.5 MG TABLET PO (20:40)
[2022-03-16] MEDS: Folic Acid 1 MG TABLET PO (20:40)
[2022-03-16] MEDS: Tacrolimus 1 MG CAPSULE 4 MG PO (20:40)
[2022-03-16] MEDS: traZODone HCL 50 MG TABLET PO (20:40)
[2022-03-16] MEDS: mycophenolate mofetiL 250 MG CAPSULE PO (20:40)
[2022-03-16] MEDS: Atorvastatin Calcium 80 MG TABLET PO (20:40)
[2022-03-16] MEDS: oxyCODONE HCl Immed Release 5 MG TABLET PO (20:45)
--- NOTE | 2022-03-16 23:00 | PC.NURSE ---
bilateral pedal pulses positive with doppler,bilateral post-tibial pulses positive with doppler
[2022-03-17] MEDS: 0.9 % Sodium Chloride Flush 3 ML SYRINGE IVFLUSH ×2 (00:47→07:35)
[2022-03-17 03:45] VITALS: BP 95/48; PULSE 83; RESP 15; TEMP 36.9; O2SAT 100
[2022-03-17 06:12] LABS: Prothrombin Time 11.8 SEC (9.9-13.0)
[2022-03-17] MEDS: Omeprazole 40 MG CAPSULE.DR PO (06:12)
[2022-03-17 06:56] VITALS: BP 92/50; PULSE 79; RESP 16; TEMP 36.1; O2SAT 92
[2022-03-17 07:20] LABS: Glucose, Whole Blood 102 mg/dL (60-115)
[2022-03-17] MEDS: Tacrolimus 1 MG CAPSULE 4 MG PO (07:34)
[2022-03-17] MEDS: Amiodarone HCL 200 MG TABLET 100 MG PO (07:35)
[2022-03-17] MEDS: Sevelamer Carbonate Tablet 800 MG TABLET PO ×2 (07:35→11:40)
[2022-03-17] MEDS: mycophenolate mofetiL 250 MG CAPSULE PO (07:35)
[2022-03-17] MEDS: Sertraline HCL 50 MG TABLET PO (07:35)
[2022-03-17] MEDS: Sennosides 8.6 MG TABLET 17.2 MG PO (07:35)
[2022-03-17 07:42] VITALS: PULSE 81; RESP 18; O2SAT 98
[2022-03-17] MEDS: Fluticasone Propionate 100 MCG BLST.W.DEV 1 PUFF INHALE (07:42)
--- NOTE | 2022-03-17 09:46 | HO.VASCPN ---
Subjective Subjective Date of Service: 03/17/22 Patient reports: no new complaints, feels better and pain is less Interval history: 67-year-old female postop day 1 status post endovascular intervention. She had undergone right SFA atherectomy and plasty. She reports that the toe is feeling better she still has continued pain but in general appears to be doing somewhat better. She had no other interval issues overnight. She now presents for follow-up. Physical Exam Vital Signs: Vital Signs: Last Vital Signs Temp 97 F 03/17/22 06:56 Pulse 81 03/17/22 07:42 Resp 18 03/17/22 07:42 BP 92/50 L 03/17/22 06:56 Pulse Ox 92 03/17/22 06:56 BMI result Body Mass Index 29.0 Const: General: cooperative, healthy appearing and no acute distress Orientation/consciousness: oriented to person, oriented to place and oriented to time HEENT: Head: Yes normal to inspection Neck: Carotids: no bruits Chest: Chest palpation & inspection: normal inspection of the chest Resp: Effort & Inspection: normal respiratory effort and able to speak in complete sentences Auscultation: clear to auscultation bilaterally Cardio: Rate: regular rate Heart sounds: S1 normal heart sound present and S2 normal heart sound present GI: Inspection: Yes normal to inspection Skin: General skin exam: no rashes or lesions noted Wounds: wounds noted (Right great ulcer) Neuro: General: oriented to person, oriented to place, oriented to time and CN's II-XI intact bilaterally Extrem: General: Yes normal to inspection, Yes full ROM and Yes no clubbing, cyanosis or edema Psych: Appearance: grossly normal and well kempt Speech and movement: Normal speech and movement present Affect: normal affect Progress Note: A&P Assessment and plan (1) PAD (peripheral artery disease): Status: Acute Assessment and Plan: Patient is stable from my perspective for discharge. Unclear etiology of pain in that great toe. At the current time it does seem to be improving. She can resume her Coumadin today. She will be maintained on aspirin and Coumadin. In addition we discussed strict diabetic control. She will follow up with us as an outpatient. We will continue to monitor her status. Thank you for allowing us to assist in her care. If there are any questions or concerns please do not hesitate to contact us. Time Spent With Patient Time: Total time spent is greater than 50% in coordination of care (as documented) at patient's floor/unit and/or counseling patient: Procedures Date of Service Date of Service: 03/17/22 Quality Stroke Does the patient have a stroke diagnosis?: No VTE Prior VTE?: No VTE Risk Level:: Medical - low VTE Device Contraindication: Treatment Not Indicated VTE Drug Contraindication: N/A - Med Ordered
[2022-03-17 11:12] VITALS: BP 90/50; PULSE 79; RESP 16; TEMP 36.1; O2SAT 95
[2022-03-17 11:20] LABS: Glucose, Whole Blood 138 mg/dL (60-115)
--- NOTE | 2022-03-17 12:34 | MHC.CM.PN ---
PT MEDICALLY CLEARED FOR D/C HOME W/[facility] FOR SN, PT WILL CALL FOR TRANSPORT.
--- NOTE | 2022-03-17 13:02 | P.DS_ITS ---
DS: Providers Provider Date of Service: 03/17/22 Date of admission: 03/11/22 15:58 Primary care physician: Bing Gatica MD Consults: 03/11/22 15:58 Consult to Vascular Surgery Routine Consulting Provider: Woody Saavedra Reason for consultation: pain in the foot, vascular insuficiency Has provider been notified: No 03/13/22 11:59 Consult to Nephrology Routine Consulting Provider: Jcarlos Liu Reason for consultation: Needs dialysis Has provider been notified: No DS: Diagnosis Discharge Diagnosis (1) PAD (peripheral artery disease): Status: Acute DS: Summary Hospital Course Hospital Course: Chief Complaint: Pain in the feet 67-year-old female with known history of congestive heart failure(echo 02/22/2022) demonstrate EF??45-50%, ESRD HD MWF, HTN, HLD, CAD, diabetes, AFIB on coumadin INR is 4 now,? s/p liver transplant? in 2008, amongst other. Was recently treated in the hospital from 02/22 to 02/24 with heart failure and presents to ED today with c/o bilateral feet pain worst on the right,? she was reportedly in dialys and was c/o feet pain, dizziness and nausea and brought to ED and c/o some chest discomfort and reportedly vascular surgeon Dr. Saavedra wants her admitted for vascular work up. Has no fever, no sob, no chest pain at moment, troponin is 61, no ECG changes. She acknowledge having neuropathy in the feet. Hospital course: Patient was admitted for pain controlled in the setting of advanced peripheral vascular/arterial disease and has a dry ulcer on toe without evidence of infection. She was given morphine for pain. Dr. Saavedra assessed and believes she will benefit from angiogram+/- intervention and he will arrange this for later time. Patient does not have acute ischemia of the foot. This has been ongoing for more than a month. She feels more comfortable today and will be discharge home with oxycodone for pain and Dr. Saavedra will arrange for follow up, probably next week. Of not she's on coumadin for AFIB and INR has been supra therapeutic presently at 4.4 will continue to hold coumadin and repeat level on Wednesday and dose to be adjuted, in the even that surgery is planned next week, she will need to hold coumadin. Hospital course:67 year female with complicated past medical with ESRD on dialysis, s/p liver transplant 2009, diabetes, HTN, AFIB on coumadin, CAD, HFpEF,? diabetes, peripheral vascular disease with peripheral neuropathy here with pain in the feet, particulary the right foot. 1/Pain in the feet, peripheral vascular disease--mostly chronic, no evidence of acute ischemia or infection Initially started on Pain control with morphine, Dr. Saavedra s/p angiogram yesterday-Successful atherectomy and plasty of right SFA, INR is normal.vascular recomended:continue on aspirin and can resume Coumadin . Patient warfarin started today, monitor INR in 2-3 days outpatient. Patient foot pain seems to be improved significantly, etiology of pain unclear- probably combination of-vascular disease/osteopenia, Degenerative calcaneal spurs. Further management outpatient follow-up with vascular outpatient. 2/ESRD--HD MWF 3/AFIB rate is controlled with Amio , hold coumadin due to high INR and give vitamin K, goal of INR 1.5 before surgery. REstart coumadin after surgery 4. blood pressure softer : lisinopril/metoprolol on hold for now, monitor blood pressure closely outpatient knee and introduce metoprolol and lisinopril slowly outpatient with PCP. 5.dm: fS improving 130's range , adjusted insulin Degludec to 14 units . Monitor fingersticks outpatient and insulin can be adjusted accordingly. Above management discussed the patient detail and she understand and in agreement with the above plan. Time Spent with Patient Time attestation: Total time spent providing and/or coordinating discharge services: Discharge coordination time: Greater than 30 minutes Quality: Safe Use of Opioids Does Pt have an Active Cancer Diagnosis on the Problem List?: No Quality: Stroke Does the patient have a stroke diagnosis?: No Physical Exam Vital Signs: Vital Signs: Last Vital Signs Temp 97 F 03/17/22 11:12 Pulse 79 03/17/22 11:12 Resp 16 03/17/22 11:12 BP 90/50 L 03/17/22 11:12 Pulse Ox 95 03/17/22 11:12 BMI result Body Mass Index 29.0 Appearance: Alert.? Oriented X3.? not in distress.? Eyes: Pupils equal, round and reactive to light.? Sclera nonicteric.? ENT: Pharynx normal.? Moist mucous membranes. cvs: rrr, [id number] , no murmur res: clear to auscultation ,no rhonchii or wheezing abd: no rebound or guarding ,nt, bs present. ext pulses present , no cyanosis ,toe area -dry ulcer , no pain or erythema neuro: axo3 , nonfocal.1 DS: Data Data Completed and Pending Completed studies during hospitalization [Text1]: Procedures Assistance with Respiratory Ventilation, Less than 24 Consecutive Hours, Continuous Positive Airway Pressure (02/22/22) Performance of Urinary Filtration, Intermittent, Less than 6 Hours Per Day (02/22/22) Labs on day of discharge: Laboratory Results - last 24 hr 03/16/22 03/16/22 03/16/22 17:39 18:20 18:53 PT INR POC Glucose 78 84 74 03/16/22 03/17/22 03/17/22 20:15 05:48 06:56 PT 11.8 INR 1.0 POC Glucose 134 H 102 03/17/22 11:12 PT INR POC Glucose 138 H Additional Comments Additional comments: ?XR/XR chest 1V IMPRESSION: No acute cardiopulmonary process. US/US arterial duplex LE BI IMPRESSION: The arteries to the bilateral lower extremities are patent. There is evidence of inflow disease bilaterally. Peripheral arterial disease is seen which is significant for stenoses identified within the femoral arteries and right popliteal artery. Discharge Plan Discharge Anticipated Discharge Date/Time: 03/13/22 09:53 Patient Disposition: Home, Self-Care Discharge Diagnosis: Feet pain due to peripheral vascular dissease Referrals: [facility] [Outside] - 1 Day Bing Gatica MD [Primary Care Provider] - 1 Week Woody Saavedra MD [Physician] - 1 Week (follow up outpatiently.) Discharge Medications: New oxycodone 5 mg tablet 5 mg PO Q6H PRN (Reason: pain (scale score 7-10)) Qty: 20 0RF Continued insulin aspart U-100 [Novolog Flexpen U-100 Insulin] 100 unit/mL (3 mL) insulin pen 4 - 12 unit subcut TID Qty: 15 6RF amiodarone 200 mg tablet 100 mg PO QAM 30 Days Qty: 15 3RF Triphrocaps 1 mg capsule 1 cap PO QPM 0RF sertraline 50 mg tablet 50 mg PO DAILY 0RF warfarin 2 mg Tablet 2 mg PO SUTUTHSA@1799 0RF Protocol: Dose Management Condition: Wednesday (Week One) Dose/Route: 6 mg Instruction: 2 x 3 mg tablets Condition: Wednesday Dose/Route: 3 mg Instruction: 1 x 3 mg tablet Condition: Wednesday Dose/Route: 3 mg Instruction: 1 x 3 mg tablet Condition: Wednesday Dose/Route: 6 mg Instruction: 2 x 3 mg tablets Condition: Dose/Route: 3 mg Instruction: 1 x 3 mg tablet Condition: Wednesday Dose/Route: 6 mg Instruction: 2 x 3 mg tablets Condition: Wednesday Dose/Route: 3 mg Instruction: 1 x 3 mg tablet Condition: Wednesday ( Two) Dose/Route: 3 mg Instruction: 1 x 3 mg tablet Condition: Wednesday Dose/Route: 6 mg Instruction: 2 x 3 mg tablets Condition: Wednesday Dose/Route: 3 mg Instruction: 1 x 3 mg tablet Condition: Wednesday Dose/Route: 6 mg Instruction: 2 x 3 mg tablets Condition: Dose/Route: 3 mg Instruction: 1 x 3 mg tablet Condition: Wednesday Dose/Route: 6 mg Instruction: 2 x 3 mg tablets Condition: Wednesday Dose/Route: 3 mg Instruction: 1 x 3 mg tablet Protocol Text: Adjustment Start Date: Wednesday03/10/22 INR Value: 3.4 INR Date: 03/10/22 Recheck Date: 03/17/22 Additional Instructions: DECREASE DOSE DUE TO INCREASE TYLNOL INTAKE AND DECREASED APPETITE - CHANGE DOSE TO 6MG MWF DIALYSIS DAYS / 3MG X 4 DAYS warfarin 3 mg tablet 3 mg PO MOWEFR@1800 0RF Protocol: Dose Management Condition: Wednesday (Week One) Dose/Route: 6 mg Instruction: 2 x 3 mg tablets Condition: Wednesday Dose/Route: 3 mg Instruction: 1 x 3 mg tablet Condition: Wednesday Dose/Route: 3 mg Instruction: 1 x 3 mg tablet Condition: Wednesday Dose/Route: 6 mg Instruction: 2 x 3 mg tablets Condition: Dose/Route: 3 mg Instruction: 1 x 3 mg tablet Condition: Wednesday Dose/Route: 6 mg Instruction: 2 x 3 mg tablets Condition: Wednesday Dose/Route: 3 mg Instruction: 1 x 3 mg tablet Condition: Wednesday (Week Two) Dose/Route: 3 mg Instruction: 1 x 3 mg tablet Condition: Wednesday Dose/Route: 6 mg Instruction: 2 x 3 mg tablets Condition: Wednesday Dose/Route: 3 mg Instruction: 1 x 3 mg tablet Condition: Wednesday Dose/Route: 6 mg Instruction: 2 x 3 mg tablets Condition: Dose/Route: 3 mg Instruction: 1 x 3 mg tablet Condition: Wednesday Dose/Route: 6 mg Instruction: 2 x 3 mg tablets Condition: Wednesday Dose/Route: 3 mg Instruction: 1 x 3 mg tablet Protocol Text: Adjustment Start Date: Wednesday03/10/22 INR Value: 3.4 INR Date: 03/10/22 Recheck Date: 03/17/22 Additional Instructions: DECREASE DOSE DUE TO INCREASE TYLNOL INTAKE AND DECREASED APPETITE - CHANGE DOSE TO 6MG MWF DIALYSIS DAYS / 3MG X 4 DAYS Rx Instructions: dose adjustments as needed, by anticoagulation clinic or provider warfarin 6 mg Tablet 6 mg PO MOWEFR@1800 0RF warfarin 3 mg Tablet 3 mg PO SUTUTHSA@1800 0RF atorvastatin 80 mg tablet 80 mg PO BEDTIME 0RF (DME) blood sugar diagnostic Strip See Rx Instructions ea Not Applicable QID Qty: 10 0RF Rx Instructions: As directed (DME) lancets 33 gauge misc See Rx Instructions ea Not Applicable .MEDSUPPLY Qty: 100 0RF Rx Instructions: As directed folic acid 1 mg tablet 1 mg PO BEDTIME 0RF docusate sodium 100 mg capsule 100 mg PO BID PRN (Reason: Constipation) 0RF pantoprazole 40 mg tablet,delayed release (DR/EC) 40 mg PO BID 0RF (DME) pen needle, diabetic 31 gauge x 3/16 needle See Rx Instructions ea .ROUTE QID Qty: 120 11RF Rx Instructions: As directed 4 times a day fluticasone propionate 110 mcg/actuation HFA aerosol inhaler 1 puff inhalation BID 0RF tacrolimus 1 mg capsule 4 mg PO BID 0RF fluticasone propionate 50 mcg/actuation spray,suspension 1 - 2 spray intranasal DAILY PRN (Reason: Nasal Congestion) 0RF mycophenolate mofetil 250 mg capsule 250 mg PO BID 0RF trazodone 50 mg tablet 50 mg PO BEDTIME 0RF mirtazapine 7.5 mg tablet 7.5 mg PO BEDTIME 0RF sennosides [senna] 8.6 mg tablet 17.2 mg PO DAILY 0RF sevelamer carbonate 800 mg tablet 800 mg PO TIDWM 0RF Changed insulin degludec 100 unit/mL (3 mL) insulin pen 14 unit subcut BEDTIME Qty: 0 0RF Held lisinopril 10 mg tablet 10 mg PO QAM 90 Days Qty: 90 3RF Hold Instructions: Resume on 03/31/22. hold until blood pressure improves. metoprolol tartrate 50 mg tablet 50 mg PO BID 0RF Hold Instructions: Resume on 03/25/22. hold until blood pressure improves. Discharge Orders: Discharge Order (Routine); Ordered 03/17/22 Ordered By: Franc Stahl Diet: advance to usual diet and diabetic diet Activity on Discharge: As tolerated Stand Alone Forms: Patient Portal Discharge page Other Ambulatory Orders: Prothrombin Time INR (Routine) Timeframe: 3 Days Facility: [facility] - Location: Laboratory Ordered By: Franc Stahl Care Plan Goals: Vascular surgery in the future to relieve pain in the feet Health Concerns: Peripheral vascular disease Plan of Treatment: follow up with Dr. Saavedra next week for surgery vascular recomeded start warfarin- check Inr in next 2-3 days and then decision to be made about dose. Blood pressure seems softer, so lisinopril and metoprolol are on hold-please start outpatient knee once blood pressure improves . Further management outpatient as per PCP. Assessment: As above Discharge Date/Time: 03/17/22 13:34
--- NOTE | 2022-03-17 13:17 | W.MHC.F2F ---
Service Date Service Date: 03/17/22 Encounter Date of encounter: 03/17/22 Reasons for Services Signs and symptoms assessed: foot pain Reason for group home: medication management, medication treatment and teach disease management MD Overseeing Care: Bing Gatica Homebound: Leaving the home is medically contraindicated at this time without the asist of a device and/or another person due th the listed conditions above and below. Reason homebound: weakness related to hospital stay Homebound supporting statement: Patient had multiple comorbidities including peripheral vascular disease, AFib, softer blood pressure, needs help to go to appointments and lab draws. Certification: Based on the above findings, I certify that this patient is confined to the home and needs intermittent group home care, physical therapy and/or speech therapy, or continues to need occupational therapy. The patient is under my care, and I have initiated the establishment of the plan of care. The patient will be followed by a physician who will periodically review the plan of care.
--- NOTE | 2022-03-17 18:17 | PC.NURSE ---
pt called at home regarding her insulin changed from 48 to 14 units . electrical project manager Abner utilized pt answered phone and verbalized understanding
== END 2022-03-17 13:34 | disposition home or self-care (01) | DRG 270 ==
LOC: HO.ED 15:03 → HO.EDOVER 18:33 → HO.S3 03-13 09:34 → HO.EDOVER 03-14 14:27
PROVIDERS: Hospitalist; Physician Assistant; Surgery Vascular Surgery; Admitting Provider Internal Medicine; Emergency Provider Emergency Medicine; PCP Internal Medicine; Visit Provider Internal Medicine
PROC: 04CK3ZZ Extirpation of Matter from Right Femoral Artery, Percutaneous Approach (ICD-10-PCS; principal; 2022-03-16 13:30)
DX: E11.51 Type 2 diabetes mellitus with diabetic peripheral angiopathy without gangrene (principal); N18.6 End stage renal disease; I13.2 Hypertensive heart and chronic kidney disease with heart failure and with stage 5 chronic kidney disease, or end stage renal disease; Z94.4 Liver transplant status; D84.821 Immunodeficiency due to drugs; I50.32 Chronic diastolic (congestive) heart failure; L97.519 Non-pressure chronic ulcer of other part of right foot with unspecified severity; I70.235 Atherosclerosis of native arteries of right leg with ulceration of other part of foot; E11.22 Type 2 diabetes mellitus with diabetic chronic kidney disease; I25.10 Atherosclerotic heart disease of native coronary artery without angina pectoris; J44.9 Chronic obstructive pulmonary disease, unspecified; E11.40 Type 2 diabetes mellitus with diabetic neuropathy, unspecified; Z99.2 Dependence on renal dialysis; E78.5 Hyperlipidemia, unspecified; I48.91 Unspecified atrial fibrillation; F32.A Depression, unspecified; F41.9 Anxiety disorder, unspecified; K21.9 Gastro-esophageal reflux disease without esophagitis; E11.649 Type 2 diabetes mellitus with hypoglycemia without coma; D63.1 Anemia in chronic kidney disease; R79.1 Abnormal coagulation profile; G47.33 Obstructive sleep apnea (adult) (pediatric); Z20.822 Contact with and (suspected) exposure to COVID-19; Z79.4 Long term (current) use of insulin; Z79.01 Long term (current) use of anticoagulants; Z79.51 Long term (current) use of inhaled steroids; Z79.899 Other long term (current) drug therapy
CPT/HCPCS: 36415; 37225; 71045; 73630; 76937; 80053; 82272; 82947; 83605; 83735; 84484; 85025; 85610; 85730; 87040; 87635; 90471; 90715; 90999; 93005; 93925; 94640; 96365; 96375; 99152; 99153; 99285; C1714; C1725; C1760; C1769; C1884; C1887; J0885; J2270; J2405; J2543; J3370; Q9967

== ENCOUNTER → 2022-03-19 15:29 | Outpatient (BNVA) | payer OTHER, SELFPAY | PROVIDERS: PCP Internal Medicine; Visit Provider Internal Medicine | DX: I48.0 Paroxysmal atrial fibrillation (principal); Z79.01 Long term (current) use of anticoagulants; Z51.81 Encounter for therapeutic drug level monitoring | CPT/HCPCS: Q3014 ==

== ENCOUNTER → 2022-03-24 15:04 | Outpatient (BNVA) | payer OTHER, SELFPAY | PROVIDERS: PCP Internal Medicine; Visit Provider Internal Medicine | DX: I48.0 Paroxysmal atrial fibrillation (principal); Z79.01 Long term (current) use of anticoagulants; Z51.81 Encounter for therapeutic drug level monitoring | CPT/HCPCS: 99211 ==

== ENCOUNTER → 2022-03-25 14:35 | Outpatient (BNVA) | payer OTHER, SELFPAY | PROVIDERS: PCP Internal Medicine; Referring Provider Internal Medicine; Visit Provider Nurse Practitioner Family | DX: I11.0 Hypertensive heart disease with heart failure (principal); I50.30 Unspecified diastolic (congestive) heart failure; I25.10 Atherosclerotic heart disease of native coronary artery without angina pectoris; I48.0 Paroxysmal atrial fibrillation; I99.9 Unspecified disorder of circulatory system; R94.31 Abnormal electrocardiogram [ECG] [EKG] | CPT/HCPCS: 93005; 99212 ==

== ENCOUNTER → 2022-03-31 15:04 | Outpatient (REF) | payer OTHER, SELFPAY ==
--- NOTE | 2022-03-31 15:09 | CA_ITS ---
Transthoracic Echocardiogram Patient (Last, First, Middle): Jenaro Mckenna M Gender: Female Date of : 1955 Age: 67 Procedure Date: 03/31/2022 Procedure Type: Transthoracic Echocardiogram Location: OP Height: 154.94 cm Weight: 65.77 kg BSA: 1.65 m2 Heart Rate: bpm BP: 124 / 80 mmHg Manager E Learning: Referring MD: Raudel Banks MD Symptoms: I50.30 - Unspecified diastolic (congestive) heart failure Study Quality: Fair ECG Rhythm: Sinus Conclusions: - The left ventricular systolic function is mildly decreased. The calculated ejection fraction is 47% by biplane method. - Evidence suggests grade II (moderate) diastolic dysfunction. - There is evidence of regional wall motion abnormalities. - There is moderately decreased right ventricular systolic function. - The left atrium is severely dilated. - There is moderate calcification of the aortic valve. - There is moderate mitral annular calcification. Findings Left Ventricle Normal left ventricular cavity size. There is normal left ventricular wall thickness. The left ventricular systolic function is mildly decreased. The calculated ejection fraction is 47% by biplane method. There is evidence of regional wall motion abnormalities. There is mild global hypokinesis. E/E prime ratio is >15, consistent with elevated filling pressures. Evidence suggests grade II (moderate) diastolic dysfunction. Wall Motion Rest Echo Findings The mid inferior segment is hypokinetic. The basal inferior segment is akinetic. Right Ventricle Normal right ventricular cavity size. There is moderately decreased right ventricular systolic function. Atria The left atrium is severely dilated. The right atrium is normal in size. Aortic Valve There is a normal trileaflet aortic valve. There is moderate calcification of the aortic valve. There is no aortic valve stenosis. There is trace (trivial) aortic valve regurgitation. Mitral Valve There is moderate mitral annular calcification. There is trace mitral valve regurgitation. There is no mitral valve stenosis. Pulmonic Valve The pulmonic valve is likely normal. There is trace pulmonic valve regurgitation. Tricuspid Valve Normal tricuspid valve structure. There is trace tricuspid valve regurgitation. The pulmonary artery systolic pressure is normal. Great Vessels The asc aorta is normal in size. Venous The inferior vena cava is normal in size and collapses greater than 50% with inspiration. Pericardium/Pleural There is no evidence of pericardial effusion. Prior Study Comparison Changes noted compared to prior study dated: 03/31/2022. See comments on wall motion. Not previously described. Measurements 2D Linear Measurements IVSd: 0.87 0.6-0.9/0.6-1.0 cm LVIDd: 4.76 3.9-5.3/4.2-5.9 cm LVIDd Index: 2.88 2.4-3.2/2.2-3.1 cm/m2 LVIDs: 3.74 2.0-3.6 cm LVPWd: 0.88 0.7-1.1 cm Ao Root: 3.30 2.1-3.5 cm LA Diam: 4.50 2.7-3.8/3.0-4.0 cm LAIDs Index: 2.73 1.5-2.3 cm/m2 LV Mass: 174.50 67-162/88-224 g LV Mass Index: 105.76 43-95/49-115 g/m2 LVOT Diam: 2.10 3.0+(-)1.3 cm 2D Systolic Function EF 4C: 51.60 >55% EF 2C: 41.90 >55% EF BiP: 47.00 >55% Mitral Valve MV Pk E: 0.94 MV PK A: 0.78 MV Decel Time: 170.00 E/A: 1.20 E'Lateral: 7.29 E'Medial: 2.83 E/E' Med: 33.30 E/E' Lat: 12.90 PHT: 50.00 MVA PHT: 4.40 Decel Hughes: 5.55 Aortic Valve AoV Pk Pancho: 1.48 AoV Mn Pancho: 0.98 AoV VTI: 0.33 AoV Pk Grad: 9.00 Aov Mn Grad: 5.00 NOHEMY Cont.VTI: 1.80 LVOT LVOT Pk Pancho: 0.77 LVOT Mn Pancho: 0.53 LVOT VTI: 0.17 LVOT Pk Grad: 2.00 LVOT Mn Grad: 1.00 LVOT Diam: 2.10 LVOT Area: 3.46 Diastolic Function MV Pk E: 0.94 MV Pk A: 0.78 E/A: 1.20 E'Medial: 2.83 E/E' Med: 33.30 E' Laterial: 7.29 E/E' Lat: 12.90 Tricuspid Valve TR Pk Pancho: 2.25 TR Pk Grad: 20.00 RA Press: 3.00 RVSP: 23.00 Great Vessels Aorta Ao Root-2D: 3.30 2.0-3.7 cm Ao Asc: 3.80 2.1-3.4 cm Pulmonary Valve PV Pk Pancho: 0.85 Peak PV Grad: 3.00 Updated in Other Vendor System with Status of Final Sergey Almaguer MD electronically signed on 04/02/2022 3:43:19 PM with status of Final
== END ==
LOC: HO.CARD 15:04
PROVIDERS: PCP Internal Medicine; Visit Provider Internal Medicine Cardiovascular Disease
DX: I50.30 Unspecified diastolic (congestive) heart failure (principal); I73.9 Peripheral vascular disease, unspecified
CPT/HCPCS: 93306; 99212

== ENCOUNTER 2022-04-06 17:18 | Emergency (ER) | payer OTHER, SELFPAY ==
--- NOTE | ~2022-04-06 | XR_ITS ---
EXAMINATION: BILATERAL TOES CLINICAL INFORMATION: Jammed left toe, necrotic right COMPARISON: Left foot 03/11/2022, right foot 03/11/2022 TECHNIQUE: 3 views left second toe, 3 views right first toe FINDINGS: Left: Mild degenerative changes are present at the DIP joints. No fracture is seen involving second toe. Vascular calcifications are present. Right: There is poor visualization of the cortex of the distal phalanx of the first digit with associated soft tissue swelling. There is also some generalized demineralization seen compared to the distal phalanges. Compared to the 03/11/2022 study, there's been no significant interval change. XR/XR toe RT min 2V IMPRESSION: No fracture is seen. Generalized indistinctness of distal cortex of distal right first phalanx. Some soft tissue swelling is seen. Although findings could be due to demineralization secondary to inflammatory change, the possibility of osteomyelitis cannot be entirely excluded. MRI may be useful for further evaluation if this is of clinical concern.
--- NOTE | ~2022-04-06 | XR_ITS ---
EXAMINATION: BILATERAL TOES CLINICAL INFORMATION: Jammed left toe, necrotic right COMPARISON: Left foot 03/11/2022, right foot 03/11/2022 TECHNIQUE: 3 views left second toe, 3 views right first toe FINDINGS: Left: Mild degenerative changes are present at the DIP joints. No fracture is seen involving second toe. Vascular calcifications are present. Right: There is poor visualization of the cortex of the distal phalanx of the first digit with associated soft tissue swelling. There is also some generalized demineralization seen compared to the distal phalanges. Compared to the 03/11/2022 study, there's been no significant interval change. XR/XR toe LT min 2V IMPRESSION: No fracture is seen. Generalized indistinctness of distal cortex of distal right first phalanx. Some soft tissue swelling is seen. Although findings could be due to demineralization secondary to inflammatory change, the possibility of osteomyelitis cannot be entirely excluded. MRI may be useful for further evaluation if this is of clinical concern.
[2022-04-06 17:36] VITALS: BP 138/78; PULSE 80
[2022-04-06 17:40] VITALS: BP 95/42; PULSE 79; RESP 16; TEMP 36.8; O2SAT 96; BMI 31.5
[2022-04-06 17:41] VITALS: BP 95/42; PULSE 81; RESP 16; TEMP 36.8; O2SAT 98
--- NOTE | 2022-04-06 17:48 | ED_ITS ---
HPI - General Adult General Chief complaint: Skin/Abscess/Foreign Body Stated complaint: R TOE PAIN X'S 2 MOTHS,HX DM,NECROTIC PER EMS Time Seen by Provider: 04/06/22 17:48 Source: patient and family Mode of arrival: EMS Limitations: language barrier History of Present Illness HPI narrative: Today after dialysis she injured her second to on the left. The necrotic toe is now worse. Family noticed blood coming from toe. Onset (ago): month(s) Pain Consistency: constant Related Data Home Medications Medication Instructions Recorded Confirmed atorvastatin 80 mg tablet 80 mg PO BEDTIME 10/08/20 03/27/22 blood sugar diagnostic #10 ea 10/08/20 03/10/22 docusate sodium 100 mg capsule 100 mg PO BID PRN 10/08/20 03/27/22 folic acid 1 mg tablet 1 mg PO BEDTIME 10/08/20 03/27/22 lancets 33 gauge #100 ea 10/08/20 03/10/22 metoprolol tartrate 50 mg tablet 50 mg PO BID 10/08/20 03/27/22 pantoprazole 40 mg tablet,delayed 40 mg PO BID 10/08/20 03/27/22 release fluticasone propionate 110 1 puff INHALATION BID 11/12/20 03/27/22 mcg/actuation HFA aerosol inhaler fluticasone propionate 50 1 - 2 spray INTRANASAL DAILY PRN 11/12/20 03/27/22 mcg/actuation nasal spray,suspension mycophenolate mofetil 250 mg 250 mg PO BID 11/12/20 03/27/22 capsule tacrolimus 1 mg capsule, 4 mg PO BID 11/12/20 03/27/22 immediate-release trazodone 50 mg tablet 50 mg PO BEDTIME 11/12/20 03/27/22 sertraline 50 mg tablet 50 mg PO DAILY 02/22/22 03/27/22 vitamin B complex and vitamin C 1 cap PO QPM 02/22/22 03/27/22 no.20-folic acid 1 mg capsule (Triphrocaps) mirtazapine 7.5 mg tablet 7.5 mg PO BEDTIME 03/10/22 03/27/22 sennosides 8.6 mg tablet (senna) 17.2 mg PO DAILY 03/10/22 03/27/22 sevelamer carbonate 800 mg tablet 800 mg PO TIDWM 03/10/22 03/27/22 gabapentin 100 mg capsule 0 mg PO 03/25/22 03/27/22 acetaminophen 500 mg tablet 500 mg PO Q8H PRN 03/31/22 Previous Rx's Medication Instructions Recorded pen needle, diabetic 31 gauge x #120 ea 10/08/20/ insulin aspart U-100 100 unit/mL 4 - 12 unit (0.04 - 0.12 mL) 07/08/21 (3 mL) subcutaneous pen (Novolog SUBCUT TID #15 ml Flexpen U-100 Insulin aspart) lisinopril 10 mg tablet 10 mg PO QAM 90 Days #90 tab 09/23/21 amiodarone 200 mg tablet 100 mg PO QAM 30 Days #15 tab 01/21/22 oxycodone 5 mg tablet 5 mg PO Q6H PRN #20 tab 03/13/22 insulin degludec 100 unit/mL (3 14 unit (0.14 mL) SUBCUT BEDTIME 03/17/22 mL) subcutaneous pen #0 ml apixaban 5 mg tablet (Eliquis) 5 mg PO BID #60 tab 03/25/22 Allergies Allergy/AdvReac Type Severity Reaction Status Date / Time No Known Allergies Allergy Verified 03/31/22 11:18 [No Known Allergies*] Review of Systems Constitutional: Constitutional: Reports no additional constitutional complaints Eyes: Eyes: Reports no additional eye complaints ENT: Denies dizziness Cardiovascular: Cardiovascular: Reports no additional cardiovascular complaints Respiratory: Respiratory: Reports as per HPI Gastrointestinal: Gastrointestinal: Reports no additional gastrointestinal complaints Genitourinary: Genitourinary: Reports no additional female genitourinary complaints Musculoskeletal: Musculoskeletal: Reports no additional musculoskeletal complaints Integumentary/Breasts: Skin/Breast: Denies rash Neurologic: Reports system reviewed and no additional complaints, except as documented, Denies dizziness and Denies Sensory deficit (Neuro) Psychiatric: Psychiatric: Denies anxiety PMFSH Past Medical History Medical History (HFpEF) heart failure with preserved ejection fraction A-V fistula Anemia Anemia Bilateral foot pain CAD (coronary artery disease) Chronic kidney disease, stage V COPD (chronic obstructive pulmonary disease) Diabetic nephropathy End stage renal disease ESRD (end stage renal disease) on dialysis History of alcoholism History of cardioversion History of GI bleed HTN (hypertension) Hypercoagulopathy Hyperlipidemia LDL goal <70 Kidney disease, chronic, end stage on dialysis Neuropathy On beta hero at home KIA (obstructive sleep apnea) Osteoarthritis Osteopenia PAD (peripheral artery disease) Paroxysmal atrial fibrillation Portal hypertension Proliferative diabetic retinopathy Type 2 diabetes mellitus with hyperglycemia, with long-term current use of insulin 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 Vascular disorder of lower extremity Surgical History History of biliary duct stent placement History of esophagogastroduodenoscopy (EGD) History of intravascular stent placement Hx of colonoscopy Liver transplant status S/P cardiac cath (~10/2018) Status post liver transplant Family History Family History Father No problems noted. Mother No problems noted. Brother Diabetes Social History Social History Household Members: Spouse and Family Household Members Other:: grandchild Housing: Apartment Do you presently have visiting nurse or other home services: Yes Alcohol intake: never Patient Tobacco Use Status: Never used Tobacco Advance Directives: Yes Advance Directives on File: Yes Advance Directives Date on File: 02/23/22 service: No Current occupational status: retired Physical Exam ED Vital Signs: Vital Signs - 24 hr 04/06/22 17:40 04/06/22 17:41 04/06/22 18:40 Temperature 98.2 F 98.2 F 98.0 F Pulse Rate 79 81 77 Respiratory Rate 16 16 16 Blood Pressure 95/42 L 95/42 L 91/48 L Pulse Oximetry 96 98 BMI result Body Mass Index 31.5 Const Other: female looking older than stated age Nutritional Appearance: average body habitus Orientation/consciousness: oriented to person and patient oriented x3 Limitations: language barrier HENMT Head: Yes normal to inspection Ears: external ears normal General nose exam: Normal external nose present Mouth: Normal oral and palatal mucosa present and oropharynx normal Throat: Yes posterior oropharynx normal Eyes General: appearance normal, both eyes and all related structures Neck Neck: Yes normal visual inspection Chest Chest palpation & inspection: normal inspection of the chest Resp Auscultation: clear to auscultation bilaterally Cardio Jugular venous distension: no JVD Rate: regular rate Rhythm: regular rhythm Heart sounds: S1 normal heart sound present and S2 normal heart sound present GI Inspection: Yes normal to inspection Palpation (GI): Soft to palpation, nontender and No hepatosplenomegaly present Auscultation: normal bowel sounds General: Yes no CVA tenderness Back/Spine/Pelvis Back: no CVA tenderness Skin General skin exam: no rashes or lesions noted Neuro General: oriented to person and patient oriented x3 Cranial nerves: Yes CN's II-XII intact bilaterally Motor exam (neuro): 5/5 motor strength present throughout Sensory Exam: No Sensory deficit (Neuro) Extrem Other: right first digit necrotic, left second digit with small blood Psych Appearance: grossly normal Course Reevaluation(s) Reevaluation #1: Discussed with Dr. Saavedra, he knows this patient well and she will need bilateral BKAs. He will explain in the office. No need for admission at this time. Time: 21:06 Medical Decision Making Lab Data Result diagrams: 04/06/22 19:12 04/06/22 19:12 Labs: Lab Results 04/06/22 04/06/22 04/06/22 Range/Units 19:12 19:12 19:12 WBC 5.4 (4.8-10.8) X10*3/uL RBC 3.56 L (4.20-5.50) X10*6/uL Hgb 9.1 L (12.0-16.0) g/dl Hct 30.9 L (37.0-47.0) % MCV 86.8 (80.0-98.0) fL MCH 25.6 L (27.0-33.0) pg MCHC 29.4 L (31.0-35.0) g/dl RDW 16.9 H (11.0-16.0) % Plt Count 180 D (160-400) X10*3/uL MPV 12.2 (9.4-12.3) fL Immature Gran % (Auto) 0.2 (0.0-0.4) % Neut % (Auto) 79.2 H (45-73) % Lymph % (Auto) 9.3 L (20-40) % Mccormick % (Auto) 10.7 (2-11) % Eos % (Auto) 0.4 (0-4) % Baso % (Auto) 0.2 (0-2) % Lymph # (Auto) 0.5 L (1.2-4.9) X10*3/uL Mccormick # (Auto) 0.6 (0.1-1.2) X10*3/uL Eos # (Auto) 0.0 (0.0-0.4) X10*3/uL Baso # (Auto) 0.0 (0.0-0.2) X10*3/uL Abs Immat Gran (auto) 0.01 (0.00-0.03) X10*3/uL Absolute Neuts (auto) 4.2 (2.0-8.3) x10*3/uL Absolute Nucleated RBC 0.000 (0.0-0.012) X10*3/uL Nucleated RBC % (auto) 0.0 (0.0-0.2) /100WBC ESR 34 H (0-20) MM/HR Sodium 140 (135-145) mmol/L Potassium 4.8 D (3.3-5.1) mmol/L Chloride 95 L (96-108) mmol/L Carbon Dioxide 32 H (22-29) mmol/L Anion Gap 18 (12-20) BUN 22 H (9-16) mg/dL Creatinine 4.04 H* (0.5-1.4) mg/dL Estim Creat Clear Calc 11.4 Estimated GFR 11 Random Glucose 193 H (60-115) mg/dL Calcium 9.8 (8.4-10.2) mg/dL Imaging Data toes left and right: Radiologist's impression: FINDINGS: Left: Mild degenerative changes are present at the DIP joints. No fracture is seen involving second toe. Vascular calcifications are present. Right: There is poor visualization of the cortex of the distal phalanx of the first digit with associated soft tissue swelling. There is also some generalized demineralization seen compared to the distal phalanges. Compared to the 03/11/2022 study, there's been no significant interval change. XR/XR toe RT min 2V IMPRESSION: No fracture is seen. Generalized indistinctness of distal cortex of distal right first phalanx. Some soft tissue swelling is seen. Although findings could be due to demineralization secondary to inflammatory change, the possibility of osteomyelitis cannot be entirely excluded. MRI may be useful for further evaluation if this is of clinical concern.? Discharge Plan Discharge Clinical Impression: Insufficiency, vascular, Dry gangrene Patient Disposition: Home, Self-Care Instructions: Gangrene (DC), Peripheral Vascular Disease (ED) Prescriptions: No Action insulin aspart U-100 [Novolog Flexpen U-100 Insulin] 100 unit/mL (3 mL) insulin pen 4 - 12 unit subcut TID Qty: 15 6RF lisinopril 10 mg tablet 10 mg PO QAM 90 Days Qty: 90 3RF Hold Instructions: Resume on 03/31/22. hold until blood pressure improves. amiodarone 200 mg tablet 100 mg PO QAM 30 Days Qty: 15 3RF Triphrocaps 1 mg capsule 1 cap PO QPM 0RF sertraline 50 mg tablet 50 mg PO DAILY 0RF oxycodone 5 mg tablet 5 mg PO Q6H PRN (Reason: pain (scale score 7-10)) Qty: 20 0RF insulin degludec 100 unit/mL (3 mL) insulin pen 14 unit subcut BEDTIME Qty: 0 0RF atorvastatin 80 mg tablet 80 mg PO BEDTIME 0RF (DME) blood sugar diagnostic Strip See Rx Instructions ea Not Applicable QID Qty: 10 0RF Rx Instructions: As directed (DME) lancets 33 gauge misc See Rx Instructions ea Not Applicable .MEDSUPPLY Qty: 100 0RF Rx Instructions: As directed folic acid 1 mg tablet 1 mg PO BEDTIME 0RF docusate sodium 100 mg capsule 100 mg PO BID PRN (Reason: Constipation) 0RF metoprolol tartrate 50 mg tablet 50 mg PO BID 0RF Hold Instructions: Resume on 03/25/22. hold until blood pressure improves. pantoprazole 40 mg tablet,delayed release (DR/EC) 40 mg PO BID 0RF (DME) pen needle, diabetic 31 gauge x 3/16 needle See Rx Instructions ea .ROUTE QID Qty: 120 11RF Rx Instructions: As directed 4 times a day fluticasone propionate 110 mcg/actuation HFA aerosol inhaler 1 puff inhalation BID 0RF tacrolimus 1 mg capsule 4 mg PO BID 0RF fluticasone propionate 50 mcg/actuation spray,suspension 1 - 2 spray intranasal DAILY PRN (Reason: Nasal Congestion) 0RF mycophenolate mofetil 250 mg capsule 250 mg PO BID 0RF trazodone 50 mg tablet 50 mg PO BEDTIME 0RF gabapentin 100 mg capsule 0 mg PO 0RF Eliquis 5 mg tablet 5 mg PO BID Qty: 60 5RF mirtazapine 7.5 mg tablet 7.5 mg PO BEDTIME 0RF sennosides [senna] 8.6 mg tablet 17.2 mg PO DAILY 0RF sevelamer carbonate 800 mg tablet 800 mg PO TIDWM 0RF acetaminophen 500 mg tablet 500 mg PO Q8H PRN (Reason: pain) 0RF Referrals: Woody Saavedra MD [Physician] - 2 days
[2022-04-06 18:40] VITALS: BP 91/48; PULSE 77; RESP 16; TEMP 36.7
[2022-04-06 19:17] LABS: MANUAL DIFF FLAG NO
[2022-04-06 19:20] LABS: Basophils Percent Auto 0.2 % (0-2); Eosinophils Percent Auto 0.4 % (0-4); Hematocrit 30.9 % (37.0-47.0); Hemoglobin 9.1 g/dl (12.0-16.0); Imm Gran Abs Auto 0.01 X10*3/uL (0.00-0.03); Imm Gran Pct Auto 0.2 % (0.0-0.4); Lymphocytes Absolute Auto 0.5 X10*3/uL (1.2-4.9); Lymphocytes Percent Auto 9.3 % (20-40); Mean Corpuscular HGB Conc 29.4 g/dl (31.0-35.0); Mean Corpuscular Hemoglobin 25.6 pg (27.0-33.0); Mean Corpuscular Volume 86.8 fL (80.0-98.0); Mean Platelet Volume 12.2 fL (9.4-12.3); Monocytes Absolute Auto 0.6 X10*3/uL (0.1-1.2); Monocytes Percent Auto 10.7 % (2-11); Neutrophils Absolute Auto 4.2 x10*3/uL (2.0-8.3); Neutrophils Percent Auto 79.2 % (45-73); Platelet Count 180 X10*3/uL (160-400); Red Blood Count 3.56 X10*6/uL (4.20-5.50); Red Cell Distribution Width 16.9 % (11.0-16.0); White Blood Count 5.4 X10*3/uL (4.8-10.8)
[2022-04-06 19:47] LABS: Anion Gap 18 (12-20); Blood Urea Nitrogen 22 mg/dL (9-16); Calcium 9.8 mg/dL (8.4-10.2); Carbon Dioxide 32 mmol/L (22-29); Chloride 95 mmol/L (96-108); Creatinine Clr Calc Pharmacy 11.4; Estimated Glomerular Filt Rate 11; Glucose Random 193 mg/dL (60-115); Potassium 4.8 mmol/L (3.3-5.1); Sodium 140 mmol/L (135-145)
[2022-04-06 20:10] LABS: Erythrocyte Sedimentation Rate 34 MM/HR (0-20)
== END 2022-04-06 21:57 | disposition home or self-care (01) ==
PROVIDERS: Emergency Provider Emergency Medicine; PCP Internal Medicine
DX: I73.9 Peripheral vascular disease, unspecified (principal); I96 Gangrene, not elsewhere classified; E11.22 Type 2 diabetes mellitus with diabetic chronic kidney disease; I13.2 Hypertensive heart and chronic kidney disease with heart failure and with stage 5 chronic kidney disease, or end stage renal disease; I50.30 Unspecified diastolic (congestive) heart failure; N18.6 End stage renal disease; Z99.2 Dependence on renal dialysis; E78.5 Hyperlipidemia, unspecified; I48.0 Paroxysmal atrial fibrillation; Z79.01 Long term (current) use of anticoagulants; Z79.02 Long term (current) use of antithrombotics/antiplatelets; Z79.4 Long term (current) use of insulin; Z79.899 Other long term (current) drug therapy
CPT/HCPCS: 36415; 73660; 80048; 85025; 85652; 99283

== ENCOUNTER 2022-04-21 05:47 | Outpatient (REF) | payer OTHER, SELFPAY ==
[2022-04-21 05:51] LABS: MANUAL DIFF FLAG NO
[2022-04-21 05:55] LABS: Basophils Percent Auto 0.4 % (0-2); Eosinophils Absolute Auto 0.2 X10*3/uL (0.0-0.4); Eosinophils Percent Auto 2.8 % (0-4); Hematocrit 25.9 % (37.0-47.0); Hemoglobin 7.8 g/dl (12.0-16.0); Imm Gran Abs Auto 0.07 X10*3/uL (0.00-0.03); Imm Gran Pct Auto 1.3 % (0.0-0.4); Lymphocytes Absolute Auto 0.8 X10*3/uL (1.2-4.9); Lymphocytes Percent Auto 15.1 % (20-40); Mean Corpuscular HGB Conc 30.1 g/dl (31.0-35.0); Mean Corpuscular Hemoglobin 25.8 pg (27.0-33.0); Mean Corpuscular Volume 85.8 fL (80.0-98.0); Mean Platelet Volume 11.7 fL (9.4-12.3); Monocytes Percent Auto 19.4 % (2-11); Neutrophils Absolute Auto 3.3 x10*3/uL (2.0-8.3); Platelet Count 193 X10*3/uL (160-400); Red Blood Count 3.02 X10*6/uL (4.20-5.50); Red Cell Distribution Width 18.2 % (11.0-16.0); White Blood Count 5.4 X10*3/uL (4.8-10.8)
[2022-04-21 06:19] LABS: Alanine Aminotransferase 15 U/L (0-31); Albumin Level 2.2 g/dL (3.5-5.0); Alkaline Phosphatase 128 U/L (39-117); Anion Gap 12 (12-20); Aspartate Amino Transferase 21 U/L (5-31); Bilirubin Total 0.3 mg/dL (0.0-1.0); Blood Urea Nitrogen 17 mg/dL (9-16); Calcium 8.7 mg/dL (8.4-10.2); Carbon Dioxide 32 mmol/L (22-29); Chloride 98 mmol/L (96-108); Estimated Glomerular Filt Rate 9; Glucose Random 154 mg/dL (60-115); Potassium 4.4 mmol/L (3.3-5.1); Sodium 138 mmol/L (135-145); Total Protein 4.2 g/dL (6.5-8.0)
== END 2022-04-21 05:48 | disposition home or self-care (01) ==
LOC: HO.MMNH1L 05:47
PROVIDERS: Visit Provider Family Medicine
DX: I73.9 Peripheral vascular disease, unspecified (principal); E11.9 Type 2 diabetes mellitus without complications; N18.6 End stage renal disease; Z99.2 Dependence on renal dialysis
CPT/HCPCS: 36415; 80053; 85025

== ENCOUNTER 2022-04-27 06:19 | Outpatient (REF) | payer OTHER, SELFPAY ==
[2022-04-27 06:22] LABS: MANUAL DIFF FLAG NO
[2022-04-27 06:58] LABS: Basophils Percent Auto 0.5 % (0-2); Eosinophils Absolute Auto 0.2 X10*3/uL (0.0-0.4); Eosinophils Percent Auto 1.8 % (0-4); Hematocrit 30.8 % (37.0-47.0); Hemoglobin 9.3 g/dl (12.0-16.0); Imm Gran Abs Auto 0.09 X10*3/uL (0.00-0.03); Lymphocytes Absolute Auto 1.6 X10*3/uL (1.2-4.9); Mean Corpuscular HGB Conc 30.2 g/dl (31.0-35.0); Mean Corpuscular Hemoglobin 26.2 pg (27.0-33.0); Mean Corpuscular Volume 86.8 fL (80.0-98.0); Monocytes Percent Auto 11.8 % (2-11); Neutrophils Absolute Auto 5.8 x10*3/uL (2.0-8.3); Neutrophils Percent Auto 66.9 % (45-73); Platelet Count 284 X10*3/uL (160-400); Red Blood Count 3.55 X10*6/uL (4.20-5.50); Red Cell Distribution Width 20.4 % (11.0-16.0); White Blood Count 8.7 X10*3/uL (4.8-10.8)
[2022-04-27 07:38] LABS: Anion Gap 23 (12-20); Blood Urea Nitrogen 24 mg/dL (9-16); Calcium 9.3 mg/dL (8.4-10.2); Carbon Dioxide 22 mmol/L (22-29); Chloride 96 mmol/L (96-108); Estimated Glomerular Filt Rate 7; Glucose Random 122 mg/dL (60-115); Potassium 5.1 mmol/L (3.3-5.1); Sodium 136 mmol/L (135-145)
== END 2022-04-27 06:20 | disposition home or self-care (01) ==
LOC: HO.MMNH1L 06:19
PROVIDERS: Visit Provider Family Medicine
DX: N18.6 End stage renal disease (principal)
CPT/HCPCS: 36415; 80048; 85025

== ENCOUNTER 2022-05-04 05:00 | Outpatient (REF) | payer OTHER, SELFPAY | END 2022-05-04 05:01 | disposition home or self-care (01) | LOC: HO.MMNH1L 05:00 | PROVIDERS: Visit Provider Family Medicine | DX: Z13.89 Encounter for screening for other disorder (principal) ==

== ENCOUNTER 2022-05-06 06:25 | Outpatient (REF) | payer OTHER, SELFPAY ==
[2022-05-06 06:30] LABS: Hematocrit 29.5 % (37.0-47.0); Mean Corpuscular HGB Conc 30.5 g/dl (31.0-35.0); Mean Corpuscular Hemoglobin 25.6 pg (27.0-33.0); Mean Corpuscular Volume 83.8 fL (80.0-98.0); Mean Platelet Volume 10.1 fL (9.4-12.3); Platelet Count 162 X10*3/uL (160-400); Red Blood Count 3.52 X10*6/uL (4.20-5.50); Red Cell Distribution Width 18.2 % (11.0-16.0); White Blood Count 5.1 X10*3/uL (4.8-10.8)
[2022-05-06 07:00] LABS: Alanine Aminotransferase 12 U/L (0-31); Albumin Level 1.9 g/dL (3.5-5.0); Alkaline Phosphatase 155 U/L (39-117); Anion Gap 16 (12-20); Aspartate Amino Transferase 16 U/L (5-31); Bilirubin Total 0.2 mg/dL (0.0-1.0); Blood Urea Nitrogen 20 mg/dL (9-16); Calcium 8.4 mg/dL (8.4-10.2); Carbon Dioxide 27 mmol/L (22-29); Chloride 99 mmol/L (96-108); Estimated Glomerular Filt Rate 7; Glucose Random 140 mg/dL (60-115); Potassium 3.5 mmol/L (3.3-5.1); Sodium 138 mmol/L (135-145); Total Protein 3.9 g/dL (6.5-8.0)
== END 2022-05-06 06:26 | disposition home or self-care (01) ==
LOC: HO.MMNH2L 06:25
PROVIDERS: Visit Provider Family Medicine
DX: E11.9 Type 2 diabetes mellitus without complications (principal); I10 Essential (primary) hypertension
CPT/HCPCS: 36415; 80053; 85027

== ENCOUNTER 2022-05-12 05:45 | Outpatient (REF) | payer OTHER, SELFPAY ==
[2022-05-12 05:47] LABS: MANUAL DIFF FLAG NO
[2022-05-12 05:55] LABS: Basophils Percent Auto 0.6 % (0-2); Eosinophils Absolute Auto 0.1 X10*3/uL (0.0-0.4); Eosinophils Percent Auto 2.1 % (0-4); Hematocrit 28.8 % (37.0-47.0); Hemoglobin 8.7 g/dl (12.0-16.0); Imm Gran Abs Auto 0.06 X10*3/uL (0.00-0.03); Imm Gran Pct Auto 1.1 % (0.0-0.4); Lymphocytes Absolute Auto 0.7 X10*3/uL (1.2-4.9); Lymphocytes Percent Auto 13.6 % (20-40); Mean Corpuscular HGB Conc 30.2 g/dl (31.0-35.0); Mean Corpuscular Hemoglobin 26.5 pg (27.0-33.0); Mean Corpuscular Volume 87.8 fL (80.0-98.0); Mean Platelet Volume 11.1 fL (9.4-12.3); Monocytes Absolute Auto 0.8 X10*3/uL (0.1-1.2); Monocytes Percent Auto 14.5 % (2-11); Neutrophils Absolute Auto 3.6 x10*3/uL (2.0-8.3); Neutrophils Percent Auto 68.1 % (45-73); Platelet Count 164 X10*3/uL (160-400); Red Blood Count 3.28 X10*6/uL (4.20-5.50); Red Cell Distribution Width 20.7 % (11.0-16.0); White Blood Count 5.2 X10*3/uL (4.8-10.8)
[2022-05-12 06:24] LABS: Anion Gap 13 (12-20); Blood Urea Nitrogen 28 mg/dL (9-16); Calcium 8.5 mg/dL (8.4-10.2); Carbon Dioxide 34 mmol/L (22-29); Chloride 96 mmol/L (96-108); Estimated Glomerular Filt Rate 10; Glucose Random 243 mg/dL (60-115); Potassium 2.9 mmol/L (3.3-5.1); Sodium 140 mmol/L (135-145)
== END 2022-05-12 05:46 | disposition home or self-care (01) ==
LOC: HO.MMNH2L 05:45
PROVIDERS: Visit Provider Family Medicine
DX: N18.6 End stage renal disease (principal)
CPT/HCPCS: 36415; 80048; 85025

== ENCOUNTER 2022-05-19 06:47 | Outpatient (REF) | payer OTHER, SELFPAY ==
[2022-05-19 06:57] LABS: Anion Gap 11 (12-20); Blood Urea Nitrogen 20 mg/dL (9-16); Calcium 8.6 mg/dL (8.4-10.2); Carbon Dioxide 35 mmol/L (22-29); Chloride 98 mmol/L (96-108); Estimated Glomerular Filt Rate 12; Glucose Random 199 mg/dL (60-115); Potassium 3.5 mmol/L (3.3-5.1); Sodium 140 mmol/L (135-145)
[2022-05-19 06:59] LABS: Hematocrit 30.8 % (37.0-47.0); Hemoglobin 9.3 g/dl (12.0-16.0); Mean Corpuscular HGB Conc 30.2 g/dl (31.0-35.0); Mean Corpuscular Volume 89.5 fL (80.0-98.0); Mean Platelet Volume 11.6 fL (9.4-12.3); Platelet Count 203 X10*3/uL (160-400); Red Blood Count 3.44 X10*6/uL (4.20-5.50); Red Cell Distribution Width 20.4 % (11.0-16.0); White Blood Count 5.1 X10*3/uL (4.8-10.8)
== END 2022-05-19 06:48 | disposition home or self-care (01) ==
LOC: HO.MMNH2L 06:47
PROVIDERS: Visit Provider Family Medicine
DX: N18.6 End stage renal disease (principal)
CPT/HCPCS: 36415; 80048; 85027

== ENCOUNTER 2022-05-25 06:29 | Outpatient (REF) | payer OTHER, SELFPAY ==
[2022-05-25 06:30] LABS: MANUAL DIFF FLAG NO
[2022-05-25 06:55] LABS: Basophils Percent Auto 0.5 % (0-2); Eosinophils Absolute Auto 0.1 X10*3/uL (0.0-0.4); Eosinophils Percent Auto 2.2 % (0-4); Hematocrit 28.7 % (37.0-47.0); Hemoglobin 8.5 g/dl (12.0-16.0); Imm Gran Abs Auto 0.01 X10*3/uL (0.00-0.03); Imm Gran Pct Auto 0.2 % (0.0-0.4); Lymphocytes Absolute Auto 0.9 X10*3/uL (1.2-4.9); Mean Corpuscular HGB Conc 29.6 g/dl (31.0-35.0); Mean Corpuscular Hemoglobin 25.8 pg (27.0-33.0); Mean Corpuscular Volume 87.2 fL (80.0-98.0); Mean Platelet Volume 11.2 fL (9.4-12.3); Monocytes Absolute Auto 0.7 X10*3/uL (0.1-1.2); Monocytes Percent Auto 17.6 % (2-11); Neutrophils Absolute Auto 2.3 x10*3/uL (2.0-8.3); Neutrophils Percent Auto 57.5 % (45-73); Platelet Count 146 X10*3/uL (160-400); Red Blood Count 3.29 X10*6/uL (4.20-5.50); Red Cell Distribution Width 17.8 % (11.0-16.0)
[2022-05-25 07:42] LABS: Anion Gap 13 (12-20); Blood Urea Nitrogen 29 mg/dL (9-16); Calcium 9.2 mg/dL (8.4-10.2); Carbon Dioxide 33 mmol/L (22-29); Chloride 96 mmol/L (96-108); Glucose Random 142 mg/dL (60-115); Potassium 4.5 mmol/L (3.3-5.1); Sodium 137 mmol/L (135-145)
[2022-05-25 08:12] LABS: Estimated Glomerular Filt Rate 8
== END 2022-05-25 06:30 | disposition home or self-care (01) ==
LOC: HO.MMNH2L 06:29
PROVIDERS: Visit Provider Family Medicine
DX: N18.6 End stage renal disease (principal)
CPT/HCPCS: 36415; 80048; 85025

== ENCOUNTER 2022-06-01 05:00 | Outpatient (REF) | payer OTHER, SELFPAY | END 2022-06-01 05:01 | disposition home or self-care (01) | LOC: HO.MMNH2L 05:00 | PROVIDERS: Visit Provider Family Medicine | DX: Z13.89 Encounter for screening for other disorder (principal) ==